=== PATIENT | male | born 1995 | race Caucasian/White ===

== ENCOUNTER 2017-07-03 12:43 | Emergency (ER) | payer MEDICAID, SELFPAY ==
[2017-07-03 12:43] VITALS: BP 113/67; PULSE 98; RESP 16; TEMP 36.9; O2SAT 100; BMI 20.9
--- NOTE | 2017-07-03 13:00 | CT_ITS ---
STUDY: CT ORBITS WITH CONTRAST REASON FOR EXAM: Male, 21 years old. RIGHT EYE ABSCESS. RADIATION DOSAGE (If Supplied By Facility): CTDIvol = ( 29.38 ) mGy, DLP = ( 437.27 ) mGycm TECHNIQUE: The patient was scanned in a multi detector CT scanner. Transaxial imaging was performed following the intravenous administration of 100 ml of Isovue 300 contrast material. Sagittal and coronal images were reconstructed. Individualized dose optimization techniques were used for this CT. COMPARISON: None. FINDINGS: There is marked right periorbital swelling. There is approximately 1.7 x 4.0 cm fluid collection anterior and inferior the right globe (axial image #28 series 2 and sagittal image #58 series 602). There is no retrobulbar infiltration. Additionally there is superficial soft tissue fluid collection which appears to communicate with the skin measuring approximately 1 cm (axial image #19 series 2) Normal globes. Normal intraconal spaces. Normal optic nerve sheath complex. Normal bilateral extraocular muscles. Normal lacrimal glands. Normal bilateral medial and inferior orbital rodriguez. Normal bilateral maxillary bones. Normal bilateral frontozygomatic arches. Normal bilateral zygomatic temporal arches. Normal frontal sinus. Normal ethmoidal sinuses. Normal maxillary sinuses. Normal sphenoid sinuses. CT/Orb Sella Post Fossa Ear W/CON IMPRESSION: 4 cm right periorbital/orbital abscess as described above. Ophthalmology consultation can be obtained. N.B. : The above information has been verbally conveyed by Terrence Seth MD to Dr. Shashank Houser , Referring Physician, on 07/03/2017 14:16:33 (ET). Electronically Signed: Terrence Seth MD at 14:16 EST Tel , Service support , N.B. : The above information has been verbally conveyed by Terrence Seth MD to Dr. Shashank Houser , Referring Physician, on 07/03/2017 14:16:33 (ET).
[2017-07-03 13:28] LABS: Absolute Lymphocyte Count 1.37 X10^3/ul (0.83-4.51); Absolute Neutrophil Count 8.7 X10^3/uL (2.0-7.7); Basophil# 0.03 X10^3/uL; Basophil% 0.3 % (0-1); Eosinophil# 0.08 X10^3/uL; Eosinophils% 0.7 % (0-5); Hemoglobin 14.1 g/dl (13.0-16.5); Lymphocyte # 1.37 X10^3/ul (4.0); Mean Corp Hgb Conc 34.4 g/gl (32-36); Mean Corpuscular Hgb 30.9 pg (27.0-32.0); Mean Corpuscular Volume 89.7 fL (80-94); Mean Platelet Vol. 9.3 fl (6.2-12.0); Monocyte# 1.32 X10^3/uL; Monocyte% 11.5 % (0-10); Neutrophil # 8.65 X10^3/uL (2.7-7.7); Neutrophil % 75.4 % (47-70); POSITIVE COUNT NO; POSITIVE DIFFERENTIAL NO; POSITIVE MORPHOLOGY NO; Platelet Count 228 K/mm3 (150-450); RBC Distribution Width CV 12.5 % (11.6-14.6); RBC Distribution Width SD 40.7 fl (35.1-43.9); Red Blood Count 4.57 M/mm3 (4.6-6.2); White Blood Count 11.5 K/mm3 (4.4-11.0)
[2017-07-03 13:45] LABS: Lactic Acid 0.9 mmol/L (0.4-2.0)
[2017-07-03 13:50] LABS: ALB/GLOB Ratio 1.1 RATIO (0.9-2.4); AST(SGOT) 28 U/L (15-37); Alanine Aminotransfer ALT/SGPT 58 U/L (12-78); Alkaline Phosphatase 73 U/L (45-117); Anion Gap 8 (5-15); BUN 9 mg/dL (7-18); BUN/Creat Ratio 11.1 RATIO (10-20); Calcium,Total 9.1 mg/dL (8.5-10.1); Chloride 104 mmol/L (98-107); Creatinine, Serum 0.81 mg/dL (0.70-1.30); EST Glomerular Filtration Rate 129 mL/min (>60); Est Glom Filt Rate - Afr Amer 156 mL/min (>60); Globulin 3.7 g/dL (2.2-4.2); Glucose 84 mg/dL (70-110); Protein, Total 7.7 g/dL (6.4-8.2); Sodium Level 139 mmol/L (136-145)
--- NOTE | 2017-07-03 16:06 | ED.VISSUMM ---
- ER Visit Summary Date of Service: 07/03/17 Chief Complaint: Facial swelling History of Present Illness: The patient is a 21 M who states that 2 days ago he popped a pimple on his right maxillary sinus region. Now he has diffuse right facial swelling and erythema. His lower eyelid is significantly swollen. He notes pain. No visual changes. No fevers. He notes he has had an abscess on his leg and on his neck before. He has a history of bipolar disorder. Physical Examination: Afebrile vital signs stable Gen: Well-nourished well-developed Head: Normocephalic atraumatic Eyes: Perrl EOMI the right inferior eyelid is grossly edematous. There is erythema extending to the maxillary sinus. Over the maxillary sinus is a draining pustule. That area is rather firm but the eyelid area is fluctuant. Visual acuity noted and unchanged per the patient ENT: TMs clear no rhinorrhea moist mucous membranes Neck: Supple no lymphadenopathy no JVD nontender CVS: Regular rate rhythm no murmurs normal S1-S2 Respiratory: No distress clear to auscultation bilaterally chest nontender Abdomen: Soft nontender nondistended normal bowel sounds no masses Back: Nontender Extremity: Nontender no edema Skin: Normal color no rash Neuro: alert orientated ?3 CN II-XII intact normal strength sensation reflexes gait cerebellar Psych: Normal affect normal mood Test Results: Slightly elevated white blood cell count. CT of the orbits with IV contrast demonstrates a 4 cm right periorbital and orbital abscess. Noted 1 cm abscess that is the original pustule. Clinically this appears to be draining. Radiologist told me on the phone he is concerned about possible elevation of the globe. Emergency Department Course and Treatment: Blood cultures were obtained. He received vancomycin and Zosyn. I spoke initially with Dr. Liu from ophthalmology who will be happy to follow up with the patient in the office tomorrow at 8 AM. He did state that if it needed to be drained they usually send their cases out. In speaking with this patient gave me the distinct impression while not saying that directly that follow-up was not going to happen. Obviously this is something that needs extremely close follow-up and I am not willing to lose him in follow-up. I spoke with [facility] ophthalmology and the patient will be transferred there for ophthalmologic care tonight. Patient understands her plan is comfortable with it. I have kept him n.p.o. though the patient consistently asked staff members if he can eat despite being explained that he cannot. Impression: 1. 4 cm periorbital and orbital abscess This note was generated with [employer] dictation software. It may contain incorrect words, spelling, and punctuation that were not noted in review of the chart prior to signing ED Disposition - Plan for ED Patient: Chief Complaint: Cellulitis Referrals: Hill Mao MD [Primary Care Provider] -
[2017-07-03] MEDS: HYDROcodone Bitartrate/Apap 5/325 Tablet PO (16:29)
[2017-07-03 16:51] VITALS: BP 130/72; PULSE 85; RESP 14; O2SAT 100
== END 2017-07-03 17:55 | disposition short-term general hospital (02) ==
PROVIDERS: Emergency Provider Emergency Medicine; Family Provider Pediatrics; PCP Pediatrics
DX: H05.011 Cellulitis of right orbit (principal); Z72.0 Tobacco use
CPT/HCPCS: 36415; 70481; 80053; 83605; 85025; 87040; 96365; 96366; 99285; A4216

== ENCOUNTER 2020-02-12 10:52 | Day surgery (SDC) | payer MEDICAID, SELFPAY ==
--- NOTE | 2020-02-11 10:06 | PCM.HP.BLA ---
History and Physical Date of Admission: 02/12/20 Clement Almeida a 24 year old male who is follow up regarding what looked like tobacco in my vomit. ? RUQ US and HIDA scan were unremarkable. Component Latest Ref Rng & Units 12/26/2019 H. pylori IgG, Qualitative Negative Negative H pylori Ab, IgG U/mL <0.4 ? Component Latest Ref Rng & Units 12/17/2019 Protein, Total 6.3 - 8.0 g/dL 7.4 Albumin 3.9 - 4.9 g/dL 4.2 Calcium 8.5 - 10.2 mg/dL 9.5 Bilirubin, Total 0.2 - 1.3 mg/dL 0.5 Alkaline Phosphatase 38 - 113 U/L 66 AST 14 - 40 U/L 83 (H) Glucose 74 - 99 mg/dL 86 BUN 9 - 24 mg/dL 4 (L) Creatinine 0.73 - 1.22 mg/dL 0.81 Sodium 136 - 144 mmol/L 137 Potassium 3.7 - 5.1 mmol/L 3.8 Chloride 97 - 105 mmol/L 100 CO2 22 - 30 mmol/L 26 Anion Gap 9 - 18 mmol/L 11 ALT 10 - 54 U/L 115 (H) eGFR- ? >60 eGFR-All Other Races . >60 Amylase 30 - 104 U/L 41 Lipase 16 - 61 U/L 20 ? Component Latest Ref Rng & Units 12/17/2019 WBC 3.70 - 11.00 k/uL 9.67 RBC 4.20 - 6.00 m/uL 4.92 Hemoglobin 13.0 - 17.0 g/dL 14.6 Hematocrit 39.0 - 51.0 % 43.5 MCV 80.0 - 100.0 fL 88.4 MCH 26.0 - 34.0 pG 29.7 MCHC 30.5 - 36.0 g/dL 33.6 RDW-CV 11.5 - 15.0 % 12.8 Platelet Count 150 - 400 k/uL 204 MPV 9.0 - 12.7 fL 11.3 Neut% % 67.3 Abs Neut (ANC) 1.45 - 7.50 k/uL 6.50 Lymph% % 18.8 Abs Lymph 1.00 - 4.00 k/uL 1.82 Rock% % 10.2 Abs Rock <0.87 k/uL 0.99 (H) Eosin% % 3.2 Abs Eosin <0.46 k/uL 0.31 Baso% % 0.5 Abs Baso <0.11 k/uL 0.05 Nucleated Reds 0 /100 WBC 0.0 Absolute nRBC <0.01 k/uL <0.01 Diff Type ? Auto Diff ? ? The patient called in on 01/02 reporting : Patient reports he feels fine today. ?The pantoprazole is helping. ?He started taking lamictal from the counseling center. ?Is also taking zofran and probiotic. ?Reports a couple days ago he vomited once, had not eaten that day- he took a picture of it, and states the vomit was scattered black, like tobacco. ? ? ? Presenting complaint: The patient reports that he vomited and there was a few black specks.Tells me it didn't look like the picture on [employer], so there must not have been much blood. The day it happened he had taken all of his medications without eating. If he doesn't eat with them he will get sick. ? States it's like my stomach is bipolar. I'll just keep throwing it up and throwing up for days. Then, I might be ok for a few days, as long as I only eat just a little bit at a time. He thinks the pantoprazole is helping. Reports that he is also taking probiotics. ? Reports that he seems to do well as long as he eats and takes Zofran. States I'd really like to know why I keep doing this. We discussed EGD and he agrees that he would like to proceed, however it would need to be in [place] since his mother only drives in town. ? Reporting a decreased appetite and early satiety. No heartburn or indigestion. ? Usually eats about 4am and heads to bed about 8am. Sleeps on a regular pillow top mattress with the head of the bed flat. ? Having a bowel movement once or twice daily. No blood or black stool. ? REVIEW OF SYSTEMS: GENERAL: No weight loss, malaise or fevers RESPIRATORY: Negative for cough, hemoptysis, wheezing, COPD, dyspnea or shortness of breath CARDIOVASCULAR: Negative for chest pain, leg swelling, hypertension, CHF or palpitations GI: The patient states that his appetite has been adequate. He sometimes get hungry. There has been nausea, some vomiting. He denies dysphagia and denies odynophagia. There has been indigestion and heartburn until starting the pantoprazole. There has partially been regurgitation. Bowel habits have been regular. There has not been diarrhea. There has not been constipation. The patient denies rectal bleeding. There has not been melena. Notes abdominal pain gas pain. MUSCULOSKELETAL: Negative for joint pain or swelling, back pain or muscle pain PSYCH: Positive for depression: PTSD and bipolar. HEMATOLOGY/LYMPHOLOGY Negative for prolonged bleeding, bruising easily or swollen nodes ENDOCRINE: Negative for cold or heat intolerance, polyuria, polydipsia and goiter NEURO: No history of headaches, syncope, paralysis, seizures or tremors All other reviewed and negative other than HPI. ? PAST MEDICAL HISTORY ? Anxiety 07/05/2012 ? Asperger syndrome 07/05/2012 ? Attention deficit disorder with hyperactivity(314.01) ? ? Eczema 12/08/2012 ? History of bipolar disorder 08/05/2015 ? History of depression 08/05/2015 ? History of posttraumatic stress disorder (PTSD) 08/05/2015 ? Mood disorder (HCC) 12/08/2012 ? ODD (oppositional defiant disorder) 07/05/2012 ? PMH - PAST MEDICAL HISTORY OF 10/11/03 ? normal color vision ? ? PAST SURGICAL HISTORY ? CIRCUMCISION,CLAMP, ? ?? FAMILY HISTORY ? other (heart disease) Other ? ? maternal and paternal side ? Cancer Other ? ? maternal and paternal side ? other (lupus) Other ? ? great aunt,second cousin and great grandmother ? ? CURRENT MEDICATIONS ? pantoprazole DR (PROTONIX) 40 mg tablet Take 1 tablet by mouth daily before breakfast. Take on empty stomach, 1/2 hr before meal. 30 tablet 1 ? tretinoin (RETIN-A) 0.025 % gel Apply to affected area daily at bedtime. 45 g 0 ? clindamycin-benzoyl peroxide 1-5 % glwp Apply to affected area once daily. Apply in the morning 50 g 0 ? ondansetron orally disintegrating (ZOFRAN ODT) 4 mg disintegrating tablet Take 1 tablet by mouth every 8 hours as needed for Nausea/Vomiting. 15 tablet 0 ? naproxen (NAPROSYN) 500 mg tablet Take 1 tablet by mouth twice daily as needed for Pain (pain/inflammation, take with food.). 30 tablet 0 ? OLANZapine (ZYPREXA) 5 mg tablet Take 5 mg by mouth daily at bedtime. ? ? ? prazosin (MINIPRESS) 1 mg cap Take 1 mg by mouth daily at bedtime. ? ? ? albuterol HFA (PROVENTIL HFA, VENTOLIN HFA) 90 mcg/actuation inhaler Inhale 2 Puffs as instructed every 6 hours as needed for Wheezing/Shortness of Breath. 1 Inhaler 2 ? flunisolide (AEROSPAN) 80 mcg/actuation HFAA Inhale 2 Puffs as instructed twice daily. 1 Inhaler 5 ?? ? SOCIAL HISTORY: Patient is single. He smokes 1.5 ppd and smokes cannabis occasionally. He reports his alcohol use as very rarely. ? ? PHYSICAL EXAMINATION: Blood pressure 110/74, pulse 88, height 181.6 cm (5' 11.5), weight 78 kg (172 lb). General Appearance: Well appearing, alert, in no acute distress, well-hydrated, well nourished. Skin: Skin color, texture, turgor normal, no suspicious rashes or lesions. Head: Normocephalic, no abnormalities. Eyes: Anicteric sclera. Neck: Supple, no adenopathy; thyroid symmetric, normal size, no bruits. Lungs: Lungs clear to auscultation. No wheezing, rhonchi, rales. Heart: RRR without murmur. Abdomen: Abdomen soft, non-tender. Bowel sounds normal. No masses, organomegaly. Extremities: No deformities, edema, skin discoloration, clubbing or cyanosis. Peripheral Pulses: Normal. Neurologic: Gait normal. Sensation grossly intact. ? ? Impression: nausea and vomiting 2)mental disorder ? Plan: The patient is scheduled for upper endoscopy. Preparation for the procedure and the procedure itself have been explained in detail. The risks, benefits, anticipated outcomes and possible complications were mentioned. I also explained the procedure in understandable terms and the patient will be mailed printed material concerning the planned procedure. The patient had the opportunity to ask questions concerning the planned procedure. The patient was offered a surgery/procedure . I have counseled the patient regarding the risk of exposure to and/or potential harm posed by the COVID-19 virus with having a surgery/procedure at this time versus the risk of? delaying the surgery/procedure. It is not possible to know either the risk of delaying the surgery or procedure or chance of getting an infection with perfect accuracy, but a joint decision was made between the patient and myself?to proceed at this time with the surgery/procedure. The patient freely consents to the planned procedure. ? The patient will require MAC and his transportation (mother) will only drive in town. ? The patient is asked to call with any questions or concerns, or if there is a change in health status between now and the scheduled procedure. ? Lucille Yanes RN AIR SEALING TECHNICIAN.SIGNAL INTELLIGENCE/ELECTRONIC WARFARE
[2020-02-12] VITALS (7 sets, daily range): BP systolic 99–133; BP diastolic 57–86; PULSE 74–85; RESP 16; TEMP 36.1–36.4; O2SAT 93–98; BMI 23.8
[2020-02-12] MEDS: Lactated Ringers 1,000 ML 75 ML IV (11:32)
--- NOTE | 2020-02-12 12:00 | IMM_PTH ---
PATIENT: KUMAR HARRISON LOC: EN U#:[id number] AGE/SX: 24/M ROOM: RE02/12/[address]: Dr. Romelia Funes MD : 1995 BED: DIS: 02/12/2020 SPEC #: [id number] RECD: 02/13/20 13:27 STATUS: JOSEPH REQ #: [id number] SATHYA: 02/12/20 12:[address]: Romelia Funes DEPT: IMMUNOHISTOCHEMISTRY RECD BY: Marimar Hood ENTERED: 02/13/20 13:28 SP TYPE: IMMUNO OTHR DR: Shashank Kuhn, BAKING POWDER MIXER-C Tissues: B - Stomach, NOS Procedures: H Pylori (initial) PHYSICIAN & INSTITUTION [place] [id number] SPECIMEN INFORMATION: Tissue Source: B - Antrum biopsy Clinical Info: Nausea, vomiting Specimen Number: [id number] CPT code: 07083 METHODOLOGY: Deparaffinized sections of prefer/formalin-fixed tissue or PAP/DQ stained slides are incubated with monoclonal/polyclonal antibodies/oligonucleotide probes. Localization is made via biotin free immunoperoxidase method. Appropriate controls are performed and reacted as expected. Results on target cell population are indicated in the following table: RESULTS: ANTIBODY / CLONE RESULT Block B H Pylori (polyclonal) negative These tests were developed and their performance characteristics determined by [facility]. They may not have been cleared or approved by the U.S. Food and Drug Administration. The FDA has determined that such clearance or approval is not necessary. INTERPRETATION: B. Antrum biopsy: Negative for Helicobacter pylori organisms. SJ:franchesca 02/14/20
--- NOTE | 2020-02-12 12:00 | EGD_PTH ---
PATIENT: KUMAR HARRISON LOC: EN U#:[id number] AGE/SX: 24/M ROOM: RE02/12/[address]: Dr. Romelia Funes MD : 1995 BED: DIS: 02/12/2020 SPEC #: [id number] RECD: 02/12/20 14:43 STATUS: JOSEPH LIAM #: [id number] SATHYA: 02/12/20 12:[address]: Romelia Funes DEPT: SURGICAL PATHOLOGY RECD BY: Theresa Veliz ENTERED: 02/13/20 13:26 SP TYPE: EGD BIOPSY OTHR DR: Shashank Kuhn, BARREL ASSEMBLY INSPECTOR-C Tissues: A - Duodenum, NOS B - Gastric mucous membrane C - Gastric mucous membrane D - Esophagus, NOS Procedures: Special Stain Group II Surgery Specimen Level IV Alcian Blue/PAS (control) HEADER OPERATION: EGD ([facility] [place]) PRE-OP DIAGNOSIS: Nausea, vomiting TISSUE SUBMITTED: A - Second portion duodenum biopsy, B - Antrum biopsy for histo and H. pylori, C - GE junction biopsy, D - Mid esophagus biopsy MICROSCOPIC DIAGNOSIS A. Second portion of duodenum, biopsy: Fragments of small intestine mucosa, no pathologic diagnosis. B. Antrum biopsy: Mild gastritis. See microscopic description and comment. C. GE junction, biopsy: Fragments of gastroesophageal mucosa with mild chronic inflammation. Intestinal metaplasia (goblet cell metaplasia) is not identified. See comment. D. Mid esophagus, biopsy: A fragment of squamous epithelium, no pathologic diagnosis. SJ:franchesca 02/14/20 COMMENT B. The results of immunohistochemistry for Helicobacter pylori will be reported separately ([id number]). C. The specimen predominantly consists of squamous epithelium. Alcian blue/PAS stain with matched control is used in the evaluation of the specimen. MICROSCOPIC DESCRIPTION Slides are reviewed. B. The specimen shows fragments of gastric mucosa with chronic inflammatory cell infiltrates in the lamina propria consisting of lymphocytes and plasma cells, consistent with mild chronic gastritis. GROSS DESCRIPTION A - Received in fixative is one container labeled with the patient's name and designated second portion duodenum. The specimen consists of multiple irregular fragments of light nayak soft tissue that in aggregate measure 0.3 x 0.2 x 0.1 cm. The specimen is totally submitted in one cassette. B - Received in fixative is one container labeled with the patient's name and designated antrum biopsy. The specimen consists of multiple irregular fragments of light nayak soft tissue that in aggregate measure 0.3 x 0.2 x 0.1 cm. The specimen is totally submitted in one cassette. C - Received in fixative is one container labeled with the patient's name and designated GE junction. The specimen consists of multiple irregular fragments of light nayak soft tissue that in aggregate measure 0.5 x 0.3 x 0.1 cm. The specimen is totally submitted in one cassette. D - Received in fixative is one container labeled with the patient's name and designated mid esophagus biopsy. The specimen consists of one irregular fragment of light nayak soft tissue that measures 0.2 x 0.2 x 0.1 cm. The specimen is totally submitted in one cassette. / AM:franchesca 02/13/20 TC:5 CPT: 70001 x4, 02460
--- NOTE | 2020-02-12 12:13 | OP.EGD_ITS ---
Patient Name: Clement Almeida Procedure Date: 02/12/2020 11:35 AM Date of : 1995 Age: 24 Procedure: Upper GI endoscopy Indications: Epigastric abdominal pain, Nausea with vomiting Providers: Romelia Funes MD Referring MD: Hill Mao Medicines: See the Anesthesia note for documentation of the administered medications Patient Profile: Refer to note in patient chart for documentation of history and physical. Complications: No immediate complications. Procedure: Pre-Anesthesia Assessment: - see anesthesia note After obtaining informed consent, the endoscope was passed under direct vision. Throughout the procedure, the patient's blood pressure, pulse, and oxygen saturations were monitored continuously. The gastroscope was introduced through the mouth, and advanced to the second part of duodenum. The upper GI endoscopy was accomplished without difficulty. The patient tolerated the procedure well. Scope In: 11:59:31 AM Scope Out: 12:07:12 PM Total Procedure Duration Time 0 hours 7 minutes 41 seconds Findings: The duodenal bulb, first portion of the duodenum and second portion of the duodenum were normal. Biopsies were taken with a cold forceps for histology. Estimated blood loss was minimal. A small - moderate sized hiatal hernia was present with sliding component. The stomach was otherwise entirely normal. Because of the patient complaint biopsies were taken with a cold forceps for histology of the antrum of the stomach. Verification of patient identification for the specimen was done by the nurse. Estimated blood loss was minimal. There was also enterogastric reflux of bile noted. The Z-line was minimally irregular. The patient also had a small sliding hiatal hernia. Biopsies were taken with a cold forceps for histology at the GE junction. Verification of patient identification for the specimen was done. Estimated blood loss was minimal. also because of the patient's complaints biopsies were taken of the mid portion of the esophagus. Impression: - Normal duodenal bulb, first portion of the duodenum and second portion of the duodenum. Biopsied. - Small hiatal hernia. . - Z-line irregular. Biopsied. mid esophagus biopsied Recommendation: - Discharge patient to home (ambulatory). - Resume previous diet. - Continue present medications. - Await pathology results. - Please make a follow up appointment with Lucille Yanes CNP for discussion of pathology results in 1-2 weeks Procedure Code(s): --- Professional --- 46044, Esophagogastroduodenoscopy, flexible, transoral; with biopsy, single or multiple Diagnosis Code(s): --- Professional --- K44.9, Diaphragmatic hernia without obstruction or gangrene K22.8, Other specified diseases of esophagus R10.13, Epigastric pain R11.2, Nausea with vomiting, unspecified CPT copyright 2017 [employer]. All rights reserved. The codes documented in this report are preliminary and upon human resource analyst review may be revised to meet current compliance requirements. MD Romelia Bell MD 02/12/2020 12:13:30 PM This report has been signed electronically. Number of Addenda: 0 Note Initiated On: 02/12/2020 11:35 AM
--- NOTE | 2020-02-12 12:14 | OP.CCLET_ITS ---
02/12/2020 Hill Mao [address] [place] [address] Re : Upper GI endoscopy procedure for Clement Almeida Dear Dr. Mao This procedure was performed on Wednesday, February 12, 2020. My impressions and recommendations are as follows: Impressions : - Normal duodenal bulb, first portion of the duodenum and second portion of the duodenum. Biopsied. - Small hiatal hernia. . - Z-line irregular. Biopsied. mid esophagus biopsied Recommendations : - Discharge patient to home (ambulatory). - Resume previous diet. - Continue present medications. - Await pathology results. - Please make a follow up appointment with Lucille Yanes CNP for discussion of pathology results in 1-2 weeks My findings are described in the full procedure note, which is enclosed. If I can be of further assistance, please feel free to contact me at Doctor phone number(s): , Work: . Sincerely, MD Romelia Bell MD 02/12/2020 12:13:30 PM This report has been signed electronically.
== END 2020-02-12 12:58 | disposition home or self-care (01) ==
LOC: EN 10:56 → AC 10:56
PROVIDERS: Anesthesiology; PCP Nurse Practitioner Family; Referring Provider Nurse Practitioner Family; Visit Provider Surgery
PROC: 0DJ08ZZ Inspection of Upper Intestinal Tract, Via Natural or Artificial Opening Endoscopic (ICD-10-PCS; CPT 43235; principal; 2020-02-12 11:55)
DX: K29.70 Gastritis, unspecified, without bleeding (principal); K44.9 Diaphragmatic hernia without obstruction or gangrene; K22.8 Other specified diseases of esophagus; R10.13 Epigastric pain; R11.2 Nausea with vomiting, unspecified; F90.9 Attention-deficit hyperactivity disorder, unspecified type; F31.9 Bipolar disorder, unspecified; F41.9 Anxiety disorder, unspecified; F20.9 Schizophrenia, unspecified; F91.3 Oppositional defiant disorder; F43.10 Post-traumatic stress disorder, unspecified; F84.5 Asperger's syndrome; Z79.899 Other long term (current) drug therapy; Z87.891 Personal history of nicotine dependence; Z11.59 Encounter for screening for other viral diseases
CPT/HCPCS: 43239; 87635; 88305; 88313; 88342; C9803; J7050; J7120; J2405; U0003

== ENCOUNTER 2020-02-18 22:07 | Emergency (ER) | payer MEDICAID, SELFPAY ==
[2020-02-12 11:09] VITALS: BMI 23.8
[2020-02-18 22:09] VITALS: BP 162/103; PULSE 66; RESP 17; TEMP 37.2; O2SAT 96; BMI 24.3
[2020-02-18 22:12] VITALS: BP 162/103; PULSE 66; RESP 17; TEMP 37.2; O2SAT 96
--- NOTE | 2020-02-18 22:23 | EKG12_ITS ---
Test Reason : CP Blood Pressure : / mmHG Vent. Rate : 077 BPM Atrial Rate : 077 BPM P-R Int : 108 ms QRS Dur : 094 ms QT Int : 358 ms P-R-T Axes : 059 059 056 degrees QTc Int : 405 ms Sinus rhythm with sinus arrhythmia with short NE Otherwise normal ECG Confirmed by AKUA ÁLVAREZ, JACLYN ([id number]), editor book JADE KEARNEY ([id number]) on 02/20/2020 11:10:45 AM Referred By: JUAN Confirmed By:JACLYN FATIMA MD
--- NOTE | 2020-02-18 22:24 | ED.VIS.GEN ---
History of Present Illness Chief Complaint: Chest Pain Informant: Patient Onset: Today Context: Gradual Onset Timing: Waxes and wanes Current Severity: Mild Maximum Severity: Moderate Narrative: Patient presents secondary to chest pain. He states pain started about 6 or 7 hours ago. He described initially as a cold sensation that traveled from the left side of his chest to the right and then down into his abdomen and legs. He describes sometimes having sharp stabbing pain in the left lower ribs. He other times has a squeezing pressure in the center of his chest. He will also occasionally get sharp pain around the left scapula. He denies shortness of breath. He initially called EMS to his house but declined transport when his vital signs were normal. After sitting at home for an additional 3 hours and not having any resolution in his symptoms he called EMS again for transport. Patient does admit to a history of drug addiction. He states he has been sober for 3 years and did relapse using methamphetamine 1 time approximately 36 hours ago. - Past Medical History (1) Bipolar disorder Status: Chronic (2) Autism Status: Chronic Past Medical History - Allergies and Home Meds Allergies/Adverse Reactions: Allergies haloperidol [From Haldol] Adverse Reaction (Verified 01/30/20 10:12) HALLUCINATIONS psych problems [place] Allergy (Uncoded 01/30/20 10:12) Hives Primary Care Physician: Shashank Kuhn NP, RESEARCH TEST ENGINE OPERATOR-C [Primary Care Provider] - Prior records reviewed: Yes Smoking Status: Current every day smoker Review of Systems General: Denies: Chills, Fever Eyes: Denies: Visual changes - bilaterally ENT: Denies: Bilateral ear pain Cardiovascular: Reports: Chest pain Respiratory: Denies: Dyspnea, Cough Gastrointestinal: Denies: Abdominal pain, Nausea, Vomiting, Diarrhea Genitourinary: Denies: Dysuria Musculoskeletal: Denies: Swelling, Extremity Pain Skin: Denies: Rash Neurological: Denies: Headache Hematologic: Denies: Easy bruising, Easy bleeding Allergy: Denies: Uticaria Physical Exam Vital Signs/Narrative: Vital Signs Temp Pulse Resp BP Pulse Ox 02/18/20 22:12 99.0 F 66 17 162/103 H 96 02/18/20 22:09 99.0 F 66 17 162/103 H 96 Inital Vital Signs reviewed: Yes General: Well nourished, Well developed Head: Normocephalic ENT: Moist mucous membranes Neck: Supple Cardiovascular: Regular rate, Regular rhythm Respiratory: No distress, CTA bilaterally, Chest tenderness - Chest wall tenderness to the left anterior lower ribs. Extremities: Nontender Skin: Normal color Neurological: Alert, Oriented x3 Psychological: Normal affect Diagnostic/Tx/Re-eval Impressions Chest X-Ray 02/18/20 22:43 IMPRESSION: No acute cardiopulmonary abnormality. at 2258 Reported and signed by: Meri Huertas MD Electronically Signed: Meri Huertas MD at 22:57 EDT Tel , Service support , 02/18/20 22:43 Chest 1 View (Portable) [RAD] Stat Laboratory Results 02/18/20 02/18/20 02/18/20 22:30 22:30 22:30 WBC 10.7 RBC 4.98 Hgb 15.2 Hct 45.3 MCV 91.0 MCH 30.5 MCHC 33.6 RDW Std Deviation 41.8 RDW Coeff of Sis 12.7 Plt Count 248 MPV 9.7 Immature Gran % (Auto) 0.400 Neut % (Auto) 69.4 Lymph % (Auto) 16.5 L [place] % (Auto) 11.5 H Eos % (Auto) 1.9 Baso % (Auto) 0.3 Absolute Neuts (auto) 7.4 Absolute Lymphs (auto) 1.76 Nucleated RBC % 0 D-Dimer Quant (PE/DVT) 0.28 Sodium 139 Potassium 3.4 L Chloride 107 Carbon Dioxide 28.0 Anion Gap 4 L BUN 5 L Creatinine 0.73 Estim Creat Clear Calc 169.05 Est GFR (MDRD) Af Amer 171 Est GFR (MDRD) Non-Af 142 BUN/Creatinine Ratio 6.8 L Glucose 89 Calcium 9.5 Troponin I < 0.015 - EKG Initial EKG Interpretation: Sinus Rhythm - Sinus at 77 with no acute ischemia. - Medical Decision Making Patient did take aspirin at home prior to arrival. Work-up here is unremarkable. He was given a dose of Toradol to help with chest wall pain. This time I see no acute cause of his symptoms. He will be treated with a burst of steroids to help with chest wall pain. ED Disposition - Plan for ED Patient: Disposition: Home or Assisted Living Diagnosis: Chest wall pain Instructions: ED Strain Chest Wall Prescriptions: Prednisone [Deltasone] 40 mg PO DAILY #10 tab Transmission Status: Pending to [id number] Referrals: Shashank Kuhn RESEARCH TEST ENGINE OPERATOR, RESEARCH TEST ENGINE OPERATOR-C [Primary Care Provider] - 3-5 Days if not improving
[2020-02-18] MEDS: Ketorolac 30 MG/ML Syringe IV (22:36)
[2020-02-18 22:41] LABS: Absolute Lymphocyte Count 1.76 X10^3/uL (0.83-4.51); Absolute Neutrophil Count 7.4 X10^3/uL (2.0-7.7); Basophil# 0.03 X10^3/uL; Basophil% 0.3 % (0-1); Eosinophils% 1.9 % (0-5); Hematocrit 45.3 % (40-54); Hemoglobin 15.2 g/dL (13.0-16.5); Lymphocyte # 1.76 X10^3/ul (4.0); Lymphocyte % 16.5 % (19-41); Mean Corp Hgb Conc 33.6 g/dL (32-36); Mean Corpuscular Hgb 30.5 pg (27.0-32.0); Mean Platelet Vol. 9.7 fl (6.2-12.0); Monocyte# 1.22 X10^3/uL; Monocyte% 11.5 % (0-10); NRBC Flagged by Analyzer 0 % (0-5); Neutrophil % 69.4 % (47-70); Platelet Count 248 K/mm3 (150-450); RBC Distribution Width CV 12.7 % (11.6-14.6); RBC Distribution Width SD 41.8 fl (35.1-43.9); Red Blood Count 4.98 M/mm3 (4.6-6.2); White Blood Count 10.7 K/mm3 (4.4-11.0)
--- NOTE | 2020-02-18 22:43 | RAD_ITS ---
HISTORY: Mid to left sided chest pain. ADDITIONAL HISTORY: None provided. EXAMINATION/TECHNIQUE: XR Chest 1 View AP/PA Number of images including paperwork: 1 COMPARISON: 01/16/2017 FINDINGS: LUNGS AND PLEURA: No consolidation, mass or pleural effusion. CARDIAC SILHOUETTE: Unremarkable. MEDIASTINUM AND KIMBERLY: Unremarkable. UPPER ABDOMEN: Unremarkable. SKELETON AND SOFT TISSUES: No acute skeletal findings. OTHER DEVICES AND HARDWARE: None. RAD/Chest 1 View (Portable) IMPRESSION: No acute cardiopulmonary abnormality. at 2258 Reported and signed by: Meri Huertas MD Electronically Signed: Meri Huertas MD at 22:57 EDT Tel , Service support ,
[2020-02-18 22:58] LABS: D-Dimer Quantitative (DVT/PE) 0.28 FEU/ug/m (0.27-0.49)
[2020-02-18 22:59] LABS: Anion Gap 4 (5-15); BUN 5 mg/dL (7-18); BUN/Creat Ratio 6.8 RATIO (10-20); Calcium,Total 9.5 mg/dL (8.5-10.1); Chloride 107 mmol/L (98-107); Creatinine, Serum 0.73 mg/dL (0.70-1.30); EST Glomerular Filtration Rate 142 mL/min (>60); Est Glom Filt Rate - Afr Amer 171 mL/min (>60); Estimated Creatinine Clearance 169.05 ml/min; Glucose 89 mg/dL (74-106); Potassium 3.4 mmol/L (3.5-5.1); Sodium Level 139 mmol/L (136-145)
[2020-02-18] MEDS: predniSONE 20 MG Tablet 40 MG PO (23:43)
[2020-02-18 23:44] VITALS: BP 128/84; PULSE 94; RESP 18; O2SAT 99
== END 2020-02-18 23:47 | disposition home or self-care (01) ==
PROVIDERS: Emergency Provider Emergency Medicine; PCP Nurse Practitioner Family
DX: R07.89 Other chest pain (principal); F31.9 Bipolar disorder, unspecified; F84.0 Autistic disorder; F17.200 Nicotine dependence, unspecified, uncomplicated
CPT/HCPCS: 71045; 80048; 84484; 85025; 85379; 93005; 96374; 99285; A4216

== ENCOUNTER 2020-06-21 09:08 | Emergency (ER) | payer MEDICAID, SELFPAY ==
[2020-06-21 09:08] VITALS: BP 123/87; PULSE 94; RESP 16; TEMP 37; O2SAT 98; BMI 27.1
[2020-06-21 09:16] VITALS: BP 123/87; PULSE 94; RESP 16; TEMP 37; O2SAT 98
[2020-06-21] MEDS: Lidocaine 1% (20 ml mdv) 20 ML Vial INFILT (09:58)
[2020-06-21] MEDS: Cephalexin 500 MG Capsule PO (09:58)
--- NOTE | 2020-06-21 10:09 | ED.VISSUMM ---
- ER Visit Summary Date of Service: 06/21/20 Chief Complaint: Facial abscess History of Present Illness: The patient is a 24 M who presents with a facial abscess that is been getting worse over the past week. Patient states the abscess is above his right eye. Patient states the swelling became worse today and began to interfere with his vision. Patient denies any discharge or drainage. Patient denies any fevers or chills. Patient states nothing has been making the pain or swelling better or worse. Patient has not seen his primary care physician for this. Physical Examination: Vital signs are stable. Patient is afebrile. Patient is in no acute distress. Skin is warm dry. There is a tender fluctuant area in the right supraorbital area. There is no active discharge or drainage. There is some mild erythema. Pupils are equal, round, and reactive to light bilaterally. Extraocular muscles are intact. Oral mucosa is pink and moist. Heart was regular rate and rhythm. Lungs are clear and equal bilaterally. Abdomen is soft and nontender. Cranial nerves II through XII are intact. There are no focal motor or sensory deficits. Emergency Department Course and Treatment: The area was cleaned with chlorhexidine prep. The area was anesthetized with 1% plain lidocaine locally. A small cruciate incision was made using an 11 blade scalpel. A small amount of purulent drainage was expressed. The wound was left open. Bacitracin dressing was applied. Patient tolerated the procedure well. Patient was instructed to use warm compresses. Patient was given a dose of Keflex here. Patient was given a prescription for Keflex. Patient was instructed to follow-up with her primary care physician in 5 to 7 days. Patient understood and was agreeable with the plan. All questions were answered. Disposition: Discharge home Impression: Facial abscess This note was generated with [employer] dictation software. It may contain incorrect words, spelling, and punctuation that were not noted in review of the chart prior to signing ED Disposition - Plan for ED Patient: Disposition: Home or Assisted Living Diagnosis: Facial abscess Instructions: ED Abscess Incision And Drainage Prescriptions: Cephalexin [Keflex] 500 mg PO Q6 #40 cap Transmission Status: Pending to [id number] Referrals: Shashank Kuhn NP, PIANO PLAYER-C [Primary Care Provider] - 3-5 Days
[2020-06-21 11:44] VITALS: BP 123/87; PULSE 94; RESP 16; TEMP 37; O2SAT 98
== END 2020-06-21 11:46 | disposition home or self-care (01) ==
PROVIDERS: Emergency Provider Emergency Medicine; PCP Nurse Practitioner Family
DX: L02.01 Cutaneous abscess of face (principal); Z72.0 Tobacco use
CPT/HCPCS: 10060; 99283; J7040

== ENCOUNTER 2020-10-25 23:55 | Emergency (ER) | payer MEDICAID, SELFPAY ==
[2020-10-25 23:56] VITALS: BP 134/87; PULSE 98; RESP 18; TEMP 36.6; O2SAT 98; BMI 27.8
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
[2020-10-26 00:29] LABS: Absolute Lymphocyte Count 1.97 X10^3/uL (0.83-4.51); Absolute Neutrophil Count 11.5 X10^3/uL (2.0-7.7); Basophil# 0.04 X10^3/uL; Basophil% 0.3 % (0-1); Eosinophil# 0.16 X10^3/uL; Eosinophils% 1.1 % (0-5); Hematocrit 45.9 % (40-54); Hemoglobin 15.6 g/dL (13.0-16.5); Lymphocyte # 1.97 X10^3/ul (0.83-4.51); Lymphocyte % 13.2 % (19-41); Mean Corpuscular Hgb 29.8 pg (27.0-32.0); Mean Corpuscular Volume 87.6 fL (80-94); Mean Platelet Vol. 9.7 fl (6.2-12.0); Monocyte# 1.13 X10^3/uL; Monocyte% 7.6 % (0-10); NRBC Flagged by Analyzer 0 % (0-5); Neutrophil # 11.53 X10^3/uL (2.7-7.7); Neutrophil % 77.3 % (47-70); Platelet Count 348 K/mm3 (150-450); RBC Distribution Width CV 11.8 % (11.6-14.6); RBC Distribution Width SD 37.9 fl (35.1-43.9); Red Blood Count 5.24 M/mm3 (4.6-6.2); White Blood Count 14.9 K/mm3 (4.4-11.0)
[2020-10-26 00:32] LABS: Amphetamine Urine VISTA NEGATIVE (<1000 ng/mL); Barbiturate Urine VISTA NEGATIVE (< 200 ng/mL); Benzodiazepine Urine VISTA NEGATIVE (< 200 ng/mL); Cocaine Urine VISTA NEGATIVE (< 300 ng/mL); Ecstacy Urine VISTA NEGATIVE (< 500 ng/mL); Methadone Urine VISTA NEGATIVE (< 300 ng/mL); PCP Urine VISTA NEGATIVE (< 25 ng/mL); THC Urine VISTA NEGATIVE (< 50 ng/mL); Vista UDS pH Range 7
[2020-10-26 00:35] LABS: Mucous, Urine 0 SEEN /hpf (<or=2+); Red Blood Cells-Urine 0 SEEN /hpf (0-5); Squamous Epithelial Cells - UA 0 SEEN /hpf (0-5); White Blood Cells 0 SEEN /hpf (0-5)
[2020-10-26 00:37] LABS: Color, Urine Yellow (Yellow); Glucose, Dipstick Normal (Normal); Ketone-Dipstick 5 mg/dl (Negative); Leukocyte Esterase-Dipstick Negative /ul (Negative); Nitrite-Dipstick Negative (Negative); Occult Blood-Urine Negative /ul (Negative); Protein-Dipstick 15 mg/dl (Negative); Urine Bilirubin Dipstick Negative (Negative); Urine Clarity Cloudy (Clear); Urine Urobilinogen 1 mg/dl (Normal)
[2020-10-26 00:43] LABS: Amorphous Sediment 1+; Bacteria 1+ /hpf (None Seen)
[2020-10-26 00:45] LABS: Anion Gap 8 (5-15); BUN 9 mg/dL (7-18); BUN/Creat Ratio 9.9 RATIO (10-20); Calcium,Total 9.8 mg/dL (8.5-10.1); Chloride 106 mmol/L (98-107); Creatinine, Serum 0.91 mg/dL (0.70-1.30); EST Glomerular Filtration Rate 110 mL/min (>60); Est Glom Filt Rate - Afr Amer 133 mL/min (>60); Estimated Creatinine Clearance 134.46 ml/min; Glucose 111 mg/dL (74-106); Potassium 3.3 mmol/L (3.5-5.1); Sodium Level 139 mmol/L (136-145)
[2020-10-26 01:03] LABS: Alcohol, Blood (Medical)-Serum < 3.0 mg/dL
--- NOTE | 2020-10-26 01:18 | ED.RN ---
[facility] WAS CALLED FOR EVALUATION
[2020-10-26 02:00] VITALS: RESP 16
[2020-10-26] MEDS: Ziprasidone IM 20 MG/ML VIAL IM (03:05)
--- NOTE | 2020-10-26 03:06 | ED.RN ---
PT UPSET THAT HE IS GETTING TRANSFERRED, REQUESTED TO SPEAK TO [facility] AGAIN. CALLED [facility] FOR PT. PT CONTINUES TO THREATEN TO LEAVE, CLAIMING HE IS NO LONGER SUICIDAL AND DOES NOT WANT TO HURT ANYONE. AND 'S DEPUTY MADE AWARE, PT MEDICATED WITH [facility]. EDUCATED PT ON MEDICATION AND PURPOSE. ALBERTO CALLS ER TO INFORM OF THAT PT IS REFERRED TO [facility].
[2020-10-26 03:23] VITALS: RESP 22
--- NOTE | 2020-10-26 04:08 | ED.RN ---
ACCEPTED TO [facility] IN [place]. THEY SAID HE COULD COME AFTER 744, CALLED AND SET UP A RIDE FOR 729 FOR HIM.
[2020-10-26 04:21] VITALS: BP 115/78; PULSE 80; RESP 16; O2SAT 100
[2020-10-26 05:23] VITALS: RESP 16
[2020-10-26 06:52] VITALS: BP 115/78; PULSE 80; RESP 14; RESP 16; TEMP 36.6; O2SAT 100
--- NOTE | 2020-10-26 07:16 | NURSING ---
PER [facility] ETA IS NOW 0830. HAD TO SEND THE [address]700 [address] OUT ON A TRAMA.
--- NOTE | 2020-10-26 08:38 | NURSING ---
CALLED TO VERIFY TRANSPORTATION WOULD STILL BE HERE. PER FREDDY WITH [facility] N[facility]W JUST GOT BACK WITH THE TRUCK. NEXT CREW AND LOOKING OVER EVERYTHING AND THEN WILL BE OVER. GIVE THEM 20
--- NOTE | 2020-10-26 09:09 | NURSING ---
SPOKE WITH MARLEEN AT [facility] TO FIND OUT WHERE TRANSPORT IS THEYRE IN ROUTE, GIVE THEM 10
== END 2020-10-26 09:25 ==
LOC: ED 10-26 01:25
PROVIDERS: Emergency Provider Student in an Organized Health Care Education/Training Program; PCP Nurse Practitioner Family
DX: R45.851 Suicidal ideations (principal); R45.850 Homicidal ideations; F31.9 Bipolar disorder, unspecified; F84.0 Autistic disorder; F17.200 Nicotine dependence, unspecified, uncomplicated; Z63.4 Disappearance and death of family member
CPT/HCPCS: 80048; 80307; 81001; 82077; 85025; 87426; 96372; 99285; J3486

== ENCOUNTER 2021-12-29 09:09 | Emergency (ER) | payer MEDICAID, SELFPAY ==
[2021-12-29 09:10] VITALS: BP 123/88; PULSE 86; RESP 18; TEMP 36.6; O2SAT 98; BMI 25.7
--- NOTE | 2021-12-29 09:34 | EDS_ITS ---
HPI History of Present Illness Chief Complaint: Dental Informant: patient Onset/Context/Timing Onset: Yesterday Context: Gradual Onset Timing: Continuous Quality: throbbing Location: left maxillary molar Current Severity: Severe Maximum Severity: Severe Worsened by: eating Relieved by: - (nothing, tried ibuprofen) Associated Symptoms Assocated Symptom - Dental: Negative for fever, jaw swelling or face swelling Narrative Narrative: Patient has had a decayed tooth for some time, started bothering him yesterday and worse this morning. No fevers or chills. Made taste a little blood but no obvious bleeding. No swelling in his face. [facility] Medical History ADD (attention deficit disorder) Autism Bipolar 1 disorder GERD (gastroesophageal reflux disease) Home Medications gabapentin 300 mg capsule 300 mg PO DAILY 12/25/20 [History Last Taken Unknown] gabapentin 300 mg capsule 900 mg PO QHS 12/25/20 [History Last Taken Unknown] pantoprazole 40 mg tablet,delayed release (Protonix) 40 mg PO DAILY 12/25/20 [History Last Taken Unknown] amoxicillin 500 mg tablet 500 mg PO TID #30 tabs 12/29/21 [Rx Last Taken Unknown] tramadol 50 mg tablet 50 mg PO Q4H PRN PRN Pain 2 days #12 tabs 12/29/21 [Rx Last Taken Unknown] Allergy/AdvReac Type Severity Reaction Status Date / Time haloperidol [From Haldol] AdvReac HALLUCINATI Verified 12/29/21 09:11 ONS [place] Allergy Hives Uncoded 12/29/21 09:11 Social History household members: none and other details: Patient is incarcerated Smoking Status: Former smoker details: No alcohol since incarceration substance use type: does not use ROS ROS ED Constitutional Constitutional ED: Denies chills or fever(s) Eyes Eyes: Denies change in vision or double vision ENT ENT ED: Reports dental pain; Denies sinus pain or throat swelling Cardiovascular Cardiovascular: Denies chest pain or palpitations Respiratory/Chest Respiratory/Chest: Denies cough or dyspnea Integumentary Denies abscess or rash Neurologic Neurologic: Denies headache(s), paresthesias or weakness EXAM Physical Exam Const Vital Signs: 12/29/21 09:10 Temperature 97.9 F Temperature Source Temporal Pulse Rate 86 Respiratory Rate 18 Blood Pressure 123/88 H Blood Pressure Mean 99 Pulse Ox 98 Oxygen Delivery Method Room Air Positive well nourished and well developed General Appearance ED: well developed and NAD HEENT HEENT Narrative: Tooth #14 is partially fractured/decayed. The majority of the tooth is intact and normal-appearing. There is a large deficit in the tooth posteriorly. There is no bleeding, there is no abscess, no trismus. No asymmetry to face externally. Face and Sinus: sinuses nontender Throat: posterior oropharynx normal Eyes PERRL and EOMs intact bilaterally Neck no lymphadenopathy and supple Resp normal respiratory effort Neuro oriented x3 and CN's II-XII intact bilaterally Sensorium / Orientation: alert Gait (Neuro): normal gait Psych mental status grossly normal and thought process normal Skin no rashes or lesions noted and no wounds MDM MDM MDM Narrative Medical decision making narrative: I placed Cavit temporary filling into the affected tooth he tolerated this well. Prescribed tramadol and amoxicillin and referred to dentistry. Discharge Plan Triage Chief Complaint: Dental ED Provider: Moses Pascual Dx/Rx/DC Orders Clinical Impression: Dental decay, Odontalgia Instructions: Understanding Tooth Decay Prescriptions: New tramadol 50 mg tablet 50 mg PO Q4H PRN PRN (Reason: Pain) 2 Days Qty: 12 0RF amoxicillin 500 mg tablet 500 mg PO TID Qty: 30 0RF No Action pantoprazole [Protonix] 40 mg Tablet,Delayed Release (Dr/Ec) 40 mg PO DAILY gabapentin 300 mg capsule 300 mg PO DAILY Label Comments: TAKE 1 CAPSULE BY MOUTH TWICE DAILY gabapentin 300 mg capsule 900 mg PO QHS Label Comments: TAKE 1 CAPSULE BY MOUTH TWICE DAILY Primary Care Provider: Shashank Kuhn NP Referrals: Shashank Kuhn NP, STRIPPING CUTTER AND WINDER-C [Primary Care Provider] - Dentist,Your [STAFF PHYSICIAN] - As soon as possible (see resource list attached if needed) Disposition Disposition: Home, Self Care
[2021-12-29 10:12] VITALS: BP 134/74; PULSE 62; RESP 15; O2SAT 98
== END 2021-12-29 10:14 | disposition home or self-care (01) ==
LOC: ED 09:45
PROVIDERS: Emergency Provider Emergency Medicine; PCP Nurse Practitioner Family; Visit Provider Emergency Medicine
DX: K02.9 Dental caries, unspecified (principal); F31.9 Bipolar disorder, unspecified; K08.89 Other specified disorders of teeth and supporting structures; Z87.891 Personal history of nicotine dependence; F98.8 Other specified behavioral and emotional disorders with onset usually occurring in childhood and adolescence; F84.0 Autistic disorder; K21.9 Gastro-esophageal reflux disease without esophagitis
CPT/HCPCS: 99282

== ENCOUNTER 2022-10-20 12:10 | Emergency (ER) | payer MEDICARE, MEDICAID, SELFPAY ==
[2022-10-20 12:11] VITALS: BP 122/80; PULSE 80; RESP 16; TEMP 36.6; O2SAT 98; BMI 25.0
[2022-10-20 13:39] LABS: Absolute Lymphocyte Count 1.02 X10^3/uL (0.83-4.51); Absolute Neutrophil Count 6.3 X10^3/uL (2.0-7.7); Basophil# 0.04 X10^3/uL; Basophil% 0.5 % (0-1); Eosinophil# 0.08 X10^3/uL; Hematocrit 43.4 % (40-54); Hemoglobin 14.5 g/dL (13.0-16.5); Lymphocyte # 1.02 X10^3/ul (0.83-4.51); Lymphocyte % 12.5 % (19-41); Mean Corp Hgb Conc 33.4 g/dL (32-36); Mean Corpuscular Hgb 30.1 pg (27.0-32.0); Mean Corpuscular Volume 90.2 fL (80-94); Mean Platelet Vol. 10.6 fl (6.2-12.0); Monocyte# 0.73 X10^3/uL; Monocyte% 8.9 % (0-10); NRBC Flagged by Analyzer 0 % (0-5); Neutrophil # 6.29 X10^3/uL (2.7-7.7); Neutrophil % 76.9 % (47-70); Platelet Count 269 K/mm3 (150-450); RBC Distribution Width CV 12.8 % (11.6-14.6); RBC Distribution Width SD 41.8 fl (35.1-43.9); Red Blood Count 4.81 M/mm3 (4.6-6.2); White Blood Count 8.2 K/mm3 (4.4-11.0)
[2022-10-20 13:56] LABS: Anion Gap 5 (5-15); BUN 6 mg/dL (7-18); BUN/Creat Ratio 7.5 RATIO (10-20); Chloride 110 mmol/L (98-107); EST Glomerular Filtration Rate 125 mL/min (>60); Est Glom Filt Rate - Afr Amer 152 mL/min (>60); Estimated Creatinine Clearance 150.34 ml/min; Glucose 93 mg/dL (74-106); Potassium 3.4 mmol/L (3.5-5.1); Sodium Level 140 mmol/L (136-145)
[2022-10-20 14:08] LABS: Alcohol, Blood (Medical)-Serum < 3.0 mg/dL
[2022-10-20 14:21] LABS: Amphetamine Urine VISTA NEGATIVE (<1000 ng/mL); Barbiturate Urine VISTA NEGATIVE (< 200 ng/mL); Benzodiazepine Urine VISTA NEGATIVE (< 200 ng/mL); Cocaine Urine VISTA NEGATIVE (< 300 ng/mL); Ecstacy Urine VISTA NEGATIVE (< 500 ng/mL); Methadone Urine VISTA NEGATIVE (< 300 ng/mL); PCP Urine VISTA NEGATIVE (< 25 ng/mL); THC Urine VISTA POSITIVE (< 50 ng/mL); Vista UDS pH Range 6
--- NOTE | 2022-10-20 15:03 | EDS_ITS ---
HPI HPI - Psych History of Present Illness Chief Complaint: Suicidal Informant: patient and mental health staff Onset/Context/Timing Onset: Month(s) Context: Gradual Onset Narrative Narrative: Patient sent after evaluated by mental health staff for suicidality. Had 2 recent attempts, cutting on his left lower leg and an attempted hanging apparently in a public park. Patient states that was a couple weeks ago but he is remained suicidal, states he stopped taking his medications last year because they did not make him feel well and felt like they were making him feel worse than better. He states he feels like his bipolar is flaring up. He also feels like he has a history of mental trauma and that is his main reasoning for feeling suicidal. He denies using any drugs recently although he was using marijuana to treat his depression successfully for a while but then he started feeling like it was making him hallucinate so he stopped. [facility] Medical History ADD (attention deficit disorder) Autism Bipolar 1 disorder GERD (gastroesophageal reflux disease) Suicidal behavior Home Medications gabapentin 300 mg capsule 300 mg PO DAILY 12/25/20 [History Last Taken Unknown] gabapentin 300 mg capsule 900 mg PO QHS 12/25/20 [History Last Taken Unknown] pantoprazole 40 mg tablet,delayed release (Protonix) 40 mg PO DAILY 12/25/20 [History Last Taken Unknown] amoxicillin 500 mg tablet 500 mg PO TID #30 tabs 12/29/21 [Rx Last Taken Unknown] tramadol 50 mg tablet 50 mg PO Q4H PRN PRN Pain 2 days #12 tabs 12/29/21 [Rx Last Taken Unknown] Allergy/AdvReac Type Severity Reaction Status Date / Time Environmental Allergies: Allergy Hives Verified 10/20/22 12:15 Uncoded [pine] haloperidol [From Haldol] AdvReac HALLUCINATI Verified 10/20/22 12:15 ONS Social History (Updated 10/20/22 @ 15:[address] Moses Pascual MD) household members: none and other details: Patient is incarcerated Smoking Status: Former smoker details: No alcohol since incarceration substance use type: marijuana and other details: no IVDU ROS ROS ED Constitutional Constitutional ED: Denies chills or fever(s) Eyes Eyes: Denies change in vision or diplopia ENT ENT ED: Denies rhinorrhea or sore throat Cardiovascular Cardiovascular: Denies chest pain or palpitations Respiratory/Chest Respiratory/Chest: Denies cough or dyspnea Gastrointestinal Gastrointestinal: Denies abdominal pain, diarrhea, nausea or vomiting Genitourinary Genitourinary ED: Denies dysuria or hematuria Musculoskeletal Musculoskeletal: Denies back pain or neck pain Integumentary Denies abscess or rash Neurologic Neurologic: Denies headache(s), paresthesias or weakness Psychiatric Psychiatric: Reports depression, suicidal ideation and suicidal thoughts; Denies homicidal ideation EXAM Physical Exam Const Vital Signs: 10/20/22 12:11 Temperature 98 F Temperature Source Temporal Pulse Rate 80 Respiratory Rate 16 Blood Pressure 122/80 H Blood Pressure Mean 94 Pulse Ox 98 Oxygen Delivery Method Room Air Positive well nourished and well developed General Appearance ED: well developed and NAD HEENT Reports moist mucous membranes normocephalic and atraumatic Eyes PERRL and EOMs intact bilaterally General Eye ED: Negative for scleral icterus Neck no lymphadenopathy and supple Resp normal respiratory effort and clear to auscultation bilaterally Cardio no murmurs Rate: regular rate Rhythm: regular rhythm GI non-tender and non-distended Auscultation: normoactive bowel sounds Palpation: soft Back/Spine no CVA tenderness and normal ROM Extremity normal to inspection General Extremety ED: Negative for edema General Extremity: Negative for edema Neuro oriented x3, CN's II-XII intact bilaterally, no sensory deficits noted and gait normal Sensorium / Orientation: alert Motor Exam: strength 5/5 throughout Psych mental status grossly normal, thought process normal, cooperative, activity/motor behavior normal and denies homicidal ideation Mood & Affect: depressed Thought Content: suicidality Attention / Concentration: attention grossly intact Memory / Cognition: memory grossly intact Insight: insight good Judgement: poor Skin Skin Narrative: Well-healed superficial abrasions without signs of infection left medial lower leg Lesions: no lesions Rashes: no rashes MDM MDM MDM Narrative Medical decision making narrative: Labs were obtained and noted, COVID is pending and presumed to be negative. Patient medically cleared. Will continue the pink slip that he arrived with, and have mental health staff work on placement. Lab Data Attestation: I reviewed the patient's lab results. Labs: Laboratory Results - last 24 hr 10/20/22 10/20/22 10/20/22 12:49 12:49 12:49 WBC 8.2 RBC 4.81 Hgb 14.5 Hct 43.4 MCV 90.2 MCH 30.1 MCHC 33.4 RDW Std Deviation 41.8 RDW Coeff of Sis 12.8 Plt Count 269 MPV 10.6 Immature Gran % (Auto) 0.200 Neut % (Auto) 76.9 H Lymph % (Auto) 12.5 L [place] % (Auto) 8.9 Eos % (Auto) 1.0 Baso % (Auto) 0.5 Absolute Neuts (auto) 6.3 Absolute Lymphs (auto) 1.02 Nucleated RBC % 0 Sodium 140 Potassium 3.4 L Chloride 110 H Carbon Dioxide 25.0 Anion Gap 5 BUN 6 L Creatinine 0.80 Estim Creat Clear Calc 150.34 Est GFR (MDRD) Af Amer 152 Est GFR (MDRD) Non-Af 125 BUN/Creatinine Ratio 7.5 L Glucose 93 Calcium 9.0 Urine Opiates Screen Urine Methadone Screen Ur Barbiturates Screen Ur Phencyclidine Scrn Ur Amphetamines Screen MDMA (Ecstasy) Screen U Benzodiazepines Scrn Urine Cocaine Screen U Cannabinoids Screen Ur Drug Screen Comment Ethyl Alcohol < 3.0 10/20/22 14:02 WBC RBC Hgb Hct MCV MCH MCHC RDW Std Deviation RDW Coeff of Sis Plt Count MPV Immature Gran % (Auto) Neut % (Auto) Lymph % (Auto) [place] % (Auto) Eos % (Auto) Baso % (Auto) Absolute Neuts (auto) Absolute Lymphs (auto) Nucleated RBC % Sodium Potassium Chloride Carbon Dioxide Anion Gap BUN Creatinine Estim Creat Clear Calc Est GFR (MDRD) Af Amer Est GFR (MDRD) Non-Af BUN/Creatinine Ratio Glucose Calcium Urine Opiates Screen NEGATIVE Urine Methadone Screen NEGATIVE Ur Barbiturates Screen NEGATIVE Ur Phencyclidine Scrn NEGATIVE Ur Amphetamines Screen NEGATIVE MDMA (Ecstasy) Screen NEGATIVE U Benzodiazepines Scrn NEGATIVE Urine Cocaine Screen NEGATIVE U Cannabinoids Screen POSITIVE H Ur Drug Screen Comment Ethyl Alcohol Discharge Plan Triage Chief Complaint: Suicidal ED Provider: Moses Pascual Dx/Rx/DC Orders Clinical Impression: Depression with suicidal ideation, Bipolar disorder Prescriptions: No Action pantoprazole [Protonix] 40 mg Tablet,Delayed Release (Dr/Ec) 40 mg PO DAILY gabapentin 300 mg capsule 300 mg PO DAILY Label Comments: TAKE 1 CAPSULE BY MOUTH TWICE DAILY gabapentin 300 mg capsule 900 mg PO QHS Label Comments: TAKE 1 CAPSULE BY MOUTH TWICE DAILY tramadol 50 mg tablet 50 mg PO Q4H PRN PRN (Reason: Pain) 2 Days Qty: 12 0RF amoxicillin 500 mg tablet 500 mg PO TID Qty: 30 0RF Primary Care Provider: Shasahnk Kuhn NP Referrals: Shashank Kuhn NP, BULK STATION OPERATOR-C [Primary Care Provider] - Disposition Disposition: Psychiatric Hospital or Unit
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
--- NOTE | 2022-10-20 16:16 | CM.ED ---
Addendum entered by Rand Villanueva 10/20/22 17:23: Patient was accepted to [facility] under [employer] [place], [address] [id number]. [facility] needs pink slip and covid results faxed. SW updated care team regarding acceptance. Transportation ETA is 2hrs. SW updated patient regarding acceptance, transportation ETA and provided emotional support regarding patient's previous experiences at other hospital. Patient reports understanding and is optimistic about [facility]. SW faxed pink slip and covid results to [place]. Plan: [facility]. RAUL Pringle Original Note: Social Work SW contacted [facility], [facility] and [facility] to inquire about bed availability, beds available. Plan: referrals pending at [facility], [facility] and [facility]. RAUL Pringle
[2022-10-20 16:22] VITALS: BP 131/78; PULSE 67; RESP 18; O2SAT 98
[2022-10-20 17:17] VITALS: RESP 16
[2022-10-20 18:37] VITALS: BP 116/76; PULSE 64; RESP 18; TEMP 36.4; O2SAT 98
== END 2022-10-20 17:00 ==
PROVIDERS: Emergency Provider Emergency Medicine; PCP Nurse Practitioner Family; Visit Provider Emergency Medicine
DX: F31.9 Bipolar disorder, unspecified (principal); R45.851 Suicidal ideations; Z87.891 Personal history of nicotine dependence; K21.9 Gastro-esophageal reflux disease without esophagitis; Z79.899 Other long term (current) drug therapy
CPT/HCPCS: 80048; 80307; 82077; 85025; 87811; 99283

== ENCOUNTER 2022-10-28 17:29 | Emergency (ER) | payer MEDICARE, MEDICAID, SELFPAY ==
[2022-10-28 17:30] VITALS: BP 129/77; PULSE 80; RESP 14; TEMP 36.6; O2SAT 99; BMI 25.1
--- NOTE | 2022-10-28 18:21 | EX.ED.DYSGE1 ---
HPI History of Present Illness Chief Complaint: Suicidal Narrative Narrative: Patient is here pink slipped by police department for suicidal ideations, he was just released today from a inpatient psychiatric facility in [place]. He told him he was okay however he still is suicidal. Apparently he went to his mom's house they got an argument now he is thinking about hurting her and hurting himself. He is thing about going to buy a gun and shooting himself. PFSH PFS Medical History ADD (attention deficit disorder) Autism Bipolar 1 disorder GERD (gastroesophageal reflux disease) Suicidal behavior Home Medications NK 10/20/22 [History Last Taken Unknown] Allergy/AdvReac Type Severity Reaction Status Date / Time Environmental Allergies: Allergy Hives Verified 10/28/22 17:33 Uncoded [pine] haloperidol [From Haldol] AdvReac HALLUCINATI Verified 10/28/22 17:33 ONS Social History (Updated 10/20/22 @ 15:[address] Moses Pascual MD) household members: none and other details: Patient is incarcerated Smoking Status: Former smoker details: No alcohol since incarceration substance use type: marijuana and other details: no IVDU ROS ROS ED ROS Narrative Past medical history: Reviewed, mostly psychiatric history Medications: Reviewed Social history: Noncontributory Review of systems: General: No fever Eyes: No visual changes ENT: No upper airway congestion, normal voice Neck: No neck pain Cardiovascular: No chest pain Respiratory: No shortness of breath or cough Gastrointestinal: No abdominal pain, nausea vomiting or diarrhea Musculoskeletal: Denies myalgias no difficulty with ambulation Skin: No rash Neurological: No memory loss, confusion or any focal weakness Psych: As in HPI EXAM Physical Exam Narrative Exam Narrative: Physical exam General: Well nourished, Well developed, No Acute Distress Head: Normocephalic, Atraumatic Eyes: Conjunctiva not pale ENT: Moist mucous membranes Neck: Supple, Nontender, No lymphadenopathy Cardiovascular: Regular rate, Regular rhythm Respiratory: No distress, CTA bilaterally Abdomen: Soft, Nontender, Nondistended Back: Nontender, Normal Inspection. Negative for: CVA tenderness Extremities: Nontender, No edema Skin: Normal color, No rash Neurological: Alert, Normal Strength, Normal Sensation Psychological: Flat and depressed affect admits to suicidal ideations Const Vital Signs: 10/28/22 17:30 Temperature 97.9 F Temperature Source Temporal Pulse Rate 80 Respiratory Rate 14 Blood Pressure 129/77 H Blood Pressure Mean 94 Pulse Ox 99 Oxygen Delivery Method Room Air MDM MDM MDM Narrative Medical decision making narrative: Patient will be medically cleared. I will talk to social work about admission. He is currently still actively suicidal. Discharge Plan Triage Chief Complaint: Suicidal ED Provider: Yasmany Reese Dx/Rx/DC Orders Clinical Impression: Depression with suicidal ideation, Bipolar affect, depressed, Autism Prescriptions: No Action NK Primary Care Provider: Shashank Kuhn NP Referrals: Shashank Kuhn NP, ELECTRICAL LABORATORY TECHNICIAN-C [Primary Care Provider] - Disposition Disposition: DC/Tx to Another Type of HCF
[2022-10-28 18:30] LABS: Absolute Lymphocyte Count 1.73 X10^3/uL (0.83-4.51); Absolute Neutrophil Count 9.9 X10^3/uL (2.0-7.7); Basophil# 0.04 X10^3/uL; Basophil% 0.3 % (0-1); Eosinophil# 0.06 X10^3/uL; Eosinophils% 0.5 % (0-5); Hematocrit 45.9 % (40-54); Hemoglobin 15.7 g/dL (13.0-16.5); Lymphocyte # 1.73 X10^3/ul (0.83-4.51); Lymphocyte % 13.7 % (19-41); Mean Corp Hgb Conc 34.2 g/dL (32-36); Mean Corpuscular Hgb 30.3 pg (27.0-32.0); Mean Corpuscular Volume 88.6 fL (80-94); Mean Platelet Vol. 10.1 fl (6.2-12.0); Monocyte# 0.86 X10^3/uL; Monocyte% 6.8 % (0-10); NRBC Flagged by Analyzer 0 % (0-5); Neutrophil # 9.85 X10^3/uL (2.7-7.7); Neutrophil % 78.3 % (47-70); Platelet Count 322 K/mm3 (150-450); RBC Distribution Width CV 12.5 % (11.6-14.6); RBC Distribution Width SD 40.8 fl (35.1-43.9); Red Blood Count 5.18 M/mm3 (4.6-6.2); White Blood Count 12.6 K/mm3 (4.4-11.0)
[2022-10-28 18:44] LABS: Anion Gap 7 (5-15); BUN 9 mg/dL (7-18); BUN/Creat Ratio 10.7 RATIO (10-20); Calcium,Total 9.9 mg/dL (8.5-10.1); Chloride 105 mmol/L (98-107); Creatinine, Serum 0.84 mg/dL (0.70-1.30); EST Glomerular Filtration Rate 118 mL/min (>60); Est Glom Filt Rate - Afr Amer 143 mL/min (>60); Estimated Creatinine Clearance 143.18 ml/min; Glucose 92 mg/dL (74-106); Potassium 3.5 mmol/L (3.5-5.1); Sodium Level 137 mmol/L (136-145)
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
[2022-10-28 19:00] VITALS: RESP 18
[2022-10-28 19:20] LABS: Amphetamine Urine VISTA NEGATIVE (<1000 ng/mL); Barbiturate Urine VISTA NEGATIVE (< 200 ng/mL); Benzodiazepine Urine VISTA NEGATIVE (< 200 ng/mL); Cocaine Urine VISTA NEGATIVE (< 300 ng/mL); Ecstacy Urine VISTA NEGATIVE (< 500 ng/mL); Methadone Urine VISTA NEGATIVE (< 300 ng/mL); PCP Urine VISTA NEGATIVE (< 25 ng/mL); THC Urine VISTA POSITIVE (< 50 ng/mL); Vista UDS pH Range 8
--- NOTE | 2022-10-28 19:38 | CM.ED ---
Addendum entered by Rand Villanueva 10/28/22 20:16: Admissions staff from [facility] contacted with acceptance, explaining they will provide accepting information once their SW puts patient into their system. SW updated patient and care team. psychiatric secretary to arrange transportation once [facility] provides accepting information. Plan: [facility] Rand PADGETT, RAUL Original Note: Social Work Patient requesting to return to [facility] as he was discharged today and felt he was making progress with the psychiatrist. SW explained placement is dependent on many variables but would explore returning to [place]. SW contacted [facility], their policy is patient's can not readmit within 24 hours. SW contacted [facility] and [facility], beds available. Patient updated regarding [facility]'s policy and referrals pending at other locations. Patient voiced understanding. Plan: referrals pending at [facility] and [facility] Rand PADGETT, RAUL
[2022-10-28 20:00] VITALS: RESP 18
--- NOTE | 2022-10-28 20:53 | ED.RN ---
patient has been accepted to [facility] b33 unit nurse to nurse [phone]
[2022-10-28 21:00] VITALS: RESP 20
[2022-10-28 22:13] VITALS: BP 109/69; PULSE 58; RESP 16; O2SAT 98
== END 2022-10-28 23:29 | disposition other institution (70) ==
PROVIDERS: Emergency Provider Emergency Medicine; PCP Nurse Practitioner Family; Visit Provider Emergency Medicine
DX: R45.851 Suicidal ideations (principal); F31.9 Bipolar disorder, unspecified; F84.0 Autistic disorder; Z87.891 Personal history of nicotine dependence
CPT/HCPCS: 36415; 80048; 80307; 82077; 85025; 87811; 99284

== ENCOUNTER 2022-11-02 13:10 | Emergency (ER) | payer MEDICARE, MEDICAID, SELFPAY ==
[2022-11-02] VITALS (9 sets, daily range): BP systolic 116–120; BP diastolic 70–91; PULSE 69–94; RESP 16–18; TEMP 35.8–37.1; O2SAT 96–100; BMI 25.7
--- NOTE | 2022-11-02 13:30 | EX.ED.VIS.PS ---
HPI HPI - Psych History of Present Illness Chief Complaint: Suicidal Detail of Chief Complaint: Depression and suicidal ideation Informant: patient Narrative Narrative: Patient presents to the emergency department with thoughts of self-harm. Patient with history of same. He was just discharged from [facility] today. Patient states that he was admitted there 5 days ago and was seen by the psychiatrist 5 days ago and then again today. Patient states the psychiatrist was very rude to him and told him that if the patient did not agree to take the Invega shot he would discharge him. Patient states that he had side effects from the Invega shot including priapism and would not take it. Patient states that prior to the admission at [facility] he had been at [facility] where he was treated well but when he got out his family put a note trespass order out on him and had some other issues that came up and patient again became suicidal. Patient having thoughts of wanting to shoot himself with a gun. He denies recent illness otherwise. [facility] Medical History ADD (attention deficit disorder) Autism Bipolar 1 disorder GERD (gastroesophageal reflux disease) Suicidal behavior Home Medications NK 10/20/22 [History Last Taken Unknown] Allergy/AdvReac Type Severity Reaction Status Date / Time Environmental Allergies: Allergy Hives Verified 11/02/22 13:14 Uncoded [pine] haloperidol [From Haldol] AdvReac HALLUCINATI Verified 11/02/22 13:14 ONS Social History (Updated 10/20/22 @ 15:[address] Moses Pascual MD) household members: none and other details: Patient is incarcerated Smoking Status: Former smoker details: No alcohol since incarceration substance use type: marijuana and other details: no IVDU ROS ROS ED Review of Systems ROS Unobtainable: other Constitutional Constitutional ED: Reports lethargy; Denies chills, fever(s), sweats or weight loss Eyes Eyes: Denies blurry vision, change in vision or diplopia ENT ENT ED: Denies rhinorrhea or sore throat Cardiovascular Cardiovascular: Denies chest pain, orthopnea or racing heartbeat Respiratory/Chest Respiratory/Chest: Denies cough, dyspnea, dyspnea on exertion, orthopnea or sputum Gastrointestinal Gastrointestinal: Denies abdominal pain, diarrhea, nausea or vomiting Genitourinary Genitourinary ED: Denies dysuria, hematuria or urinary frequency Musculoskeletal Musculoskeletal: Denies arthralgias, back pain, myalgias or neck pain Integumentary Denies abscess, Abrasions or rash Neurologic Neurologic: Denies headache(s) or weakness Psychiatric Psychiatric: Denies anxiety, depression or suicidal thoughts Endocrine Endocrinology: Denies polydipsia, polyphagia or polyuria Hematologic/Lymphatic Hematologic/Lymphatic: Denies easy bleeding, easy bruising or lymphadenopathy Allergic/Immunologic Allergic/Immunologic ED: Denies mouth swelling, tongue swelling or urticaria EXAM Physical Exam Const Vital Signs: 11/02/22 13:11 Temperature 96.5 F L Temperature Source Temporal Pulse Rate 94 Respiratory Rate 18 Blood Pressure 116/91 H Blood Pressure Mean 99 Pulse Ox 96 Oxygen Delivery Method Room Air Positive well nourished and well developed General Appearance ED: well developed and NAD HEENT Reports TM's clear and moist mucous membranes normocephalic and atraumatic; Negative for trauma or tenderness Tympanic Membrane ED: Yes TM's clear Eyes PERRL and EOMs intact bilaterally General Eye ED: Negative for pale conjunctiva or scleral icterus Neck no lymphadenopathy, supple and no JVD General: Negative for tenderness Chest Wall inspection of chest normal and palpation of chest normal Chest: Negative for tenderness Resp normal respiratory effort and clear to auscultation bilaterally Effort and Inspection: Negative for respiratory distress or pain with movement Auscultation: Negative for rhonchi, wheezes or diminished lung sounds Cardio regular rate, regular rhythm, S1 normal heart sound, S2 normal heart sound and no murmurs Peripheral Pulses: pulses 2+ throughout GI normal to inspection, nondistended, normoactive bowel sounds, soft to palpation, non-tender, non-distended and no masses Back/Spine no CVA tenderness and no thoracic nor lumbar tenderness Extremity normal to inspection General Extremety ED: Negative for edema General Extremity: Negative for edema Neuro oriented x3, CN's II-XII intact bilaterally, no sensory deficits noted and gait normal Sensorium / Orientation: awake, alert, oriented to person, oriented to place and oriented to time Motor Exam: strength 5/5 throughout and strength abnormal Psych mental status grossly normal and denies homicidal ideation; Negative for denies suicidal ideation Psych Narrative: Patient presents with suicidal ideation Skin no rashes or lesions noted and no wounds MDM MDM MDM Narrative Medical decision making narrative: Patient presents with thoughts of suicide just discharged from psychiatric facility today. Patient feels like he still suicidal and needs admission to another facility. Patient had a CBC with differential that showed a slightly elevated white count of 13.2 with a hemoglobin of 15 and hematocrit of 45 and platelet count of 272. Chemistries unremarkable. Urine tox cream positive for THC. Patient will be evaluated by our social welfare administrator. Care of patient turned over to evening physician awaiting evaluation by social welfare administrator and final disposition for history of depression and suicidal ideation. Patient medically cleared. Lab Data Attestation: I reviewed the patient's lab results. Labs: Laboratory Results - last 24 hr 11/02/22 11/02/22 11/02/22 13:35 13:35 13:35 WBC 13.2 H RBC 5.07 Hgb 15.2 Hct 44.9 MCV 88.6 MCH 30.0 MCHC 33.9 RDW Std Deviation 40.2 RDW Coeff of Sis 12.4 Plt Count 272 MPV 9.6 Immature Gran % (Auto) 0.800 Neut % (Auto) 85.3 H Lymph % (Auto) 7.8 L [place] % (Auto) 5.1 Eos % (Auto) 0.5 Baso % (Auto) 0.5 Absolute Neuts (auto) 11.3 H Absolute Lymphs (auto) 1.02 Nucleated RBC % 0 Sodium 137 Potassium 3.8 Chloride 104 Carbon Dioxide 26.0 Anion Gap 7 BUN 9 Creatinine 0.82 Estim Creat Clear Calc 146.67 Est GFR (MDRD) Af Amer 146 Est GFR (MDRD) Non-Af 121 BUN/Creatinine Ratio 10.9 Glucose 106 Calcium 9.5 Urine Opiates Screen Urine Methadone Screen Ur Barbiturates Screen Ur Phencyclidine Scrn Ur Amphetamines Screen MDMA (Ecstasy) Screen U Benzodiazepines Scrn Urine Cocaine Screen U Cannabinoids Screen Ur Drug Screen Comment Ethyl Alcohol < 3.0 11/02/22 14:00 WBC RBC Hgb Hct MCV MCH MCHC RDW Std Deviation RDW Coeff of Sis Plt Count MPV Immature Gran % (Auto) Neut % (Auto) Lymph % (Auto) [place] % (Auto) Eos % (Auto) Baso % (Auto) Absolute Neuts (auto) Absolute Lymphs (auto) Nucleated RBC % Sodium Potassium Chloride Carbon Dioxide Anion Gap BUN Creatinine Estim Creat Clear Calc Est GFR (MDRD) Af Amer Est GFR (MDRD) Non-Af BUN/Creatinine Ratio Glucose Calcium Urine Opiates Screen NEGATIVE Urine Methadone Screen NEGATIVE Ur Barbiturates Screen NEGATIVE Ur Phencyclidine Scrn NEGATIVE Ur Amphetamines Screen NEGATIVE MDMA (Ecstasy) Screen NEGATIVE U Benzodiazepines Scrn NEGATIVE Urine Cocaine Screen NEGATIVE U Cannabinoids Screen POSITIVE H Ur Drug Screen Comment Ethyl Alcohol Discharge Plan Triage Chief Complaint: Suicidal ED Provider: Sloane Suarez Dx/Rx/DC Orders Clinical Impression: Depression, Suicidal ideation Prescriptions: No Action NK Primary Care Provider: Shashank Kuhn NP Referrals: Shashank Kuhn NP, BAGGAGE INSPECTOR-C [Primary Care Provider] -
[2022-11-02 13:45] LABS: Absolute Lymphocyte Count 1.02 X10^3/uL (0.83-4.51); Absolute Neutrophil Count 11.3 X10^3/uL (2.0-7.7); Basophil# 0.06 X10^3/uL; Basophil% 0.5 % (0-1); Eosinophil# 0.06 X10^3/uL; Eosinophils% 0.5 % (0-5); Hematocrit 44.9 % (40-54); Hemoglobin 15.2 g/dL (13.0-16.5); Lymphocyte # 1.02 X10^3/ul (0.83-4.51); Lymphocyte % 7.8 % (19-41); Mean Corp Hgb Conc 33.9 g/dL (32-36); Mean Corpuscular Volume 88.6 fL (80-94); Mean Platelet Vol. 9.6 fl (6.2-12.0); Monocyte# 0.67 X10^3/uL; Monocyte% 5.1 % (0-10); NRBC Flagged by Analyzer 0 % (0-5); Neutrophil # 11.25 X10^3/uL (2.7-7.7); Neutrophil % 85.3 % (47-70); Platelet Count 272 K/mm3 (150-450); RBC Distribution Width CV 12.4 % (11.6-14.6); RBC Distribution Width SD 40.2 fl (35.1-43.9); Red Blood Count 5.07 M/mm3 (4.6-6.2); White Blood Count 13.2 K/mm3 (4.4-11.0)
[2022-11-02 13:57] LABS: Anion Gap 7 (5-15); BUN 9 mg/dL (7-18); BUN/Creat Ratio 10.9 RATIO (10-20); Calcium,Total 9.5 mg/dL (8.5-10.1); Chloride 104 mmol/L (98-107); Creatinine, Serum 0.82 mg/dL (0.70-1.30); EST Glomerular Filtration Rate 121 mL/min (>60); Est Glom Filt Rate - Afr Amer 146 mL/min (>60); Estimated Creatinine Clearance 146.67 ml/min; Glucose 106 mg/dL (74-106); Potassium 3.8 mmol/L (3.5-5.1); Sodium Level 137 mmol/L (136-145)
[2022-11-02 14:18] LABS: Amphetamine Urine VISTA NEGATIVE (<1000 ng/mL); Barbiturate Urine VISTA NEGATIVE (< 200 ng/mL); Benzodiazepine Urine VISTA NEGATIVE (< 200 ng/mL); Cocaine Urine VISTA NEGATIVE (< 300 ng/mL); Ecstacy Urine VISTA NEGATIVE (< 500 ng/mL); Methadone Urine VISTA NEGATIVE (< 300 ng/mL); PCP Urine VISTA NEGATIVE (< 25 ng/mL); THC Urine VISTA POSITIVE (< 50 ng/mL); Vista UDS pH Range 8
[2022-11-02 14:29] LABS: Alcohol, Blood (Medical)-Serum < 3.0 mg/dL
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
--- NOTE | 2022-11-02 17:12 | CM.ED ---
Addendum entered by Rand Villanueva 11/02/22 19:47: RICHY faxed covid results to [facility], oil recovery unit operator to arrange transportation. SW informed patient of acceptance to [facility] and provided emotional support. Patient voiced understanding. Plan: [facility], voluntary inpatient psych RAUL Pringle Addendum entered by Rand Villanueva 11/02/22 19:15: Patient was declined by [facility] due to patient already participating in their program and not benefiting. Patient was accepted to [facility], transportation can be arranged once covid results are in and faxed to [facility]. Patient accepted by MD [facility]ellan, going to [place] unit, [id number] [phone]. Care team updated. Plan: [facility] RAUL Pringle Original Note: Social Work SW updated MD Pay covid test will be needed for placement, MD to order. SW contacted [facility] and [facility], beds available. SW attempted to contact [facility], no answer. RICHY contacted [facility], no beds available. SW contacted [facility], beds available. Plan: referrals faxed to [facility], [facility] and [facility] RAUL Pringle
--- NOTE | 2022-11-03 01:56 | ED.RN ---
PHONE CALL FROM NURSE AT [facility], SHE QUESTIONS REASON FOR NO PINK SLIP. ADVISED THAT HE WAS VOLUNTARY SO PINK SLIP WAS NOT ISSUED BY PHYSICIAN. SHE VOICES THAT PINK SLIP IS REQUIRED WHEN SOMEONE IS SUICIDAL, AND THAT IT SHOULD HAVE BEEN FILLED OUT. SHE REPORTS IF SOMEONE IS VOLUNTARY THEY HAVE TO HAVE SPECIAL PERMISSION FROM THEIR ADMINISTRATION AND A PAPER WILL BE FAXED TO [facility] TO BE SIGNED. SHE REPORTS HE IS CURRENTLY PSYCHOTIC AND IF HE DOES NOT SIGN THE VOLUNTARY PAPER IT WILL BE A PROBLEM
== END 2022-11-02 23:46 ==
PROVIDERS: Emergency Provider Emergency Medicine; PCP Nurse Practitioner Family; Visit Provider Emergency Medicine
DX: F32.A Depression, unspecified (principal); R45.851 Suicidal ideations; Z87.891 Personal history of nicotine dependence
CPT/HCPCS: 80048; 80307; 82077; 85025; 87811; 99284

== ENCOUNTER 2022-11-15 11:06 | Emergency (ER) | payer MEDICARE, MEDICAID, SELFPAY ==
[2022-11-15] VITALS (8 sets, daily range): BP systolic 125–131; BP diastolic 78–84; PULSE 78–86; RESP 14–18; TEMP 36.6; O2SAT 16–100; BMI 27.1
--- NOTE | 2022-11-15 11:25 | EX.ED.VIS.PS ---
HPI HPI - Psych History of Present Illness Chief Complaint: Suicidal Narrative Narrative: 27-year-old male past medical history of bipolar disorder, autism, previous suicide attempts presents with increasing suicidality. He states that 4 days ago he was released from [facility]. He felt better while he was in there, but once he was out, he states he started having increasing thoughts of suicide. He states he is taking his medications as directed. He called police today because it was reported that he wanted to run out in traffic to kill himself, but he tells me on exam that he would try and hang himself. He presents because of his increasing depression and suicidal ideation. Per triage note, patient is currently homeless. [facility] Medical History ADD (attention deficit disorder) Autism Bipolar 1 disorder GERD (gastroesophageal reflux disease) Suicidal behavior Home Medications aripiprazole 10 mg tablet 10 mg PO DAILY 11/15/22 [History Last Taken Unknown] mirtazapine 30 mg tablet 30 mg PO QHS 11/15/22 [History Last Taken Unknown] omeprazole 20 mg capsule,delayed release 20 mg PO DAILY 11/15/22 [History Last Taken Unknown] sertraline 50 mg tablet (Zoloft) 50 mg PO DAILY 11/15/22 [History Last Taken Unknown] Allergy/AdvReac Type Severity Reaction Status Date / Time Environmental Allergies: Allergy Hives Verified 11/15/22 11:10 Uncoded [pine] haloperidol [From Haldol] AdvReac HALLUCINATI Verified 11/15/22 11:10 ONS Social History household members: none and other details: Patient is incarcerated Smoking Status: Former smoker details: No alcohol since incarceration substance use type: marijuana and other details: no IVDU ROS ROS ED ROS Narrative Constitutional: No fever, no chills. HEENT: No sore throat. No neck pain. No loss of vision. No rhinorrhea. Cardiovascular: No chest pain. No palpitations. No pedal edema. Respiratory: No cough, no shortness of breath. Abdominal: No abdominal pain. No nausea. No vomiting. Genitourinary: No dysuria. No hematuria. Musculoskeletal: No myalgias. No arthralgias. Neurologic: No headaches. No dizziness. No lightheadedness. Skin: No rash. No change in color. Psychiatric: Positive depression with suicidal ideation. Increasing over the last 4 days. EXAM Physical Exam Narrative Exam Narrative: Afebrile. Vital signs noted. HEENT: Normocephalic. Atraumatic. PERRL, EOMI. Neck soft and supple. No point tenderness or step off. Cardiovascular: Regular rate and rhythm. No murmurs, rubs, or gallops appreciated. Respiratory: No tachypnea. Lungs clear to auscultation bilaterally. Gastrointestinal: Abdomen soft, nontender, with normoactive bowel sounds. No rebound or guarding. Neurological: Awake. Alert. Nonfocal, nonlateralizing. Skin: No rash. Normal color. No pallor. Musculoskeletal: No pedal edema. Full range of motion extremities. Psychiatric: Positive suicidal ideation with plan to hang self. Flat affect/depressed affect. Const Vital Signs: 11/15/22 11:07 11/15/22 13:13 11/15/22 14:49 Temperature 97.8 F Temperature Source Temporal Pulse Rate 86 Respiratory Rate 14 16 16 Blood Pressure 131/84 H Blood Pressure Mean 99 Pulse Ox 99 Oxygen Delivery Method Room Air 11/15/22 15:26 11/15/22 16:18 11/15/22 17:23 Temperature Temperature Source Pulse Rate 83 Respiratory Rate 16 16 Blood Pressure 128/81 H Blood Pressure Mean 96 Pulse Ox 16 100 Oxygen Delivery Method Room Air 11/15/22 18:54 11/15/22 19:40 Temperature Temperature Source Pulse Rate 78 Respiratory Rate 16 18 Blood Pressure 125/78 H Blood Pressure Mean 93 Pulse Ox 100 Oxygen Delivery Method MDM MDM MDM Narrative Medical decision making narrative: Reviewed the patient's prior ED visits and he was last seen here on November 02, so I do find it plausible that he was placed, and was released perhaps 4 days ago. Medical clearance labs will be obtained for crisis evaluation. I reviewed his laboratory work and he has a normal white count of 10.5, hemoglobin normal at 14.5, hematocrit 42.0. Normal platelet count of 303. Review of his electrolyte panel shows normal sodium of 140 with potassium normal at 3.5, normal BUN and creatinine. Ethyl alcohol is 4.0. While his urine for drugs of abuse is pending, I do feel that already he is medically cleared for evaluation by crisis regardless of the results. Reviewed the urine for drugs of abuse which is negative. Patient will be evaluated by mental health counselor. He will be signed out to the oncoming physician to make final disposition on this patient. Patient is in stable condition. History & Record Review Discussion w/independent historian: Patient Additional record(s) reviewed:: Prior ED visit Lab Data Attestation: I reviewed the patient's lab results. Labs: Laboratory Results - last 24 hr 11/15/22 11/15/22 11/15/22 11:34 11:34 11:34 WBC 10.5 RBC 4.73 Hgb 14.5 Hct 42.0 MCV 88.8 MCH 30.7 MCHC 34.5 RDW Std Deviation 40.0 RDW Coeff of Sis 12.3 Plt Count 303 MPV 9.4 Immature Gran % (Auto) 0.400 Neut % (Auto) 73.9 H Lymph % (Auto) 17.2 L [place] % (Auto) 7.1 Eos % (Auto) 0.9 Baso % (Auto) 0.5 Absolute Neuts (auto) 7.7 Absolute Lymphs (auto) 1.80 Nucleated RBC % 0 Sodium 140 Potassium 3.5 Chloride 107 Carbon Dioxide 26.0 Anion Gap 7 BUN 7 Creatinine 0.80 Estim Creat Clear Calc 150.34 Est GFR (MDRD) Af Amer 152 Est GFR (MDRD) Non-Af 126 BUN/Creatinine Ratio 8.8 L Glucose 100 Calcium 9.1 Total Bilirubin 0.20 AST 16 ALT 40 Alkaline Phosphatase 66 Total Protein 7.5 Albumin 3.8 Globulin 3.7 Albumin/Globulin Ratio 1.0 Urine Opiates Screen Urine Methadone Screen Ur Barbiturates Screen Ur Phencyclidine Scrn Ur Amphetamines Screen MDMA (Ecstasy) Screen U Benzodiazepines Scrn Urine Cocaine Screen U Cannabinoids Screen Ur Drug Screen Comment Ethyl Alcohol 4.0 11/15/22 11:40 WBC RBC Hgb Hct MCV MCH MCHC RDW Std Deviation RDW Coeff of Sis Plt Count MPV Immature Gran % (Auto) Neut % (Auto) Lymph % (Auto) [place] % (Auto) Eos % (Auto) Baso % (Auto) Absolute Neuts (auto) Absolute Lymphs (auto) Nucleated RBC % Sodium Potassium Chloride Carbon Dioxide Anion Gap BUN Creatinine Estim Creat Clear Calc Est GFR (MDRD) Af Amer Est GFR (MDRD) Non-Af BUN/Creatinine Ratio Glucose Calcium Total Bilirubin AST ALT Alkaline Phosphatase Total Protein Albumin Globulin Albumin/Globulin Ratio Urine Opiates Screen NEGATIVE Urine Methadone Screen NEGATIVE Ur Barbiturates Screen NEGATIVE Ur Phencyclidine Scrn NEGATIVE Ur Amphetamines Screen NEGATIVE MDMA (Ecstasy) Screen NEGATIVE U Benzodiazepines Scrn NEGATIVE Urine Cocaine Screen NEGATIVE U Cannabinoids Screen NEGATIVE Ur Drug Screen Comment Ethyl Alcohol Discharge Plan Triage Chief Complaint: Suicidal ED Provider: Michael Bhandari Dx/Rx/DC Orders Prescriptions: No Action mirtazapine 30 mg tablet 30 mg PO QHS omeprazole 20 mg capsule,delayed release(DR/EC) 20 mg PO DAILY Label Comments: 40 mg Oral Daily sertraline [Zoloft] 50 mg tablet 50 mg PO DAILY Label Comments: 50 mg Oral every morning aripiprazole 10 mg tablet 10 mg PO DAILY Primary Care Provider: Shashank Kuhn NP Referrals: Shashank Kuhn NP, IT CONSULTANT-C [Primary Care Provider] - Disposition Disposition: Psychiatric Hospital or Unit Discharge Location: [facility] Discharge Date/Time: 11/15/22 19:52
--- NOTE | 2022-11-15 11:32 | ED.RN ---
WHEN APT AMBULATED INTO ER ROOM 4 AND WAS GIVEN THE GOWN AND BAGS TO PLACE HIS BELONGINGS INTO HE TOOK A BAG AND PLACED IT OVER HIS HEAD. IT WAS IMMEDIATELY REMOVED. PT WAS NOT HARMED FROM THIS ACTION BUT IT WAS EXPLAINED TO PT THAT THESE BEHAVIORS WERE NOT ACCEPTABLE AND THE CONSEQUENCES OF SUCH ACTIONS. PT AGREED TO BE COOPERATIVE AT THIS TIME
[2022-11-15 11:41] LABS: Absolute Neutrophil Count 7.7 X10^3/uL (2.0-7.7); Basophil# 0.05 X10^3/uL; Basophil% 0.5 % (0-1); Eosinophil# 0.09 X10^3/uL; Eosinophils% 0.9 % (0-5); Hemoglobin 14.5 g/dL (13.0-16.5); Lymphocyte % 17.2 % (19-41); Mean Corp Hgb Conc 34.5 g/dL (32-36); Mean Corpuscular Hgb 30.7 pg (27.0-32.0); Mean Corpuscular Volume 88.8 fL (80-94); Mean Platelet Vol. 9.4 fl (6.2-12.0); Monocyte# 0.74 X10^3/uL; Monocyte% 7.1 % (0-10); NRBC Flagged by Analyzer 0 % (0-5); Neutrophil # 7.74 X10^3/uL (2.7-7.7); Neutrophil % 73.9 % (47-70); Platelet Count 303 K/mm3 (150-450); RBC Distribution Width CV 12.3 % (11.6-14.6); Red Blood Count 4.73 M/mm3 (4.6-6.2); White Blood Count 10.5 K/mm3 (4.4-11.0)
[2022-11-15 12:03] LABS: AST(SGOT) 16 U/L (15-37); Alanine Aminotransfer ALT/SGPT 40 U/L (16-61); Albumin, Serum 3.8 g/dL (3.2-5.0); Alkaline Phosphatase 66 U/L (45-117); Anion Gap 7 (5-15); BUN 7 mg/dL (7-18); BUN/Creat Ratio 8.8 RATIO (10-20); Calcium,Total 9.1 mg/dL (8.5-10.1); Chloride 107 mmol/L (98-107); EST Glomerular Filtration Rate 126 mL/min (>60); Est Glom Filt Rate - Afr Amer 152 mL/min (>60); Estimated Creatinine Clearance 150.34 ml/min; Globulin 3.7 g/dL (2.2-4.2); Glucose 100 mg/dL (74-106); Potassium 3.5 mmol/L (3.5-5.1); Protein, Total 7.5 g/dL (6.4-8.2); Sodium Level 140 mmol/L (136-145)
[2022-11-15 12:12] LABS: Amphetamine Urine VISTA NEGATIVE (<1000 ng/mL); Barbiturate Urine VISTA NEGATIVE (< 200 ng/mL); Benzodiazepine Urine VISTA NEGATIVE (< 200 ng/mL); Cocaine Urine VISTA NEGATIVE (< 300 ng/mL); Ecstacy Urine VISTA NEGATIVE (< 500 ng/mL); Methadone Urine VISTA NEGATIVE (< 300 ng/mL); PCP Urine VISTA NEGATIVE (< 25 ng/mL); THC Urine VISTA NEGATIVE (< 50 ng/mL); Vista UDS pH Range 7
--- NOTE | 2022-11-15 15:49 | CM.ED ---
Social Work SW introduced self and role to patient. SW notes patient has had psychiatric placement on 10/20/22 at [facility], 10/28 at [facility], and 11/02 [facility] and reports he has been released from [facility] for 4 days. Patient is homeless and reports depression, SI, paranoia, and lack of sleep due to homelessness and being unable to sleep. Pt has a child support case officer at the counseling center, Luke Archuleta, voicemail left for him regarding housing/pt needs. SW spoke with the [facility] as patient reports he is banned from there. The [facility] reports they did not see his name on the do not admit list; however, they have no beds available and do intake between 3-7. SW left voicemail for the housing navigator at [facility] re:housing support. SW awaiting return information before decision regarding placement or safety plan. Pt could be safety planned with adequate housing but presents risk while being homeless due to recent behaviors/SI. Pt requesting a hotel voucher and reports he has spent all of his disability income on hotel rooms due to homelessness. Pt reports he has a no-trespassing order at this mother's home and cannot return there. Plan: Review housing situation and resources available to client prior to d/c or transfer to psych facility. Valorie Lundberg SYSTEMS DEVELOPER, MANPOWER DEVELOPMENT ADVISOR
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
--- NOTE | 2022-11-15 17:17 | NURSING ---
[facility] NURSE TO NURSE [phone] NEEDS ETA
--- NOTE | 2022-11-15 17:23 | NURSING ---
CALLED [facility], ETA IS 2 TO 3 HOURS
--- NOTE | 2022-11-15 17:42 | ED.RN ---
report given to Franklyn UMANZOR with no questions or concerns.
== END 2022-11-15 19:52 ==
PROVIDERS: Emergency Provider Emergency Medicine; PCP Nurse Practitioner Family; Visit Provider Emergency Medicine
DX: F31.9 Bipolar disorder, unspecified (principal); R45.851 Suicidal ideations; Z87.891 Personal history of nicotine dependence; Z59.00 Homelessness unspecified; Z79.899 Other long term (current) drug therapy; K21.9 Gastro-esophageal reflux disease without esophagitis
CPT/HCPCS: 80053; 80307; 82077; 85025; 87811; 99284

== ENCOUNTER 2024-11-20 23:17 | Emergency (ER) | payer MEDICARE, MEDICAID, SELFPAY ==
--- NOTE | 2024-11-20 00:35 | RAD_ITS ---
PROCEDURE: CHEST PA AND LATERAL 11/21/2024 REASON FOR EXAM: CHEST PAIN TECHNIQUE: CHEST PA AND LATERAL COMPARISON: 02/18/2020 FINDINGS: The lungs are expanded. There is no demonstrated parenchymal abnormality. There is no demonstrated pleural abnormality. Normal heart and pericardium. Normal mediastinum and nicolle. Normal visualized pulmonary arteries. Normal visualized aortic arch and descending thoracic aorta. Normal visualized thoracic spine. Normal visualized ribs, clavicles, and shoulders. There is no demonstrated abnormality of the visualized soft tissue structures of the upper abdomen. RAD/Chest PA and Lateral IMPRESSION: Normal x-ray examination of the chest. Reading [facility]
[2024-11-20 23:20] VITALS: BP 143/92; PULSE 87; RESP 18; TEMP 36.8; O2SAT 100; BMI 27.7
--- NOTE | 2024-11-20 23:50 | EKG12_ITS ---
Test Reason : DYSRHYTHMIA Blood Pressure : */* mmHG Vent. Rate : 79 BPM Atrial Rate : 79 BPM P-R Int : 132 ms QRS Dur : 78 ms QT Int : 374 ms P-R-T Axes : 63 46 39 degrees QTcB Int : 428 ms Normal sinus rhythm with sinus arrhythmia Normal ECG Confirmed by JOSE ÁLVAREZ, MIKAEL ([id number]), newspaper editor managing AFTAB LEE ([id number]) on 11/21/2024 8:29:14 AM Referred By: Confirmed By: MIKAEL GARCIA MD
--- NOTE | 2024-11-20 23:55 | EX.ED.DYSGE1 ---
HPI History of Present Illness Chief Complaint: Abd Pain Informant: patient Narrative Narrative: Patient is a 29-year-old male with history of bipolar disorder and autism as well as GERD presenting with chest discomfort. Patient states it feels like his GERD. He states he has had sharp pain in the substernal area his whole life but it been bad today. He states it occurs every 5 seconds. He has tried to take multiple cold showers with no relief. States he did take an extra pantoprazole today as well. He tried Pepto-Bismol with no relief. He also notes he has been constipated. He did have a bowel movement today but is very hard. I seen black or blood in his stool. In addition he has had's episodes of pain rating up to his left head and throughout his extremities. He notes that his voice seems different anything is from the acid. He has a foreign body sensation in his throat/throat irritation. He does note that he relapsed and used methamphetamines today around 11 AM. States he been clean for 3 years prior to this. He also is worried that he is short of breath. He states he ran out of his inhaler. Denies any wheezing. Has any cough. No report of any fevers but does report cold chills. Does not report any HI or SI. States he is very problem so for having a job and living independently. [facility] Medical History Methamphetamine abuse Suicidal behavior ADD (attention deficit disorder) Autism GERD (gastroesophageal reflux disease) Bipolar 1 disorder Home Medications ?Medication ?Instructions ?Recorded ?Last Taken ?Type aripiprazole 10 mg tablet 10 mg PO DAILY 11/15/22 Unknown History mirtazapine 30 mg tablet 30 mg PO QHS 11/15/22 Unknown History sertraline 50 mg tablet (Zoloft) 50 mg PO DAILY 11/15/22 Unknown History pantoprazole 40 mg tablet,delayed 40 mg PO BID 11/20/24 Unknown History release simethicone 80 mg chewable tablet 80 mg PO QHS PRN abdominal 11/21/24 Unknown Rx distention #7 tabs Allergy/AdvReac Type Severity Reaction Status Date / Time Environmental Allergies: Allergy Hives Verified 11/20/24 23:19 Uncoded (pine) haloperidol (From Haldol) AdvReac HALLUCINATI Verified 11/20/24 23:19 ONS Social History household members: none and other details: Patient is incarcerated Smoking Status: Current every day smoker tobacco type: cigarettes and e-cigarettes details: No alcohol since incarceration substance use type: marijuana and other details: no IVDU ROS ROS ED Constitutional Constitutional ED: Reports chills; Denies fever(s) Eyes Eyes: Denies diplopia ENT ENT ED: Reports sore throat; Denies ear pain or rhinorrhea Cardiovascular Cardiovascular: Reports chest pain Respiratory/Chest Respiratory/Chest: Reports dyspnea; Denies cough Gastrointestinal Gastrointestinal: Reports abdominal pain and constipation; Denies melena, nausea or vomiting Musculoskeletal Musculoskeletal: Denies arthralgias or myalgias Integumentary Denies rash Neurologic Neurologic: Reports paresthesias; Denies headache(s) Psychiatric Psychiatric: Reports anxiety EXAM Physical Exam Const Vital Signs: 11/20/24 23:20 11/21/24 01:18 Temperature 98.2 F Temperature Source Oral Pulse Rate 87 66 Respiratory Rate 18 16 Blood Pressure 143/92 H 145/82 H Blood Pressure Mean 109 103 Pulse Ox 100 96 Oxygen Delivery Method Room Air Room Air Positive well nourished and well developed General Appearance ED: well developed and NAD HEENT Reports TM's clear and moist mucous membranes HEENT Narrative: Partial cerumen impaction but visualized TMs are normal bilaterally. Normal ear canals. Normal oropharyngeal exam. Uvula is midline. Normal phonation. Tympanic Membrane ED: Yes TM's clear Neck supple and no JVD Chest Wall inspection of chest normal and palpation of chest normal Resp normal respiratory effort and clear to auscultation bilaterally Auscultation: Negative for rales, rhonchi or wheezes Cardio regular rate, regular rhythm and no murmurs Cardio Narrative: 2+ radial DP pulses present GI non-tender and non-distended GI Narrative: Patient points to his epigastric region and left upper quadrant as his area of discomfort. It is not reproducible on direct palpation. Inspection: Negative for abdominal distention Auscultation: hypoactive bowel sounds Palpation: soft; Negative for tender or guarding Back/Spine no CVA tenderness Thoracic Spine / Upper Back: Negative for thoracic spinal tenderness Lumbar Spine / Lower Back: Negative for lumbar spinal tenderness Extremity normal to inspection General Extremety ED: Negative for edema General Extremity: Negative for edema Neuro oriented x3 Neuro Narrative: Sensation and strength intact in all extremities. No focal neurologic deficits appreciated. Sensorium / Orientation: alert Motor Exam: Negative for general weakness Psych Psych Narrative: Patient does not appear internally stimulated. He is calm and answers questions appropriately. Mood & Affect: anxious Skin no rashes or lesions noted and no wounds MDM MDM MDM Narrative Medical decision making narrative: Patient evaluated for upper abdominal pain/chest pain. He has multiple other complaints and also admits to methamphetamine use today. Differential includes not limited to ACS, pneumothorax, pneumonia, GERD, esophagitis, pancreatitis, cholecystitis (lower suspicion based on abdominal exam). Patient is given GI cocktail and IV Pepcid. At this time he is calm and while he is anxious is otherwise acting appropriately. Is offered anxiolytic but declines at this time. Patient's vital signs remained stable in the emergency room (mildly hypertensive of). Has improvement with GI cocktail it does wear off. Has a mild leukocytosis of 13.6 which is nonspecific. Hemoglobin and platelets normal. CMP normal. High-sensitivity troponin less than 6 x 2. Low suspicion for ACS. Patient is PE RC negative I do not think requires a D-dimer and low risk for pulmonary emboli. Lipase is normal. Less patient for pancreatitis or cholecystitis. Suspect this is more esophagitis/gastritis. Is given further Gas-X for sensation of bloating. Would counseled on regularly taking his pantoprazole (40 mg twice daily). He states he has plenty at home. Will be given outpatient GI follow-up. Given return precautions. Discharged home in stable condition. At time of discharge patient did request a dose of Vistaril because hospitals make him anxious. Is given a dose prior to discharge Lab Data Attestation: I reviewed the patient's lab results. Labs: Laboratory Results - last 24 hr 11/20/24 11/21/24 00:07 02:11 WBC 13.6 H RBC 5.04 Hgb 15.6 Hct 42.7 MCV 84.7 MCH 31.0 MCHC 36.5 H RDW Std Deviation 36.0 RDW Coeff of Sis 11.9 Plt Count 311 MPV 9.5 Immature Gran % (Auto) 0.500 Neut % (Auto) 70.3 H Lymph % (Auto) 20.0 [place] % (Auto) 8.7 Eos % (Auto) 0.2 Baso % (Auto) 0.3 Absolute Neuts (auto) 9.6 H Absolute Lymphs (auto) 2.72 Nucleated RBC % 0 Sodium 137 Potassium 3.5 Chloride 101 Carbon Dioxide 20.0 L Anion Gap 16 H BUN 7 Creatinine 1.07 Estim Creat Clear Calc 110.45 Est GFR (MDRD) Non-Af 98 BUN/Creatinine Ratio 6.2 L Glucose 90 Calcium 10.1 Total Bilirubin 0.92 AST 35 ALT 27 Alkaline Phosphatase 63 Troponin T High Sens < 6 Troponin T Hi Sens 2 Hr < 6 Total Protein 8.1 Albumin 4.9 Globulin 3.1 Albumin/Globulin Ratio 1.6 Lipase 18 Radiography Diagnostic Testing: Clinical Impression(s) from Imaging Studies Chest X-Ray 11/20/24 00:35 IMPRESSION: Normal x-ray examination of the chest. Reading Location: [place] [id number] Rhythm Strip Rhythm Strip: Sinus Rhythm Rate: 79 Ectopy: None EKG Initial EKG: Attestation: I personally reviewed and interpreted this EKG as follows: Interpretation: Sinus Rhythm Comments: Normal sinus rhythm at a rate of 79 bpm with sinus arrhythmia Normal axis Normal intervals Normal ST segments Discharge Plan Triage Chief Complaint: Abd Pain ED Provider: Liudmila Bailon Dx/Rx/DC Orders Clinical Impression: Abdominal pain, acute, epigastric, Chest pain due to GERD Instructions: ED GERD (Adult), ED Epigastric Pain Uncertain Cause Prescriptions: New simethicone 80 mg tablet,chewable 80 mg PO QHS PRN (Reason: abdominal distention) Qty: 7 0RF No Action mirtazapine 30 mg tablet 30 mg PO QHS sertraline [Zoloft] 50 mg tablet 50 mg PO DAILY Patient Comments: 50 mg Oral every morning aripiprazole 10 mg tablet 10 mg PO DAILY pantoprazole 40 mg tablet,delayed release (DR/EC) 40 mg PO BID Primary Care Provider: Shashank Kuhn NP Referrals: Jeff Delgadillo DO [Med Staff - Active Staff] - Shashank Kuhn AUDIT DIRECTOR, AUDIT DIRECTOR-C [Primary Care Provider] - Activity Restrictions/Additional Instructions: As we discussed please try to adhere to a low acid diet. Your workup today was largely normal and your symptoms are most consistent with reflux/irritation of your esophagus and stomach from increased stomach acid. Please follow-up with GI. Please continue to take 40 mg pantoprazole twice a day as previously prescribed. You may take Tums or [id number] Maalox for breakthrough symptoms. You have been also been given a prescription for simethicone for a week to help with abdominal bloating. Return given progression worsening of your symptoms. Print Language: Japanese Disposition Disposition: Home, Self Care
[2024-11-21] MEDS: Lidocaine 2% Viscous15 ML UDC 15 ML PO (00:07)
[2024-11-21] MEDS: Mag Hydrox/Al Hydrox/Simeth 30 ML UDC PO (00:07)
[2024-11-21 00:15] LABS: Absolute Lymphocyte Count 2.72 X10^3/uL (0.83-4.51); Absolute Neutrophil Count 9.6 X10^3/uL (2.0-7.7); Basophil# 0.04 X10^3/uL; Basophil% 0.3 % (0-1); Eosinophil# 0.03 X10^3/uL; Eosinophils% 0.2 % (0-5); Hematocrit 42.7 % (40-54); Hemoglobin 15.6 g/dL (13.0-16.5); Lymphocyte # 2.72 X10^3/ul (0.83-4.51); Mean Corp Hgb Conc 36.5 g/dL (32-36); Mean Corpuscular Volume 84.7 fL (80-94); Mean Platelet Vol. 9.5 fl (6.2-12.0); Monocyte# 1.18 X10^3/uL; Monocyte% 8.7 % (0-10); NRBC Flagged by Analyzer 0 % (0-5); Neutrophil # 9.59 X10^3/uL (2.7-7.7); Neutrophil % 70.3 % (47-70); Platelet Count 311 K/mm3 (150-450); RBC Distribution Width CV 11.9 % (11.6-14.6); Red Blood Count 5.04 M/mm3 (4.6-6.2); White Blood Count 13.6 K/mm3 (4.4-11.0)
[2024-11-21] MEDS: Famotidine 200 MG/20 ML MDV 20 MG in 0.9% Normal Saline (Pres. free 8 ML 300 MG IV (00:26)
[2024-11-21 00:32] LABS: ALB/GLOB Ratio 1.6 RATIO (0.9-2.4); AST(SGOT) 35 U/L (<=37); Alanine Aminotransfer ALT/SGPT 27 U/L (<=46); Albumin, Serum 4.9 g/dL (3.5-5.0); Alkaline Phosphatase 63 U/L (40-129); Anion Gap 16 (5-15); BUN 7 mg/dL (4-19); BUN/Creat Ratio 6.2 RATIO (10-20); Calcium,Total 10.1 mg/dL (7.6-11.0); Chloride 101 mmol/L (98-108); Creatinine, Serum 1.07 mg/dL (0.70-1.20); EST Glomerular Filtration Rate 98 (>60); Estimated Creatinine Clearance 110.45 ml/min (50-250); Globulin 3.1 g/dL (2.2-4.2); Glucose 90 mg/dL (70-99); Lipase 18 U/L (13-75); Potassium 3.5 mmol/L (3.3-5.1); Protein, Total 8.1 g/dL (5.9-8.4); Sodium Level 137 mmol/L (133-145); Total Bilirubin 0.92 mg/dL (0.00-1.30); Troponin T High Sensitivity < 6 ng/L (<=22)
[2024-11-21 01:18] VITALS: BP 145/82; PULSE 66; RESP 16; O2SAT 96
[2024-11-21 02:41] LABS: Troponin T High Sens 2 HR < 6 ng/L (<=22)
[2024-11-21 03:00] VITALS: BP 139/88; PULSE 68; RESP 18; TEMP 36.9; O2SAT 99
[2024-11-21] MEDS: SimETHICONE 80 MG Chewable Tablet PO (03:41)
[2024-11-21] MEDS: hydrOXYzine PAM 25 MG Capsule PO (03:41)
== END 2024-11-21 03:42 | disposition home or self-care (01) ==
PROVIDERS: Emergency Provider Emergency Medicine; PCP Nurse Practitioner Family; Visit Provider Emergency Medicine
DX: R10.13 Epigastric pain (principal); F31.9 Bipolar disorder, unspecified; R06.02 Shortness of breath; F15.90 Other stimulant use, unspecified, uncomplicated; F17.210 Nicotine dependence, cigarettes, uncomplicated; R07.9 Chest pain, unspecified; F84.0 Autistic disorder; K21.9 Gastro-esophageal reflux disease without esophagitis; F98.8 Other specified behavioral and emotional disorders with onset usually occurring in childhood and adolescence; J02.9 Acute pharyngitis, unspecified; F41.9 Anxiety disorder, unspecified; R20.2 Paresthesia of skin
CPT/HCPCS: 71046; 80053; 83690; 84484; 85025; 93005; 99285; A4216

== ENCOUNTER 2024-12-26 12:56 | Emergency (ER) | payer MEDICARE, MEDICAID, SELFPAY ==
[2024-12-26 12:58] VITALS: BP 106/63; PULSE 112; RESP 16; TEMP 36.7; O2SAT 98; BMI 27.1
[2024-12-26 13:43] VITALS: O2SAT 98
--- NOTE | 2024-12-26 13:43 | EKG12_ITS ---
Test Reason : CP Blood Pressure : */* mmHG Vent. Rate : 97 BPM Atrial Rate : 97 BPM P-R Int : 120 ms QRS Dur : 86 ms QT Int : 336 ms P-R-T Axes : 61 66 47 degrees QTcB Int : 426 ms Normal sinus rhythm Normal ECG When compared with ECG of 20-Nov-2024 23:53, No significant change was found Confirmed by DYLON ÁLVAREZ, MARCI ([id number]), communications editor JADE KEARNEY ([id number]) on 12/28/2024 2:32:10 PM Referred By: Liudmila Bailon Confirmed By: MARCI OSBORNE MD
--- NOTE | 2024-12-26 13:55 | RAD_ITS ---
PROCEDURE: CHEST PA AND LATERAL 12/26/2024 REASON FOR EXAM: CHEST PAIN TECHNIQUE: CHEST PA AND LATERAL COMPARISON: Chest radiograph 11/21/2024. FINDINGS: Hardware: None. Heart: The heart size is normal. Mediastinum: The mediastinal contour is stable. Lungs: No focal consolidation, pleural effusion or pneumothorax. Bones: The bones are unremarkable. RAD/Chest PA and Lateral IMPRESSION: NEGATIVE CHEST Reading Location: [id number]
[2024-12-26 13:57] VITALS: BP 115/80; PULSE 83; RESP 19; O2SAT 96
[2024-12-26 14:00] VITALS: BP 115/80; PULSE 88; RESP 19; O2SAT 96
[2024-12-26 14:05] LABS: Hematocrit 43.2 % (40-54); Hemoglobin 15.3 g/dL (13.0-16.5); Immature Granulocytes Count 0.040 X10^3/uL (0.0-0.0); Mean Corp Hgb Conc 35.4 g/dL (32-36); Mean Corpuscular Volume 85.5 fL (80-94); Mean Platelet Vol. 9.7 fl (6.2-12.0); NRBC Flagged by Analyzer 0 % (0-5); Platelet Count 338 K/mm3 (150-450); RBC Distribution Width CV 12.0 % (11.6-14.6); RBC Distribution Width SD 37.2 fl (35.1-43.9); Red Blood Count 5.05 M/mm3 (4.6-6.2); White Blood Count 10.2 K/mm3 (4.4-11.0)
[2024-12-26 14:29] LABS: D-Dimer Quantitative (DVT/PE) < 0.27 FEU/ug/m (0.27-0.49)
[2024-12-26 14:52] LABS: Anion Gap 17 (5-15); BUN 10 mg/dL (4-19); BUN/Creat Ratio 9.6 RATIO (10-20); Calcium,Total 10.1 mg/dL (7.6-11.0); Carbon Dioxide 19.3 mmol/L (21.0-32.0); Chloride 100 mmol/L (98-108); Estimated Creatinine Clearance 118.18 ml/min (50-250); Glucose 89 mg/dL (70-99); Potassium 3.5 mmol/L (3.3-5.1); Troponin T High Sensitivity < 6 ng/L (<=22)
[2024-12-26 15:00] VITALS: BP 116/80; PULSE 80; RESP 24; O2SAT 97
--- NOTE | 2024-12-26 15:18 | ED.VIS.CHEST ---
HPI History of Present Illness Chief Complaint: Chest Pain Informant: patient Narrative Narrative: Patient is a 29-year-old male with history of autism, bipolar disorder and depression as well as reflux presenting with multiple complaints. Patient states for the past few days he has been having sensation of swelling in his throat and a foreign body sensation. States sometimes he feels like he is swallowing something. This going on for 3 to 4 days. He needs he is had a headache at the top of his head that he describes as throbbing. In addition he states that he has been having weakness and numbness in his legs and back. He states it happens to different legs different spots at different times. Currently denies any. States earlier his left leg was weak and he felt he was going to fall because of so weak. He states he gets a numbness sensation in his back all the way up to his shoulder blades. Denies any acute back pain. Denies any trauma or injury. Denies any bowel or bladder incontinence. He also notes a past 2 days has been intermittent shortness of breath and tightness in this chest. Earlier today he had pain that was radiating to his arm which is what prompted him to call 911 and come into the ER. He denies any known cardiac history. Denies history of Marfan's. Denies any severe sharp/ripping or tearing pain. Currently his only complaint is that he has a mild headache. EMS report reviewed. Complaint of chest pain, shortness of breath and leg numbness. Was given aspirin and nitro in Routes. [facility] Medical History Methamphetamine abuse Suicidal behavior ADD (attention deficit disorder) Autism GERD (gastroesophageal reflux disease) Bipolar 1 disorder Home Medications ?Medication ?Instructions ?Recorded ?Last Taken ?Type aripiprazole 10 mg tablet 10 mg PO DAILY 11/15/22 12/26/24 History sertraline 50 mg tablet (Zoloft) 50 mg PO DAILY 11/15/22 12/26/24 History famotidine 20 mg tablet (Acid 20 mg PO DAILY PRN REFLUX 12/26/24 12/26/24 History Controller) simethicone 80 mg chewable tablet 160 mg PO DAILY PRN abdominal 12/26/24 12/26/24 History (Gas Relief (simethicone)) distention Allergy/AdvReac Type Severity Reaction Status Date / Time Environmental Allergies: Allergy Hives Verified 12/26/24 13:02 Uncoded (pine) haloperidol (From Haldol) AdvReac HALLUCINATI Verified 12/26/24 13:02 ONS Social History household members: none and other details: Patient is incarcerated Smoking Status: Current every day smoker tobacco type: cigarettes and e-cigarettes details: No alcohol since incarceration substance use type: marijuana and other details: no IVDU ROS ROS ED Constitutional Constitutional ED: Denies chills or fever(s) ENT ENT ED: Reports sore throat; Denies rhinorrhea Cardiovascular Cardiovascular: Reports as per HPI and chest pain Respiratory/Chest Respiratory/Chest: Reports dyspnea; Denies cough Gastrointestinal Gastrointestinal: Denies abdominal pain, nausea or vomiting Musculoskeletal Musculoskeletal: Reports other Details: Mild chronic back pain?not acutely ; Denies arthralgias or myalgias Integumentary Denies rash Neurologic Neurologic: Reports paresthesias RLE and LLE and weakness Psychiatric Psychiatric: Reports anxiety Hematologic/Lymphatic Hematologic/Lymphatic: Denies easy bleeding or easy bruising EXAM Physical Exam Const Vital Signs: 12/26/24 12:58 12/26/24 13:43 12/26/24 13:57 Temperature 98.1 F Temperature Source Oral Pulse Rate 112 H 83 Respiratory Rate 16 19 H Blood Pressure 106/63 115/80 Blood Pressure Mean 77 91 Pulse Ox 98 98 96 Oxygen Delivery Method Room Air Room Air Room Air 12/26/24 14:00 12/26/24 15:00 Temperature Temperature Source Pulse Rate 88 80 Respiratory Rate 19 H 24 H Blood Pressure 115/80 116/80 Blood Pressure Mean 91 92 Pulse Ox 96 97 Oxygen Delivery Method Room Air Room Air Positive well nourished and well developed General Appearance ED: well developed and NAD HEENT Reports moist mucous membranes HEENT Narrative: Hypertrophy of the bilateral tonsils with crypts present. No exudate or erythema present. Uvula is midline. Normal phonation. Handling secretions well. No trismus. Visualized tympanic membranes bilaterally are normal however there are partially occluded with cerumen normocephalic Eyes PERRL Neck supple and no JVD Chest Wall inspection of chest normal and palpation of chest normal Resp normal respiratory effort and clear to auscultation bilaterally Cardio regular rate, regular rhythm and no murmurs Cardio Narrative: 2+ radial and DP pulses present GI normal to inspection, nondistended, normoactive bowel sounds, soft to palpation and non-tender GI Narrative: No pulsatile mass Back/Spine no CVA tenderness and no thoracic nor lumbar tenderness Extremity normal to inspection Neuro oriented x3 Neuro Narrative: 5/5 strength of the lower extremities with flexion at the hips as well as plantar and dorsiflexion. Sensation intact in all extremities. Sensorium / Orientation: awake and alert Motor Exam: Negative for general weakness Skin no rashes or lesions noted and no wounds Heart Score History: Slightly/Non-Suspicious ECG: Normal Age: </= 45 years Risk Factors: No Risk Factors Troponin: </= Normal Limit Score: 0 MDM MDM MDM Narrative Medical decision making narrative: Patient evaluated for multiple complaints including numbness and weakness of his legs, sore throat and chest pain as well as leg weakness intermittently. EKG does not show any acute ischemia. Had he is tachycardic upon arrival but that is his only risk factor for PE. Does not sound like a dissection. He does not have any risk factors for this. Is equal pulses in all 4 extremities. D-dimer is normal (less than 0.27) I do not think he needs CTA. Chest x-ray viewed by myself as well as radiology does not show any acute process. CBC and BMP as well as high-sensitivity troponin are normal. His symptoms are going on for couple days and I do not think he requires trending of his troponin. For his sore throat I did order strep and COVID test. These are negative. Feels he could have a viral syndrome. Also possibly could have reflux which she does have a history of. Patient will be discharged home to follow-up with family doctor. At this time I do not think he needs further testing in the ER or admission. Given return precautions. Does have a headache in the ER. Suspect that might be from the nitroglycerin he received in rounds. Will give him Tylenol for this. He does not have any meningeal signs. He has a normal neurologic exam and moving all extremities. Given his waxing waning symptoms no acute weakness have a very low suspicion for Duval Moore? syndrome. He is not any midline back tenderness or red flag symptoms for cauda equina syndrome. Lab Data Attestation: I reviewed the patient's lab results. Labs: Laboratory Results - last 24 hr 12/26/24 12/26/24 13:24 14:06 WBC 10.2 RBC 5.05 Hgb 15.3 Hct 43.2 MCV 85.5 MCH 30.3 MCHC 35.4 RDW Std Deviation 37.2 RDW Coeff of Sis 12.0 Plt Count 338 MPV 9.7 Immature Gran % (Auto) 0.400 Neut % (Auto) 73.6 H Lymph % (Auto) 17.1 L [place] % (Auto) 7.4 Eos % (Auto) 1.1 Baso % (Auto) 0.4 Absolute Neuts (auto) 7.5 Absolute Lymphs (auto) 1.75 Nucleated RBC % 0 D-Dimer Quant (PE/DVT) < 0.27 L Sodium 137 Potassium 3.5 Chloride 100 Carbon Dioxide 19.3 L Anion Gap 17 H BUN 10 Creatinine 1.00 Estim Creat Clear Calc 118.18 Est GFR (MDRD) Non-Af 106 BUN/Creatinine Ratio 9.6 L Glucose 89 Calcium 10.1 Troponin T High Sens < 6 Radiography Chest X-Ray - ED: 2 View, Read by ED Physician, Read by Radiologist and No Acute Disease Diagnostic Testing: Clinical Impression(s) from Imaging Studies Chest X-Ray 12/26/24 13:55 IMPRESSION: NEGATIVE CHEST Reading Location: [facility] Rhythm Strip Rhythm Strip: Sinus Rhythm Rate: 97 Ectopy: None EKG Initial EKG: Attestation: I personally reviewed and interpreted this EKG as follows: Interpretation: Sinus Rhythm Comments: Normal sinus rhythm at a rate of 97 bpm Normal axis Normal intervals Normal ST segments Compared to prior EKG on 11/20/2024, no acute change Discharge Plan Triage Chief Complaint: Chest Pain Other Complaint: Anxiety ED Provider: Liudmila Bailon Dx/Rx/DC Orders Clinical Impression: Chest pain, Acute sore throat, Bilateral leg weakness Instructions: ED Chest Pain, Noncardiac, ED Pharyngitis, Viral, ED Weakness Uncertain Cause Prescriptions: No Action sertraline [Zoloft] 50 mg tablet 50 mg PO DAILY Patient Comments: 50 mg Oral every morning aripiprazole 10 mg tablet 10 mg PO DAILY famotidine [Acid Controller] 20 mg tablet 20 mg PO DAILY PRN (Reason: REFLUX) simethicone [Gas Relief (simethicone)] 80 mg tablet,chewable 160 mg PO DAILY PRN (Reason: abdominal distention) Primary Care Provider: Care Physician,No Primary Referrals: Care Physician,No Primary [Primary Care Provider] - Red Martini, [employer] [[facility]] - Print Language: Guyanese Disposition Disposition: Home, Self Care
[2024-12-26 15:43] VITALS: BP 116/80; PULSE 80; RESP 24; TEMP 36.7; O2SAT 97
== END 2024-12-26 15:45 | disposition home or self-care (01) ==
PROVIDERS: Emergency Provider Emergency Medicine; Referring Provider Emergency Medicine; Visit Provider Emergency Medicine
DX: R07.9 Chest pain, unspecified (principal); F31.9 Bipolar disorder, unspecified; J02.9 Acute pharyngitis, unspecified; R09.A2 Foreign body sensation, throat; F41.9 Anxiety disorder, unspecified; F17.210 Nicotine dependence, cigarettes, uncomplicated; R51.9 Headache, unspecified; F84.0 Autistic disorder; R29.898 Other symptoms and signs involving the musculoskeletal system; R20.2 Paresthesia of skin; M54.9 Dorsalgia, unspecified; G89.29 Other chronic pain; R06.09 Other forms of dyspnea
CPT/HCPCS: 71046; 80048; 84484; 85025; 85379; 87631; 87651; 93005; 99285; A4216

== ENCOUNTER 2025-05-09 21:36 | Emergency (ER) | payer MEDICARE, MEDICAID, SELFPAY ==
[2025-05-09 21:36] VITALS: BP 118/79; PULSE 122; RESP 18; TEMP 36.1; O2SAT 97; BMI 23.8
--- NOTE | 2025-05-09 21:53 | EX.ED.VIS.PS ---
HPI HPI - Psych History of Present Illness Chief Complaint: Mental Health Informant: patient Onset/Context/Timing Onset: Month(s) Context: Gradual Onset Timing: Continuous Worsened by: Situational factors Relieved by: Nothing Associated Symptoms Associated Symptoms - Psych: Positive for Depressed, Decreased Interest, Hopelessness and Paranoia; Negative for Change in Eating, Change in sleeping, Suicidal Thoughts, Visual Hallucinations or Auditory Hallucinations Narrative Narrative: Patient presents with depression that has been getting worse over the past 5 to 6 months. Patient states he has been sitting in his chair for the past 5 to 6 months. Patient states he would get up to go to the bathroom and to shower. Patient states he did not want to leave his house. Patient denies any suicidal or homicidal ideations. Patient states he feels hopeless and depressed. Patient denies any changes in eating or sleeping habits. Patient does admit to occasional paranoid ideations. [facility] Medical History Methamphetamine abuse Suicidal behavior ADD (attention deficit disorder) Autism GERD (gastroesophageal reflux disease) Bipolar 1 disorder Home Medications ?Medication ?Instructions ?Recorded ?Last Taken ?Type aripiprazole 10 mg tablet 10 mg PO DAILY 11/15/22 12/26/24 History sertraline 50 mg tablet (Zoloft) 50 mg PO DAILY 11/15/22 12/26/24 History simethicone 80 mg chewable tablet 160 mg PO DAILY PRN abdominal 12/26/24 12/26/24 History (Gas Relief (simethicone)) distention Allergy/AdvReac Type Severity Reaction Status Date / Time Environmental Allergies: Allergy Hives Verified 05/09/25 21:40 Uncoded (pine) haloperidol (From Haldol) AdvReac HALLUCINATI Verified 05/09/25 21:40 ONS Social History household members: none and other details: Patient is incarcerated Smoking Status: Current every day smoker tobacco type: cigarettes and e-cigarettes details: No alcohol since incarceration substance use type: marijuana and other details: no IVDU ROS ROS ED Constitutional Constitutional ED: Denies chills or fever(s) Eyes Eyes: Denies blurry vision or change in vision ENT ENT ED: Denies rhinorrhea or sore throat Cardiovascular Cardiovascular: Denies chest pain or palpitations Respiratory/Chest Respiratory/Chest: Reports dyspnea; Denies cough Gastrointestinal Gastrointestinal: Denies nausea or vomiting Genitourinary Genitourinary ED: Denies dysuria or hematuria Musculoskeletal Musculoskeletal: Denies back pain or neck pain Integumentary Denies abscess or rash Neurologic Neurologic: Denies headache(s) or weakness Psychiatric Psychiatric: Reports depression; Denies suicidal ideation or suicidal thoughts Allergic/Immunologic Allergic/Immunologic ED: Denies mouth swelling or urticaria EXAM Physical Exam Const Vital Signs: 05/09/25 21:36 05/09/25 22:36 Temperature 97 F L Temperature Source Temporal Pulse Rate 122 H 78 Respiratory Rate 18 16 Blood Pressure 118/79 117/77 Blood Pressure Mean 92 90 Pulse Ox 97 99 Oxygen Delivery Method Room Air Room Air Positive well nourished and well developed General Appearance ED: well developed and NAD HEENT Reports moist mucous membranes normocephalic and atraumatic Neck supple and no JVD Resp normal respiratory effort and clear to auscultation bilaterally Cardio Rate: regular rate Rhythm: regular rhythm GI non-tender and non-distended Palpation: soft Extremity normal to inspection General Extremety ED: Negative for edema or tenderness General Extremity: Negative for edema Neuro oriented x3, CN's II-XII intact bilaterally and no sensory deficits noted [place] Coma Scale: document GCS findings Spontaneous Obeys Commands Oriented 15 Sensorium / Orientation: alert Motor Exam: strength 5/5 throughout Psych mental status grossly normal, thought process normal and cooperative Appearance: appropriate and well kempt Attitude: calm Activity / Motor Behavior: appropriate eye contact Speech: normal speech Mood & Affect: depressed and flat affect Thought Content: No suicidality, No homicidality, No delusion(s) and No hallucination(s) Attention / Concentration: attention grossly intact MDM MDM MDM Narrative Medical decision making narrative: Medical screening labs will be obtained. CBC will be obtained to assess for leukocytosis and anemia. Basic metabolic profile will be obtained to assess for electrolyte abnormality and renal function. Serum alcohol level will be obtained to assess for alcohol intoxication. Urine drug screen will be obtained to assess for substance abuse. Total CPK will be obtained to assess for rhabdomyolysis Lab Data Attestation: I reviewed the patient's lab results. Lab results narrative: CBC was reviewed. There is a mild leukocytosis of 12.6. The remainder is within normal limits. Basic metabolic profile was reviewed. Creatinine was slightly elevated at 1.23. The remainder is within normal limits. Serum alcohol level was reviewed and was less than 10.1. Total CPK was reviewed and was normal at 92. Urine drug screen was reviewed and was positive for amphetamines and cannabinoids. Labs: Laboratory Results - last 24 hr 05/09/25 05/09/25 22:02 22:25 WBC 12.6 H RBC 5.30 Hgb 15.9 Hct 47.4 MCV 89.4 MCH 30.0 MCHC 33.5 RDW Std Deviation 39.8 RDW Coeff of Sis 12.1 Plt Count 333 MPV 9.6 Immature Gran % (Auto) 0.400 Neut % (Auto) 66.3 Lymph % (Auto) 22.4 [place] % (Auto) 7.9 Eos % (Auto) 2.5 Baso % (Auto) 0.5 Absolute Neuts (auto) 8.3 H Absolute Lymphs (auto) 2.81 Nucleated RBC % 0 Sodium 139 Potassium 3.8 Chloride 101 Carbon Dioxide 25.0 Anion Gap 12 BUN 18 Creatinine 1.23 H Estim Creat Clear Calc 96.08 Est GFR (MDRD) Non-Af 83 BUN/Creatinine Ratio 14.6 Glucose 86 Calcium 9.5 Total Creatine Kinase 92 Urine Opiates Screen NEGATIVE U Buprenorphine Qual NEGATIVE Ur Oxycodone Screen NEGATIVE Urine Methadone Screen NEGATIVE Urine Fentanyl Screen NEGATIVE Ur Barbiturates Screen NEGATIVE Ur Phencyclidine Scrn NEGATIVE Ur Amphetamines Screen PRESUMPTIVE POSITIVE U Benzodiazepines Scrn NEGATIVE Urine Cocaine Screen NEGATIVE U Cannabinoids Screen PRESUMPTIVE POSITIVE Ethyl Alcohol < 10.1 Treatment and Re-Evaluation Narrative: Patient is medically cleared for crisis evaluation. Care of the patient will be turned over to the oncoming physician pending crisis evaluation. Discharge Plan Triage Chief Complaint: Mental Health ED Provider: Rodney Angel Dx/Rx/DC Orders Clinical Impression: Depression, Bipolar affect, depressed Prescriptions: No Action sertraline [Zoloft] 50 mg tablet 50 mg PO DAILY Patient Comments: 50 mg Oral every morning aripiprazole 10 mg tablet 10 mg PO DAILY simethicone [Gas Relief (simethicone)] 80 mg tablet,chewable 160 mg PO DAILY PRN (Reason: abdominal distention) Primary Care Provider: Care Physician,No Primary Referrals: Care Physician,No Primary [Primary Care Provider, Medical] Print Language: Indonesian
[2025-05-09 22:10] LABS: Hematocrit 47.4 % (40-54); Hemoglobin 15.9 g/dL (13.0-16.5); Immature Granulocytes Count 0.050 X10^3/uL (0.0-0.0); Mean Corp Hgb Conc 33.5 g/dL (32-36); Mean Corpuscular Volume 89.4 fL (80-94); Mean Platelet Vol. 9.6 fl (6.2-12.0); NRBC Flagged by Analyzer 0 % (0-5); Platelet Count 333 K/mm3 (150-450); RBC Distribution Width CV 12.1 % (11.6-14.6); RBC Distribution Width SD 39.8 fl (35.1-43.9); Red Blood Count 5.30 M/mm3 (4.6-6.2); White Blood Count 12.6 K/mm3 (4.4-11.0)
--- OUTSIDE RECORDS SUMMARY | 2025-05-09 22:21 | XMS RPT_ITS | CCD ---
Author Organization [facility] Care Team Providers Care Forms Analysis Manager Name Role Phone PROVIDER, UNKNOWN Unavailable Unavailable Playl, Troy Unavailable Unavailable Serene, Madalyn Unavailable Unavailable Work Care Unavailable Unavailable JOANN CACERES Consulting Unavailable BRISA LUI Admitting Unavailable MOLLY PFEIFFER Attending Unavailable Unavailable Primary Care Provider Unavailabl e Inc, [facility] Primary Care Provider Unav ailable Hattie RETAIL ADVISOR.INDUSTRY ANALYST, DNP, Shashank Primary Care Provider SHASHANK MARRUFO Primary Care Unavailable KAT RIOS Referring Unavailable PLAYL, TROY Primary Care Unavailable LEO RUIZ Admitting Unavailable TRISTAN NAILS Attending Unavailable PANKAJ, HILDA Attending Unavailable PANKAJ, HILDA Referring Unavailable INC, [facility] Primary Care Unavailable PANKAJ, HILDA Attending Unavailable PANKAJ, HILDA Referring Unavailable INC, [facility] Primary Care Unavailable REN, SAE Attending Unavailable REN, SAE Referring Unavailable INC, [facility] Primary Care Unavailable PANKAJ, HILDA Attending Unavailable Unavailable Primary Care Provider Unavailzana Marrufo TOOLROOM CLERK-CShashank Primary Care Provider Dr. Liudmila Bailon DO Emergency Provider [phone]. Liudmila Bailon DO Attending Provider [phone] Dr. Liudmila Bailon DO Referring Provider Care Physician, No Primary Primary Care Provider Unavailable Liudmila Bailon Attending Unavailable Shashank Marrufo NP Primary Care Unavailable Liudmila Bailon Attending Unavailable Liudmila Bailon Referring Unavailable Care Physician, No Primary Primary Care Unava ilable KAT RIOS Attending Unavailable ABEREGG, KRISLYN P Referring Unavailable ABEREGG, KRISLYN P Attending Unavailable Allergies Allergy Classification Reported Allergen(s) Allergy Type Date of Onset Reaction(s) Facility (20 sources) Haloperidol; Translations: [HALOPERIDOL] Drug Allergy 0 Other: See Comments [facility] Comment on above: psych problems (1 source) PINE TREES Allergy to substance 2 [facility] Work Phone: (6 sources) Environmental Allergies: Uncoded; Translations: [Environmental Allergies: Uncoded] Allergy to substance 3 [facility] (1 source) PINE OIL; Translations: [PINE OIL] Propensity to adverse reactions to drug (disorder) 3 [facility] Repository (16 sources) Tree; Translations: [TREES] Allergy to substance 6 Rash [facility] Work Phone: (1 source) Haloperidol Drug Allergy 5 [facility] Repository Medications Current Medications Medication Drug Class(es) Dates Sig (Normalized) Sig (Original) [id number] 200 actuat albuterol 0.09 mg/actuat metered dose inhaler (20 sources) beta2-Adrenergic Agonist Start: 05-21-2020 take 2 puff(s) by inhalation every six hours as needed for wheezing albuterol HFA (PROVENTIL HFA, VENTOLIN HFA) 90 mcg/actuation inhaler Indications: Exercise-induced asthma (HCC) Inhale 2 Puffs as instructed every 6 hours as needed for Wheezing/Shortnes s of Breath. 18 g 1 05/21/2020 Active Albuterol Sulfat e 108 (90 Base) MCG/ACT aerosol powder Inhale every 4 hours as needed. 0 Active Comment on above: Inhale 2 Puffs as in structed every 6 hours as needed for Wheezing/Shortness of Breath. amoxicillin 875 mg oral tablet (2 sources) Penicillin-class Antibacterial Start: 01-03-20 End: 01-10-20 take 1 tablet by mouth twice daily amoxicillin (AMOXIL) 875 mg tablet Take 1 tablet by mouth two times a day for 7 days. 14 tablet 0 01/03/2024 01/10/2024 Active Start: 12-29-2021 take 500 mg by mouth three times daily Amoxicillin Active 500 MG PO THREE TIMES A DAY December 29, 2021 12:00am ARIPiprazole 10 mg oral tablet (20 sources) Atypical Antipsychotic Start: 11-15-2022 take 1 tablet by mouth once daily Aripiprazole 10 mg tablet Active 10 mg PO DAILY November 15, 2022 12:00am take 1 tablet by madyson th once daily ARIPiprazole (Abilify) 15 MG tablet Take 15 mg by mouth daily. 0 Active End: 12-16-2022 take 1 tablet by mouth once daily ARIPiprazole (Abilify) 2 MG tablet Take 2 mg by mouth daily. 0 12/16/2022 Discontinued (Therapy completed) Comment on above: Take 10 mg by mouth once daily. cetirizine hydrochloride 10 mg oral capsule (14 sources) Histamine-1 Receptor Antagonist Cetirizine (ZYRTEC) 10 mg cap Take by mouth. Active Comment on above: Take by mouth. ciprofloxacin 3 mg/ml / dexamethasone 1 mg/ml otic suspension (1 source) Corticosteroid, Quinolone Antimicrobial Start: 01-03-2024 ciprofloxacin-dexAMET Hasone (CIPRODEX) 0.3-0.1 % otic suspension Use 4 Drops in both ears two times a day. 7.5 mL 0 01/03/2024 Active Start: 01-03-2024 ciprofloxacin- dexAMETHasone (CIPRODEX) 0.3-0.1 % otic suspension Use 4 Drops in both ears two times a day. 7.5 mL 0 01/03/2024 Active famotidine 20 mg oral tablet (1 source) Histamine-2 Receptor Antagonist Start: 12-26-2024 take 1 tablet by mouth once daily as needed for gastroesophageal reflux disease Famotidine (Acid Controller) 20 mg tablet Active 20 mg PO DAILY as needed for REFLUX December 26, 2024 12:00am Fish Oils (8 sources) take 1 capsule by mouth once daily omega-3 (Fish Oil) 1200 MG capsule Take 1,200 mg by mouth daily. 0 Active flunisolide (14 sources) Corticosteroid Start: 10-03-2015 take 2 puff(s) by inhalation twice daily flunisolide (AEROSPAN) 80 mcg/actuation HFAA Inhale 2 Puffs as instructed twice daily. 1 Inhaler 5 10/03/2015 Active Comment on above: Inhale 2 Puffs as instructed twice daily . gabapentin 300 mg oral capsule (2 sources) Anti-epileptic Agent Start: 12-25-2020 take 300 mg by mouth once daily Gabapentin Active 300 MG PO DAILY December 25, 2020 12:00am Start: 12-25-2020 take 900 mg by mouth at bedtim e Gabapentin Active 900 MG PO AT BEDTIME December 25, 2020 12:00am nicotine 2 mg oral lozenge (20 sources) Cholinergic Nicotinic Agonist apply 1 dose transdermal route every twenty-four hours nicotine (NICODERM CQ) 21 mg/24 hr Apply 1 Patch as directed every 24 hours. Active Nicotine Polacri patricia (NICORETTE) [address] 2 mg between cheek and gum as needed. Active Comment on above: Place 2 mg between c heek and gum as needed. Apply 1 Patch as dir ected every 24 hours. omega-3 fatty acids/fish oil (OMEGA 3 FISH OIL ORAL) (14 sources) omega-3 fatty ac ids/fish oil (OMEGA 3 FISH OIL ORAL) Take by mouth. Active omega-3 fatty ac ids/fish oil (OMEGA 3 FISH OIL ORAL) Take by mouth. 0 Active Comment on above: Take by mouth. pantoprazole 40 mg delayed release oral tablet (20 sources) Proton Pump Inhibitor Start: take 1 tablet by mouth once daily, then take 1 tablet by mouth twice daily before mealtime pantoprazole DR (PROTONIX) 40 mg tablet Indications: Hiatal hernia with GERD and esophagitis Take 1 tablet by mouth once daily. TAKE ONE TABLET BY MOUTH TWICE DAILY on an EMPTY stomach 1/2 HOUR BEFORE A MEAL 90 tablet 3 01/03/2025 Active Start: 04-01-2023 End: 01-03-2025 take 1 tablet by mouth twice daily Pantoprazole 40 mg tablet,delayed release (DR/EC) Discontinued 40 mg PO TWICE A DAY November 20, 2024 12:00am December 26, 2024 1:45pm Start: 03-04-2020 take 1 tablet by madyson th once daily Pantoprazole (Protonix) 40 mg Tablet,Delayed Release (Dr/Ec) Active 40 MG PO DAILY December 25, 2020 12:00am Comment on above: Take 1 tablet by madyson th daily before breakfast. Take on empty stomach, 1/2 hr before meal. Take 1 tablet by madyson th two times a day. Take on empty stomach, 1/2 hr before meal. TAKE ONE TABLET BY [facility] TWICE DAILY on an EMPTY stomach 1/2 HOUR BEFORE A MEAL petrolatum 0.41 mg/mg topical ointment (9 sources) Start: 06-18-2024 End: 07-18-2024 white petrolatum (AQUAPHOR) 41 % topical ointment Apply to affected area as needed. 80 g 1 06/18/2024 Active prazosin 2 mg oral capsule (9 sources) alpha-Adrenergic Jackson take 1 capsule by mouth once daily prazosin (Minipress) 2 MG capsule Take 2 mg by mouth Nightly. 0 Active End: 03-29-2023 take 1 capsule by mouth once daily at bedtime prazosin (MINIPRESS) 1 mg cap Take 1 mg by mouth daily at bedtime. 0 03/29/2023 Discontinued Comment on above: Take 1 mg by mouth d aily at bedtime. sertraline 50 mg oral tablet (20 sources) Serotonin Reuptake Inhibitor Start: 10-21-2023 take 1 tablet by mouth once daily sertraline (ZOLOFT) 50 mg tablet Take 50 mg by mouth once daily. 10/21/2023 Active Start: 11-15-2022 End: 03-29-2023 take 1 tablet by mouth once daily sertraline (ZOLOFT) 50 mg tablet Take 50 mg by mouth once daily. 10/21/2023 Active Comment on above: Take 50 mg by mouth once daily. sildenafil 25 mg oral tablet (14 sources) Phosphodiesterase 5 Inhibitor Start: 04-11-20 take 1 tablet by mouth every hour sildenafil (VIAGRA) 25 mg tablet Indications: ED (erectile dysfunction) of organic origin Take 1 tablet by mouth 1 hour prior to sexual activity. 12 tablet 04/11/2020 Active Comment on above: Take 1 tablet by madyson th 1 hour prior to sexual activity. simethicone 80 mg chewable tablet (3 sources) Start: 12-27-19 Simethicone (Gas Relief (Simethicone)) 80 mg tablet,chewable Active 160 mg PO DAILY as needed for abdominal distention December 26, 2024 12:00am Start: 11-21-2024 End: 12-26-2024 take 1 tablet by mouth at bedtime as needed Simethicone 80 mg tablet,chewable Discontinued 80 mg PO AT BEDTIME as needed for abdominal distention 7 0 November 21, 2024 3:32am December 26, 2024 1:45pm traMADol hydrochloride 50 mg oral tablet (1 source) Opioid Agonist Start: 12-29-2021 take 50 mg by mouth every four hours as needed Tramadol Active 50 MG PO EVERY 4 HOURS NEEDED 12 2 December 29, 2021 12:00am triamcinolone acetonide 0.94271 mg/mg topical ointment (9 sources) Corticosteroid Start: 06-18-2024 triamcinolone (KENALOG) 0.025 % ointment Apply to affected area three times a day. 80 g 06/18/2024 Active Completed/Discontinued Medications Medication Drug Class(es) Dates Sig (Normalized) Sig (Original) lamoTRIgine 100 mg oral tablet (9 sources) Mood Stabilizer, Anti-epileptic Agent Start: 02-29-2020 End: 03-29-2023 take 1 tablet by mouth once daily lamoTRIgine (LAMICTAL) 100 mg tablet Take 100 mg by mouth once daily. 0 02/29/2020 03/29/2023 Discontinued (Discontinued by Patient) take 1 tablet by mouth once tracy y lamoTRIgine (LaMICtal) 25 MG tablet Take 25 mg by mouth daily. 0 Active Comment on above: Take 100 mg by mouth once daily. mirtazapine 30 mg oral tablet (4 sources) Start: 11-15-2022 End: 12-26-2024 take 1 tablet by mouth at bedtime Mirtazapine 30 mg tablet Discontinued 30 mg PO AT BEDTIME November 15, 2022 12:00am December 26, 2024 1:45pm End: 12-16-2022 take 1 tablet by mouth once daily mirtazapine (Remeron) 45 MG tablet Take 45 mg by mouth Nightly. 0 12/16/2022 Discontinued (Therapy completed) OLANZapine 5 mg oral tablet (1 source) Atypical Antipsychotic End: 03-29-2023 take 1 tablet by mouth once daily at bedtime OLANZapine (ZYPREXA) 5 mg tablet Take 5 mg by mouth daily at bedtime. 0 03/29/2023 Discontinued (Discontinued by Patient) Comment on above: Take 5 mg by mouth d aily at bedtime. omeprazole 20 mg delayed release oral capsule (11 sources) Proton Pump Inhibitor Start: 11-15-2022 End: 11-20-2024 take 1 capsule by mouth once daily Omeprazole 20 mg capsule,delayed release(DR/EC) Discontinued 20 mg PO DAILY November 15, 2022 12:00am November 20, 2024 11:20pm take 1 capsule by mo uth once daily before breakfast omeprazole (PriLOSEC) [address] capsule Take 40 mg by mouth every morning (before breakfast). Do not crush or chew. 0 Active ondansetron 4 mg disintegrating oral tablet (13 sources) Serotonin-3 Receptor Antagonist Start: 03-04-2020 End: 01-03-2025 take 1 tablet by mouth every twelve hours as needed for nausea ondansetron orally disintegrating (ZOFRAN ODT) 4 mg disintegrating tablet Indications: Mild nausea and vomiting Take 1 tablet by mouth every 12 hours as needed for Nausea/Vomiting. 60 tablet 1 03/04/2020 01/03/2025 Discontinued (Discontinued by Patient) Comment on above: Take 1 tablet by madyson every 12 hours as needed for Nausea/Vomiting. tretinoin 0.17032 mg/mg topical gel (1 source) Retinoid Start: 12-24-2019 End: 03-29-2023 tretinoin (RETIN-A) 0.025 % gel Indications: Cystic acne vulgaris Apply to affected area daily at bedtime. 45 g 0 12/24/2019 03/29/2023 Discontinued (Discontinued by Patient) Comment on above: Apply to affected ar ea daily at bedtime. Problems Active Problems Problem Classification Problem Date Documented Da te Episodic/Chronic Abdominal hernia (4 sources) Gastroesophageal reflux disease with hiatal hernia; Translations: [Diaphragmatic hernia without obstruction or gangrene] Onset: 5 03-29-2023 Episodic Abdominal pain (3 sources) Epigastric pain; Translations: [Epigastric pain] Onset: 5 11-21-2024 Episodic Anxiety disorders (14 sources) Anxiety; Translations: [Anxiety disorder, unspecified] Onset: 3 07-05-2012 Chronic Asthma (3 sources) Unspecified asthma, uncomplicated; Translations: [Exercise induced bronchospasm] Onset: 8 12-25-2024 Chronic Attention-deficit, conduct, and disruptive behavior disorders (14 sources) Attention-deficit hyperactivity disorder, unspecified type; Translations: [Attention deficit disorder with hyperactivity] Onset: 9 08-17-2008 Chronic Attention-deficit, conduct, and disruptive behavior disorders (14 sources) Oppositional defiant disorder; Translations: [Oppositional defiant disorder] Onset: 3 07-05-2012 Chronic Childhood disorders (20 sources) Autistic disorder; Translations: [Autistic disorder] Onset: 3 02-18-2020 Chronic Disorders of lipid metabolism (3 sources) Dyslipidemia; Translations: [Hyperlipidemia, unspecified] Onset: 3 12-16-2022 Chronic Disorders of teeth and jaw (12 sources) Dental caries; Translations: [Dental caries, unspecified] 01-06-2022 Episodic Esophageal disorders (4 sources) Gastro-esophageal reflux disease with esophagitis; Translations: [Gastroesophageal reflux disease with esophagitis] 07-21-2023 Chronic Esophageal disorders (1 source) Esophageal disorders; Translations: [Hiatal hernia with GERD and esophagitis] Onset: 5 Immunizations and screening for infectious disease (2 sources) Patient encounter status; Translations: [Encounter for screening for infections with a predominantly sexual mode of transmission] Onset: 5 11-17-2024 Episodic Impulse control disorders, NEC (6 sources) Homicidal thoughts; Translations: [Homicidal ideations] 03-30-2015 Episodic Mood disorders (20 sources) Bipolar disorder, unspecified; Translations: [Depressive disorder] Onset: 3 10-20-2022 Chronic Nausea and vomiting (4 sources) Nausea and vomiting; Translations: [Nausea with vomiting, unspecified] Onset: 3 03-29-2023 Episodic Nonspecific chest pain (12 sources) Chest wall pain; Translations: [Other chest pain] Onset: 3 02-19-2020 Episodic Open wounds of head; neck; and trunk (6 sources) Scalp laceration; Translations: [Laceration without foreign body of scalp, initial encounter] 07-23-2016 Episodic Other connective tissue disease (1 source) Paraparesis; Translations: [Other symptoms and signs involving the musculoskeletal system] 12-26-2024 Episodic Other ear and sense organ disorders (1 source) Otitis externa; Translations: [Other otitis externa, bilateral] 01-03-2024 Chronic Other ear and sense organ disorders (1 source) Impacted cerumen of bilateral ears; Translations: [Impacted cerumen, bilateral] 01-03-2024 Episodic Other gastrointestinal disorders (1 source) Constipation; Translations: [Constipation, unspecified] 01-03-2025 Episodic Other gastrointestinal disorders (1 source) Constipation, unspecified; Translations: [Constipation, unspecified constipation type] Onset: 5 Episodic Other injuries and conditions due to external causes (2 sources) Unspecified injury of head, initial encounter; Translations: [Unspecified injury of head, initial encounter] Onset: 4 Episodic Other skin disorders (1 source) Dry skin; Translations: [Xerosis cutis] Episodic Other skin disorders (5 sources) Xeroderma; Translations: [Xerosis cutis] 08-20-2016 Episodic Other upper respiratory infections (1 source) Pain in throat; Translations: [Acute pharyngitis, unspecified] 12-26-2024 Episodic Otitis media and related conditions (1 source) Acute right otitis media; Translations: [Otitis media, unspecified, right ear] 01-03-2024 Episodic Skin and subcutaneous tissue infections (6 sources) Abscess of face; Translations: [Cutaneous abscess of face] 06-22-2020 Episodic Substance-related disorders (4 sources) Other stimulant abuse, uncomplicated; Translations: [Nicotine dependence, cigarettes, uncomplicated] Onset: 8 Chronic Suicide and intentional self-inflicted injury (18 sources) Suicidal thoughts; Translations: [Suicidal ideations] Onset: 4 01-08-2021 Episodic Unclassified (2 sources) Periorbital cellulitis; Translations: [Periorbital cellulitis] Onset: 8 Unclassified (1 source) Onset: 8 Past or Other Problems Problem Classification Problem Date Documented Da te Episodic/Chronic Allergic reactions (15 sources) Eczema; Translations: [Dermatitis, unspecified] Onset: 12-08-2012 12-08-2012 Episodic Bacterial infection (2 sources) Methicillin resistant Staphylococcus aureus infection as the cause of diseases classified elsewhere; Translations: [Methicillin resis staph infct causing diseases classd elsr] Onset: 07-03-2017 Episodic Cardiac dysrhythmias (6 sources) Palpitations; Translations: [Palpitations] Onset: 02-09-2023 12-16-2022 Episodic Other gastrointestinal disorders (4 sources) Finding of abdomen; Translations: [Left upper quadrant abdominal swelling, mass and lump] Onset: 06-21-2023 06-21-2023 Episodic Other gastrointestinal disorders (1 source) Left upper quadrant abdominal swelling, mass and lump; Translations: [Left upper quadrant abdominal swelling, mass and lump] Onset: 06-21-2023 Episodic Screening and history of mental health and substance abuse codes (20 sources) H/O: manic depressive disorder; Translations: [Personal history of other mental and behavioral disorders] Onset: 08-05-2015 08-05-2015 Episodic Results Test Name Value Interpretation Reference Range Facility [facility]03[facility] KUMAR HARRISON ([id number]) 1995 [facility] Date Time Provider Department 01/03/25 KAT RIOS During your visit today, we recorded the following information about you: Slim Vaughn 01/03/2025 1:[address] [facility] pharmacy called needing clarification on the pantoprazole DR (PROTONIX) 40 mg tablet. The instructions say, take 1 tablet by mouth once daily and take one tablet by mouth twice daily. Please review, contact pharmacy and advise. Sahara Crawford RN 01/03/2025 1:23 PM Signed Per SULY - Previously was on Protonix BID with control in GERD. Recently ran out of script and sx returned. Seen by [facility] 08/2024 and short script provided. Will reduce to Protonix 40 mg once daily to try to keep lowest dosage needed to control sx. Spoke to [facility] pharmacy to clarify above rx for once every day Allergies As of Date: 01/03/2025 Noted Allergy Reaction HALDOL (HALOPERIDOL) 12/24/2019 14 - Other: See Comments Comments: Hallucinations PINE TREES (TREES) 07/12/2005 2 - Rash Date Reviewed: 01/03/2025 Reviewed by: Kat Rios PA-C - Fully Assessed Reason for Visit: Medication Problem [65] Cmt: Direction clarification Prescriptions as of 01/03/2025 - pantoprazole DR (PROTONIX) 40 mg tablet Take 1 tablet by mouth once daily. TAKE ONE TABLET BY MOUTH TWICE DAILY on an EMPTY stomach 1/2 HOUR BEFORE A MEAL - triamcinolone (KENALOG) 0.025 % ointment Apply to affected area three times a day. - white petrolatum (AQUAPHOR) 41 % topical ointment Apply to affected area as needed. - sertraline (ZOLOFT) 50 mg tablet Take 50 mg by mouth once daily. - Cetirizine (ZYRTEC) 10 mg cap Take by mouth. - Nicotine Polacrilex (NICORETTE) [address] 2 mg between cheek and gum as needed. - nicotine (NICODERM CQ) 21 mg/24 hr Apply 1 Patch as directed every 24 hours. - omega-3 fatty acids/fish oil (OMEGA 3 FISH OIL ORAL) Take by mouth. - ARIPiprazole (ABILIFY) 10 mg tablet Take 10 mg by mouth once daily. - albuterol HFA (PROVENTIL HFA, VENTOLIN HFA) 90 mcg/actuation inhaler Inhale 2 Puffs as instructed every 6 hours as needed for Wheezing/Shortness of Breath. - sildenafil (VIAGRA) 25 mg tablet Take 1 tablet by mouth 1 hour prior to sexual activity. - flunisolide (AEROSPAN) 80 mcg/actuation HFAA Inhale 2 Puffs as instructed twice daily. Problem List As Of Date 01/03/2025 Noted Resolved ATTN DEFICIT W HYPERACT [F90.9] 08/17/2008 ODD (oppositional defiant disorder) [F91.3] 07/05/2012 Asperger syndrome [F84.5] 07/05/2012 Anxiety [F41.9] 07/05/2012 Mood disorder [F39] 12/08/2012 Eczema [L30.9] 12/08/2012 History of bipolar disorder [Z86.59] 08/05/2015 History of posttraumatic stress disorder (PTSD)*08/05/2015 History of depression [Z86.59] 08/05/2015 Encounter Status:Closed by SAHARA CRAWFORD on 01/03/25 Normal [facility] 12 Lead EKGon 12-26-2024 12 Lead EKG [facility] [address] [place] [address] 12 Lead EKG 12/26/24 1318 MR#: [id number] Acct: [id number] Name: KUMAR HARRISON Rep #: [id number] : 1995 29 From: Natalia Carver MD Attending Dr: Status: DEP ER Ordering Dr: Liudmila Bailon DO Date: 12/26/24 Location: ED Sex: M C Admitted: Test Reason : CP Blood Pressure : */* mmHG Vent. Rate : 97 BPM Atrial Rate : 97 BPM P-R Int : 120 ms QRS Dur : 86 ms QT Int : 336 ms P-R-T Axes : 61 66 47 degrees QTcB Int : 426 ms Normal sinus rhythm Normal ECG When compared with ECG of 20-Nov-2024 23:53, No significant change was found Confirmed by DYLON ÁLVAREZ, MARCI ([id number]), content editor JADE KEARNEY ([id number]) on 12/28/2024 2:32:10 PM Referred By: Liudmila Bailon Confirmed By: MARCI CARVER MD 12/28/24 143 Date Natalia Carver MD CC: Dr. Liudmila Bailon, ; No Primary Care Physician Signed Normal [facility] Absolute lymphocyte countOrd ered By: Liudmila Bailon on 12-26-2024 Lymphocytes Auto (Unsp spec) [#/Vol] 1.75 10*3/uL 0.83-4.51 [facility] Absolute neutrophil countOrd ered By: Liudmila Bailon on 12-26-2024 Neutrophils (Bld) [#/Vol] 7.5 10*3/uL 2.0-7.7 [facility] Anion gap in Serum or Plasma Ordered By: Liudmila Bailon on 12-26-2024 Anion gap [Moles/Vol] 17 mmol/L High 5-15 [facility] Automated lymphocyte count a s percentage of total leukocytesOrdered By: Liudmila Bailon on 12-26-2024 Lymphocytes/100 WBC Auto (Unsp spec) 17.1 % Low 19-41 [facility] BUN/creatinine ratioOrdered By: Liudmila Bailon on 12-26-2024 Urea nitrogen/Creatinine [Mass ratio] 9.6 mg/mg Low 10- [facility] Basic Metabolic Profile (BMP )on 12-26-2024 BUN/CRE 9.6 RATIO Low 10- [facility] Comment on above: Performed By: #### L [id number], L500.2500, L300.8000, L100.0100 #### [facility] [address] [place], [address] Calcium [Mass/Vol] 10.1 mg/dL Normal 7.6-11.0 [facility] Comment on above: Performed By: #### L 501.4021, L500.2500, L300.8000, L100.0100 #### [facility] [address] [place], [address] Chloride [Moles/Vol] 100 mmol/L Normal 98-108 [facility] Comment on above: Performed By: #### L 501.4021, L500.2500, L300.8000, L100.0100 #### [facility] [address] [place], [address] CO2 [Moles/Vol] 19.3 mmol/L Low 21.0-32.0 [facility] Comment on above: Performed By: #### L 501.4021, L500.2500, L300.8000, L100.0100 #### [facility] [address] [place], [address] Creatinine [Mass/Vol] 1.00 mg/dL Normal 0.70-1.20 [facility] Comment on above: Performed By: #### L [id number], L500.2500, L300.8000, L100.0100 #### [facility] [address] [place], [address] ECRCL 118.18 ml/min Normal 50-250 [facility] Comment on above: Performed By: #### L 501.4021, L500.2500, L300.8000, L100.0100 #### [facility] [address] [place], [address] GAP 17 High 5-15 [facility] Comment on above: Performed By: #### L 501.4021, L500.2500, L300.8000, L100.0100 #### [facility] [address] [place], [address] GFR/1.73 sq M.predicted among non-blacks MDRD (S/P/Bld) [Vol rate/Area] 106 mL/min/{1.73_m2} Normal >60 [facility] Comment on above: Result Comment: mL/m in/1.73m2 CKD-EPI Creatinine Equation (2020) Performed By: #### L 501.4021, L500.2500, L300.8000, L100.0100 #### [facility] [address] [place], [address] Glucose [Mass/Vol] 89 mg/dL Normal 70-99 [facility] Comment on above: Performed By: #### L 501.4021, L500.2500, L300.8000, L100.0100 #### [facility] [address] [place], [address] Potassium [Moles/Vol] 3.5 mmol/L Normal 3.3-5.1 [facility] Comment on above: Performed By: #### L 501.4021, L500.2500, L300.8000, L100.0100 #### [facility] [address] [place], [address] Sodium [Moles/Vol] 137 mmol/L Normal 133-145 [facility] Comment on above: Performed By: #### L 501.4021, L500.2500, L300.8000, L100.0100 #### [facility] [address] [place], [address] Urea nitrogen [Mass/Vol] 10 mg/dL Normal 4-19 [facility] Comment on above: Performed By: #### L 501.4021, L500.2500, L300.8000, L100.0100 #### [facility] [address] [place], [address] Basophil percentageOrdered B y: Liudmila Bailon on 12-26-2024 Basophils/100 WBC (Bld) 0.4 % 0-1 [facility] CBC W/Diff, Automatedon 12-05 Absolute Lymph 1.75 X10 3/uL Normal 0.83-4.51 [facility] Comment on above: Performed By: #### L 501.4021, L500.2500, L300.8000, L100.0100 #### [facility] [address] [place], [address] Absolute Neut 7.5 X10 3/uL Normal 2.0-7.7 [facility] Comment on above: Performed By: #### L 501.4021, L500.2500, L300.8000, L100.0100 #### [facility] [address] [place], [address] Basophils/100 WBC (Bld) 0.4 % Normal 0-1 [facility] Comment on above: Performed By: #### L 501.4021, L500.2500, L300.8000, L100.0100 #### [facility] [address] [place], [address] Eosinophils/100 WBC (Bld) 1.1 % Normal 0-5 [facility] Comment on above: Performed By: #### L 501.4021, L500.2500, L300.8000, L100.0100 #### [facility] [address] [place], [address] Erythrocyte distribution width (RBC) [Ratio] 12.0 % Normal 11.6-14.6 [facility] Comment on above: Performed By: #### L 501.4021, L500.2500, L300.8000, L100.0100 #### [facility] [address] [place], [address] Hematocrit (Bld) [Volume fraction] 43.2 % Normal 40-54 [facility] Comment on above: Performed By: #### L 501.4021, L500.2500, L300.8000, L100.0100 #### [facility] [address] [place], [address] Hemoglobin (Bld) [Mass/Vol] 15.3 g/dL Normal 13.0-16.5 [facility] Comment on above: Performed By: #### L 501.4021, L500.2500, L300.8000, L100.0100 #### [facility] [address] [place], [address] IG% 0.400 Normal 0.0-0.9 [facility] Comment on above: Result Comment: IG% - Immature Granulocytes (promyelocytes, myelocytes and metamyelocytes) > 1% indicates that a LEFT SHIFT is Present. Performed By: #### L 501.4021, L500.2500, L300.8000, L100.0100 #### [facility] [address] [place], [address] Lymphocytes/100 WBC (Bld) 17.1 % Low 19-41 [facility] Comment on above: Performed By: #### L 501.4021, L500.2500, L300.8000, L100.0100 #### [facility] [address] [place], [address] MCH (RBC) [Entitic mass] 30.3 pg Normal 27.0-32.0 [facility] Comment on above: Performed By: #### L 501.4021, L500.2500, L300.8000, L100.0100 #### [facility] [address] [place], [address] MCHC (RBC) [Mass/Vol] 35.4 g/dL Normal 32-36 [facility] Comment on above: Performed By: #### L 501.4021, L500.2500, L300.8000, L100.0100 #### [facility] [address] [place], [address] MCV (RBC) [Entitic vol] 85.5 fL Normal 80-94 [facility] Comment on above: Performed By: #### L 501.4021, L500.2500, L300.8000, L100.0100 #### [facility] [address] [place], [address] Monocytes/100 WBC (Bld) 7.4 % Normal 0-10 [facility] Comment on above: Performed By: #### L 501.4021, L500.2500, L300.8000, L100.0100 #### [facility] [address] [place], [address] Neutrophils/100 WBC (Bld) 73.6 % High 47-70 [facility] Comment on above: Performed By: #### L 501.4021, L500.2500, L300.8000, L100.0100 #### [facility] [address] [place], [address] Nucleated RBC (Bld) [#/Vol] 0 10*3/uL Normal 0-5 [facility] Comment on above: Performed By: #### L 501.4021, L500.2500, L300.8000, L100.0100 #### [facility] [address] [place], [address] Platelet mean volume (Bld) [Entitic vol] 9.7 fL Normal 6.2-12.0 [facility] Comment on above: Performed By: #### L 501.4021, L500.2500, L300.8000, L100.0100 #### [facility] [address] [place], [address] Platelets (Bld) [#/Vol] 338 10*3/uL Normal 150-450 [facility] Comment on above: Performed By: #### L 501.4021, L500.2500, L300.8000, L100.0100 #### [facility] [address] [place], [address] RBC (Bld) [#/Vol] 5.05 10*6/uL Normal 4.6-6.2 [facility] Comment on above: Performed By: #### L 501.4021, L500.2500, L300.8000, L100.0100 #### [facility] [address] [place], [address] RDW SD 37.2 fl Normal 35.1-43.9 [facility] Comment on above: Performed By: #### L 501.4021, L500.2500, L300.8000, L100.0100 #### [facility] [address] [place], [address] WBC (Bld) [#/Vol] 10.2 10*3/uL Normal 4.4-11.0 [facility] Comment on above: Performed By: #### L 501.4021, L500.2500, L300.8000, L100.0100 #### [facility] [address] [place], [address] Carbon dioxide, total [Moles /volume] in Central venous bloodOrdered By: Liudmila Bailon on 12-26-2024 CO2 [Moles/Vol] 19.3 mmol/L Low 21.0-32.0 [facility] Chest PA and Lateralon 12-26 Chest PA and Lateral [facility] [address] [place] [address] Chest PA and Lateral MR#: [id number] Acct: [id number] Name: KUMRA HARRISON Rep #: [id number] : 1995 M 29 From: Brisa Rodriguez nd, MD PCP: Care Physician,No Primary Status: REG ER Study: Chest PA and Lateral Date of Exam: 12/26/24 Exam# [id number] Ordering Dr: Liudmila Bailon DO PROCEDURE: CHEST PA AND LATERAL 12/26/2024 REASON FOR EXAM: CHEST PAIN TECHNIQUE: CHEST PA AND LATERAL COMPARISON: Chest radiograph 11/21/2024. FINDINGS: Hardware: None. Heart: The heart size is normal. Mediastinum: The mediastinal contour is stable. Lungs: No focal consolidation, pleural effusion or pneumothorax. Bones: The bones are unremarkable. RAD/Chest PA and Lateral IMPRESSION: NEGATIVE CHEST Reading Location: [id number] CC: Dr. Liudmila Bailon DO; No Primary Care Physician Station Mechanic Helper: Signed Normal [facility] Chloride assayOrdered By: Cruz Bailon on 12-26-2024 Chloride [Moles/Vol] 100 mmol/L 98-108 [facility] D-Dimer Quantitative (DVT/PE )on 12-26-2024 D-DIMER QUANT < 0.27 Low 0.27-0.49 [facility] Comment on above: Result Comment: NORM AL D-Dimer level (<0.50) indicates no DVT or PE. Performed By: #### L 501.4021, L500.2500, L300.8000, L100.0100 #### [facility] [address] [place], [address] Emergency Department Summary on 12-26-2024 Emergency Department Summary [facility] Medical Records Department [address] [place] [address] Emergency Department Summary 12/26/24 MR#: [id number] Acct: [id number] Name: KUMAR HARRISON Rep #: [id number] : 1995 29 From: Liudmila Bailon DO PCP: Care Physician,No Primary Status:[facility] ER Location: ED HPI History of Present Illness Chief Complaint: Chest Pain Informant: patient Narrative Narrative: Patient is a 29-year-old male with history of autism, bipolar disorder and depression as well as reflux presenting with multiple complaints. Patient states for the past few days he has been having sensation of swelling in his throat and a foreign body sensation. States sometimes he feels like he is swallowing something. This going on for 3 to 4 days. He needs he is had a headache at the top of his head that he describes as throbbing. In addition he states that he has been having weakness and numbness in his legs and back. He states it happens to different legs different spots at different times. Currently denies any. States earlier his left leg was weak and he felt he was going to fall because of so weak. He states he gets a numbness sensation in his back all the way up to his shoulder blades. Denies any acute back pain. Denies any trauma or injury. Denies any bowel or bladder incontinence. He also notes a past 2 days has been intermittent shortness of breath and tightness in this chest. Earlier today he had pain that was radiating to his arm which is what prompted him to call 911 and come into the ER. He denies any known cardiac history. Denies history of Marfan's. Denies any severe sharp/ripping or tearing pain. Currently his only complaint is that he has a mild headache. EMS report reviewed. Complaint of chest pain, shortness of breath and leg numbness. Was given aspirin and nitro in Routes. [facility] Medical History Methamphetamine abuse Suicidal behavior ADD (attention deficit disorder) Autism GERD (gastroesophageal reflux disease) Bipolar 1 disorder Home Medications ???Medication ???Instructions ???Recorded ???Last Taken ???Type aripiprazole 10 mg tablet 10 mg PO DAILY 11/15/22 12/26/24 H istory sertraline 50 mg tablet (Zoloft) 50 mg PO DAILY 11/15/22 12/26/24 H istory famotidine 20 mg tablet (Acid 20 mg PO DAILY PRN REFLUX 12/26/24 12/26/24 History Controller) simethicone 80 mg chewable tablet 160 mg PO DAILY PRN abdominal 12/26/24 History (Gas Relief (simethicone)) distention Allergy/AdvReac Type Severity Reaction Status Date / Time Environmental Allergies: Allergy Hives Verified 12/26/24 13:02 Uncoded (pine) haloperidol (From Haldol) AdvReac HALLUCINATI Verified 12/26/24 13:02 ONS Social History household members: none and other details: Patient is incarcerated Smoking Status: Current every day smoker tobacco type: cigarettes and e-cigarettes details: No alcohol since incarceration substance use type: marijuana and other details: no IVDU ROS ROS ED Constitutional Constitutional ED: Denies chills or fever(s) ENT ENT ED: Reports sore throat; Denies rhinorrhea Cardiovascular Cardiovascular: Reports as per HPI and chest pain Respiratory/Chest Respiratory/Chest: Reports dyspnea; Denies cough Gastrointestinal Gastrointestinal: Denies abdominal pain, nausea or vomiting Musculoskeletal Musculoskeletal: Reports other Details: Mild chronic back pain???not acutely ; Denies arthralgias or myalgias Integumentary Denies rash Neurologic Neurologic: Reports paresthesias RLE and LLE and weakness Psychiatric Psychiatric: Reports anxiety Hematologic/Lymphatic Hematologic/Lymphatic: Denies easy bleeding or easy bruising EXAM Physical Exam Const Vital Signs: 12/26/24 12:58 12/26/24 13:43 12/26/24 13:57 Temperature 98.1 F Temperature Source Oral Pulse Rate 112 H 83 Respiratory Rate 16 19 H Blood Pressure 106/63 115/80 Blood Pressure Mean 77 91 Pulse Ox 98 98 96 Oxygen Delivery Method Room Air Room Air Room Air 12/26/24 14:00 12/26/24 15:00 Temperature Temperature Source Pulse Rate 88 80 Respiratory Rate 19 H 24 H Blood Pressure 115/80 116/80 Blood Pressure Mean 91 92 Pulse Ox 96 97 Oxygen Delivery Method Room Air Room Air Positive well nourished and well developed General Appearance ED: well developed and NAD HEENT Reports moist mucous membranes HEENT Narrative: Hypertrophy of the bilateral tonsils with crypts present. No exudate or erythema present. Uvula is midline. Normal phonation. Handling secretions well. No trismus. Visualized tympanic membranes bilaterally are normal however there are partially occluded with cerume (more content not included)... Normal [facility] Eosinophil percentageOrdered By: Liudmila Bailon on 12-26-2024 Eosinophils/100 WBC (Bld) 1.1 % 0-5 [facility] Erythrocyte distribution wid th ratioOrdered By: Liudmila Bailon on 12-26-2024 Erythrocyte distribution width (RBC) [Ratio] 12.0 % 11.6-14.6 [facility] Erythrocyte distribution wid th standard deviationOrdered By: Liudmila Bailon on 12-26-2024 Erythrocyte distribution width (RBC) [Ratio] 37.2 fl 35.1-43.9 [facility] Glomerular filtration rate ( GFR) estimation/1.73 sq m using serum, plasma, or whole bOrdered By: Liudmila Bailon on 12-26-2024 GFR/1.73 sq M.predicted among non-blacks MDRD (S/P/Bld) [Vol rate/Area] 106 mL/min/{1.73_m2} >60 [facility] Comment on above: mL/min/1.73m2 CKD-EP I Creatinine Equation (2020) Hematocrit Auto (Bld) [Volum e fraction]Ordered By: Liudmila Bailon on 12-26-2024 Hematocrit (Bld) [Volume fraction] 43.2 % 40-54 [facility] Hemoglobin measurementOrdere d By: Liudmila Bailon on 12-26-2024 Hemoglobin (Bld) [Mass/Vol] 15.3 g/dL 13.0-16.5 [facility] Immature granulocytes/100 WB C Auto (Bld)Ordered By: Liudmila Bailon 12-26-2024 Immature granulocytes/100 WBC (Bld) 0.400 % 0.0-0.9 [facility] Comment on above: IG% - Immature Granu locytes (promyelocytes, myelocytes and metamyelocytes) > 1% indicates that a LEFT SHIFT is Present. Influenza virus A and B and SARS-CoV-2 (COVID-19) and Respiratory syncytial virus RNAOrdered By: Liudmila Bailon on 12-26-2024 SARS-CoV-2 (COVID-19) RNA AG+probe Ql (Unsp spec) [facility] L501.4021on 12-26-2024 Trop T High Sen < 6 Normal <=22 [facility] Comment on above: Performed By: #### L 501.4021, L500.2500, L300.8000, L100.0100 #### [facility] [address] [place], [address] M100.677on 12-26-2024 M100.677 Negative Normal [facility] Comment on above: Performed By: #### M 100.677 #### [facility] [address] [place], [address] M100.678on 12-26-2024 M100.678 SARS-CoV-2 (COVID 19 ) Negative INFLUENZA A Negative INFLUENZA B Negative RSV PCR Negative Normal [facility] Comment on above: Performed By: #### M 100.678 #### [facility] [address] [place], [address] MCV (mean corpuscular volume ) determinationOrdered By: Liudmila Bailon on 12-26-2024 MCV (RBC) [Entitic vol] 85.5 fL 80-94 [facility] Mean corpuscular hemoglobin (MCH) determinationOrdered By: Liudmila Bailon on 12-26-2024 MCH (RBC) [Entitic mass] 30.3 pg 27.0-32.0 [facility] Mean corpuscular hemoglobin concentration (MCHC) determinationOrdered By: Liudmila Bailon on 12-26-2024 MCHC (RBC) [Mass/Vol] 35.4 g/dL 32-36 [facility] Mean platelet volume determi nationOrdered By: Liudmila Bailon on 12-26-2024 Platelet mean volume (Bld) [Entitic vol] 9.7 fL 6.2-12.0 [facility] Monocyte percentageOrdered B y: Liudmila Bailon on 12-26-2024 Monocytes/100 WBC (Bld) 7.4 % 0-10 [facility] Neutrophil percentageOrdered By: Liudmila Bailon on 12-26-2024 Neutrophils/100 WBC (Bld) 73.6 % High 47-70 [facility] Nucleated red blood cell per centageOrdered By: Liudmila Bailon on 12-26-2024 Nucleated RBC/100 WBC (Bld) [Ratio] 0 % 0-5 [facility] Platelet countOrdered By: Cruz Bailon on 12-26-2024 Platelets (Bld) [#/Vol] 338 10*3/uL 150-450 [facility] Potassium measurement (mass/ volume)Ordered By: Liudmila Bailon on 12-26-2024 Potassium (Unsp spec) [Mass/Vol] 3.5 mmol/L 3.3-5.1 [facility] RBC Auto (Bld) [#/Vol]Ordere d By: Liudmila Bailon on 12-26-2024 RBC (Bld) [#/Vol] 5.05 10*6/uL 4.6-6.2 [facility] Serum creatinine measurement (mass/volume)Ordered By: Liudmila Bailon on 12-26-2024 Creatinine [Mass/Vol] 1.00 mg/dL 0.70-1.20 [facility] Serum glucose measurement (m ass/volume)Ordered By: Liudmila Bailon on 12-26-2024 Glucose [Mass/Vol] 89 mg/dL 70-99 [facility] Serum or plasma calcium barbara urement (mass/volume)Ordered By: Liudmila Bailon on 12-26-2024 Calcium [Mass/Vol] 10.1 mg/dL 7.6-11.0 [facility] Serum or plasma urea nitroge n measurement (mass/volume)Ordered By: Liudmila Bailon on 12-26-2024 Urea nitrogen [Mass/Vol] 10 mg/dL 4-19 [facility] Sodium levelOrdered By: Rigoberto Bailon on 12-26-2024 Sodium [Moles/Vol] 137 mmol/L 133-145 [facility] Streptococcus pyogenes rRNA detection in throat by DNA probeOrdered By: Liudmila Bailon on 12-26-2024 S. pyogenes rRNA Probe Ql (Throat) [facility] Troponin T HS 2 HRon 025 Trop T High Sen Normal <=22 [facility] Comment on above: Result Comment: PT D ISCHARGED Performed By: #### L 499.0042 #### [facility] [address] [place], [address] Troponin T HS 4 HRon 025 Trop T High Sen Normal <=22 [facility] Comment on above: Result Comment: Canc elled via OM: Order cancelled - Patient discharged Performed By: #### M 100.677 #### [facility] [address] [place], [address] Troponin T.cardiac [Mass/vol ume] in Serum or Plasma by High sensitivity methodOrdered By: Liudmila Bailon on 12-26-2024 Troponin T.cardiac High sensitivity method [Mass/Vol] < 6 ng/L <22 [facility] White blood cell (WBC) count Ordered By: Liudmila Bailon on 12-26-2024 WBC (Bld) [#/Vol] 10.2 10*3/uL 4.4-11.0 [facility] CBC W/Diff, Automatedon 11-04 Absolute Lymph 2.72 X10 3/uL Normal 0.83-4.51 [facility] Comment on above: Performed By: #### L 501.2450, L500.4050, L501.4021, L100.0100 #### [facility] [address] [place], [address] Absolute Neut 9.6 X10 3/uL High 2.0-7.7 [facility] Comment on above: Performed By: #### L 501.2450, L500.4050, L501.4021, L100.0100 #### [facility] [address] [place], [address] Basophils/100 WBC (Bld) 0.3 % Normal 0-1 [facility] Comment on above: Performed By: #### L 501.2450, L500.4050, L501.4021, L100.0100 #### [facility] [address] [place], [address] Eosinophils/100 WBC (Bld) 0.2 % Normal 0-5 [facility] Comment on above: Performed By: #### L 501.2450, L500.4050, L501.4021, L100.0100 #### [facility] [address] [place], [address] Erythrocyte distribution width (RBC) [Ratio] 11.9 % Normal 11.6-14.6 [facility] Comment on above: Performed By: #### L 501.2450, L500.4050, L501.4021, L100.0100 #### [facility] [address] [place], [address] Hematocrit (Bld) [Volume fraction] 42.7 % Normal 40-54 [facility] Comment on above: Performed By: #### L 501.2450, L500.4050, L501.4021, L100.0100 #### [facility] [address] [place], [address] Hemoglobin (Bld) [Mass/Vol] 15.6 g/dL Normal 13.0-16.5 [facility] Comment on above: Performed By: #### L 501.2450, L500.4050, L501.4021, L100.0100 #### [facility] [address] [place], [address] IG% 0.500 Normal 0.0-0.9 [facility] Comment on above: Result Comment: IG% - Immature Granulocytes (promyelocytes, myelocytes and metamyelocytes) > 1% indicates that a LEFT SHIFT is Present. Performed By: #### L 501.2450, L500.4050, L501.4021, L100.0100 #### [facility] [address] [place], [address] Lymphocytes/100 WBC (Bld) 20.0 % Normal 19-41 [facility] Comment on above: Performed By: #### L 501.2450, L500.4050, L501.4021, L100.0100 #### [facility] [address] [place], [address] MCH (RBC) [Entitic mass] 31.0 pg Normal 27.0-32.0 [facility] Comment on above: Performed By: #### L 501.2450, L500.4050, L501.4021, L100.0100 #### [facility] [address] [place], [address] MCHC (RBC) [Mass/Vol] 36.5 g/dL High 32-36 [facility] Comment on above: Performed By: #### L 501.2450, L500.4050, L501.4021, L100.0100 #### [facility] [address] [place], [address] MCV (RBC) [Entitic vol] 84.7 fL Normal 80-94 [facility] Comment on above: Performed By: #### L 501.2450, L500.4050, L501.4021, L100.0100 #### [facility] [address] [place], [address] Monocytes/100 WBC (Bld) 8.7 % Normal 0-10 [facility] Comment on above: Performed By: #### L 501.2450, L500.4050, L501.4021, L100.0100 #### [facility] [address] [place], [address] Neutrophils/100 WBC (Bld) 70.3 % High 47-70 [facility] Comment on above: Performed By: #### L 501.2450, L500.4050, L501.4021, L100.0100 #### [facility] [address] [place], [address] Nucleated RBC (Bld) [#/Vol] 0 10*3/uL Normal 0-5 [facility] Comment on above: Performed By: #### L 501.2450, L500.4050, L501.4021, L100.0100 #### [facility] [address] [place], [address] Platelet mean volume (Bld) [Entitic vol] 9.5 fL Normal 6.2-12.0 [facility] Comment on above: Performed By: #### L 501.2450, L500.4050, L501.4021, L100.0100 #### [facility] [address] [place], [address] Platelets (Bld) [#/Vol] 311 10*3/uL Normal 150-450 [facility] Comment on above: Performed By: #### L 501.2450, L500.4050, L501.4021, L100.0100 #### [facility] [address] [place], [address] RBC (Bld) [#/Vol] 5.04 10*6/uL Normal 4.6-6.2 [facility] Comment on above: Performed By: #### L 501.2450, L500.4050, L501.4021, L100.0100 #### [facility] [address] [place], [address] RDW SD 36.0 fl Normal 35.1-43.9 [facility] Comment on above: Performed By: #### L 501.2450, L500.4050, L501.4021, L100.0100 #### [facility] [address] [place], [address] WBC (Bld) [#/Vol] 13.6 10*3/uL High 4.4-11.0 [facility] Comment on above: Performed By: #### L 501.2450, L500.4050, L501.4021, L100.0100 #### [facility] [address] [place], [address] Comprehensive Metabolic Prof ilon 11-21-2024 Albumin [Mass/Vol] 4.9 g/dL Normal 3.5-5.0 [facility] Comment on above: Performed By: #### M 100.677 #### [facility] [address] [place], [address] Albumin/Globulin [Mass ratio] 1.6 {ratio} Normal 0.9-2.4 [facility] Comment on above: Performed By: #### M 100.677 #### [facility] [address] [place], [address] ALK PHOS 63 U/L Normal 40-129 [facility] Comment on above: Performed By: #### M 100.677 #### [facility] [address] [place], [address] ALT [Catalytic activity/Vol] 27 U/L Normal <=46 [facility] Comment on above: Performed By: #### M 100.677 #### [facility] [address] [place], [address] AST [Catalytic activity/Vol] 35 U/L Normal <=37 [facility] Comment on above: Performed By: #### M 100.677 #### [facility] [address] [place], [address] Bilirubin [Mass/Vol] 0.92 mg/dL Normal 0.00-1.30 [facility] Comment on above: Performed By: #### M 100.677 #### [facility] [address] [place], [address] BUN/CRE 6.2 RATIO Low 10-20 [facility] Comment on above: Performed By: #### M 100.677 #### [facility] [address] [place], [address] Calcium [Mass/Vol] 10.1 mg/dL Normal 7.6-11.0 [facility] Comment on above: Performed By: #### M 100.677 #### [facility] [address] [place], [address] Chloride [Moles/Vol] 101 mmol/L Normal 98-108 [facility] Comment on above: Performed By: #### M 100.677 #### [facility] [address] [place], [address] CO2 [Moles/Vol] 20.0 mmol/L Low 21.0-32.0 [facility] Comment on above: Performed By: #### M 100.677 #### [facility] [address] [place], [address] Creatinine [Mass/Vol] 1.07 mg/dL Normal 0.70-1.20 [facility] Comment on above: Performed By: #### M 100.677 #### [facility] [address] [place], [address] ECRCL 110.45 ml/min Normal 50-250 [facility] Comment on above: Performed By: #### M 100.677 #### [facility] [address] [place], [address] GAP 16 High 5-15 [facility] Comment on above: Performed By: #### M 100.677 #### [facility] [address] [place], [address] GFR/1.73 sq M.predicted among non-blacks MDRD (S/P/Bld) [Vol rate/Area] 98 mL/min/{1.73_m2} Normal >60 [facility] Comment on above: Result Comment: mL/m in/1.73m2 CKD-EPI Creatinine Equation (2020) Performed By: #### M 100.677 #### [facility] [address] [place], [address] Globulin (S) [Mass/Vol] 3.1 g/dL Normal 2.2-4.2 [facility] Comment on above: Performed By: #### M 100.677 #### [facility] [address] [place], [address] Glucose [Mass/Vol] 90 mg/dL Normal 70-99 [facility] Comment on above: Performed By: #### M 100.677 #### [facility] [address] [place], [address] Potassium [Moles/Vol] 3.5 mmol/L Normal 3.3-5.1 [facility] Comment on above: Performed By: #### M 100.677 #### [facility] [address] [place], [address] Sodium [Moles/Vol] 137 mmol/L Normal 133-145 [facility] Comment on above: Performed By: #### M 100.677 #### [facility] [address] [place], [address] T PROT 8.1 g/dL Normal 5.9-8.4 [facility] Comment on above: Performed By: #### M 100.677 #### [facility] [address] [place], [address] Urea nitrogen [Mass/Vol] 7 mg/dL Normal 4-19 [facility] Comment on above: Performed By: #### M 100.677 #### [facility] [address] [place], [address] L499.0042on 11-21-2024 Trop T High Sen < 6 Normal <=22 [facility] Comment on above: Performed By: #### M 100.677 #### [facility] [address] [place], [address] L499.0043on 11-21-2024 Trop T High Sen Normal <=22 [facility] Comment on above: Result Comment: Canc elled via OM: Order cancelled - Patient discharged Performed By: #### M 100.677 #### [facility] [address] [place], [address] L501.4021on 11-21-2024 Trop T High Sen < 6 Normal <=22 [facility] Comment on above: Performed By: #### M 100.677 #### [facility] [address] [place], [address] Lipaseon 11-21-2024 Lipase [Catalytic activity/Vol] 18 U/L Normal 13-75 [facility] Comment on above: Result Comment: Phil gabriel note: LIPASE revised reference range effective 22. New Lipase methodology. Expected to produce lower values than the previous assay method. NEW Reference Range: 13 - 75 U/L Performed By: #### M 100.677 #### [facility] [address] [place], [address] Troponin T.cardiac [Mass/vol ume] in Serum or Plasma by High sensitivity methodOrdered By: Liudmila Bailon on 11-21-2024 Troponin T.cardiac High sensitivity method [Mass/Vol] < 6 ng/L <22 [facility] 12 Lead EKGon 11-20-2024 12 Lead EKG [facility] [address] [place] [address] 12 Lead EKG 11/20/24 2353 MR#: [id number] Acct: [id number] Name: KUMAR HARRISON Rep #: [id number] : 1995 29 From: Nuno Rodriguez MD Attending Dr: Status: DEP ER Ordering Dr: Liudmila Bailon DO Date: 11/20/24 Location: ED Sex: M C Admitted: Test Reason : DYSRHYTHMIA Blood Pressure : */* mmHG Vent. Rate : 79 BPM Atrial Rate : 79 BPM P-R Int : 132 ms QRS Dur : 78 ms QT Int : 374 ms P-R-T Axes : 63 46 39 degrees QTcB Int : 428 ms Normal sinus rhythm with sinus arrhythmia Normal ECG Confirmed by NUNO RODRIGUEZ MD ([id number]), content editor AFTAB LEE ([id number]) on 11/21/2024 8:29:14 AM Referred By: Confirmed By: NUNO RODRIGUEZ MD 11/21/24828 Date Nuno Rodriguez MD CC: TOOLROOM CLERK-C Shashank Marrfuo; Dr. Liudmila Bailon DO Signed Normal [facility] Absolute lymphocyte countOrd ered By: Liudmila Bailon on 11-20-2024 Lymphocytes Auto (Unsp spec) [#/Vol] 2.72 10*3/uL 0.83-4.51 [facility] Absolute neutrophil countOrd ered By: Liudmila Bailon on 11-20-2024 Neutrophils (Bld) [#/Vol] 9.6 10*3/uL High 2.0-7.7 [facility] Anion gap in Serum or Plasma Ordered By: Liudmila Bailon on 11-20-2024 Anion gap [Moles/Vol] 16 mmol/L High 5-15 [facility] Automated lymphocyte count a s percentage of total leukocytesOrdered By: Liudmila Bailon on 11-20-2024 Lymphocytes/100 WBC Auto (Unsp spec) 20.0 % 19-41 [facility] BUN/creatinine ratioOrdered By: Liudmila Bailon on 11-20-2024 Urea nitrogen/Creatinine [Mass ratio] 6.2 mg/mg Low 10-20 [facility] Basophil percentageOrdered B y: Liudmila Bailon on 11-20-2024 Basophils/100 WBC (Bld) 0.3 % 0-1 [facility] Bilirubin, totalOrdered By: Liudmila Bailon on 11-20-2024 Bilirubin [Mass/Vol] 0.92 mg/dL 0.00-1.30 [facility] Carbon dioxide, total [Moles /volume] in Central venous bloodOrdered By: Liudmila Bailon on 11-20-2024 CO2 [Moles/Vol] 20.0 mmol/L Low 21.0-32.0 [facility] Chest PA and Lateralon 11-20 Chest PA and Lateral [facility] Services [address] [place], [place] [address] Chest PA and Lateral MR#: [id number] Acct: [id number] Name: KUMAR HARRISON Rep #: [id number] : 1995 M 29 From: Brendan tang MD PCP: EDE [place] Status: REG ER Study: Chest PA and Lateral Date of Exam: 11/20/24 Exam# [id number] Ordering Dr: Liudmila Bailon DO PROCEDURE: CHEST PA AND LATERAL 11/21/2024 REASON FOR EXAM: CHEST PAIN TECHNIQUE: CHEST PA AND LATERAL COMPARISON: 02/18/2020 FINDINGS: The lungs are expanded. There is no demonstrated parenchymal abnormality. There is no demonstrated pleural abnormality. Normal heart and pericardium. Normal mediastinum and nicolle. Normal visualized pulmonary arteries. Normal visualized aortic arch and descending thoracic aorta. Normal visualized thoracic spine. Normal visualized ribs, clavicles, and shoulders. There is no demonstrated abnormality of the visualized soft tissue structures of the upper abdomen. RAD/Chest PA and Lateral IMPRESSION: Normal x-ray examination of the chest. Reading Location: [facility] CC: EDE Marrufo; Dr. Liudmila Bailon DO Station Mechanic Helper: Signed Normal [facility] Chloride assayOrdered By: Cruz Bailon on 11-20-2024 Chloride [Moles/Vol] 101 mmol/L 98-108 [facility] Emergency Department Summary on 11-20-2024 Emergency Department Summary [facility] Medical Records Department [address] [place] [address] Emergency Department Summary 11/20/24 MR#: [id number] Acct: [id number] Name: KUMAR HARRISON Rep #: [id number] : 1995 29 From: Liudmila Bailon DO PCP: EDE [place] Status:REG ER Location: ED HPI History of Present Illness Chief Complaint: Abd Pain Informant: patient Narrative Narrative: Patient is a 29-year-old male with history of bipolar disorder and autism as well as GERD presenting with chest discomfort. Patient states it feels like his GERD. He states he has had sharp pain in the substernal area his whole life but it been bad today. He states it occurs every 5 seconds. He has tried to take multiple cold showers with no relief. States he did take an extra pantoprazole today as well. He tried Pepto-Bismol with no relief. He also notes he has been constipated. He did have a bowel movement today but is very hard. I seen black or blood in his stool. In addition he has had's episodes of pain rating up to his left head and throughout his extremities. He notes that his voice seems different anything is from the acid. He has a foreign body sensation in his throat/throat irritation. He does note that he relapsed and used methamphetamines today around 11 AM. States he been clean for 3 years prior to this. He also is worried that he is short of breath. He states he ran out of his inhaler. Denies any wheezing. Has any cough. No report of any fevers but does report cold chills. Does not report any HI or SI. States he is very problem so for having a job and living independently. [facility] Medical History Methamphetamine abuse Suicidal behavior ADD (attention deficit disorder) Autism GERD (gastroesophageal reflux disease) Bipolar 1 disorder Home Medications ???Medication ???Instructions ???Recorded ???Last Taken ???Type aripiprazole 10 mg tablet 10 mg PO DAILY 11/15/22 Unknown Hi story mirtazapine 30 mg tablet 30 mg PO QHS 11/15/22 Unknown Hist ory sertraline 50 mg tablet (Zoloft) 50 mg PO DAILY 11/15/22 Unknown Hi story pantoprazole 40 mg tablet,delayed 40 mg PO BID 11/20/24 Unknown His tory release simethicone 80 mg chewable tablet 80 mg PO QHS PRN abdominal Unknown Rx distention #7 tabs Allergy/AdvReac Type Severity Reaction Status Date / Time Environmental Allergies: Allergy Hives Verified 11/20/24 23:19 Uncoded (pine) haloperidol (From Haldol) AdvReac HALLUCINATI Verified 11/20/24 23:19 ONS Social History household members: none and other details: Patient is incarcerated Smoking Status: Current every day smoker tobacco type: cigarettes and e-cigarettes details: No alcohol since incarceration substance use type: marijuana and other details: no IVDU ROS ROS ED Constitutional Constitutional ED: Reports chills; Denies fever(s) Eyes Eyes: Denies diplopia ENT ENT ED: Reports sore throat; Denies ear pain or rhinorrhea Cardiovascular Cardiovascular: Reports chest pain Respiratory/Chest Respiratory/Chest: Reports dyspnea; Denies cough Gastrointestinal Gastrointestinal: Reports abdominal pain and constipation; Denies melena, nausea or vomiting Musculoskeletal Musculoskeletal: Denies arthralgias or myalgias Integumentary Denies rash Neurologic Neurologic: Reports paresthesias; Denies headache(s) Psychiatric Psychiatric: Reports anxiety EXAM Physical Exam Const Vital Signs: 11/20/24 23:20 11/21/24 01:18 Temperature 98.2 F Temperature Source Oral Pulse Rate 87 66 Respiratory Rate 18 16 Blood Pressure 143/92 H 145/82 H Blood Pressure Mean 109 103 Pulse Ox 100 96 Oxygen Delivery Method Room Air Room Air Positive well nourished and well developed General Appearance ED: well developed and NAD HEENT Reports TM's clear and moist mucous membranes HEENT Narrative: Partial cerumen impaction but visualized TMs are normal bilaterally. Normal ear canals. Normal oropharyngeal exam. Uvula is midline. Normal phonation. Tympanic Membrane ED: Yes TM's clear Neck supple and no JVD Chest Wall inspection of chest normal and palpation of chest normal Resp normal respiratory effort and clear to auscultation bilaterally Auscultation: Negative for rales, rhonchi or wheezes Cardio regular rate, regular rhythm and no murmurs Cardio Narrative: 2+ radial DP pulses present GI non-tender and non-distended GI Narrative: Patient points to his epigastric region and left upper quadrant as his area of discomfort. It is not reproducible on direct palpation. Inspection: Negative for abdominal distention Auscultation: hypoactive bowel sounds Palpation: soft; Negative for (more content not included)... Normal [facility] Eosinophil percentageOrdered By: Liudmila Bailon on 11-20-2024 Eosinophils/100 WBC (Bld) 0.2 % 0-5 [facility] Erythrocyte distribution wid th ratioOrdered By: Liudmila [facility] on 11-20-2024 Erythrocyte distribution width (RBC) [Ratio] 11.9 % 11.6-14.6 [facility] Erythrocyte distribution wid th standard deviationOrdered By: Liudmila Bailon on 11-20-2024 Erythrocyte distribution width (RBC) [Ratio] 36.0 fl 35.1-43.9 [facility] Glomerular filtration rate ( GFR) estimation/1.73 sq m using serum, plasma, or whole bOrdered By: Liudmila Bailon on 11-20-2024 GFR/1.73 sq M.predicted among non-blacks MDRD (S/P/Bld) [Vol rate/Area] 98 mL/min/{1.73_m2} >60 [facility] Comment on above: mL/min/1.73m2 CKD-EP I Creatinine Equation (2020) Hematocrit Auto (Bld) [Volum e fraction]Ordered By: Liudmila Bailon on 11-20-2024 Hematocrit (Bld) [Volume fraction] 42.7 % 40-54 [facility] Hemoglobin measurementOrdere d By: Liudmila Bailon on 11-20-2024 Hemoglobin (Bld) [Mass/Vol] 15.6 g/dL 13.0-16.5 [facility] Immature granulocytes/100 WB C Auto (Bld)Ordered By: Liudmila Bailon on 11-20-2024 Immature granulocytes/100 WBC (Bld) 0.500 % 0.0-0.9 [facility] Comment on above: IG% - Immature Granu locytes (promyelocytes, myelocytes and metamyelocytes) > 1% indicates that a LEFT SHIFT is Present. Laboratory - Chemistry and C hemistry - challengeOrdered By: Liudmila Bailon on 11-20-2024 AST [Catalytic activity/Vol] 35 U/L <38 [facility] Lipase measurementOrdered By : Liudmila Bailon on 11-20-2024 Lipase [Catalytic activity/Vol] 18 U/L 13-75 [facility] Comment on above: Please note:LIPASE r evised reference range effective 22. New Lipase methodology. Expected to produce lower values than the previous assay method. NEW Reference Range: 13 - 75 U/L MCV (mean corpuscular volume ) determinationOrdered By: Liudmila Bailon on 11-20-2024 MCV (RBC) [Entitic vol] 84.7 fL 80-94 [facility] Mean corpuscular hemoglobin (MCH) determinationOrdered By: Liudmila Bailon on 11-20-2024 MCH (RBC) [Entitic mass] 31.0 pg 27.0-32.0 [facility] Mean corpuscular hemoglobin concentration (MCHC) determinationOrdered By: Liudmila Bailon on 11-20-2024 MCHC (RBC) [Mass/Vol] 36.5 g/dL High 32-36 [facility] Mean platelet volume determi nationOrdered By: Liudmila Bailon on 11-20-2024 Platelet mean volume (Bld) [Entitic vol] 9.5 fL 6.2-12.0 [facility] Monocyte percentageOrdered B y: Liudmila Bailon on 11-20-2024 Monocytes/100 WBC (Bld) 8.7 % 0-10 [facility] Neutrophil percentageOrdered By: Liudmila Bailon on 11-20-2024 Neutrophils/100 WBC (Bld) 70.3 % High 47-70 [facility] Nucleated red blood cell per centageOrdered By: Liudmila Bailon on 11-20-2024 Nucleated RBC/100 WBC (Bld) [Ratio] 0 % 0-5 [facility] Platelet countOrdered By: Cruz Bailon on 11-20-2024 Platelets (Bld) [#/Vol] 311 10*3/uL 150-450 [facility] Potassium measurement (mass/ volume)Ordered By: Liudmila Bailon on 11-20-2024 Potassium (Unsp spec) [Mass/Vol] 3.5 mmol/L 3.3-5.1 [facility] RBC Auto (Bld) [#/Vol]Ordere d By: Liudmila Bailon on 11-20-2024 RBC (Bld) [#/Vol] 5.04 10*6/uL 4.6-6.2 [facility] Serum creatinine measurement (mass/volume)Ordered By: Liudmila Bailon on 11-20-2024 Creatinine [Mass/Vol] 1.07 mg/dL 0.70-1.20 [facility] Serum globulin measurementOr dered By: Liudmila Bailon on 11-20-2024 Globulin (S) [Mass/Vol] 3.1 g/dL 2.2-4.2 [facility] Serum glucose measurement (m ass/volume)Ordered By: Liudmila Bailon on 11-20-2024 Glucose [Mass/Vol] 90 mg/dL 70-99 [facility] Serum or plasma alanine longoria otransferase (ALT) measurementOrdered By: Liudmila Bailon on 11-20-2024 ALT [Catalytic activity/Vol] 27 U/L <47 [facility] Serum or plasma albumin barbara urement (mass/volume)Ordered By: Liudmila Bailon on 11-20-2024 Albumin [Mass/Vol] 4.9 g/dL 3.5-5.0 [facility] Serum or plasma albumin/glob ulin mass ratioOrdered By: Liudmila Bailon on 11-20-2024 Albumin/Globulin [Mass ratio] 1.6 {ratio} 0.9-2.4 [facility] Serum or plasma alkaline vonnie sphatase measurementOrdered By: Liudmila Bailon on 11-20-2024 ALP [Catalytic activity/Vol] 63 U/L 40-129 [facility] Serum or plasma calcium barbara urement (mass/volume)Ordered By: Liudmila Bailon on 11-20-2024 Calcium [Mass/Vol] 10.1 mg/dL 7.6-11.0 [facility] Serum or plasma urea nitroge n measurement (mass/volume)Ordered By: Liudmila Bailon on 11-20-2024 Urea nitrogen [Mass/Vol] 7 mg/dL 4-19 [facility] Sodium levelOrdered By: Rigoberto Bailon on 11-20-2024 Sodium [Moles/Vol] 137 mmol/L 133-145 [facility] Total proteinOrdered By: Beba edith Uvaldo on 11-20-2024 Protein [Mass/Vol] 8.1 g/dL 5.9-8.4 [facility] Troponin T.cardiac [Mass/vol ume] in Serum or Plasma by High sensitivity methodOrdered By: Liudmila Bailon on 11-20-2024 Troponin T.cardiac High sensitivity method [Mass/Vol] < 6 ng/L <22 [facility] White blood cell (WBC) count Ordered By: Liudmila Bailon on 11-20-2024 WBC (Bld) [#/Vol] 13.6 10*3/uL High 4.4-11.0 [facility] C. trachomatis+N. gonorrhoea e DNA AG+probe Ql (Unsp spec)on 11-17-2024 C. trachomatis rRNA AG+probe Ql (Unsp spec) Not detected Normal Not detected [facility] Comment on above: Order Comment: Speci men Type: URINE SPECIMEN Ordering Facility: [facility] Address: [address] [place] [address] Performed By: #### 3 6902-5, JUSTIN #### [facility] CLIA [id number] [address] [place] [address] [place] N. gonorrhoeae rRNA AG+probe Ql (Unsp spec) Not detected Normal Not detected [facility] Comment on above: Order Comment: Speci men Type: URINE SPECIMEN Ordering Facility: [facility] Address: [address] [place] [address] Performed By: #### 3 6902-5, TRVASAE #### [facility] CLIA [id number] [address] [place] [address] [place] CNOVon 11-17-2024 CNOV Office Visit (UCWSTR ) KUMAR HARRISON ([id number]) 1995 M [facility] Date Time Provider Department 11/17/24 9:00 AM TAMARA ELI [facility] During your visit today, we recorded the following information about you: Temperature Pulse Respiration Blood pressure 96.9 degrees 92/minute 16/minute 110/72 Weight 91 kg Tamara Eli, SHIRA 11/17/2024 9:09 AM Signed [facility] Subjective Kumar Harrison is a 29 year old male. Patient presents with: STD: has new partner requesting testing, no symptoms HPI STI Testing: - New partner would like him tested. - No current symptoms; denies dysuria, discharge, abdominal pain, or back pain. - No history of STIs. - Last tested 2 years ago. - Sexual activity with females only. Review of Systems Gastrointestinal: (-) abdominal pain Genitourinary: (-) urethral discharge, (-) dysuria Musculoskeletal: (-) back pain Objective BP 110/72 Pulse 92 Temp 36.1 ?C (96.9 ?F) Resp 16 Wt 91 kg (200 lb 9.9 oz) SpO2 97% BMI 27.98 kg/m? Physical Exam Vitals and nursing note reviewed. Constitutional: General: He is not in acute distress. Appearance: Normal appearance. He is not toxic-appearing. HENT: Mouth/Throat: Mouth: Mucous membranes are moist. Cardiovascular: Rate and Rhythm: Normal rate and regular rhythm. Pulmonary: Effort: Pulmonary effort is normal. Breath sounds: Normal breath sounds. Abdominal: General: Abdomen is flat. Palpations: Abdomen is soft. Tenderness: There is no abdominal tenderness. There is no right CVA tenderness, left CVA tenderness, guarding or rebound. Genitourinary: Comments: deferred Skin: General: Skin is warm and dry. Neurological: Mental Status: He is alert. General: No acute distress. {1. Screen for STD (sexually transmitted disease) (Z11.3) - No current symptoms such as discharge, dysuria, abdominal pain, or back pain. - No history of STDs; last tested two years ago. - Ordered urine tests for chlamydia, gonorrhea, and trichomonas. - Ordered blood tests for HIV, syphilis, and hepatitis. - Lab work to be drawn today; results expected in a few days. - Will contact patient with results and provide treatment if necessary. Recording using Jybe software for draft documentation of the visit was discussed with the patient/authorized tour sales representative; all questions welcomed and answered. Patient/authorized tour sales representative agreed to proceed Differential Diagnoses - std screening is more likely for the following reason(s): suggested by HANDP Disposition The patient was discharged. Procedures Allergies As of Date: 11/17/2024 Noted Allergy Reaction HALDOL (HALOPERIDOL) 12/24/2019 14 - Other: See Comments Comments: Hallucinations PINE TREES (TREES) 07/12/2005 2 - Rash Date Reviewed: 11/17/2024 Reviewed by: Brianne Escalante MA - Fully Assessed Reason for Visit: STD [102] Cmt: has new partner requesting testing, no symptoms Primary Visit Diagnosis:Screen for STD (sexually transmitted disease) [Z11.3] Order(s):GONORRHEA/CHLA MYDIA NAAT [SQGCCT] Order #: [id number]. #:[id number] SYPHILIS TREPONEMAL W/REFLEX [SQSYPHTX] Order #: [id number] FUTURE HIV 1/2 COMBO WITH REFLEX TO DIFFERENTIATION [SQHIV12] Order #: [id number] FUTURE HEPATITIS C ANTIBODY IA WITH CONFIRMATION [RDOPWK3T] Order #: [id number] FUTURE HEPATITIS B SURFACE ANTIGEN [SQHBSAG] Order #: [id number] FUTURE TRICHOMONAS VAGINALIS NAAT [SQTRVAMP] Order #: [id number] FUTURE TRICHOMONAS VAGINALIS NAAT [SQTRVAMP] Order #: [id number]. #:[id number] Prescriptions as of 11/17/2024 - pantoprazole DR (PROTONIX) 40 mg tablet Take 1 tablet by mouth two times a day. TAKE ONE TABLET BY MOUTH TWICE DAILY on an EMPTY stomach 1/2 HOUR BEFORE A MEAL - triamcinolone (KENALOG) 0.025 % ointment Apply to affected area three times a day. - white petrolatum (AQUAPHOR) 41 % topical ointment Apply to affected area as needed. - sertraline (ZOLOFT) 50 mg tablet Take 50 mg by mouth once daily. - Cetirizine (ZYRTEC) 10 mg cap Take by mouth. - Nicotine Polacrilex (NICORETTE) [address] 2 mg between cheek and gum as needed. - nicotine (NICODERM CQ) 21 mg/24 hr Apply 1 Patch as directed every 24 hours. - omega-3 fatty acids/fish oil (OMEGA 3 FISH OIL ORAL) Take by mouth. - ARIPiprazole (ABILIFY) 10 mg tablet Take 10 mg by mouth once daily. - albuterol HFA (PROVENTIL HFA, VENTOLIN HFA) 90 mcg/actuation inhaler Inhale 2 Puffs as instructed every 6 hours as needed for Wheezing/Shortness of Breath. - sildenafil (VIAGRA) 25 mg tablet Take 1 tablet by mouth 1 hour prior to sexual activity. - ondansetron orally disintegrating (ZOFRAN ODT) 4 mg disintegrating tablet Take 1 tablet by mouth every 12 hours as needed for Nausea/Vomiting. - flunisolide (AEROSPAN) 80 mcg/actuation HFAA Inhale 2 Puffs as in (more content not included)... Normal [facility] HBV surface Ag Ser Qlon 11-04 HBV surface Ag Ql (S) Negative Normal Negative [facility] Comment on above: Order Comment: Speci men Type: BLOOD SPECIMEN Ordering Facility: [facility] Address: [address] [place] [address] Performed By: #### 5 195-3, 98708-9, 06786-5 #### [facility] CLIA [id number] [address] [place] [address] [place] HCV Ab Ser Qlon 11-17-2024 HCV Ab Ql (S) Negative Normal Negative [facility] Comment on above: Order Comment: Speci men Type: BLOOD SPECIMEN Ordering Facility: [facility] Address: [address] [place] [address] Result Comment: The result suggests no evidence of infection with Hepatitis C virus. Should recent infection be suspected, repeat testing may be considered 4-6 weeks after this draw. Performed By: #### 1 6128-1 #### [facility] CLIA [id number] [address] [place] [address] [facility] [place] HIV 1+2 Ab IA Qlon 5 HIV 1 and 2 Ab IA.rapid Nom (S/P/Bld) Normal [facility] Comment on above: Order Comment: Speci men Type: BLOOD SPECIMEN Ordering Facility: [facility] Address: [address] [place] [address] Result Comment: Test not indicated. Performed By: #### 5 195-3, 49953-0, 49466-1 #### [facility] CLIA [id number] [address] [place] [address] OF [facility] HIV 1+2 Ab+HIV1 p24 Ag IA Ql Non-Reactive Normal Nonreactive [facility] Comment on above: Order Comment: Speci men Type: BLOOD SPECIMEN Ordering Facility: [facility] Address: [address] [place] [address] Performed By: #### 5 195-3, 78825-6, 04404-6 #### [facility] CLIA [id number] [address] [place] [address] [place] HIV immunoassay testing algorithm interpretation (S/P/Bld) [Interp] Normal [facility] Comment on above: Order Comment: Speci men Type: BLOOD SPECIMEN Ordering Facility: [facility] Address: [address] [place] [address] Result Comment: No e vidence of HIV-1 or HIV-2 infection. Should recent infection be suspected, repeat testing may be considered 2-3 weeks after this draw. [place] Rev. Code 3701.243(E): This information has been disclosed to you from confidential records protected from disclosure by state law. You shall make no further disclosure of this information without the specific, written, and informed release of the individual to whom it pertains or as otherwise permitted by state law. A general authorization for the release of medical or other information is not sufficient for the purpose of the release of HIV test results or diagnoses. Performed By: #### 5 195-3, 09938-7, 16984-8 #### [facility] CLIA [id number] [address] [place] [address] [place] Reagin and Treponema pallidu m IgG and IgM [Interp]on 11-17-2024 T. pallidum IgG+IgM IA Ql (S) Non-Reactive Normal Nonreactive [facility] Comment on above: Order Comment: Speci men Type: BLOOD SPECIMEN Ordering Facility: [facility] Address: [address] [place] [address] Performed By: #### 5 195-3, 76152-1, 74497-7 #### [facility] CLIA [id number] [address] [place] [address] [place] Reagin+T pallidum IgG+IgM Se rPl-Impon 11-17-2024 Reagin and Treponema pallidum IgG and IgM [Interp] Cannot exclude recent Treponemal infection if specimen collected within 7-10 days after appearance of suspect lesions or 2-3 weeks after an exposure. Clinical correlation is required. Normal [facility] Comment on above: Order Comment: Speci men Type: BLOOD SPECIMEN Ordering Facility: [facility] Address: [address] [place] [address] Performed By: #### 5 195-3, 12541-8, 16279-2 #### [facility] CLIA [id number] [address] [place] [address] [place] TRICHOMONAS VAGINALIS NAATon 11-17-2024 T. vaginalis DNA AG+probe Ql (Unsp spec) Not detected Normal Not detected [facility] Comment on above: Order Comment: Speci men Type: URINE SPECIMEN Ordering Facility: [facility] Address: [address] [place] [address] Performed By: #### 3 6902-5, TRVAMP #### [facility] CLIA [id number] [address] [place] [address] [place] CNOVon 08-14-2024 CNOV Office Visit (UCWSTR ) KUMAR HARRISON ([id number]) 1995 [facility] Date Time Provider Department 08/14/24 10:30 AM WHITLEY FISCHER [facility] During your visit today, we recorded the following information about you: Temperature Pulse Respiration Blood pressure 97.2 degrees 84/minute 16/minute 126/72 Weight 91.5 kg Whitley Fischer APRN.INDUSTRY ANALYST 08/14/2024 10:55 AM Signed [facility] Subjective Kumar Harrison is a 28 year old male. Patient presents with: GI Upset: nausea and diarrhea, has GERD but out of protonix x 3 days HPI Kumar Harrison is a 28 year old male who presents with acid reflux for the past 3 days. He used to take Protonix and has been out of this for several months. It was not bothering him until he ate some peanut butter a few days ago. He was not able to go to work yesterday due to some nausea and vomiting associated with the GERD. Review of Systems Constitutional: Negative for chills and fever. Respiratory: Negative. Cardiovascular: Negative. Gastrointestinal: Positive for nausea and vomiting. Objective BP 126/72 Pulse 84 Temp 36.2 ?C (97.2 ?F) Resp 16 Wt 91.5 kg (201 lb 11.5 oz) SpO2 98% BMI 28.13 kg/m? PAST MEDICAL HISTORY Diagnosis Date Anxiety 07/05/2012 Asperger syndrome 07/05/2012 Attention deficit disorder with hyperactivity(314.01) Eczema 12/08/2012 History of bipolar disorder 08/05/2015 History of depression 08/05/2015 History of posttraumatic stress disorder (PTSD) 08/05/2015 Mood disorder (HCC) 12/08/2012 Nausea and vomiting 02/2020 ODD (oppositional defiant disorder) 07/05/2012 PMH - PAST MEDICAL HISTORY OF 5/7/04 normal color vision PAST SURGICAL HISTORY Procedure Laterality Date CIRCUMCISION W/CLAMP/OTH DEV W/BLOCK EGD 02/12/2020 ALLERGIES Haldol [Haloperidol] and Bowie Trees [Trees] MEDICATIONS sertraline (ZOLOFT) 50 mg tablet Take 50 mg by mouth once daily. ARIPiprazole (ABILIFY) 10 mg tablet Take 10 mg by mouth once daily. albuterol HFA (PROVENTIL HFA, VENTOLIN HFA) 90 mcg/actuation inhaler Inhale 2 Puffs as instructed every 6 hours as needed for Wheezing/Shortness of Breath. pantoprazole DR (PROTONIX) 40 mg tablet Take 1 tablet by mouth two times a day. TAKE ONE TABLET BY MOUTH TWICE DAILY on an EMPTY stomach 1/2 HOUR BEFORE A MEAL triamcinolone (KENALOG) 0.025 % ointment Apply to affected area three times a day. white petrolatum (AQUAPHOR) 41 % topical ointment Apply to affected area as needed. Cetirizine (ZYRTEC) 10 mg cap Take by mouth. (Patient not taking: Reported on 06/18/2024) Nicotine Polacrilex (NICORETTE) [address] 2 mg between cheek and gum as needed. (Patient not taking: Reported on 01/03/2024) nicotine (NICODERM CQ) 21 mg/24 hr Apply 1 Patch as directed every 24 hours. (Patient not taking: Reported on 01/03/2024) omega-3 fatty acids/fish oil (OMEGA 3 FISH OIL ORAL) Take by mouth. (Patient not taking: Reported on 01/03/2024)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 Procedu reOrdered By: Clark Cowan on 02-09-2023 Angina Index 0 [facility] [employer] Phone: Baseline Diastolic BP 78 mmHg [place] [employer] Work Phone: Baseline HR 76 bpm [facility] [employer] Work Phone: Baseline ST Depression 0 mm [facility] [employer] Work Phone: Baseline Systolic BP 124 mmHg [facility] [employer] Work Phone: Mason Treadmill Score 10 [facility] [employer] Work Phone: Exercise Duration Seconds 4 sec [facility] [employer] Phone: Exercise Duration Time 10 min [facility] [employer] Work Phone: Oxygen saturation in Blood 96 % [facility] [employer] Phone: Recovery Stage 1 HR 153 bpm [facility] [employer] Phone: Recovery Stage 2 BP 160/70 mmHg [facility] [employer] Phone: Recovery Stage 2 HR 108 bpm [facility] [employer] Phone: Recovery Stage 3 BP 146/78 mmHg [facility] [employer] Phone: Recovery Stage 3 HR 93 bpm [facility] [employer] Phone: Recovery Stage 4 BP 130/80 mmHg [facility] [employer] Phone: Recovery Stage 4 HR 90 bpm [facility] [employer] Phone: Stress Diastolic BP 82 mmHg [facility] [employer] Phone: Stress Estimated Workload 11.8 METS [facility] [employer] Phone: Stress Peak HR 181 bpm [facility] th Work Phone: Stress Percent HR Achieved 93 % [facility] [employer] Phone: Stress Rate Pressure Product 06381 bpm*mmHg [facility] [employer] Phone: Stress ST Depression 0 mm [facility] Work Phone: Stress Stage 1 BP 140/70 [facility] Work Phone: Stress Stage 1 HR 106 bpm [facility] Work Phone: Stress Stage 2 BP 152/80 mmHg [facility] Work Phone: Stress Stage 2 HR 130 bpm [facility] Work Phone: Stress Stage 3 BP 160/76 mmHg [facility] Work Phone: Stress Stage 3 HR 157 bpm [facility] Work Phone: Stress Stage 4 BP 162/82 mmHg [facility] Work Phone: Stress Stage 4 HR 181 bpm [facility] Work Phone: Stress Systolic BP 162 mmHg [facility] Work Phone: Stress Target HR 195 bpm [facility] Work Phone: Cardiac stress study Procedu [facility] 02-09-2023 Stress ECG: No ST depression was noted. There were no noted arrhythmias during recovery. Conclusion: The stress test is normal. Stress Test: A Lazaro protocol stress test was performed. Hemodynamics are adequate for diagnosis. Blood pressure demonstrated a normal response and heart rate demonstrated a normal response to stress. The patient's heart rate recovery was normal. The patient reported no symptoms during the stress test. Resting ECG: The ECG shows normal sinus rhythm. Resting ECG shows no ST-segment deviation. Resting ECG The ECG shows normal sinus rhythm. Resting ECG shows no ST-segment deviation. Stress Findings A Lazaro protocol stress test was performed. The patient reached stage 4 of the protocol after exercising for 10 min and 4 sec. The patient experienced no angina during the test. Taina rating of perceived exertion was 17. Hemodynamics are adequate for diagnosis. Blood pressure demonstrated a normal response and heart rate demonstrated a normal response to stress. The patient's heart rate recovery was normal. The patient reported no symptoms prior to the stress test. The patient reported no symptoms during the stress test. The test was stopped because the patient experienced dyspnea. Stress ECG There were no arrhythmias during stress. No ST depression was noted. There were no noted arrhythmias during recovery. Conclusion: The stress test is normal. CV EPIPHANY 36on 12-27-2022 36 Attempted to call patient to review lab results. Phone number is no longer in service. Dr. Suarez made aware. Normal [facility] 36 ----- Message from Hilda Suarez MD sent at 12/27/2022 9:44 AM EDT ----- LDL is elevated but does not warrant pharmacologic agents at this time. Diet and exercise. Normal [facility] Progress Noteon 12-21-2022 Progress Note LDL is elevated but does not warrant pharmacologic agents at this time. Diet and exercise. Normal [facility] Office Visiton 12-16-2022 Follow-up visit [id number] Kumar Harrison 1995 M Date Provider Department Center 12/16/2022 [id number]-HVXCHILDA SUAREZ I [facility] [address] Family History Problem Relation Age of Onset Heart attack Maternal Grandmother Heart attack Maternal Grandfather Family Status - Relation Status Age at Maternal Grandmother Maternal Grandfather Alive Level of Service:78572 IN OFFICE/OUTPATIENT NEW HIGH MDM 60-74 MINUTES Reason for Visit and Comments: New Patient [542] Normal [facility] Progress Noteon 12-16-2022 Progress Note [facility] Cardiology [facility] CARDIOLOGY [address] [facility] [address] Dept: [phone] Dept Visit type: New : 1995 Chief Complaint: Chief Complaint Patient presents with New Patient History of Present Illness: Kumar aHrrison is a 27 y.o. male is here for evaluation of palpitations. He states that experiences palpitations, fluttering in his chest when he exercises. These episodes do not occur when he is resting. This is started recently. He had an EKG performed at his facility which was reported as junctional rhythm. However on review of the EKG, it appears that he does have low voltage regular P waves suggestive of a sinus rhythm. He also complains of chest tightness when he has these episodes. He denies shortness of breath, dizziness or presyncopal symptoms. BP is 110/74. ECG shows sinus rhythm. Denies family history of sudden cardiac . Denies family history of pacemakers or ICD placement. He does smoke cigarettes but denies use of recreational medications. He denies excessive use of caffeine or alcohol. Assessment and Plan: Palpitations on exercise-based on her symptoms, will obtain a exercise treadmill stress test. Additionally,, will check a groundwater monitoring technician to rule out significant tachyarrhythmias. He is on multiple psychotropic medications which can cause symptoms of palpitations as well as dizziness. If cardiac testing is negative, consider switching some of his psychotropic medications. Assessment and plan was discussed with patient who verbalized understanding and agreement. Past Medical History: Past Medical History: Diagnosis Date ADD (attention deficit disorder) Asthma Autism Depression GERD (gastroesophageal reflux disease) High cholesterol Manic bipolar I disorder (CMS/HCC) (HCC) OCD (obsessive compulsive disorder) PTSD (post-traumatic stress disorder) Past Surgical History History reviewed. No pertinent surgical history. Family History Family History Problem Relation Name Age of Onset Heart attack Maternal Grandmother Heart attack Maternal Grandfather Social History Social History Tobacco Use Smoking status: Every Day Packs/day: 1.00 Types: Cigarettes Start date: 2010 Smokeless tobacco: Current Tobacco comments: Vape Substance Use Topics Alcohol use: Not Currently Drug use: Not Currently Types: Methamphetamines, Marijuana Comment: caffiene: none Allergies: Allergies Allergen Reactions Haldol [Haloperidol] Psychosis Medications: Current Outpatient Medications: Albuterol Sulfate 108 (90 Base) MCG/ACT aerosol powder , Inhale every 4 hours as needed., Disp: , Rfl: ARIPiprazole (Abilify) 15 MG tablet, Take 15 mg by mouth daily., Disp: , Rfl: lamoTRIgine (LaMICtal) 25 MG tablet, Take 25 mg by mouth daily., Disp: , Rfl: omega-3 (Fish Oil) 1200 MG capsule, Take 1,200 mg by mouth daily., Disp: , Rfl: omeprazole (PriLOSEC) [address] capsule, Take 40 mg by mouth every morning (before breakfast). Do not crush or chew., Disp: , Rfl: prazosin (Minipress) 2 MG capsule, Take 2 mg by mouth Nightly., Disp: , Rfl: sertraline (Zoloft) 50 MG tablet, Take by mouth daily., Disp: , Rfl: Review of Systems: Review of Systems Constitutional: Negative for chills and fever. Respiratory: Negative for cough and shortness of breath. Cardiovascular: Positive for palpitations (during exercise). Negative for chest pain and leg swelling. Gastrointestinal: Negative for abdominal pain, blood in stool and vomiting. Genitourinary: Negative for hematuria. Neurological: Negative for dizziness, syncope and light-headedness. Physical Examination: Vitals: Vitals: 12/16/22 1347 BP: 110/74 BP Location: Right arm Patient Position: Sitting BP Cuff Size: Large adult Pulse: 65 SpO2: 97% Weight: 197 lb 12.8 oz (89.7 kg) Height: 5' 11 (1.803 m) Body mass index is 27.59 kg/m?. Physical Exam Constitutional: General: He is not in acute distress. Appearance: He is normal weight. He is not ill-appearing. HENT: Head: Normocephalic. Nose: No congestion or rhinorrhea. Mouth/Throat: Pharynx: No oropharyngeal exudate. Eyes: General: No scleral icterus. Extraocular Movements: Extraocular movements intact. Pupils: Pupils are equal, round, and reactive to light. Neck: Vascular: No carotid bruit. Cardiovascular: Rate and Rhythm: Normal rate and regular rhythm. Heart sounds: Normal heart sounds. No murmur heard. No friction rub. No gallop. Pulmonary: Effort: Pulmonary effort is normal. No respiratory distress. Breath sounds: Normal breath sounds. No wheezing or rales. Abdominal: General: Abdomen is flat. There is no distension. Palpations: Abdomen is soft. Musculoskeletal: Cervical back: Neck supple. No tenderness. Right lower leg: No edema. Left lower leg: No edema. Skin: General: Skin is warm and dry. Capillary Re (more content not included)... Normal [facility] Absolute lymphocyte countOrd ered By: Dr. Bhandari on 11-15-2022 Lymphocytes Auto (Unsp spec) [#/Vol] 1.80 10*3/uL 0.83-4.51 [facility] Basophil percentageOrdered B y: Dr. Bhandari on 11-15-2022 Basophils/100 WBC (Bld) 0.5 % 0-1 [facility] Bilirubin [Mass/Vol] 0.20 mg/dL 0.20-1.00 [facility] Comment on above: For patients on eltr ombopag therapy, use of Dimension [place] TBIL is not recommended. Chloride [Moles/Vol] 107 mmol/L 98-107 [facility] Eosinophils/100 WBC (Bld) 0.9 % 0-5 [facility] Glucose [Mass/Vol] 100 mg/dL 74-106 [facility] Comment on above: Fasting Glucose resu lt from 100 to 125 mg/dL suggests IMPAIRED HOMEOSTASIS per A.D.A. criteria. Neutrophils (Bld) [#/Vol] 7.7 10*3/uL 2.0-7.7 [facility] Neutrophils/100 WBC (Bld) 73.9 % 47-70 [facility] Potassium [Moles/Vol] 3.5 mmol/L 3.5-5.1 [facility] Protein [Mass/Vol] 7.5 g/dL 6.4-8.2 [facility] Sodium [Moles/Vol] 140 mmol/L 136-145 [facility] WBC (Bld) [#/Vol] 10.5 10*3/uL 4.4-11.0 [facility] Blood erythrocytes count (nu mber/volume)Ordered By: Dr. Bhandari on 11-15-2022 RBC (Bld) [#/Vol] 4.73 10*6/uL 4.6-6.2 [facility] Blood hemoglobin measurement (mass/volume)Ordered By: Dr. Bhandari on 11-15-2022 Hemoglobin (Bld) [Mass/Vol] 14.5 g/dL 13.0-16.5 [facility] Blood lymphocytes/100 leukoc ytesOrdered By: Dr. Bhandari on 11-15-2022 Lymphocytes/100 WBC (Bld) 17.2 % 19-41 [facility] Blood monocytes/100 leukocyt esOrdered By: Dr. Bhandari on 11-15-2022 Monocytes/100 WBC (Bld) 7.1 % 0-10 [facility] Blood platelet mean volumeOr dered By: Dr. Bhandari on 11-15-2022 Platelet mean volume (Bld) [Entitic vol] 9.4 fL 6.2-12.0 [facility] COVID-19 virus antigen assay Ordered By: Dr. Bhandari on 11-15-2022 SARS-CoV-2 (COVID-19) Ag IA.rapid Ql (Resp) [facility] Determination of erythrocyte mean corpuscular volume (MCV)Ordered By: Dr. Bhandari on 11-15-2022 MCV (RBC) [Entitic vol] 88.8 fL 80-94 [facility] Hematocrit Auto (Bld) [Volum e fraction]Ordered By: Dr. Bhandari on 11-15-2022 Hematocrit (Bld) [Volume fraction] 42.0 % 40-54 [facility] Laboratory - Chemistry and C hemistry - challengeOrdered By: Dr. Bhandari on 11-15-2022 ALP [Catalytic activity/Vol] 66 U/L 45-117 [facility] ALT [Catalytic activity/Vol] 40 U/L 16-61 [facility] CO2 [Moles/Vol] 26.0 mmol/L 21.0-32.0 [facility] Globulin (S) [Mass/Vol] 3.7 g/dL 2.2-4.2 [facility] Urea nitrogen/Creatinine [Mass ratio] 8.8 mg/mg 10-20 [facility] Laboratory - Drug toxicology Ordered By: Dr. Bhandari on 11-15-2022 Amphetamines Ql (U) Negative <1000 ng/mL [facility] Benzodiazepines Ql (U) Negative < 200 ng/mL [facility] Cannabinoids Screen Ql (U) Negative < 50 ng/mL [facility] Cocaine Ql (U) Negative < 300 ng/mL [facility] Opiates Ql (U) Negative < 300 ng/mL [facility] Laboratory - Hematology and Cell countsOrdered By: Dr. Bhandari on 11-15-2022 Erythrocyte distribution width (RBC) [Entitic vol] 40.0 fL 35.1-43.9 [facility] Erythrocyte distribution width (RBC) [Ratio] 12.3 % 11.6-14.6 [facility] Immature granulocytes/100 WBC (Bld) 0.400 % 0.0-0.9 [facility] Comment on above: IG% - Immature Granu locytes (promyelocytes, myelocytes and metamyelocytes) > 1% indicates that a LEFT SHIFT is Present. MCH (RBC) [Entitic mass] 30.7 pg 27.0-32.0 [facility] Nucleated RBC/100 WBC (Bld) [Ratio] 0 % 0-5 [facility] MCHC Auto (RBC) [Mass/Vol]Or dered By: Dr. Bhandari on 11-15-2022 MCHC (RBC) [Mass/Vol] 34.5 g/dL 32-36 [facility] No Panel InformationOrdered By: Dr. Bhandari on 11-15-2022 MDMA (Ecstasy) Screen Negative < 500 ng/mL [facility] Urine Barbiturates Screen Negative < 200 ng/mL [facility] Urine Drug Screen Comment [facility] Comment on above: CONFIRMATORY TESTING FOR ALL POSITIVE URINE DRUG SCREENRESULTS WILL ONLY BE SENT OUT UPON PHYSICIAN ORDER. [facility]ISTA Urine Drug Screen methods provide only preliminaryanalytical test results. A more specific alternate chemicalmethod must be used in order to obtain a confirmedanalytical result. Gas chromatography/mass spectrometery(GC/MS) is the preferred confirmatory method. Clinicalconsideration and professional judgement should be appliedto any drug of abuse test result, particularly whenpreliminary positive results are used. URINE TCA TESTING MUST BE ORDERED SEPARATELY. USE TESTMNEMONIC: [facility] Urine Methadone Screen Negative < 300 ng/mL [facility] Estimated Creatinine Clearance Calc 150.34 ml/min [facility] Estimated GFR (MDRD) Amer 152 mL/min >60 [facility] Comment on above: GFR Calc Estimated GFR (MDRD) Non-Af Amer 126 mL/min >60 [facility] Comment on above: Non- GFR Calc Ethyl Alcohol Level 4.0 mg/dL [facility] Comment on above: The serum:whole bloo d ethanol ratio is approximately 1.14and varies slightly with hematocrit. Medical Alcohol reference interval and critical value innon-tolerant individuals; 50 - 100 Impairment 100 Intoxication 100 - 250 Severe Poisoning 250 - 400 Deep/possible fatal coma Platelets bldOrdered By: Dr. Bhandari on 11-15-2022 Platelets (Bld) [#/Vol] 303 10*3/uL 150-450 [facility] Serum or plasma albumin barbara urement (mass/volume)Ordered By: Dr. Bhandari on 11-15-2022 Albumin [Mass/Vol] 3.8 g/dL 3.2-5.0 [facility] Serum or plasma albumin/glob ulin mass ratioOrdered By: Dr. Bhandari on 11-15-2022 Albumin/Globulin [Mass ratio] 1.0 {ratio} 0.9-2.4 [facility] Serum or plasma calcium barbara urement (mass/volume)Ordered By: Dr. Bhandari on 11-15-2022 Calcium [Mass/Vol] 9.1 mg/dL 8.5-10.1 [facility] Serum or plasma creatinine m easurement (mass/volume)Ordered By: Dr. Bhandari on 11-15-2022 Creatinine [Mass/Vol] 0.80 mg/dL 0.70-1.30 [facility] Comment on above: The validity of the calculated GFR & GFRAA in patients over 70 years has not been determined. Clinical correlation is essential. Serum or plasma urea nitroge n measurement (mass/volume)Ordered By: Dr. Bhandari on 11-15-2022 Urea nitrogen [Mass/Vol] 7 mg/dL 7-18 [facility] Thin prep Papanicolaou smear with manual screeningOrdered By: Dr. Bhandari on 11-15-2022 Thin prep Papanicolaou smear with manual screening 16 U/L 15-37 [facility] Thin prep Papanicolaou smear with manual screening 7 5-15 [facility] Urine phencyclidine (PCP) de tectionOrdered By: Dr. Bhandari on 11-15-2022 Phencyclidine Ql (U) Negative < 25 ng/mL [facility] Absolute lymphocyte countOrd ered By: Dr. Suarez on 11-02-2022 Lymphocytes Auto (Unsp spec) [#/Vol] 1.02 10*3/uL 0.83-4.51 [facility] Basophil percentageOrdered B y: Dr. Suarez on 11-02-2022 Basophils/100 WBC (Bld) 0.5 % 0-1 [facility] Chloride [Moles/Vol] 104 mmol/L 98-107 [facility] Eosinophils/100 WBC (Bld) 0.5 % 0-5 [facility] Glucose [Mass/Vol] 106 mg/dL 74-106 [facility] Comment on above: Fasting Glucose resu lt from 100 to 125 mg/dL suggests IMPAIRED HOMEOSTASIS per A.D.A. criteria. Neutrophils (Bld) [#/Vol] 11.3 10*3/uL 2.0-7.7 [facility] Neutrophils/100 WBC (Bld) 85.3 % 47-70 [facility] Potassium [Moles/Vol] 3.8 mmol/L 3.5-5.1 [facility] Sodium [Moles/Vol] 137 mmol/L 136-145 [facility] WBC (Bld) [#/Vol] 13.2 10*3/uL 4.4-11.0 [facility] Blood erythrocytes count (nu mber/volume)Ordered By: Dr. Suarez on 11-02-2022 RBC (Bld) [#/Vol] 5.07 10*6/uL 4.6-6.2 [facility] Blood hemoglobin measurement (mass/volume)Ordered By: Dr. Suarez on 11-02-2022 Hemoglobin (Bld) [Mass/Vol] 15.2 g/dL 13.0-16.5 [facility] Blood lymphocytes/100 leukoc ytesOrdered By: Dr. Suarez on 11-02-2022 Lymphocytes/100 WBC (Bld) 7.8 % 19-41 [facility] Blood monocytes/100 leukocyt esOrdered By: Dr. Suarez on 11-02-2022 Monocytes/100 WBC (Bld) 5.1 % 0-10 [facility] Blood platelet mean volumeOr dered By: Dr. Suarez on 11-02-2022 Platelet mean volume (Bld) [Entitic vol] 9.6 fL 6.2-12.0 [facility] COVID-19 virus antigen assay Ordered By: Dr. Mejia on 11-02-2022 SARS-CoV-2 (COVID-19) Ag IA.rapid Ql (Resp) [facility] Determination of erythrocyte mean corpuscular volume (MCV)Ordered By: Dr. Suarez on 11-02-2022 MCV (RBC) [Entitic vol] 88.6 fL 80-94 [facility] Hematocrit Auto (Bld) [Volum e fraction]Ordered By: Dr. Suarez on 11-02-2022 Hematocrit (Bld) [Volume fraction] 44.9 % 40-54 [facility] Laboratory - Chemistry and C hemistry - challengeOrdered By: Dr. Suarez on 11-02-2022 CO2 [Moles/Vol] 26.0 mmol/L 21.0-32.0 [facility] Urea nitrogen/Creatinine [Mass ratio] 10.9 mg/mg 10-20 [facility] Laboratory - Drug toxicology Ordered By: Dr. Suarez on 11-02-2022 Amphetamines Ql (U) Negative <1000 ng/mL [facility] Benzodiazepines Ql (U) Negative < 200 ng/mL [facility] Cannabinoids Screen Ql (U) Positive < 50 ng/mL [facility] Cocaine Ql (U) Negative < 300 ng/mL [facility] Opiates Ql (U) Negative < 300 ng/mL [facility] Laboratory - Hematology and Cell countsOrdered By: Dr. Suarez on 11-02-2022 Erythrocyte distribution width (RBC) [Entitic vol] 40.2 fL 35.1-43.9 [facility] Erythrocyte distribution width (RBC) [Ratio] 12.4 % 11.6-14.6 [facility] Immature granulocytes/100 WBC (Bld) 0.800 % 0.0-0.9 [facility] Comment on above: IG% - Immature Granu locytes (promyelocytes, myelocytes and metamyelocytes) > 1% indicates that a LEFT SHIFT is Present. MCH (RBC) [Entitic mass] 30.0 pg 27.0-32.0 [facility] Nucleated RBC/100 WBC (Bld) [Ratio] 0 % 0-5 [facility] MCHC Auto (RBC) [Mass/Vol]Or dered By: Dr. Suarez on 11-02-2022 MCHC (RBC) [Mass/Vol] 33.9 g/dL 32-36 [facility] No Panel InformationOrdered By: Dr. Suarez on 11-02-2022 MDMA (Ecstasy) Screen Negative < 500 ng/mL [facility] Urine Barbiturates Screen Negative < 200 ng/mL [facility] Urine Drug Screen Comment [facility] Comment on above: CONFIRMATORY TESTING FOR ALL POSITIVE URINE DRUG SCREENRESULTS WILL ONLY BE SENT OUT UPON PHYSICIAN ORDER. [facility]IST[facility] Urine Drug Screen methods provide only preliminaryanalytical test results. A more specific alternate chemicalmethod must be used in order to obtain a confirmedanalytical result. Gas chromatography/mass spectrometery(GC/MS) is the preferred confirmatory method. Clinicalconsideration and professional judgement should be appliedto any drug of abuse test result, particularly whenpreliminary positive results are used. URINE TCA TESTING MUST BE ORDERED SEPARATELY. USE TESTMNEMONIC: [facility] Urine Methadone Screen Negative < 300 ng/mL [facility] Estimated Creatinine Clearance Calc 146.67 ml/min [facility] Estimated GFR (MDRD) Amer 146 mL/min >60 [facility] Comment on above: GFR Calc Estimated GFR (MDRD) Non-Af Amer 121 mL/min >60 [facility] Comment on above: Non- GFR Calc Ethyl Alcohol Level < 3.0 mg/dL [facility] Comment on above: The serum:whole bloo d ethanol ratio is approximately 1.14and varies slightly with hematocrit. Medical Alcohol reference interval and critical value innon-tolerant individuals; 50 - 100 Impairment 100 Intoxication 100 - 250 Severe Poisoning 250 - 400 Deep/possible fatal coma Platelets bldOrdered By: Dr. Suarez on 11-02-2022 Platelets (Bld) [#/Vol] 272 10*3/uL 150-450 [facility] Serum or plasma calcium barbara urement (mass/volume)Ordered By: Dr. Suarez on 11-02-2022 Calcium [Mass/Vol] 9.5 mg/dL 8.5-10.1 [facility] Serum or plasma creatinine m easurement (mass/volume)Ordered By: Dr. Suarez on 11-02-2022 Creatinine [Mass/Vol] 0.82 mg/dL 0.70-1.30 [facility] Comment on above: The validity of the calculated GFR & GFRAA in patients over 70 years has not been determined. Clinical correlation is essential. Serum or plasma urea nitroge n measurement (mass/volume)Ordered By: Dr. Suarez on 11-02-2022 Urea nitrogen [Mass/Vol] 9 mg/dL 7-18 [facility] Thin prep Papanicolaou smear with manual screeningOrdered By: Dr. Suarez on 11-02-2022 Thin prep Papanicolaou smear with manual screening 7 5-15 [facility] Urine phencyclidine (PCP) de tectionOrdered By: Dr. Suarez on 11-02-2022 Phencyclidine Ql (U) Negative < 25 ng/mL [facility] Absolute lymphocyte countOrd ered By: Dr. Reese on 10-28-2022 Lymphocytes Auto (Unsp spec) [#/Vol] 1.73 10*3/uL 0.83-4.51 [facility] Basophil percentageOrdered B y: Dr. Reese on 10-28-2022 Basophils/100 WBC (Bld) 0.3 % 0-1 [facility] Chloride [Moles/Vol] 105 mmol/L 98-107 [facility] Eosinophils/100 WBC (Bld) 0.5 % 0-5 [facility] Glucose [Mass/Vol] 92 mg/dL 74-106 [facility] Neutrophils (Bld) [#/Vol] 9.9 10*3/uL 2.0-7.7 [facility] Neutrophils/100 WBC (Bld) 78.3 % 47-70 [facility] Potassium [Moles/Vol] 3.5 mmol/L 3.5-5.1 [facility] Sodium [Moles/Vol] 137 mmol/L 136-145 [facility] WBC (Bld) [#/Vol] 12.6 10*3/uL 4.4-11.0 [facility] Blood erythrocytes count (nu mber/volume)Ordered By: Dr. Reese on 10-28-2022 RBC (Bld) [#/Vol] 5.18 10*6/uL 4.6-6.2 [facility] Blood hemoglobin measurement (mass/volume)Ordered By: Dr. Reese on 10-28-2022 Hemoglobin (Bld) [Mass/Vol] 15.7 g/dL 13.0-16.5 [facility] Blood lymphocytes/100 leukoc ytesOrdered By: Dr. Reese on 10-28-2022 Lymphocytes/100 WBC (Bld) 13.7 % 19-41 [facility] Blood monocytes/100 leukocyt esOrdered By: Dr. Reese on 10-28-2022 Monocytes/100 WBC (Bld) 6.8 % 0-10 [facility] Blood platelet mean volumeOr dered By: Dr. Reese on 10-28-2022 Platelet mean volume (Bld) [Entitic vol] 10.1 fL 6.2-12.0 [facility] COVID-19 virus antigen assay Ordered By: Dr. Reese on 10-28-2022 SARS-CoV-2 (COVID-19) Ag IA.rapid Ql (Resp) [facility] Determination of erythrocyte mean corpuscular volume (MCV)Ordered By: Dr. Reese on 10-28-2022 MCV (RBC) [Entitic vol] 88.6 fL 80-94 [facility] Hematocrit Auto (Bld) [Volum e fraction]Ordered By: Dr. Reese on 10-28-2022 Hematocrit (Bld) [Volume fraction] 45.9 % 40-54 [facility] Laboratory - Chemistry and C hemistry - challengeOrdered By: Dr. Reese on 10-28-2022 CO2 [Moles/Vol] 25.0 mmol/L 21.0-32.0 [facility] Urea nitrogen/Creatinine [Mass ratio] 10.7 mg/mg 10-20 [facility] Laboratory - Drug toxicology Ordered By: Dr. Reese on 10-28-2022 Amphetamines Ql (U) Negative <1000 ng/mL [facility] Benzodiazepines Ql (U) Negative < 200 ng/mL [facility] Cannabinoids Screen Ql (U) Positive < 50 ng/mL [facility] Cocaine Ql (U) Negative < 300 ng/mL [facility] Opiates Ql (U) Negative < 300 ng/mL [facility] Laboratory - Hematology and Cell countsOrdered By: Dr. Reese on 10-28-2022 Erythrocyte distribution width (RBC) [Entitic vol] 40.8 fL 35.1-43.9 [facility] Erythrocyte distribution width (RBC) [Ratio] 12.5 % 11.6-14.6 [facility] Immature granulocytes/100 WBC (Bld) 0.400 % 0.0-0.9 [facility] Comment on above: IG% - Immature Granu locytes (promyelocytes, myelocytes and metamyelocytes) > 1% indicates that a LEFT SHIFT is Present. MCH (RBC) [Entitic mass] 30.3 pg 27.0-32.0 [facility] Nucleated RBC/100 WBC (Bld) [Ratio] 0 % 0-5 [facility] MCHC Auto (RBC) [Mass/Vol]Or dered By: Dr. Reese on 10-28-2022 MCHC (RBC) [Mass/Vol] 34.2 g/dL 32-36 [facility] No Panel InformationOrdered By: Dr. Reese on 10-28-2022 MDMA (Ecstasy) Screen Negative < 500 ng/mL [facility] Urine Barbiturates Screen Negative < 200 ng/mL [facility] Urine Drug Screen Comment [facility] Comment on above: CONFIRMATORY TESTING FOR ALL POSITIVE URINE DRUG SCREENRESULTS WILL ONLY BE SENT OUT UPON PHYSICIAN ORDER. [facility]IST[facility] Urine Drug Screen methods provide only preliminaryanalytical test results. A more specific alternate chemicalmethod must be used in order to obtain a confirmedanalytical result. Gas chromatography/mass spectrometery(GC/MS) is the preferred confirmatory method. Clinicalconsideration and professional judgement should be appliedto any drug of abuse test result, particularly whenpreliminary positive results are used. URINE TCA TESTING MUST BE ORDERED SEPARATELY. USE TESTMNEMONIC: [facility] Urine Methadone Screen Negative < 300 ng/mL [facility] Estimated Creatinine Clearance Calc 143.18 ml/min [facility] Estimated GFR (MDRD) Amer 143 mL/min >60 [facility] Comment on above: GFR Calc Estimated GFR (MDRD) Non-Af Amer 118 mL/min >60 [facility] Comment on above: Non- GFR Calc Ethyl Alcohol Level 5.0 mg/dL [facility] Comment on above: The serum:whole bloo d ethanol ratio is approximately 1.14and varies slightly with hematocrit. Medical Alcohol reference interval and critical value innon-tolerant individuals; 50 - 100 Impairment 100 Intoxication 100 - 250 Severe Poisoning 250 - 400 Deep/possible fatal coma Platelets bldOrdered By: Dr. Reese on 10-28-2022 Platelets (Bld) [#/Vol] 322 10*3/uL 150-450 [facility] Serum or plasma calcium barbara urement (mass/volume)Ordered By: Dr. Reese on 10-28-2022 Calcium [Mass/Vol] 9.9 mg/dL 8.5-10.1 [facility] Serum or plasma creatinine m easurement (mass/volume)Ordered By: Dr. Reese on 10-28-2022 Creatinine [Mass/Vol] 0.84 mg/dL 0.70-1.30 [facility] Comment on above: The validity of the calculated GFR & GFRAA in patients over 70 years has not been determined. Clinical correlation is essential. Serum or plasma urea nitroge n measurement (mass/volume)Ordered By: Dr. Reese on 10-28-2022 Urea nitrogen [Mass/Vol] 9 mg/dL 7-18 [facility] Thin prep Papanicolaou smear with manual screeningOrdered By: Dr. Reese on 10-28-2022 Thin prep Papanicolaou smear with manual screening 7 5-15 [facility] Urine phencyclidine (PCP) de tectionOrdered By: Dr. Reese on 10-28-2022 Phencyclidine Ql (U) Negative < 25 ng/mL [facility] Absolute lymphocyte countOrd ered By: Dr. Pascual on 10-20-2022 Lymphocytes Auto (Unsp spec) [#/Vol] 1.02 10*3/uL 0.83-4.51 [facility] Basophil percentageOrdered B y: Dr. Pascual on 10-20-2022 Basophils/100 WBC (Bld) 0.5 % 0-1 [facility] Chloride [Moles/Vol] 110 mmol/L 98-107 [facility] Eosinophils/100 WBC (Bld) 1.0 % 0-5 [facility] Glucose [Mass/Vol] 93 mg/dL 74-106 [facility] Neutrophils (Bld) [#/Vol] 6.3 10*3/uL 2.0-7.7 [facility] Neutrophils/100 WBC (Bld) 76.9 % 47-70 [facility] Potassium [Moles/Vol] 3.4 mmol/L 3.5-5.1 [facility] Sodium [Moles/Vol] 140 mmol/L 136-145 [facility] WBC (Bld) [#/Vol] 8.2 10*3/uL 4.4-11.0 [facility] Blood erythrocytes count (nu mber/volume)Ordered By: Dr. Pascual on 10-20-2022 RBC (Bld) [#/Vol] 4.81 10*6/uL 4.6-6.2 [facility] Blood hemoglobin measurement (mass/volume)Ordered By: Dr. Pascual on 10-20-2022 Hemoglobin (Bld) [Mass/Vol] 14.5 g/dL 13.0-16.5 [facility] Blood lymphocytes/100 leukoc ytesOrdered By: Dr. Pascual on 10-20-2022 Lymphocytes/100 WBC (Bld) 12.5 % 19-41 [facility] Blood monocytes/100 leukocyt esOrdered By: Dr. Pascual on 10-20-2022 Monocytes/100 WBC (Bld) 8.9 % 0-10 [facility] Blood platelet mean volumeOr dered By: Dr. Pascual on 10-20-2022 Platelet mean volume (Bld) [Entitic vol] 10.6 fL 6.2-12.0 [facility] COVID-19 virus antigen assay Ordered By: Dr. Pascual on 10-20-2022 SARS-CoV-2 (COVID-19) Ag IA.rapid Ql (Resp) [facility] Determination of erythrocyte mean corpuscular volume (MCV)Ordered By: Dr. Pascual on 10-20-2022 MCV (RBC) [Entitic vol] 90.2 fL 80-94 [facility] Hematocrit Auto (Bld) [Volum e fraction]Ordered By: Dr. Pascual on 10-20-2022 Hematocrit (Bld) [Volume fraction] 43.4 % 40-54 [facility] Laboratory - Chemistry and C hemistry - challengeOrdered By: Dr. Pascual on 10-20-2022 CO2 [Moles/Vol] 25.0 mmol/L 21.0-32.0 [facility] Urea nitrogen/Creatinine [Mass ratio] 7.5 mg/mg 10-20 [facility] Laboratory - Drug toxicology Ordered By: Dr. Pascual on 10-20-2022 Amphetamines Ql (U) Negative <1000 ng/mL [facility] Benzodiazepines Ql (U) Negative < 200 ng/mL [facility] Cannabinoids Screen Ql (U) Positive < 50 ng/mL [facility] Cocaine Ql (U) Negative < 300 ng/mL [facility] Opiates Ql (U) Negative < 300 ng/mL [facility] Laboratory - Hematology and Cell countsOrdered By: Dr. Pascual on 10-20-2022 Erythrocyte distribution width (RBC) [Entitic vol] 41.8 fL 35.1-43.9 [facility] Erythrocyte distribution width (RBC) [Ratio] 12.8 % 11.6-14.6 [facility] Immature granulocytes/100 WBC (Bld) 0.200 % 0.0-0.9 [facility] Comment on above: IG% - Immature Granu locytes (promyelocytes, myelocytes and metamyelocytes) > 1% indicates that a LEFT SHIFT is Present. MCH (RBC) [Entitic mass] 30.1 pg 27.0-32.0 [facility] Nucleated RBC/100 WBC (Bld) [Ratio] 0 % 0-5 [facility] MCHC Auto (RBC) [Mass/Vol]Or dered By: Dr. Pascual on 10-20-2022 MCHC (RBC) [Mass/Vol] 33.4 g/dL 32-36 [facility] No Panel InformationOrdered By: Dr. Pascual on 10-20-2022 MDMA (Ecstasy) Screen Negative < 500 ng/mL [facility] Urine Barbiturates Screen Negative < 200 ng/mL [facility] Urine Drug Screen Comment [facility] Comment on above: CONFIRMATORY TESTING FOR ALL POSITIVE URINE DRUG SCREENRESULTS WILL ONLY BE SENT OUT UPON PHYSICIAN ORDER. [facility]IST[facility] Urine Drug Screen methods provide only preliminaryanalytical test results. A more specific alternate chemicalmethod must be used in order to obtain a confirmedanalytical result. Gas chromatography/mass spectrometery(GC/MS) is the preferred confirmatory method. Clinicalconsideration and professional judgement should be appliedto any drug of abuse test result, particularly whenpreliminary positive results are used. URINE TCA TESTING MUST BE ORDERED SEPARATELY. USE TESTMNEMONIC: [facility] Urine Methadone Screen Negative < 300 ng/mL [facility] Estimated Creatinine Clearance Calc 150.34 ml/min [facility] Estimated GFR (MDRD) Amer 152 mL/min >60 [facility] Comment on above: GFR Calc Estimated GFR (MDRD) Non-Af Amer 125 mL/min >60 [facility] Comment on above: Non- GFR Calc Ethyl Alcohol Level < 3.0 mg/dL [facility] Comment on above: The serum:whole bloo d ethanol ratio is approximately 1.14and varies slightly with hematocrit. Medical Alcohol reference interval and critical value innon-tolerant individuals; 50 - 100 Impairment 100 Intoxication 100 - 250 Severe Poisoning 250 - 400 Deep/possible fatal coma Platelets bldOrdered By: Dr. Pascual on 10-20-2022 Platelets (Bld) [#/Vol] 269 10*3/uL 150-450 [facility] Serum or plasma calcium barbara urement (mass/volume)Ordered By: Dr. Pascual on 10-20-2022 Calcium [Mass/Vol] 9.0 mg/dL 8.5-10.1 [facility] Serum or plasma creatinine m easurement (mass/volume)Ordered By: Dr. Pascual on 10-20-2022 Creatinine [Mass/Vol] 0.80 mg/dL 0.70-1.30 [facility] Comment on above: The validity of the calculated GFR & GFRAA in patients over 70 years has not been determined. Clinical correlation is essential. Serum or plasma urea nitroge n measurement (mass/volume)Ordered By: Dr. Pascual on 10-20-2022 Urea nitrogen [Mass/Vol] 6 mg/dL 7-18 [facility] Thin prep Papanicolaou smear with manual screeningOrdered By: Dr. Pascual on 10-20-2022 Thin prep Papanicolaou smear with manual screening 5 5-15 [facility] Urine phencyclidine (PCP) de tectionOrdered By: Dr. Pascual on 10-20-2022 Phencyclidine Ql (U) Negative < 25 ng/mL [facility] LIVERon 01-04-2018 Albumin mass conc 4.1 g/dL Normal 3.2-5.0 [facility] Comment on above: Performed By: #### L [id number] ####[facility] [id number] [place], [place] [address]Xt# [phone] Albumin/Globulin mass ratio 1.2 {ratio} Normal 0.8-2.0 [facility] Comment on above: Performed By: #### L [id number] ####[facility] [id number] [place], [place] [address]Pj# [phone] ALK PHOS 67 U/L Normal 45-117 [facility] Comment on above: Performed By: #### L [id number] ####[facility] [facility] [id number] [place], [place] [address]Aq# [phone] ALT enzyme act/vol 74 U/L High 13-61 [facility] Comment on above: Result Comment: RESU LTS MAY BE FALSELY DEPRESSED AFTER THE ADMINISTRATION OFSULFASALAZINE AND/OR SULFAPYRIDINE. Performed By: #### L 500.56702 ####[facility] [id number] [place], [place] [address]Th# [phone] BILI DIRECT 0.16 MG/DL Normal 0.00-0.20 [facility] Comment on above: Performed By: #### L 500.60222 ####[facility] [id number] [place] [address]Um# [phone] BILI TOTAL 0.5 MG/DL Normal 0.2-1.0 [facility] Comment on above: Performed By: #### L 500.66652 ####[facility] [id number] [place], [place] [address]Su# [phone] Globulin Calculated mass conc (S) 3.3 g/dL Normal 2.2-4.2 [facility] Comment on above: Performed By: #### L 500.83392 ####[facility] [id number] [place], [place] [address]Vn# [phone] Protein mass conc 7.4 g/dL Normal 6.0-8.5 [facility] Comment on above: Performed By: #### L 500.58731 ####[facility] [id number] [place], [place] [address]Bn# [phone] SGOT (AST) 48 U/L High 8-34 [facility] Comment on above: Result Comment: RESU LTS MAY BE FALSELY DEPRESSED AFTER THE ADMINISTRATION OFSULFASALAZINE AND/OR SULFAPYRIDINE. Performed By: #### L 500.46524 ####[facility] [id number] [place], [place] [address]Rn# [phone] CULT./ST. BACTERIAon 018 CULT./ST. BACTERIA Specimen Source Comment:[facility] Patient name: KUMAR HARTMANN M.R.N.: [id number] : 1995 Age: 21 Sex: M Ord. Physician: CARLITOS GUTIERRES Location: [address] [place] [address] Copy to: CARLITOS GUTIERRES DISCHARGED: 07/07Adm. Date: 07/03/17 MICROBIOLOGYORDER#: [id number] COLLECTED: 07/05/17 11:54SOURCE: Wound Right face wound/infection RECEIVED: 07/05/17 13:24 OE C O M M E N T S Deandra souza Source Comment:Body FluidSTAIN GRAM FINAL 07/05/17 22:1101//18Few polymorphonuclear cells/lpf.Rare gram positive cocci .CULT./ST. BACTERIA FINAL 07/08/17 09:46Many Staphylococcus aureus Positive for PBP2a (MRSA). Methicillin-resistant Staphylococcus aureus(MRSA) S. aureus ANTIBIOTICS MIKE INTRP Clindamycin 0.25 S Daptomycin 0.25 S Doxycycline <=0.5 S Gentamicin <=0.5 S Inducible Clindamycin Re Neg Neg Linezolid 2 S Nafcillin/Oxacillin >=4 R Rifampin <=0.5 S Tigecycline <=0.12 S Trimeth/Sulfa <=10 S Vancomycin 1 S S=SENSITIVE I=INTERMEDIATE R=RESISTANT S-DD=SUSCEPTIBLE DOSE DEPENDENT MIKE VALUES = ug/mL Normal [facility] Comment on above: Performed By: #### C VANDA ANDERS ####[address] [address] CULTUREon 07-05-2017 CULTURE Specimen Source Comment:Body Fluid [facility] Patient name: KUMAR HARTMANNRDarleneN.: [id number] : 1995 Age: 21 Sex: M Ord. Physician: CARLITOS GUTIERRES Location: [address] [place] [address] Copy to: CARLITOS GUTIERRES Adm. Date: 07/03/17 MICROBIOLOGYORDER#: [id number] COLLECTED: 07/05/17 11:54SOURCE: Wound Right face wound/infection RECEIVED: 07/05/17 13:24 MILLI [place] S Deandra souza Source Comment:Body Fluid [facility] Comment on above: Performed By: #### H EVANS REYES MGSerena, HA1C2 ####[place] [address] CULTURE ANAEROBEon 8 CULTURE ANAEROBE Specimen Source Comment:[facility] Patient name: KUMAR HARTMANN.R.N.: [id number] : 1995 Age: 21 Sex: M Ord. Physician: CARLITOS GUTIERRES Location: [address] [place] [address] Copy to: CARLITOS GUTIERRES DISCHARGED: 07/07Adm. Date: 07/03/17 MICROBIOLOGYORDER#: [id number] COLLECTED: 07/05/17 11:54SOURCE: Wound Right face wound/infection RECEIVED: 07/05/17 13:24 MILLI Blanca O Marlen Gee E N T S Deandra souza Source Comment:Body FluidCULTURE ANAEROBE FINAL 07/10/17 10:No growth of anaerobes at 5 days. [facility] Comment on above: Performed By: #### H EVANS REYES, MG3, HA1C2 ####[place] [address] Vancomycin Troughon 07-05-19 18 Vancomycin Trough 10.6 ug/mL High 5.0-10.0 [facility] Comment on above: Result Comment: . Performed By: #### V ANCT ####[place] [address] Basic Metabolic Panelon 06-07 Anion gap 9 mmol/L [facility] Comment on above: Performed By: #### H EVANS REYES, MG3, HA1C2 ####[place] [address] Calcium 9.3 mg/dL Normal 8.4-10.2 [facility] Comment on above: Performed By: #### H EMOHernandez, BMP3M, MG3, HA1C2 ####[address] [address] CO2 26 mmol/L Normal 22-30 [facility] Comment on above: Performed By: #### H EMOHernandez, BMP3M, MG3, HA1C2 ####[address] [address] Glucose mass conc 140 mg/dL High 70-100 [facility] Comment on above: Performed By: #### H EMOHernandez, BMP3M, MG3, HA1C2 ####[address] [address] Urea nitrogen 8 mg/dL Normal 7-20 [facility] Comment on above: Performed By: #### H EMOHernandez, BMP3M, MG3, HA1C2 ####[address] [address] Creatinine 0.66 mg/dL Normal 0.52-1.25 [facility] Comment on above: Performed By: #### H ERIC, BMP3M, MG3, HA1C2 ####[address] [address] eGFR (black) mL/min/{1.73_m2} Normal >60 [facility] Comment on above: Performed By: #### H EMOHernandez, BMP3M, MG3, HA1C2 ####[address] [address] eGFR (non-black) mL/min/{1.73_m2} Normal >60 [facility] Comment on above: Result Comment: Sour ce- MDRD equation with creatinine calibration to IDMS(NKDEP)eGFR not recommended for drug dose adjustment Performed By: #### H EMOG, BMP3M, MG3, HA1C2 ####[address] [address] Chloride 104 mmol/L Normal 98-107 [facility] Comment on above: Performed By: #### H EMOG, BMP3M, MG3, HA1C2 ####[address] [place] [address] Potassium molar conc 3.5 mmol/L Normal 3.5-5.1 [facility] Comment on above: Performed By: #### H EMOG, BMP3M, MG3, HA1C2 ####[address] [place] [address] Sodium 138 mmol/L Normal 137-145 [facility] Comment on above: Performed By: #### H EMOG, BMP3M, MG3, HA1C2 ####[address] [place] [address] CT Orbit/Sella/Ear w/ Contra ston 07-04-2017 CT Orbit/Sella/Ear w/ Contrast Patient Name: KUMAR HARTMANN CT Exam Date/Time 07/04/2017 09:46:[address] Orbit/Sella/Ear w/ Contrast Ordering Physician MD MAURICE, ELENA Accession Number [id number] CPT4 Codes 66822 (), Q9967 () Reason For Exam EYE MOVEMENT ABNORMALITIES Report CT ORBITS WITH CONTRAST: CLINICAL INDICATION: By movement abnormalities, periorbital cellulitis. TECHNIQUE: Multidetector spiral transaxial sequence was performed through the orbits. Multiplanar reconstruction imaging was performed following the intravenous administration of 75 mL of Isovue-370. COMPARISON: None. FINDINGS: There is right preseptal soft tissue swelling, which extends laterally and inferiorly over the maxilla and mandible. There is no retrobulbar extension of inflammation. No fluid collection is seen. The globes are symmetrical and unremarkable. No intraconal or extraconal lesion is identified in the left or right. Normal symmetrical configuration of the extraocular muscles and optic nerves is noted. No orbital emphysema is identified. There is no evidence of fracture of the orbital rodriguez or rims. The remainder of the visualized osseous structures are unremarkable. There is a left maxillary polyp versus retention cyst. Otherwise, the visualized paranasal sinuses are clear.. IMPRESSION: Right periorbital cellulitis. No evidence of abscess or orbital cellulitis. Report Dictated on Final Dictated: 07/04/2017 10:06 am Dictating Physician: MD DICKENS NICHOLAS Signed Date and Time: 07/04/2017 10:19 am Signed by: MD DICKENS NICHOLAS Transcribed Date and Time: 07/04/2017 10:06 Normal [facility] Drugs of Abuseon 07-04-2017 Phencyclidine (PCP), Ur Negative Normal [facility] Comment on above: Result Comment: The expected value for all of the drugs listedabove is Negative.The following drugs or drug groups have been screenedfor by Immunoassay at the following thresholds:Amphetamine class (1000 ng/mL), Barbiturates (200 ng/mL),Benzodiazepines (200 ng/mL), Cocaine (300 ng/mL),Methadone (300 ng/mL), Opiates (300 ng/mL),Oxycodone (100 ng/mL), and PCP (25 ng/mL).NOTE: These results are for medical treatment only.Analysis performed using non-forensic procedures. Performed By: #### D RGA4 ####[address] [address] Methadone, Ur Negative Normal [facility] Comment on above: Performed By: #### D RGA4 ####[address] [address] Opiates, Ur Positive [facility] Comment on above: Performed By: #### D RGA4 ####[address] [address] Benzodiazepines, Ur Negative Normal [facility] Comment on above: Performed By: #### D RGA4 ####[address] [address] Cocaine, Ur Negative Normal [facility] Comment on above: Performed By: #### D RGA4 ####[address] [address] Barbiturates, Ur Negative Normal [facility] Comment on above: Performed By: #### D RGA4 ####[address] [address] Amphetamines, Ur Positive Normal [facility] Comment on above: Performed By: #### D RGA4 ####[place] [address] Oxycodone/Oxymorphine, Ur Negative Normal [facility] Comment on above: Performed By: #### D RGA4 ####[place] [address] HIV 1,2 Ab; p24 Agon 018 HIV 1,2 Ab; p24 Ag NONREACTIVE Normal Nonreactive [facility] Comment on above: Result Comment: Resu lts obtained using the FDA cleared 4th generation HIVtest. This test detects antibodies to HIV1, HIV2, HIV Group O,and the presence of the HIV-1 p24 antigen. A Non-Reactive re-sult indicates the patient is negative for both HIV antibodyand HIV p24 antigen. All reactive results will undergo reflexconfirmation testing at an additional charge. Performed By: #### H IV4, HEPC ####[place] [address] Hemoglobin A1Con 07-04-2017 Glucose mass conc 97 mg/dL Normal [facility] Comment on above: Performed By: #### H EMOG, BMP3M, MG3, HA1C2 ####[place] [address] Hemoglobin A1c/Hemoglobin.total mass fraction (Bld) 5.0 % Normal 4.0-5.7 [facility] Comment on above: Result Comment: --Hg bA1C levels may not be accurate in patients who haverenal disease, received recent blood transfusions, are anemic,or who have dyshemoglobinemia. Performed By: #### H EMOG, BMP3M, MG3, HA1C2 ####[id number] Hemogramon 07-04-2017 Erythrocyte distribution width Auto Ratio (RBC) 13.1 % Normal 11.5-14.5 [facility] Comment on above: Performed By: #### H EMOG, BMP3M, MG3, HA1C2 ####[place] [address] Erythrocytes (RBC) 4.39 10*6/uL Low 4.40-5.90 [facility] Comment on above: Performed By: #### H KASSIE REYES3Marlen, MG3, HA1C2 ####[place] [address] Hematocrit (HCT) 39.1 % Low 40.0-52.0 [facility] Comment on above: Performed By: #### H KASSIE REYES3Marlen, MG3, HA1C2 ####[place] [address] Hemoglobin mass conc (Bld) 13.4 g/dL Normal 13.0-18.0 [facility] Comment on above: Performed By: #### H KASSIE REYES3Marlen, MG3, HA1C2 ####[place] [address] MCH 30.6 pg Normal 26.0-34.0 [facility] Comment on above: Performed By: #### H KASSIE REYES3M, MG3, HA1C2 ####[place] [address] MCHC mass conc (RBC) 34.3 % Normal 32.0-36.0 [facility] Comment on above: Performed By: #### H ERIC BMP3M, MG3, HA1C2 ####[place] [address] MCV 89.1 fL Normal 80.0-98.0 [facility] Comment on above: Performed By: #### H EMOHernandez BMP3M, MG3, HA1C2 ####[place] [address] Platelet mean volume (PMV) 8.3 fL Normal 7.4-10.4 [facility] Comment on above: Performed By: #### H EMOHernandez BMP3M, MG3, HA1C2 ####[address] [address] Platelets 213 10*3/uL Normal 140-440 [facility] Comment on above: Performed By: #### H EMOHernandez BMP3M, MG3, HA1C2 ####[address] [place] [address] WBC (Leukocytes) 12.8 10*3/uL High 3.6-10.7 [facility] Comment on above: Performed By: #### H ERIC, BMP3M, MG3, HA1C2 ####[address] [place] [address] Hep C Antibodyon 07-04-2017 Hep C Antibody NOT DETECTED Normal Not-Detected [facility] Comment on above: Result Comment: Maria Alejandra ents with DETECTED Hepatitis C Ab results should have a new specimensubmitted for supplemental testing with a Hepatitis C Quantitative RNA assay(viral load), if clinically indicated. Performed By: #### H IV4, HEPC ####[address] [place] [address] Magnesiumon 07-04-2017 Magnesium 2.1 mg/dL Normal 1.6-2.3 [facility] Comment on above: Performed By: #### H ERIC, KASSIE3M, MG3, HA1C2 ####[address] [address] Vital Signs Date Time Vital Sign Value Performing Clinician Facility 12-26-2024 15:43-0400 Body temperature 98.1 [degF] Shashank Marrufo TOOLROOM CLERK-C Work Phone: [facility] 12-26-2024 15:43-0400 Diastolic blood pressure 80 mm[Hg] Shashank Marrufo TOOLROOM CLERK-C Work Phone: [facility] 12-26-2024 15:43-0400 Heart rate 80 /min Shashank Marrufo TOOLROOM CLERK-C Work Phone: [facility] 12-26-2024 15:43-0400 Respiratory rate 24 /min Shashank Marrufo TOOLROOM CLERK-C Work Phone: [facility] 12-26-2024 15:43-0400 SaO2% (BldA) [Mass fraction] 97 % Shashank Marrufo TOOLROOM CLERK-C Work Phone: [facility] 12-26-2024 15:43-0400 Systolic blood pressure 116 mm[Hg] Shashank Marrufo TOOLROOM CLERK-C Work Phone: [facility] 12-26-2024 12:58-0400 Body height 180.34 cm Shashank Marrufo TOOLROOM CLERK-C Work Phone: [facility] 12-26-2024 12:58-0400 Body mass index (BMI) [Ratio] 27.1 kg/m2 Shashank Marrufo TOOLROOM CLERK-C Work Phone: [facility] 12-26-2024 12:58-0400 Body weight 88.4 kg Shashank Marrufo TOOLROOM CLERK-C Work Phone: [facility] 11-21-2024 03:00-0400 Body temperature 98.5 [degF] Shashank Marrufo TOOLROOM CLERK-C Work Phone: [facility] 11-21-2024 03:00-0400 Diastolic blood pressure 88 mm[Hg] Shashank Marrufo TOOLROOM CLERK-C Work Phone: [facility] 11-21-2024 03:00-0400 Heart rate 68 /min Shashank Marrufo TOOLROOM CLERK-C Work Phone: [facility] 11-21-2024 03:00-0400 Respiratory rate 18 /min Shashank Marrufo TOOLROOM CLERK-C Work Phone: [facility] 11-21-2024 03:00-0400 SaO2% (BldA) [Mass fraction] 99 % Shashank Marrufo TOOLROOM CLERK-C Work Phone: [facility] 11-21-2024 03:00-0400 Systolic blood pressure 139 mm[Hg] Shashank Marrufo TOOLROOM CLERK-C Work Phone: [facility] 11-20-2024 23:20-0400 Body height 180.34 cm Shashank Marrufo TOOLROOM CLERK-C Work Phone: [facility] 11-20-2024 23:20-0400 Body mass index (BMI) [Ratio] 27.7 kg/m2 Shashank Marrufo TOOLROOM CLERK-C Work Phone: [facility] 11-20-2024 23:20-0400 Body weight 90.3 kg Shashank Marrufo TOOLROOM CLERK-C Work Phone: [facility] 11-17-2024 08:59-0400 Body mass index (BMI) [Ratio] 27.98 kg/m2 Krislyn Aberegg PA Work Phone: [facility] 11-17-2024 08:59-0400 Body temperature 96.91 [degF] Krislyn Aberegg PA Work Phone: [facility] 11-17-2024 08:59-0400 Body weight 91 kg Krislyn Aberegg PA Work Phone: [facility] 11-17-2024 08:59-0400 Diastolic blood pressure 72 mm[Hg] Krislyn Aberegg PA Work Phone: [facility] 11-17-2024 08:59-0400 Heart rate 92 /min Krislyn Aberegg PA Work Phone: [facility] 11-17-2024 08:59-0400 Respiratory rate 16 /min Krislyn Aberegg PA Work Phone: [facility] 11-17-2024 08:59-0400 SaO2% (BldA) [Mass fraction] 97 % Krislyn Aberegg PA Work Phone: [facility] 11-17-2024 08:59-0400 Systolic blood pressure 110 mm[Hg] Krislyn Aberegg PA Work Phone: [facility] 08-14-2024 10:12-0400 Body mass index (BMI) [Ratio] 28.13 kg/m2 Whitley Prasatish-Shoaib RETAIL ADVISOR.INDUSTRY ANALYST Work Phone: [facility] 08-14-2024 10:12-0400 Body temperature 97.2 [degF] Whitley Praissid-Wood RETAIL ADVISOR.INDUSTRY ANALYST Work Phone: [facility] 08-14-2024 10:12-0400 Body weight 91.5 kg Whitley Prakumarler-Wood RETAIL ADVISOR.INDUSTRY ANALYST Work Phone: [facility] 08-14-2024 10:12-0400 Diastolic blood pressure 72 mm[Hg] Whitley Praisler-Wood RETAIL ADVISOR.INDUSTRY ANALYST Work Phone: [facility] 08-14-2024 10:12-0400 Heart rate 84 /min Whitley Praisler-Wood RETAIL ADVISOR.INDUSTRY ANALYST Work Phone: [facility] 08-14-2024 10:12-0400 Respiratory rate 16 /min Whitley Praisler-Wood RETAIL ADVISOR.INDUSTRY ANALYST Work Phone: [facility] 08-14-2024 10:12-0400 SaO2% (BldA) [Mass fraction] 98 % Whitley Praisler-Wood RETAIL ADVISOR.INDUSTRY ANALYST Work Phone: [facility] 08-14-2024 10:12-0400 Systolic blood pressure 126 mm[Hg] Whitley Praisler-Wood RETAIL ADVISOR.INDUSTRY ANALYST Work Phone: [facility] 06-18-2024 11:58-0500 Body mass index (BMI) [Ratio] 26.84 kg/m2 Radha Brown RETAIL ADVISOR.INDUSTRY ANALYST Work Phone: [facility] 06-18-2024 11:58-0500 Body temperature 98.6 [degF] Radha Brown RETAIL ADVISOR.INDUSTRY ANALYST Work Phone: [facility] 06-18-2024 11:58-0500 Body weight 87.3 kg Radha Brown RETAIL ADVISOR.INDUSTRY ANALYST Work Phone: [facility] 06-18-2024 11:58-0500 Diastolic blood pressure 72 mm[Hg] Radha Brown RETAIL ADVISOR.INDUSTRY ANALYST Work Phone: [facility] 06-18-2024 11:58-0500 Heart rate 84 /min Radha Brown RETAIL ADVISOR.INDUSTRY ANALYST Work Phone: [facility] 06-18-2024 11:58-0500 Respiratory rate 16 /min Radha Brown RETAIL ADVISOR.INDUSTRY ANALYST Work Phone: [facility] 06-18-2024 11:58-0500 SaO2% (BldA) [Mass fraction] 98 % Radha Brown RETAIL ADVISOR.INDUSTRY ANALYST Work Phone: [facility] 06-18-2024 11:58-0500 Systolic blood pressure 126 mm[Hg] Radha Brown RETAIL ADVISOR.INDUSTRY ANALYST Work Phone: [facility] 01-03-2024 08:28-0400 Body mass index (BMI) [Ratio] 29.21 kg/m2 Radha Brown RETAIL ADVISOR.INDUSTRY ANALYST Work Phone: [facility] 01-03-2024 08:28-0400 Body temperature 97.59 [degF] Radha Brown RETAIL ADVISOR.INDUSTRY ANALYST Work Phone: [facility] 01-03-2024 08:28-0400 Body weight 95 kg Radha Brown RETAIL ADVISOR.INDUSTRY ANALYST Work Phone: [facility] 01-03-2024 08:28-0400 Diastolic blood pressure 79 mm[Hg] Radha Brown RETAIL ADVISOR.INDUSTRY ANALYST Work Phone: [facility] 01-03-2024 08:28-0400 Heart rate 87 /min Radha Brown RETAIL ADVISOR.INDUSTRY ANALYST Work Phone: [facility] 01-03-2024 08:28-0400 Respiratory rate 18 /min Radha Brown RETAIL ADVISOR.INDUSTRY ANALYST Work Phone: [facility] 01-03-2024 08:28-0400 SaO2% (BldA) [Mass fraction] 96 % Radha Brown RETAIL ADVISOR.INDUSTRY ANALYST Work Phone: [facility] 01-03-2024 08:28-0400 Systolic blood pressure 112 mm[Hg] Radha Brown RETAIL ADVISOR.INDUSTRY ANALYST Work Phone: [facility] 04-14-2023 14:20-0500 Diastolic blood pressure 67 mm[Hg] Crista Strickland MD Work Phone: [facility] 04-14-2023 14:20-0500 Heart rate 63 /min Crista Strickland MD Work Phone: [facility] 04-14-2023 14:20-0500 Respiratory rate 18 /min Crista Strickland MD Work Phone: [facility] 04-14-2023 14:20-0500 SaO2% (BldA) [Mass fraction] 98 % Crista Strickland MD Work Phone: [facility] 04-14-2023 14:20-0500 Systolic blood pressure 102 mm[Hg] Crista Strickland MD Work Phone: [facility] 04-14-2023 13:39-0500 Body height 180.3 cm Crista Strickland MD Work Phone: [facility] 04-14-2023 13:39-0500 Body temperature 97.81 [degF] Crista Strickland MD Work Phone: [facility] 04-14-2023 13:39-0500 Body weight 92.99 kg Crista Strickland MD Work Phone: [facility] 03-29-2023 11:17-0400 Body height 180.3 cm Kat Kalka PA-C Work Phone: [facility] 03-29-2023 11:17-0400 Body weight 92.99 kg Kat Kalka PA-C Work Phone: [facility] 03-29-2023 11:17-0400 Diastolic blood pressure 62 mm[Hg] Kat Kalka PA-C Work Phone: [facility] 03-29-2023 11:17-0400 Heart rate 67 /min Kat Kalka PA-C Work Phone: [facility] 03-29-2023 11:17-0400 Systolic blood pressure 110 mm[Hg] Kat Kalka PA-C Work Phone: [facility] 12-16-2022 13:47-0400 Body height 180.3 cm Hilda Suarez MD Work Phone: [facility] 12-16-2022 13:47-0400 Body mass index (BMI) [Ratio] 27.59 kg/m2 Hilda Suarez MD Work Phone: [facility] 12-16-2022 13:47-0400 Body weight 89.72 kg Hilda Suarez MD Work Phone: [facility] 12-16-2022 13:47-0400 Diastolic blood pressure 74 mm[Hg] Hilda Suarez MD Work Phone: [facility] 12-16-2022 13:47-0400 Heart rate 65 /min Hilda Suarez MD Work Phone: [facility] 12-16-2022 13:47-0400 SaO2% (BldA) [Mass fraction] 97 % Hilda Suarez MD Work Phone: [facility] 12-16-2022 13:47-0400 Systolic blood pressure 110 mm[Hg] Hilda Suarez MD Work Phone: [facility] 11-15-2022 19:40-0400 Diastolic blood pressure 78 mm[Hg] [facility] 11-15-2022 19:40-0400 Heart rate 78 /min [facility] 11-15-2022 19:40-0400 Respiratory rate 18 /min [facility] 11-15-2022 19:40-0400 SaO2% (BldA) [Mass fraction] 100 % [facility] 11-15-2022 19:40-0400 Systolic blood pressure 125 mm[Hg] [facility] 11-15-2022 11:07-0400 Body height 180.34 cm [facility] 11-15-2022 11:07-0400 Body mass index (BMI) [Ratio] 27.1 kg/m2 [facility] 11-15-2022 11:07-0400 Body temperature 97.8 [degF] [facility] 11-15-2022 11:07-0400 Body weight 88.45 kg [facility] 11-02-2022 23:40-0400 Diastolic blood pressure 74 mm[Hg] [facility] 11-02-2022 23:40-0400 Heart rate 79 /min [facility] 11-02-2022 23:40-0400 Respiratory rate 16 /min [facility] 11-02-2022 23:40-0400 SaO2% (BldA) [Mass fraction] 98 % [facility] 11-02-2022 23:40-0400 Systolic blood pressure 118 mm[Hg] [facility] 11-02-2022 21:23-0400 Body temperature 98.7 [degF] [facility] 11-02-2022 13:11-0400 Body height 180.34 cm [facility] 11-02-2022 13:11-0400 Body mass index (BMI) [Ratio] 25.7 kg/m2 [facility] 11-02-2022 13:11-0400 Body weight 83.91 kg [facility] 10-28-2022 22:13-0400 Diastolic blood pressure 69 mm[Hg] [facility] 10-28-2022 22:13-0400 Heart rate 58 /min [facility] 10-28-2022 22:13-0400 Respiratory rate 16 /min [facility] 10-28-2022 22:13-0400 SaO2% (BldA) [Mass fraction] 98 % [facility] 10-28-2022 22:13-0400 Systolic blood pressure 109 mm[Hg] [facility] 10-28-2022 17:30-0400 Body mass index (BMI) [Ratio] 25.1 kg/m2 [facility] 10-28-2022 17:30-0400 Body temperature 97.9 [degF] [facility] 10-28-2022 17:30-0400 Body weight 81.64 kg [facility] 10-20-2022 18:37-0400 Body temperature 97.5 [degF] [facility] 10-20-2022 18:37-0400 Diastolic blood pressure 76 mm[Hg] [facility] 10-20-2022 18:37-0400 Heart rate 64 /min [facility] 10-20-2022 18:37-0400 Respiratory rate 18 /min [facility] 10-20-2022 18:37-0400 SaO2% (BldA) [Mass fraction] 98 % [facility] 10-20-2022 18:37-0400 Systolic blood pressure 116 mm[Hg] [facility] 10-20-2022 12:11-0400 Body height 180.34 cm [facility] 10-20-2022 12:11-0400 Body mass index (BMI) [Ratio] 25 kg/m2 [facility] 10-20-2022 12:11-0400 Body weight 81.19 kg [facility] 12-29-2021 10:12-0400 Diastolic blood pressure 74 mm[Hg] [facility] Work Phone: 12-29-2021 10:12-0400 Heart rate 62 /min [facility] Work Phone: 12-29-2021 10:12-0400 Respiratory rate 15 /min [facility] Work Phone: 12-29-2021 10:12-0400 SaO2% (BldA) [Mass fraction] 98 % [facility] Work Phone: 12-29-2021 10:12-0400 Systolic blood pressure 134 mm[Hg] [facility] Work Phone: 12-29-2021 09:10-0400 Body height 180.34 cm [facility] Work Phone: 12-29-2021 09:10-0400 Body mass index (BMI) [Ratio] 25.7 kg/m2 [facility] Work Phone: 12-29-2021 09:10-0400 Body temperature 97.9 [degF] [facility] Work Phone: 12-29-2021 09:10-0400 Body weight 83.91 kg [facility] Work Phone: Encounters Encounter Date Encounter Type Care Provider Facility Start: 01-03-2025 End: 01-03-2025 Telephone encounter Kat Rios PA-C Work Phone: [facility] [place] Comment on above: Medication Problem ( Direction clarification) Start: 01-03-2025 End: 01-03-2025 Telemedicine consultation with patient Kat Blanca SILVA-Rianna Work Phone: [facility] [place] Start: 01-03-2025 End: 01-03-2025 ambulatory Kat Blanca SILVA-C Work Phone: [facility] [place] Comment on above: Hiatal hernia with G ERD and esophagitis (Primary Dx); Constipation, unspecified constipation type Start: 12-26-2024 End: 12-26-2024 Emergency department patient visit Shashank Ambrosenguyen TOOLROOM CLERK-C Work Phone: -Emergency Department Work Phone: Start: 12-25-2024 End: 12-25-2024 Refill Shashank Marrufo APRN.KEVIN, DNP Work Phone: [facility] Comment on above: Refill Request Start: 11-20-2024 End: 11-21-2024 Emergency department patient visit Shashank Hattie TOOLROOM CLERK-C Work Phone: -Emergency Department Work Phone: Start: 11-18-2024 End: 11-18-2024 ambulatory Damaris Luu RN NURSE PAINT M[employer] Comment on above: Lab & Test Results Start: 11-18-2024 End: 11-18-2024 Follow-up encounter Jeannette Bradford APRN.INDUSTRY ANALYST Work Phone: [facility] Start: 11-17-2024 End: 11-17-2024 Patient encounter procedure Tamara SILVA Work Phone: [facility] Comment on above: Screen for STD (sexu ally transmitted disease) (Primary Dx) Start: 11-17-2024 End: 11-17-2024 ambulatory TAMARA ELI Facility:[facility] Start: 11-11-2024 End: 11-11-2024 ambulatory Tammy Vaughn RN NURSE [employer] Comment on above: Sleep Apnea; Dizzine ss Start: 08-14-2024 End: 08-14-2024 ambulatory KAT RIOS Facility:[facility] Start: 08-14-2024 End: 08-14-2024 Patient encounter procedure Whitley Fischer RETAIL ADVISOR.INDUSTRY ANALYST Work Phone: [facility] Comment on above: Gastroesophageal ref lux disease with esophagitis, unspecified whether hemorrhage (Primary Dx); Gastroesophageal reflux disease with esophagitis Start: 06-18-2024 End: 06-18-2024 ambulatory KAT RIOS Facility:[facility] Start: 06-18-2024 End: 06-18-2024 Patient encounter procedure Radha Barajasgs RETAIL ADVISOR.INDUSTRY ANALYST Work Phone: [facility] Comment on above: Eczema, unspecified type (Primary Dx) Start: 01-03-2024 End: 01-03-2024 Patient encounter procedure Radha Barajasgs RETAIL ADVISOR.INDUSTRY ANALYST Work Phone: [facility] Comment on above: Bilateral impacted c erumen (Primary Dx); Acute otitis media, right; Other otitis externa, bilateral Start: 10-31-2023 Evaluation and manag ement of inpatient [facility] Start: 07-21-2023 Refill Kat Rios PA-C Work Phone: [facility] [place] Comment on above: Refill Request Start: 06-21-2023 End: 06-21-2023 Subsequent hospital visit by physician Sae La APRN - INDUSTRY ANALYST Work Phone: [facility] Imaging Comment on above: Left upper quadrant abdominal swelling, mass and lump Start: 06-21-2023 End: 06-21-2023 ambulatory [facility] Start: 06-15-2023 Transcribe Orders Sae La APRN - INDUSTRY ANALYST Work Phone: [facility] Central Scheduling Comment on above: Left upper quadrant abdominal swelling, mass and lump (Primary Dx) Start: 04-14-2023 End: 04-14-2023 Subsequent hospital visit by physician Crista Strickland MD Work Phone: G[facility]ology Comment on above: Hiatal hernia with G ERD and esophagitis [K44.9, K21.00] Start: 04-01-2023 ambulatory SHASHANK MARRUFO Facility:[facility] Start: 04-01-2023 End: 04-01-2023 Subsequent hospital visit by physician [facility] Comment on above: Nausea and vomiting, unspecified vomiting type [R11.2] Start: 03-29-2023 End: 03-29-2023 Patient encounter procedure Kat Rios PA-C Work Phone: [facility] [place] Comment on above: Hiatal hernia with G ERD and esophagitis (Primary Dx); Nausea and vomiting, unspecified vomiting type Start: 02-28-2023 Telephone encounter Hilda estes MD Work Phone: [facility] Card[facility] Comment on above: Rash from event cecy tor Start: 02-09-2023 End: 02-09-2023 Subsequent hospital visit by physician Hilda Suarez MD Work Phone: [facility] Non-Invasive Cardiology Comment on above: Palpitations Palpitations; Chest pain, unspecified type Start: 02-09-2023 End: 02-09-2023 ambulatory [facility] Start: 12-16-2022 End: 12-16-2022 Office outpatient new 60 minutes Hilda Suarez MD Work Phone: [facility] Cardiology Comment on above: Dyslipidemia (Primar y Dx); Palpitations; Chest pain, unspecified type Start: 12-16-2022 End: 12-16-2022 ambulatory [facility] Start: 11-15-2022 End: 11-15-2022 Emergency department patient visit [facility]Emergency Department Start: 11-02-2022 End: 11-02-2022 Emergency department patient visit [facility]Emergency Department Start: 10-29-2022 End: 11-02-2022 Evaluation and management of inpatient [facility] Start: 10-28-2022 End: 10-28-2022 Emergency department patient visit [facility]Emergency Department Start: 10-20-2022 End: 10-20-2022 Emergency department patient visit [facility]Emergency Department Start: 12-29-2021 End: 12-29-2021 Emergency department patient visit [facility]Emergency Department Start: 01-04-2018 Patient encounter Work Care Facil ity:[facility] Start: 07-03-2017 Evaluation and manag ement of inpatient UNKNOWN PROVIDER [facility] [employer] [facility] Procedures Date Procedure Procedure Detail Performing Clinician Start: 12-26-2024 D-dimer assay, quantitative Shashank Marrufo TOOLROOM CLERK-C Work Phone: Comment on above: NORMAL D-Dimer level (<0.50) indicates n o DVT or PE. Start: 12-26-2024 SARS-CoV-2, Influenza & RSV (PCR) Shashank Marrufo TOOLROOM CLERK-C Work Phone: Start: 12-26-2024 Streptococcus pyogenes rRNA assay Shashank Marrufo TOOLROOM CLERK-C Work Phone: Start: 12-26-2024 X-ray of chest, PA and lateral views Shashank Marrufo TOOLROOM CLERK-C Work Phone: Start: 12-26-2024 Estimated creatinine clearance Shashank dill TOOLROOM CLERK-C Work Phone: Start: 11-20-2024 X-ray of chest, PA and lateral views Shashank Marrufo TOOLROOM CLERK-C Work Phone: Start: 11-20-2024 Estimated creatinine clearance Shashank dill TOOLROOM CLERK-C Work Phone: Start: 06-21-2023 Us abdominal real time w/image limited Sae La RETAIL ADVISOR - INDUSTRY ANALYST Work Phone: Start: 04-14-2023 Esophagogastroduodenoscopy transoral diagnostic Kat Rios PA-C Work Phone: Start: 02-09-2023 Cv strs tst xers&/or rx cont ecg trcg only Hilda Suarez MD Work Phone: Start: 12-16-2022 Ecg routine ecg w/least 12 lds trcg only w/o i&r Hilda Suarez MD Work Phone: Start: 12-02-2022 Lipid 1996 panel - Serum or Plasma Hilda Suarez MD Work Phone: Viral antigen assay Viral antigen assay Viral antigen assay Viral antigen assay Plan of Treatment Date Care Activity Detail Author Start: 2057 RSV Immunization aged 60 or older (1 - 1-dose 60+ series) RSV Immunization aged 60 or older (1 - 1-dose 60+ series) [facility] Start: 09-02-2047 Zoster Vaccines (1 of 2) Zoster Vaccines (1 of 2) [facility] Start: 12-03-2027 Lipid panel Lipid Panel [facility] Start: 04-02-2025 End: 04-02-2025 Patient encounter procedure 04/02/2025 1:00 PM EDT Office Visit [facility] [address] [place], [place] [id number] Brandon Black MD [address] [place], [place] [phone] est care physical Family [facility] Comment on above: est care physical Start: 02-04-2025 Influenza vaccination [facility] Start: 01-03-2025 End: 01-03-2025 ambulatory 01/03/2025 12:30 PM EDT [facility] [place] [address] [place] [address] Kat Rios PA-C [address] [place] [place] [id number] GERD [facility] [place] Comment on above: GERD Start: 12-26-2024 End: 12-26-2024 [facility] Start: 12-26-2024 [facility] Start: 11-21-2024 [facility] Start: 11-20-2024 [facility] Start: 11-17-2024 End: 02-16-2025 Hepatitis B virus surface Ag [Presence] in Serum [facility] Comment on above: Expected: 11/17/2024, Expires: Start: 11-17-2024 End: 02-16-2025 Hepatitis C virus Ab [Presence] in Serum [facility] Comment on above: Expected: 11/17/2024, Expires: Start: 11-17-2024 End: 02-16-2025 HIV 1+2 Ab [Presence] in Serum or Plasma by Immunoassay [facility] Comment on above: Expected: 11/17/2024, Expires: Start: 11-17-2024 End: 02-16-2025 SYPHILIS TREPONEMAL W/REFLEX [facility] Comment on above: Expected: 11/17/2024, Expires: Start: 11-17-2024 End: 02-16-2025 TRICHOMONAS VAGINALIS NAAT TRICHOMONAS VAGINALIS NAAT Lab Routine Screen for STD (sexually transmitted disease) Expected: 11/17/2024, Expires: 02/16/2025 [facility] Comment on above: Expected: 11/17/2024, Expires: Start: 06-06-2024 Medicare Advantage Annual Wellness Visit Medicare Advantage Annual Wellness Visit [facility] Start: 02-05-2024 Covid-19 Vaccine () Covid-19 Vaccine () [facility] Start: 02-05-2024 Influenza vaccination [facility] Start: 06-06-2023 Depression Assessment Depression Assessment [facility] Start: 06-06-2023 Medicare Advantage Annual Wellness Visit Medicare Advantage Annual Wellness Visit [facility] Start: 02-09-2023 End: 02-09-2023 Patient encounter procedure [facility] Non-Invasive Cardiology Start: 02-04-2023 COVID-19 Vaccine () COVID-19 Vaccine () [facility] Start: 02-04-2023 Covid-19 Vaccine () Covid-19 Vaccine () [facility] Start: 02-04-2023 Influenza vaccination Influenza Vaccine (#1) [facility] Start: 12-16-2022 End: 12-16-2024 Cardiac event monitor Cardiac event monitor [facility] Routine Palpitations Expected: 12/16/2022 (Approximate), Expires: 12/16/2024 [facility] [employer] Work Phone: Comment on above: Expected: 12/16/2022 (Approximate), Expi res: 12/16/2024 Start: 12-16-2022 End: 12-17-2023 Lipid 1996 panel - Serum or Plasma Lipid panel Lab Routine Palpitations Dyslipidemia Expected: 12/16/2022 (Approximate), Expires: 12/17/2023 [facility] Comment on above: Expected: 12/16/2022 (Approximate), Expi res: 12/17/2023 Start: 11-15-2022 Referral to service [facility] Start: 11-15-2022 End: 11-15-2022 Suicide precautions [facility] Start: 11-02-2022 Suicide precautions [facility] Start: 10-28-2022 Referral to service [facility] Start: 10-28-2022 End: 10-28-2022 Suicide precautions [facility] Start: 10-20-2022 Suicide precautions [facility] Start: 06-06-2022 Depression Assessment Depression Assessment [facility] Start: 12-02-2019 Urine microalbumin profile DTaP,Tdap,Td Vaccine (7 - Td or Tdap) [facility] Start: 2016 DTaP/Tdap/Td Vaccines (1 - Tdap) DTaP/Tdap/Td Vaccines (1 - Tdap) [facility] Start: 2016 Hepatitis B Vaccines (1 of 3 - 19+ 3-dose series) Hepatitis B Vaccines (1 of 3 - 19+ 3-dose series) [facility] Start: 2016 Pneumococcal vaccination Pneumococcal Vaccine (1 of 2 - PCV) [facility] Start: 09-02-2015 Depression Screening Depression Screening [facility] Start: 09-02-2015 Hepatitis C screening Hepatitis C Screening [facility] Start: 2012 HPV Vaccines (1 - Male 3-dose series) HPV Vaccines (1 - Male 3-dose series) [facility] Start: 09-02-2011 Peds To Adult Transition Annual Assessment Peds To Adult Transition Annual Assessment [facility] Start: 2010 Varicella vaccination Varicella Vaccines (1 of 2 - 13+ 2-dose series) [facility] Start: 2009 Depression Screening Depression Screening [facility] Start: 2009 Peds To Adult Transition Initial Discussion Peds To Adult Transition Initial Discussion [facility] Start: 2008 HPV Vaccines (1 - Male 2-dose series) HPV Vaccines (1 - Male 2-dose series) [facility] Start: 09-02-2003 Pneumococcal vaccination [facility] Start: 09-02-2003 Pneumococcal Vaccine: Pediatrics (0 to 5 Years) and At-Risk Patients (6 to 64 Years) (1 - PCV) Pneumococcal Vaccine: Pediatrics (0 to 5 Years) and At-Risk Patients (6 to 64 Years) (1 - PCV) [facility] Start: 09-02-2003 Pneumococcal Vaccine: Pediatrics (0 to 5 Years) and At-Risk Patients (6 to 64 Years) (1 of 2 - PCV) Pneumococcal Vaccine: Pediatrics (0 to 5 Years) and At-Risk Patients (6 to 64 Years) (1 of 2 - PCV) [facility] Start: 1998 MMR Vaccines (1 of 1 - Standard series) MMR Vaccines (1 of 1 - Standard series) [facility] Start: 1998 Varicella vaccination Varicella Vaccines (1 of 2 - 2-dose childhood series) [facility] Start: 03-04-1998 COVID-19 Vaccine (#1) COVID-19 Vaccine (#1) [facility] Start: 1997 Hepatitis B Vaccines (1 of 3 - 3-dose series) Hepatitis B Vaccines (1 of 3 - 3-dose series) [facility] Start: 1997 HIV screening HIV Screening [facility] Start: 1997 Lipid panel Lipid Panel [facility] Start: 1997 Medicare Advantage Annual Wellness Visit (AWV) Medicare Advantage Annual Wellness Visit (AWV) [facility] End: 02-09-2023 Cardiac event monitor [facility] [employer] Work Phone: Comment on above: Once for 1 Occurrences starting 02/10/20 23 until 02/09/2023 Chlamydia trachomatis+Neisseria gonorrhoeae DNA [Presence] in Unspecified specimen by AG with probe detection GONORRHEA/CHLAMYDIA NAAT Lab Routine Screen for STD (sexually transmitted disease) Ordered: 11/17/2024 [facility] Work Phone: Comment on above: Ordered: 11/17/2024 ECG 12 lead - CLINIC PERFORMED ECG 12 lead - CLINIC PERFORMED CV ECG Routine Palpitations 12/16/2022 1:46 PM EDT [facility] End: 03-29-2024 EGD DIAGNOSTIC EGD DIAGNOSTIC Endoscopy Routine Hiatal hernia with GERD and esophagitis Nausea and vomiting, unspecified vomiting type 1 Occurrences starting 03/29/2023 until 03/29/2024 [facility] Work Phone: Comment on above: 1 Occurrences starting 03/29/2023 until 03/29/2024 Patient Education [facility] Work Phone: Patient referral [facility] Work Phone: Removal impacted cerumen irrigation/lvg unilat AMBULATORY EAR LAVAGE/IRRIGATION Procedures Routine Bilateral impacted cerumen Ordered: 01/03/2024 [facility] Work Phone: Comment on above: Ordered: 01/03/2024 SURGICAL PATHOLOGY [facility] Work Phone: Comment on above: Release Upon Ordering for 1 Occurrences starting 04/14/2023, 1 completed Troponin T.cardiac [Mass/volume] in Serum or Plasma by High sensitivity method [facility] End: 04-27-2024 US ABD RIGHT UPPER QUADRANT US ABD RIGHT UPPER QUADRANT Radiology Routine Nausea and vomiting, unspecified vomiting type 1 Occurrences starting 03/29/2023 until 04/27/2024 [facility] Work Phone: Comment on above: 1 Occurrences starting 03/29/2023 until 04/27/2024 US ABD RIGHT UPPER QUADRANT US ABD RIGHT UPPER QUADRANT Radiology Routine Nausea and vomiting, unspecified vomiting type 04/01/2023 8:47 AM EDT [facility] Work Phone: [facility] Immunizations Immunization Date Immunization Notes Care Provider Fa cili 04-06-2017 influenza virus vacc ine, unspecified formulation Kat GASCAC Work Phone: [facility] 07-09-2015 influenza, injectabl e, quadrivalent, preservative free Shashank Marrufo TOOLROOM CLERK-C Work Phone: [facility] 07-09-2015 influenza, seasonal, injectable [facility] 07-09-2015 influenza virus vacc ine, unspecified formulation Sae La RETAIL ADVISOR - INDUSTRY ANALYST Work Phone: [facility] 10-16-2013 meningococcal oligosaccharide (groups A, C, Y and W-135) diphtheria toxoid conjugate vaccine (MCV4O) Kat Blanca PA-C Work Phone: [facility] 01-17-2013 human papilloma viru s vaccine, quadrivalent Kat Lastka PA-C Work Phone: [facility] Work Phone: 09-04-2012 human papilloma viru s vaccine, quadrivalent Kat Kalka PA-C Work Phone: [facility] 07-05-2012 human papilloma viru s vaccine, quadrivalent Kat Lastka PA-C Work Phone: [facility] 07-05-2012 influenza virus vacc ine, unspecified formulation Kat Kalka PA-C Work Phone: [facility] 12-01-2009 hepatitis A vaccine, unspecified formulation Kat Kalka PA-C Work Phone: [facility] 12-01-2009 Meningococcal, MCV4, unspecified conjugate formulation(groups A, C, Y and W-135) Kat Kalka PA-C Work Phone: [facility] 12-01-2009 tetanus toxoid, redu luis fernando diphtheria toxoid, and acellular pertussis vaccine, adsorbed Kat Nika PA-C Work Phone: [facility] 12-01-2009 varicella virus vaccine Kendell pop Nika PA-C Work Phone: [facility] 08-17-2008 hepatitis A vaccine, unspecified formulation Kat Kalka PA-C Work Phone: [facility] 04-11-2006 influenza virus vacc ine, unspecified formulation Kat Nika PA-C Work Phone: [facility] Work Phone: 05-04-2004 influenza virus vacc ine, unspecified formulation Kat Nika PA-C Work Phone: [facility] Work Phone: 09-13-2002 diphtheria, tetanus toxoids and acellular pertussis vaccine Kat Nika PA-C Work Phone: [facility] Work Phone: 09-13-2002 measles, mumps and rubella virus vaccine Kat Nika PA-C Work Phone: [facility] Work Phone: 09-13-2002 poliovirus vaccine, inactivated Kat Nika PA-C Work Phone: [facility] Work Phone: 03-20-1999 varicella virus vaccine Kendell Nika PA-C Work Phone: [facility] Work Phone: 10-14-1998 diphtheria, tetanus toxoids and acellular pertussis vaccine Kta Nika PA-C Work Phone: [facility] Work Phone: 10-14-1998 haemophilus influenz ae type b vaccine, HbOC conjugate Kat Nika PA-C Work Phone: [facility] Work Phone: 10-14-1998 measles, mumps and rubella virus vaccine Kat Nika PA-C Work Phone: [facility] Work Phone: 10-14-1998 poliovirus vaccine, inactivated Kat Nika PA-C Work Phone: [facility] Work Phone: 06-03-1998 hepatitis B vaccine, pediatric or pediatric/adolescent dosage Kat Nika PA-C Work Phone: [facility] Work Phone: 03-04-1998 diphtheria, tetanus toxoids and acellular pertussis vaccine Kat Nika PA-C Work Phone: [facility] Work Phone: 03-04-1998 haemophilus influenz ae type b vaccine, HbOC conjugate Kat Kalka PA-C Work Phone: [facility] Work Phone: 01-01-1998 diphtheria, tetanus toxoids and acellular pertussis vaccine Kat Kalka PA-C Work Phone: [facility] Work Phone: 01-01-1998 haemophilus influenz ae type b vaccine, HbOC conjugate Kat Kalka PA-C Work Phone: [facility] Work Phone: 01-01-1998 poliovirus vaccine, inactivated Kat Kalka PA-C Work Phone: [facility] Work Phone: 1997 diphtheria, tetanus toxoids and acellular pertussis vaccine Kat Kalka PA-C Work Phone: [facility] Work Phone: 1997 haemophilus influenz ae type b vaccine, HbOC conjugate Kat Kalka PA-C Work Phone: [facility] Work Phone: 1997 poliovirus vaccine, inactivated Kat Kalka PA-C Work Phone: [facility] Work Phone: 1997 hepatitis B vaccine, pediatric or pediatric/adolescent dosage Kat Kalka PA-C Work Phone: [facility] Work Phone: 1997 hepatitis B vaccine, pediatric or pediatric/adolescent dosage Kat Kalka PA-C Work Phone: [facility] Work Phone: Payers Date Payer Category Payer Unknown [id number] 2024 Self-pay [id number] 2023 Medicare ([employer]) [id number] 2023 Medicare [id number] 2022 Medicaid [id number] 2022 Medicare [id number] 2022 Medicare [id number] 2022 Unknown [id number] 2016 Unknown [id number] 1997 Unknown [id number] Unknown Unknown SELF PAY INSURANCE [id number] Unknown [id number] Unknown [id number] Social History Date Type Detail Facility Start: 12-29-2021 End: 11-15-2022 Tobacco smoking status WAIS Unknown if ever smoked [facility] Start: 10-26-2020 Vapor [facility] Start: 1995 Sex Assigned At Male W [facility] Start: 12-16-2022 End: 06-18-2024 Tobacco smoking status WAIS Smokes tobacco daily [facility] [employer] Start: 06-06-2010 History of tobacco use Cigarette Smo ker [employer] Start: 12-16-2022 End: 01-03-2025 Cigarettes smoked current (pack per day) - Reported 1 [facility] Work Phone: Start: 12-16-2022 Tobacco use and exposure User of smokeless tobacco [facility] Start: 12-16-2022 End: 06-18-2024 Alcohol intake Ex-drinker (finding) [facility] Start: 12-16-2022 End: 01-03-2025 Tobacco use panel [facility] Work Phone: Start: 12-16-2022 Tobacco Comment Vape [facility] Start: 1997 Sex Assigned At Not on file [facility] Start: 12-06-2022 End: 02-09-2023 Exposure to SARS-CoV-2 (event) Not sure [facility] Start: 03-29-2023 End: 06-18-2024 Tobacco use and exposure Smokeless tobacco non-user [facility] How often to you hav e a drink containing alcohol? Monthly or less [facility] Work Phone: Average Number of Drinks Not on file [facility] Start: 03-29-2023 Tobacco Comment parents smoke inside [facility] Start: 12-26-2019 Alcohol [facility] Start: 04-11-2020 Gender identity Identifies as male gender (finding) [facility] Start: 04-11-2020 Sexual orientation Heterosexual (fin ding) [facility] Functional Status Date Assessment Result Facility 09-13-2014 Are you deaf, or do you have serious difficulty hearing No 09/13/2014 8:48 AM Priyanka Pitts RN No [facility] 09-13-2014 Are you blind, or do you have serious difficulty seeing, even when wearing glasses No 09/13/2014 8:48 AM Priyanka Pitts RN No [facility] 09-13-2014 Do you have serious difficulty walking or climbing stairs No 09/13/2014 8:48 AM Priyanka Pitts RN No [facility] 09-13-2014 Do you have difficul ty dressing or bathing No 09/13/2014 8:48 AM Priyanka Pitts RN No [facility] 09-13-2014 Because of a physica l, mental, or emotional condition, do you have difficulty doing errands alone such as visiting a physician's office or shopping No 09/13/2014 8:48 AM Priyanka Pitts RN No [facility] Mental Status Date Assessment Result Facility 12-26-2024 Cognitive function Voice/Name [facility] Work Phone: 09-13-2014 Because of a physica l, mental, or emotional condition, do you have serious difficulty concentrating, remembering, or making decisions No 09/13/2014 8:48 AM EDT Priyanka Mensah RN No [facility] Clinical Notes 10-20-2022 to 01-04-2025 Telephone Encounter - Sahara Crawford RN - 01/03/2025 1:20 PM EDTTelephone Encounter - Sahara Crawford RN - 01/03/2025 1:20 PM EDTTelephone Encounter - Slim Vaughn - 01/03/2025 1:11 PM EDT Note Date & Type Note Facility 01-04-2025 Note HNO ID: [id number] Author: ?, ?, ? Service: ? Author Type: ? Type: Progress Notes Filed: 01/04/2025 08:56 Note Text: Scheduled 1 year follow up for 01/06/2026. [facility] 01-03-2025 Telephone encounter Note Per SULY - Previously was on Protonix BID with control in GERD. Recently ran out of script and sx returned. Seen by [employer] [employer] [place] 08/2024 and short script provided. Will reduce to Protonix 40 mg once daily to try to keep lowest dosage needed to control sx. Spoke to [facility] pharmacy to clarify above rx for once every day [facility] 01-03-2025 Miscellaneous Notes Per SULY - Previously was on Protonix BID with control in GERD. Recently ran out of script and sx returned. Seen by [facility] 08/2024 and short script provided. Will reduce to Protonix 40 mg once daily to try to keep lowest dosage needed to control sx. Spoke to [facility] pharmacy to clarify above rx for once every day [facility] pharmacy called needing clarification on the pantoprazole DR (PROTONIX) 40 mg tablet. The instructions say, take 1 tablet by mouth once daily and take one tablet by mouth twice daily. Please review, contact pharmacy and advise. documented in this encounter [facility] 01-03-[address] [facility] pharmacy called needing clarification on the pantoprazole DR (PROTONIX) 40 mg tablet. The instructions say, take 1 tablet by mouth once daily and take one tablet by mouth twice daily. Please review, contact pharmacy and advise. [facility] 01-03-2025 History of Presen t illness Narrative Images from the original note were not included. VIRTUAL VISIT FOLLOW UP I have communicated my name and active licensure. The patient's identity and physical location were verified at the time of this visit. Either the patient or their legal tour sales representative has been informed of the risks and benefits of -- and alternatives to -- treatment through a remote evaluation and consents to proceed with the evaluation remotely. I had a virtual visit with Mr. Harrison today for follow up of GERD. PMHx positive for anxiety, Aspbergers, PTSD. UPDATED HISTORY: Taking Protonix 40 mg BID with relief in GERD. Ran out of medication a few mos ago and sx returned. Bms are more constipated for the past few days. Has Miralax but has not tried it yet. Denies emesis, dysphagia, hematochezia. EGD 2022 Impression: - Normal esophagus. - Z-line regular, 42 cm from the incisors. - Normal stomach. Biopsied. - Normal examined duodenum. Biopsied. Component FINAL DIAGNOSIS A. Duodenum, biopsy: -Duodenal mucosa with preserved villous architecture and focal reactive change. -No increase in intraepithelial lymphocytes. B. Stomach, biopsy: -Minimal chronic inactive gastritis and PPI effect in oxyntic mucosa. -Negative for intestinal metaplasia or dysplasia. -No H. pylori on routine stain. HIDA 2019 IMPRESSION: NORMAL GALLBLADDER RESPONSE TO CCK. NO SCINTIGRAPHIC EVIDENCE TO SUPPORT THE DIAGNOSIS OF EITHER ACUTE OR CHRONIC CHOLECYSTITIS. NO EVIDENCE FOR DUODENOGASTRIC BILIARY REFLUX. 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 Kumar Harrison is a 27 year old male with PMHx positive for anxiety, Aspbergers, PTSD, who presents for GERD (Vomits after eating. EGD in scanning. Pantoprazole not helping). Admits to chronic issues with GERD since 2019. On Protonix 40 mg daily, Zofran w/o improvement. Experiencing bilious emesis, worse after meals and at bedtime, associated with early satiety. Feels as though med helps in the am, early afternoon, later in the day sx will return. Denies weight loss, NSAID usage, changes in bowel habits, abd pain. PAST MEDICAL HISTORY Diagnosis Date Anxiety 07/05/2012 Asperger syndrome 07/05/2012 Attention deficit disorder with hyperactivity(314.01) Eczema 12/08/2012 History of bipolar disorder 08/05/2015 History of depression 08/05/2015 History of posttraumatic stress disorder (PTSD) 08/05/2015 Mood disorder (HCC) 12/08/2012 Nausea and vomiting 02/2020 ODD (oppositional defiant disorder) 07/05/2012 PMH - PAST MEDICAL HISTORY OF 10/11/03 normal color vision PAST SURGICAL HISTORY Procedure Laterality Date CIRCUMCISION W/CLAMP/OTH DEV W/BLOCK EGD 02/12/2020 FAMILY HISTORY Problem Relation Age of Onset other (heart disease) Other maternal and paternal side Cancer Other maternal and paternal side other (lupus) Other great aunt,second cousin and great grandmother Colon Cancer No Family History Social History Tobacco Use Smoking status: Every Day Current packs/day: 1.50 Types: Cigarettes Smokeless tobacco: Never Tobacco comments: parents smoke inside Vaping Use Vaping status: Some Days Substance Use Topics Alcohol use: Not Currently Comment: rarely Drug use: Not Currently Types: Marijuana Comment: rarely Current Outpatient Medications Medication Sig Dispense Refill pantoprazole DR (PROTONIX) 40 mg tablet Take 1 tablet by mouth two times a day. TAKE ONE TABLET BY MOUTH TWICE DAILY on an EMPTY stomach 1/2 HOUR BEFORE A MEAL 60 tablet 0 triamcinolone (KENALOG) 0.025 % ointment Apply to affected area three times a day. 80 g 0 white petrolatum (AQUAPHOR) 41 % topical ointment Apply to affected area as needed. 80 g 1 sertraline (ZOLOFT) 50 mg tablet Take 50 mg by mouth once daily. Cetirizine (ZYRTEC) 10 mg cap Take by mouth. (Patient not taking: Reported on 06/18/2024) Nicotine Polacrilex (NICORETTE) [address] 2 mg between cheek and gum as needed. (Patient not taking: Reported on 01/03/2024) nicotine (NICODERM CQ) 21 mg/24 hr Apply 1 Patch as directed every 24 hours. (Patient not taking: Reported on 01/03/2024) omega-3 fatty acids/fish oil (OMEGA 3 FISH OIL ORAL) Take by mouth. (Patient not taking: Reported on 01/03/2024) ARIPiprazole (ABILIFY) 10 mg tablet Take 10 mg by mouth once daily. albuterol HFA (PROVENTIL HFA, VENTOLIN HFA) 90 mcg/actuation inhaler Inhale 2 Puffs as instructed every 6 hours as needed for Wheezing/Shortness of Breath. 18 g 1 sildenafil (VIAGRA) 25 mg tablet Take 1 tablet by mouth 1 hour prior to sexual activity. (Patient not taking: Reported on 01/03/2024) 12 tablet 0 ondansetron orally disintegrating (ZOFRAN ODT) 4 mg disintegrating tablet Take 1 tablet by mouth every 12 hours as needed for Nausea/Vomiting. (Patient not taking: Reported on 01/03/2024) 60 tablet 1 flunisolide (AEROSPAN) 80 mcg/actuation HFAA Inhale 2 Puffs as instructed twice daily. (Patient not taking: Reported on 01/03/2024) 1 Inhaler 5 No current facility-administered medications for this visit. ALLERGIES Allergen Reactions Haldol [Haloperidol] Other: See Comments Hallucinations Bowie Trees [Trees] Rash REVIEW OF SYSTEMS: PAIN ASSESSMENT: Negative for pain, history of chronic pain, or current treatment for a chronic pain condition. GENERAL: No weight loss, malaise or fevers RESPIRATORY: Negative for cough, hemoptysis, wheezing, COPD, dyspnea or shortness of breath CARDIOVASCULAR: Negative for chest pain, leg swelling, hypertension, CHF or palpitations GI: See HPI : No history of dysuria, frequency or incontinence PHYSICAL FINDINGS OF NOTE: General - Normal, healthy, cooperative, in no acute distress Able to interact verbally by video conference Psych - ORIENTATION: normal to time place, person and situation Mood/Affect: AFFECT AND MOOD: Normal Head/Neuro - Normal size and shape Facial appearance normal Pulmonary - respiratory effort normal Cardiovascular - patient describes extremities normal, warm, no cyanosis,no clubbing, and no edema Abdominal - Not performed Skin - abnormal lesions not visualized Motor - patient seen sitting with Normal appearing strength and coordination Anorectal exam - Not Performed 1. Hiatal hernia with GERD and esophagitis (Primary) - pantoprazole DR (PROTONIX) 40 mg tablet; Take 1 tablet by mouth once daily. TAKE ONE TABLET BY MOUTH TWICE DAILY on an EMPTY stomach 1/2 HOUR BEFORE A MEAL Dispense: 90 tablet; Refill: 3 - Previously was on Protonix BID with control in GERD. Recently ran out of script and sx returned. Seen by [facility] 08/2024 and short script provided. Will reduce to Protonix 40 mg once daily to try to keep lowest dosage needed to control sx. Is to [email or web address] message if no relief - Supposed to see RD soon to help with dietary management - Reminded of acid reflux precautions 2. Constipation, unspecified constipation type - Recent constipation. Has Miralax at home but has not started yet. Advised to give this a try temporarily for the next few days to see if it provides relief. Is to contact me if no improvement or worsened sx I spent a total of 15 minutes on the date of the service which included preparing to see the patient, [id number] patient care, completing clinical documentation, obtaining and/or reviewing separately obtained history, performing a medically appropriate examination, counseling and educating the patient/family/caregiver, ordering medications, tests, or procedures, communicating with other HCPs (not separately reported), independently interpreting results (not separately reported), communicating results to the patient/family/caregiver, and care coordination (not separately reported). Kat Rios PA-C January 03, 2025 12:35 PM documented in this encounter [facility] 01-03-2025 Note HNO ID: [id number] Author: KAT RIOS PA-C Service: ? Author Type: Physician [employer] Type: Progress Notes Filed: 01/03/2025 12:42 Note Text: VIRTUAL VISIT FOLLOW UP I have communicated my name and active licensure. The patient's identity and physical location were verified at the time of this visit. Either the patient or their legal tour sales representative has been informed of the risks and benefits of -- and alternatives to -- treatment through a remote evaluation and consents to proceed with the evaluation remotely. I had a virtual visit with Mr. Harrison today for follow up of GERD. PMHx positive for anxiety, Aspbergers, PTSD. UPDATED HISTORY: Taking Protonix 40 mg BID with relief in GERD. Ran out of medication a few mos ago and sx returned. Bms are more constipated for the past few days. Has Miralax but has not tried it yet. Denies emesis, dysphagia, hematochezia. EGD 2022 Impression: - Normal esophagus. - Z-line regular, 42 cm from the incisors. - Normal stomach. Biopsied. - Normal examined duodenum. Biopsied. Component FINAL DIAGNOSIS A. Duodenum, biopsy: -Duodenal mucosa with preserved villous architecture and focal reactive change. -No increase in intraepithelial lymphocytes. B. Stomach, biopsy: -Minimal chronic inactive gastritis and PPI effect in oxyntic mucosa. -Negative for intestinal metaplasia or dysplasia. -No H. pylori on routine stain. HIDA 2019 IMPRESSION: NORMAL GALLBLADDER RESPONSE TO CCK. NO SCINTIGRAPHIC EVIDENCE TO SUPPORT THE DIAGNOSIS OF EITHER ACUTE OR CHRONIC CHOLECYSTITIS. NO EVIDENCE FOR DUODENOGASTRIC BILIARY REFLUX. 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 Kumar Harrison is a 27 year old male with PMHx positive for anxiety, Aspbergers, PTSD, who presents for GERD (Vomits after eating. EGD in scanning. Pantoprazole not helping). Admits to chronic issues with GERD since 2019. On Protonix 40 mg daily, Zofran w/o improvement. Experiencing bilious emesis, worse after meals and at bedtime, associated with early satiety. Feels as though med helps in the am, early afternoon, later in the day sx will return. Denies weight loss, NSAID usage, changes in bowel habits, abd pain. PAST MEDICAL HISTORY Diagnosis Date Anxiety 07/05/2012 Asperger syndrome 07/05/2012 Attention deficit disorder with hyperactivity(314.01) Eczema 12/08/2012 History of bipolar disorder 08/05/2015 History of depression 08/05/2015 History of posttraumatic stress disorder (PTSD) 08/05/2015 Mood disorder (HCC) 12/08/2012 Nausea and vomiting 02/2020 ODD (oppositional defiant disorder) 07/05/2012 PMH - PAST MEDICAL HISTORY OF 10/11/03 normal color vision PAST SURGICAL HISTORY Procedure Laterality Date CIRCUMCISION W/CLAMP/OTH DEV W/BLOCK EGD 02/12/2020 FAMILY HISTORY Problem Relation Age of Onset other (heart disease) Other maternal and paternal side Cancer Other maternal and paternal side other (lupus) Other great aunt,second cousin and great grandmother Colon Cancer No Family History Social History Tobacco Use Smoking status: Every Day Current packs/day: 1.50 Types: Cigarettes Smokeless tobacco: Never Tobacco comments: parents smoke inside Vaping Use Vaping status: Some Days Substance Use Topics Alcohol use: Not Currently Comment: rarely Drug use: Not Currently Types: Marijuana Comment: rarely Current Outpatient Medications Medication Sig Dispense Refill pantoprazole DR (PROTONIX) 40 mg tablet Take 1 tablet by mouth two times a day. TAKE ONE TABLET BY MOUTH TWICE DAILY on an EMPTY stomach 1/2 HOUR BEFORE A MEAL 60 tablet 0 triamcinolone (KENALOG) 0.025 % ointment Apply to affected area three times a day. 80 g 0 white petrolatum (AQUAPHOR) 41 % topical ointment Apply to affected area as needed. 80 g 1 sertraline (ZOLOFT) 50 mg tablet Take 50 mg by mouth once daily. Cetirizine (ZYRTEC) 10 mg cap Take by mouth. (Patient not taking: Reported on 06/18/2024) Nicotine Polacrilex (NICORETTE) [address] 2 mg between cheek and gum as needed. (Patient not taking: Reported on 01/03/2024) nicotine (NICODERM CQ) 21 mg/24 hr Apply 1 Patch as directed every 24 hours. (Patient not taking: Reported on 01/03/2024) omega-3 fatty acids/fish oil (OMEGA 3 FISH OIL ORAL) Take by mouth. (Patient not taking: Reported on 01/03/2024) ARIPiprazole (ABILIFY) 10 mg tablet Take 10 mg by mouth once daily. albuterol HFA (PROVENTIL HFA, VENTOLIN HFA) 90 mcg/actuation inhaler Inhale 2 Puffs as instructed every 6 hours as needed for Wheezing/Shortness of Breath. 18 g 1 sildenafil (VIAGRA) 25 mg tablet Take 1 tablet by mouth 1 hour prior to sexual activity. (Patient not taking: Reported on 01/03/2024) 12 tablet 0 ondansetron orally disintegrating (ZOFRAN ODT) 4 mg disintegrating tablet Take 1 tablet by mouth every 12 hours as needed for Nausea/Vomit (more content not included)... [facility] 12-26-2024 Discharge summary [facility] 12-26-2024 Radiology Diagnostic study note [facility] Imaging Services [address] [place] [address] Chest PA and Lateral MR#: [id number] Acct: [id number] Name: KUMAR HARRISON CHING Rep #: [id number] : 1995 M 29 From: Celina Wen MD PCP: Care Physician,No Primary Status: REG ER Study:Chest PA and Lateral Date of Exam: 12/26/24 Exam# [id number] Ordering Dr: Rianna Bailon DO PROCEDURE: CHEST PA AND LATERAL 12/26/2024 REASON FOR EXAM: CHEST PAIN TECHNIQUE: CHEST PA AND LATERAL COMPARISON: Chest radiograph 11/21/2024. FINDINGS: Hardware: None. Heart: The heart size is normal. Mediastinum: The mediastinal contour is stable. Lungs: No focal consolidation, pleural effusion or pneumothorax. Bones: The bones are unremarkable. RAD/Chest PA and Lateral IMPRESSION: NEGATIVE CHEST Reading Location: [id number] CC: Dr. Liudmila Bailon DO; No Primary Care Physician ~ Station Mechanic Helper: Signed [facility] 12-26-2024 Discharge summary Note Date/Time December 26, 2024 3:37pm [facility] Medical Records Department [address] [place] [address] Emergency Department Summary 12/26/24 MR#: [id number] Acct: [id number] Name: KUMAR HARRISON Rep #:[id number] : 1995 29 From: Liudmila Tello PCP: Care Physician,No Primary Status :REG ER Location: ED HPI History of Present Illness Chief Complaint: Chest Pain Informant: patient Narrative Narrative: Patient is a 29-year-old male with history of autism, bipolar disorder and depression as well as reflux presenting with multiple complaints. Patient states for the past few days he has been having sensation of swelling in his throat and a foreign body sensation. States sometimes he feels like he is swallowing something. This going on for 3 to 4 days. He needs he is had a headache at the top of his head that he describes as throbbing. In addition he states that he has been having weakness and numbness in his legs and back. He states it happens to different legs different spots at different times. Currently denies any. States earlier his left leg was weak and he felt he was going to fall because of so weak. He states he gets a numbness sensationin his back all the way up to his shoulder blades. Denies any acute back pain. Denies any trauma or injury. Denies any bowel or bladder incontinence. He alsonotes a past 2 days has been intermittent shortness of breath and tightness in this chest. Earlier today he had pain that was radiating to his arm which is what prompted him to call 911 and come into the ER. He denies any known cardiac history. Denies history of Marfan's. Denies any severe sharp/ripping or tearing pain. Currently his only complaint is that he has a mild headache. EMS report reviewed. Complaint of chest pain, shortness of breath and leg numbness. Was given aspirin and nitro in Routes. [facility] Medical History Methamphetamine abuse Suicidal behavior ADD (attention deficit disorder) Autism GERD (gastroesophageal reflux disease) Bipolar 1 disorder Home Medications ?Medication ?Instructions ?Recorded ?Last Taken ?Type aripiprazole 10 mg tablet 10 mg PO DAILY 11/15/2212/05 History sertraline 50 mg tablet (Zoloft) 50 mg PO DAILY 12/26/24 History famotidine 20 mg tablet (Acid 20 mg PO DAILY PRN REFLU X 12/26/24 12/26/24 History Controller) simethicone 80 mg chewable tablet 160 mg PO DAILY PRN abdominal 12/26/24 12/26/24 History (Gas Relief (simethicone)) distention Allergy/AdvReac Type Severity Reaction Status Date / Time Environmental Allergies: Allergy Hives Verified 12/26/24 13:02 Uncoded (pine) haloperidol (From Haldol) AdvReac HALLUCINATI Verified 12/26/24 13:02 ONS Social History household members: none and other details: Patient is incarcerated Smoking Status: Current every day smoker tobacco type: cigarettes and e-cigarettes details: No alcohol since incarceration substance use type: marijuana and other details: no IVDU ROS ROS ED Constitutional Constitutional ED: Denies chills or fever(s) ENT ENT ED: Reports sore throat; Denies rhinorrhea Cardiovascular Cardiovascular: Reports as per HPI and chest pain Respiratory/Chest Respiratory/Chest: Reports dyspnea; Denies cough Gastrointestinal Gastrointestinal: Denies abdominal pain, nausea or vomiting Musculoskeletal Musculoskeletal: Reports other Details: Mild chronic back pain?not acutely ; Denies arthralgias or myalgias Integumentary Denies rash Neurologic Neurologic: Reports paresthesias RLE and LLE and weakness Psychiatric Psychiatric: Reports anxiety Hematologic/Lymphatic Hematologic/Lymphatic: Denies easy bleeding or easy bruising EXAM Physical Exam Const Vital Signs: 12/26/24 12:58 12/26/24 13:43 12/26/24 13:57 Temperature 98.1 F Temperature Source Oral Pulse Rate 112 H 83 Respiratory Rate 16 19 H Blood Pressure 106/63 115/80 Blood Pressure Mean 77 91 Pulse Ox 98 98 96 Oxygen Delivery Method Room Air Room Air Room Air 12/26/24 14:00 12/26/24 15:00 Temperature Temperature Source Pulse Rate 88 80 Respiratory Rate 19 H 24 H Blood Pressure 115/80 116/80 Blood Pressure Mean 91 92 Pulse Ox 96 97 Oxygen Delivery Method Room Air Room Air Positive well nourished and well developed General Appearance ED: well developed and NAD HEENT Reports moist mucous membranes HEENT Narrative: Hypertrophy of the bilateral tonsils with crypts present. No exudate or erythema present. Uvula is midline. Normal phonation. Handling secretions well. No trismus. Visualized tympanic membranes bilaterally are normal howeverthere are partially occluded with cerumen normocephalic Eyes PERRL Neck supple and no JVD Chest Wall inspection of chest normal and palpation of chest normal Resp normal respiratory effort and clear to auscultation bilaterally Cardio regular rate, regular rhythm and no murmurs Cardio Narrative: 2+ radial and DP pulses present GI normal to inspection, nondistended, normoactive bowel sounds, soft to palpation and non-tender GI Narrative: No pulsatile mass Back/Spine no CVA tenderness and no thoracic nor lumbar tenderness Extremity normal to inspection Neuro oriented x3 Neuro Narrative: 5/5 strength of the lower extremities with flexion at the hips as well as plantar and dorsiflexion. Sensation intact in all extremities. Sensorium / Orientation: awake and alert Motor Exam: Negative for general weakness Skin no rashes or lesions noted and no wounds Heart Score History: Slightly/Non-Suspicious ECG: Normal Age: </= 45 years Risk Factors: No Risk Factors Troponin: </= Normal Limit Score: 0 MDM MDM MDM Narrative Medical decision making narrative: Patient evaluated for multiple complaints including numbness and weakness of hislegs, sore throat and chest pain as well as leg weakness intermittently. EKG does not show any acute ischemia. Had he is tachycardic upon arrival but that is his only risk factor for PE. Does not sound like a dissection. He does not have any risk factors for this. Is equal pulses in all 4 extremities. D-dimer is normal (less than 0.27) I do not think he needs CTA. Chest x-ray viewed by myself as well as radiology does not show any acute process. CBC and BMP as well as high-sensitivity troponin are normal. His symptoms are going on for couple days and I do not think he requires trending of his troponin. For his sore throat I did order strep and COVID test. These are negative. Feels he could have a viral syndrome. Also possibly could have reflux which she does have a history of. Patient will be discharged home to follow-up with family doctor. At this time I do not think he needs further testing in the ER or admission. Given return precautions. Does have a headache in the ER. Suspect that might be from the nitroglycerin he received in rounds. Will give him Tylenol for this. He does not have any meningeal signs. He has a normal neurologic exam and moving all extremities. Given his waxing waning symptoms no acute weakness havea very low suspicion for Henderson Moore? syndrome. He is not any midline back tenderness or red flag symptoms for cauda equina syndrome. Lab Data Attestation: I reviewed the patient's lab results. Labs: Laboratory Results - last 24 hr 12/26/24 12/26/24 13:24 14:06 WBC 10.2 RBC 5.05 Hgb 15.3 Hct 43.2 MCV 85.5 MCH 30.3 MCHC 35.4 RDW Std Deviation 37.2 RDW Coeff of Sis 12.0 Plt Count 338 MPV 9.7 Immature Gran % (Auto) 0.400 Neut % (Auto) 73.6 H Lymph % (Auto) 17.1 L [place] % (Auto) 7.4 Eos % (Auto) 1.1 Baso % (Auto) 0.4 Absolute Neuts (auto) 7.5 Absolute Lymphs (auto) 1.75 Nucleated RBC % 0 D-Dimer Quant (PE/DVT) < 0.27 L Sodium 137 Potassium 3.5 Chloride 100 Carbon Dioxide 19.3 L Anion Gap 17 H BUN 10 Creatinine 1.00 Estim Creat Clear Calc 118.18 Est GFR (MDRD) Non-Af 106 BUN/Creatinine Ratio 9.6 L Glucose 89 Calcium 10.1 Troponin T High Sens < 6 Radiography Chest X-Ray - ED: 2 View, Read by ED Physician, Read by Radiologist and No AcuteDisease Diagnostic Testing: Clinical Impression(s) from Imaging Studies Chest X-Ray 12/26/24 13:55 IMPRESSION: NEGATIVE CHEST Reading Location: [facility] Rhythm Strip Rhythm Strip: Sinus Rhythm Rate: 97 Ectopy: None EKG Initial EKG: Attestation: I personally reviewed and interpreted this EKG as follows: Interpretation: Sinus Rhythm Comments: Normal sinus rhythm at a rate of 97 bpm Normal axis Normal intervals Normal ST segments Compared to prior EKG on 11/20/2024, no acute change Discharge Plan Triage Chief Complaint: Chest Pain Other Complaint: Anxiety ED Provider: Liudmila Bailon Dx/Rx/DC Orders Clinical Impression: Chest pain, Acute sore throat, Bilateral leg weakness Instructions: ED Chest Pain, Noncardiac, ED Pharyngitis, Viral, ED Weakness Uncertain Cause Prescriptions: No Action sertraline [Zoloft] 50 mg tablet 50 mg PO DAILY Patient Comments: 50 mg Oral every morning aripiprazole 10 mg tablet 10 mg PO DAILY famotidine [Acid Controller] 20 mg tablet 20 mg PO DAILY PRN (Reason: REFLUX) simethicone [Gas Relief (simethicone)] 80 mg tablet,chewable 160 mg PO DAILY PRN (Reason: abdominal distention) Primary Care Provider: Care Physician,No Primary Referrals: Care Physician,No Primary [Primary Care Provider] - Red Martini, TOOLROOM CLERK-C [facility] - Print Language: Nigerien Disposition Disposition: Home, Self Care What to do if you have Problems For any increased pain, shortness of breath, bleeding, nausea or vomiting, chestpain, or any unexpected problems, contact your Primary Care Provider. Call [facility] ([phone]) or report to the closest Emergency Room. Call 911 if necessary. 12/26/24 1536 <Electronically signed by Liudmila Bailon DO> Cosigner Signature (if applicable): CC: No Primary Care Physician ~ Signed [facility] Work Phone: [phone] Discharge summary [facility] Medical Records Department [address] [place] [address] Emergency Department Summary 11/20/24 MR#: [id number] Acct: [id number] Name: KUMAR HARRISON Rep #:[id number] : 1995 29 From: Liudmila Tello PCP: EDE Canchola Status:REG ER Location: ED HPI History of Present Illness Chief Complaint: Abd Pain Informant: patient Narrative Narrative: Patient is a 29-year-old male with history of bipolar disorder and autism as well as GERD presenting with chest discomfort. Patient states it feels like hisGERD. He states he has had sharp pain in the substernal area his whole life butit been bad today. He states it occurs every 5 seconds. He has tried to take multiple cold showers with no relief. States he did take an extra pantoprazole today aswell. He tried Pepto-Bismol with no relief. He also notes he has beenconstipated. He did have a bowel movement today but is very hard. I seen blackor blood in his stool. In addition he has had's episodes of pain rating up to his left head and throughout his extremities. He notes that his voice seems different anything is from the acid. He has a foreign body sensation in his throat/throat irritation. He does note that he relapsed and used methamphetamines today around 11 AM. States he been clean for 3 years prior to this. He also is worried that he is short of breath. He states he ran out of his inhaler. Denies any wheezing. Has any cough. No report of any fevers but doesreport cold chills. Does not report any HI or SI. States he is very problem sofor having a job and living independently. [facility] Medical History Methamphetamine abuse Suicidal behavior ADD (attention deficit disorder) Autism GERD (gastroesophageal reflux disease) Bipolar 1 disorder Home Medications ?Medication ?Instructions ?Recorded ?Last Taken ?Type aripiprazole 10 mg tablet 10 mg PO DAILY 11/15/22 Unkn own History mirtazapine 30 mg tablet 30 mg PO QHS 11/15/22 Unknow n History sertraline 50 mg tablet (Zoloft) 50 mg PO DAILY Unknown History pantoprazole 40 mg tablet,delayed 40 mg PO BID 5 Unknown History release simethicone 80 mg chewable tablet 80 mg PO QHS PRN abd ominal 11/21/24 Unknown Rx distention #7 tabs Allergy/AdvReac Type Severity Reaction Status Date / Time Environmental Allergies: Allergy Hives Verified 11/20/24 23:19 Uncoded (pine) haloperidol (From Haldol) AdvReac HALLUCINATI Verified 11/20/24 23:19 ONS Social History household members: none and other details: Patient is incarcerated Smoking Status: Current every day smoker tobacco type: cigarettes and e-cigarettes details: No alcohol since incarceration substance use type: marijuana and other details: no IVDU ROS ROS ED Constitutional Constitutional ED: Reports chills; Denies fever(s) Eyes Eyes: Denies diplopia ENT ENT ED: Reports sore throat; Denies ear pain or rhinorrhea Cardiovascular Cardiovascular: Reports chest pain Respiratory/Chest Respiratory/Chest: Reports dyspnea; Denies cough Gastrointestinal Gastrointestinal: Reports abdominal pain and constipation; Denies melena, nauseaor vomiting Musculoskeletal Musculoskeletal: Denies arthralgias or myalgias Integumentary Denies rash Neurologic Neurologic: Reports paresthesias; Denies headache(s) Psychiatric Psychiatric: Reports anxiety EXAM Physical Exam Const Vital Signs: 11/20/24 23:20 11/21/24 01:18 Temperature 98.2 F Temperature Source Oral Pulse Rate 87 66 Respiratory Rate 18 16 Blood Pressure 143/92 H 145/82 H Blood Pressure Mean 109 103 Pulse Ox 100 96 Oxygen Delivery Method Room Air Room Air Positive well nourished and well developed General Appearance ED: well developed and NAD HEENT Reports TM's clear and moist mucous membranes HEENT Narrative: Partial cerumen impaction but visualized TMs are normal bilaterally. Normal earcanals. Normal oropharyngeal exam. Uvula is midline. Normal phonation. Tympanic Membrane ED: Yes TM's clear Neck supple and no JVD Chest Wall inspection of chest normal and palpation of chest normal Resp normal respiratory effort and clear to auscultation bilaterally Auscultation: Negative for rales, rhonchi or wheezes Cardio regular rate, regular rhythm and no murmurs Cardio Narrative: 2+ radial DP pulses present GI non-tender and non-distended GI Narrative: Patient points to his epigastric region and left upper quadrant as his area of discomfort. It is not reproducible on direct palpation. Inspection: Negative for abdominal distention Auscultation: hypoactive bowel sounds Palpation: soft; Negative for tender or guarding Back/Spine no CVA tenderness Thoracic Spine / Upper Back: Negative for thoracic spinal tenderness Lumbar Spine / Lower Back: Negative for lumbar spinal tenderness Extremity normal to inspection General Extremety ED: Negative for edema General Extremity: Negative for edema Neuro oriented x3 Neuro Narrative: Sensation and strength intact in all extremities. No focal neurologic deficits appreciated. Sensorium / Orientation: alert Motor Exam: Negative for general weakness Psych Psych Narrative: Patient does not appear internally stimulated. He is calm and answers questionsappropriately. Mood & Affect: anxious Skin no rashes or lesions noted and no wounds MDM MDM MDM Narrative Medical decision making narrative: Patient evaluated for upper abdominal pain/chest pain. He has multiple other complaints and also admits to methamphetamine use today. Differential includes not limited to ACS, pneumothorax, pneumonia, GERD, esophagitis, pancreatitis,cholecystitis (lower suspicion based on abdominal exam). Patient is given GI cocktail and IV Pepcid. At this time he is calm andwhile he is anxious is otherwise acting appropriately. Is offered anxiolytic but declines at this time. Patient's vital signs remained stable in the emergency room (mildly hypertensiveof). Has improvement with GI cocktail it does wear off. Has a mild leukocytosis of 13.6 which is nonspecific. Hemoglobin and platelets normal. CMP normal. High-sensitivity troponin less than 6 x 2. Low suspicion for ACS. Patient is PE RC negative I do not think requires a D-dimer and low risk for pulmonary emboli. Lipase is normal. Less patient for pancreatitis or cholecystitis. Suspect this is more esophagitis/gastritis. Is given further Gas-X for sensation of bloating. Wouldcounseled on regularly taking his pantoprazole (40mg twice daily). He states he has plenty at home.Will be given outpatient GI follow-up. Given return precautions. Discharged home in stable condition. At time of discharge patient did request a dose of Vistaril because hospitals make him anxious. Is given a dose prior to discharge Lab Data Attestation: I reviewed the patient's lab results. Labs: Laboratory Results - last 24 hr 11/20/24 11/21/24 00:07 02:11 WBC 13.6 H RBC 5.04 Hgb 15.6 Hct 42.7 MCV 84.7 MCH 31.0 MCHC 36.5 H RDW Std Deviation 36.0 RDW Coeff of Sis 11.9 Plt Count 311 MPV 9.5 Immature Gran % (Auto) 0.500 Neut % (Auto) 70.3 H Lymph % (Auto) 20.0 [place] % (Auto) 8.7 Eos % (Auto) 0.2 Baso % (Auto) 0.3 Absolute Neuts (auto) 9.6 H Absolute Lymphs (auto) 2.72 Nucleated RBC % 0 Sodium 137 Potassium 3.5 Chloride 101 Carbon Dioxide 20.0 L Anion Gap 16 H BUN 7 Creatinine 1.07 Estim Creat Clear Calc 110.45 Est GFR (MDRD) Non-Af 98 BUN/Creatinine Ratio 6.2 L Glucose 90 Calcium 10.1 Total Bilirubin 0.92 AST 35 ALT 27 Alkaline Phosphatase 63 Troponin T High Sens < 6 Troponin T Hi Sens 2 Hr < 6 Total Protein 8.1 Albumin 4.9 Globulin 3.1 Albumin/Globulin Ratio 1.6 Lipase 18 Radiography Diagnostic Testing: Clinical Impression(s) from Imaging Studies Chest X-Ray 11/20/24 00:35 IMPRESSION: Normal x-ray examination of the chest. [facility] Rhythm Strip Rhythm Strip: Sinus Rhythm Rate: 79 Ectopy: None EKG Initial EKG: Attestation: I personally reviewed and interpreted this EKG as follows: Interpretation: Sinus Rhythm Comments: Normal sinus rhythm at a rate of 79 bpm with sinus arrhythmia Normal axis Normal intervals Normal ST segments Discharge Plan Triage Chief Complaint: Abd Pain ED Provider: Liudmila Bailon Dx/Rx/DC Orders Clinical Impression: Abdominal pain, acute, epigastric, Chest pain due to GERD Instructions: ED GERD (Adult), ED Epigastric Pain Uncertain Cause Prescriptions: New simethicone 80 mg tablet,chewable 80 mg PO QHS PRN (Reason: abdominal distention) Qty: 7 0RF No Action mirtazapine 30 mg tablet 30 mg PO QHS sertraline [Zoloft] 50 mg tablet 50 mg PO DAILY Patient Comments: 50 mg Oral every morning aripiprazole 10 mg tablet 10 mg PO DAILY pantoprazole 40 mg tablet,delayed release (DR/EC) 40 mg PO BID Primary Care Provider: Shashank Marrufo NP Referrals: Jeff Delgadillo DO [Med Staff - Active Staff] - Shashank Marrufo TOOLROOM CLERK, TOOLROOM CLERK-C [Primary Care Provider] - Activity Restrictions/Additional Instructions: As we discussed please try to adhere to a low acid diet. Your workup today was largely normal and your symptoms are most consistent with reflux/irritation of your esophagus and stomach from increasedstomach acid. Please follow-up with GI. Please continue to take 40 mg pantoprazole twice a day as previously prescribed. You may take Tums or [id number] Maalox for breakthrough symptoms. You have been also been given a prescription for simethicone for a week to help with abdominal bloating. Return given progression worsening of your symptoms. Print Language: Nigerien Disposition Disposition: Home, Self Care What to do if you have Problems For any increased pain, shortness of breath, bleeding, nausea or vomiting, chestpain, or any unexpected problems, contact your Primary Care Provider. Call [facility] ([phone]) or report tothe closest Emergency Room. Call 911 if necessary. 11/21/24 0333 Cosigner Signature (if applicable): CC: EDE Marrufo ~ Signed [facility]06-18-2025 Radiology Diagnostic study note [facility] Imaging Services [address] [place] [address] Chest PA and Lateral MR#: [id number] Acct: [id number] Name: KUMAR HARRISON Rep #: [id number] : 1995 M 29 From: Charu Krishna MD PCP: EDE Canchola Status: REG ER Study:Chest PA and Lateral Date of Exam: 11/20/24 Exam# [id number] Ordering Dr: Rianna Bailon DO PROCEDURE: CHEST PA AND LATERAL 11/21/2024 REASON FOR EXAM: CHEST PAIN TECHNIQUE: CHEST PA AND LATERAL COMPARISON: 02/18/2020 FINDINGS: The lungs are expanded. There is no demonstrated parenchymal abnormality. There is no demonstrated pleural abnormality. Normal heart and pericardium. Normal mediastinum and nicolle. Normal visualized pulmonary arteries. Normal visualized aortic arch and descending thoracic aorta. Normal visualized thoracic spine. Normal visualized ribs, clavicles, and shoulders. There is no demonstrated abnormality of the visualized soft tissue structures ofthe upper abdomen. RAD/Chest PA and Lateral IMPRESSION: Normal x-ray examination of the chest. Reading Location: [place] [address] CC: EDE Marrufo; Dr. Liudmila Bailon DO ~ Station Mechanic Helper: Signed [facility]06-17-2025 Discharge summary Author Liudmila Bailon [facility] Note Date/Time November 21, 2024 3:33 am [facility] Medical Records Department [address] [place] [address] Emergency Department Summary 11/20/24 MR#: [id number] Acct: [id number] Name: KUMAR HARRISON Rep #:[id number] : 1995 29 From: Liudmila Tello PCP: GERTRUDE CancholaC Status:REG ER Location: ED HPI History of Present Illness Chief Complaint: Abd Pain Informant: patient Narrative Narrative: Patient is a 29-year-old male with history of bipolar disorder and autism as well as GERD presenting with chest discomfort. Patient states it feels like hisGERD. He states he has had sharp pain in the substernal area his whole life butit been bad today. He states it occurs every 5 seconds. He has tried to take multiple cold showers with no relief. States he did take an extra pantoprazole today as well. He tried Pepto-Bismol with no relief. He also notes he has beenconstipated. He did have a bowel movement today but is very hard. I seen blackor blood in his stool. In addition he has had's episodes of pain rating up to his left head and throughout his extremities. He notes that his voice seems different anything is from the acid. He has a foreign body sensation in his throat/throat irritation. He does note that he relapsed and used methamphetamines today around 11 AM. States he been clean for 3 years prior to this. He also is worried that he is short of breath. He states he ran out of his inhaler. Denies any wheezing. Has any cough. No report of any fevers but doesreport cold chills. Does not report any HI or SI. States he is very problem sofor having a job and living independently. [facility] Medical History Methamphetamine abuse Suicidal behavior ADD (attention deficit disorder) Autism GERD (gastroesophageal reflux disease) Bipolar 1 disorder Home Medications ?Medication ?Instructions ?Recorded ?Last Taken ?Type aripiprazole 10 mg tablet 10 mg PO DAILY 11/15/22 Unkn own History mirtazapine 30 mg tablet 30 mg PO QHS 11/15/22 Unknow n History sertraline 50 mg tablet (Zoloft) 50 mg PO DAILY Unknown History pantoprazole 40 mg tablet,delayed 40 mg PO BID 5 Unknown History release simethicone 80 mg chewable tablet 80 mg PO QHS PRN abd ominal 11/21/24 Unknown Rx distention #7 tabs Allergy/AdvReac Type Severity Reaction Status Date / Time Environmental Allergies: Allergy Hives Verified 11/20/24 23:19 Uncoded (pine) haloperidol (From Haldol) AdvReac HALLUCINATI Verified 11/20/24 23:19 ONS Social History household members: none and other details: Patient is incarcerated Smoking Status: Current every day smoker tobacco type: cigarettes and e- cigarettes details: No alcohol since incarceration substance use type: marijuana and other details: no IVDU ROS ROS ED Constitutional Constitutional ED: Reports chills; Denies fever(s) Eyes Eyes: Denies diplopia ENT ENT ED: Reports sore throat; Denies ear pain or rhinorrhea Cardiovascular Cardiovascular: Reports chest pain Respiratory/Chest Respiratory/Chest: Reports dyspnea; Denies cough Gastrointestinal Gastrointestinal: Reports abdominal pain and constipation; Denies melena, nauseaor vomiting Musculoskeletal Musculoskeletal: Denies arthralgias or myalgias Integumentary Denies rash Neurologic Neurologic: Reports paresthesias; Denies headache(s) Psychiatric Psychiatric: Reports anxiety EXAM Physical Exam Const Vital Signs: 11/20/24 23:20 11/21/24 01:18 Temperature 98.2 F Temperature Source Oral Pulse Rate 87 66 Respiratory Rate 18 16 Blood Pressure 143/92 H 145/82 H Blood Pressure Mean 109 103 Pulse Ox 100 96 Oxygen Delivery Method Room Air Room Air Positive well nourished and well developed General Appearance ED: well developed and NAD HEENT Reports TM's clear and moist mucous membranes HEENT Narrative: Partial cerumen impaction but visualized TMs are normal bilaterally. Normal earcanals. Normal oropharyngeal exam. Uvula is midline. Normal phonation. Tympanic Membrane ED: Yes TM's clear Neck supple and no JVD Chest Wall inspection of chest normal and palpation of chest normal Resp normal respiratory effort and clear to auscultation bilaterally Auscultation: Negative for rales, rhonchi or wheezes Cardio regular rate, regular rhythm and no murmurs Cardio Narrative: 2+ radial DP pulses present GI non-tender and non-distended GI Narrative: Patient points to his epigastric region and left upper quadrant as his area of discomfort. It is not reproducible on direct palpation. Inspection: Negative for abdominal distention Auscultation: hypoactive bowel sounds Palpation: soft; Negative for tender or guarding Back/Spine no CVA tenderness Thoracic Spine / Upper Back: Negative for thoracic spinal tenderness Lumbar Spine / Lower Back: Negative for lumbar spinal tenderness Extremity normal to inspection General Extremety ED: Negative for edema General Extremity: Negative for edema Neuro oriented x3 Neuro Narrative: Sensation and strength intact in all extremities. No focal neurologic deficits appreciated. Sensorium / Orientation: alert Motor Exam: Negative for general weakness Psych Psych Narrative: Patient does not appear internally stimulated. He is calm and answers questionsappropriately. Mood & Affect: anxious Skin no rashes or lesions noted and no wounds MDM MDM MDM Narrative Medical decision making narrative: Patient evaluated for upper abdominal pain/chest pain. He has multiple other complaints and also admits to methamphetamine use today. Differential includes not limited to ACS, pneumothorax, pneumonia, GERD, esophagitis, pancreatitis, cholecystitis (lower suspicion based on abdominal exam). Patient is given GI cocktail and IV Pepcid. At this time he is calm andwhile he is anxious is otherwise acting appropriately. Is offered anxiolytic but declines at this time. Patient's vital signs remained stable in the emergency room (mildly hypertensiveof). Has improvement with GI cocktail it does wear off. Has a mild leukocytosis of 13.6 which is nonspecific. Hemoglobin and platelets normal. CMP normal. High- sensitivity troponin less than 6 x 2. Low suspicion for ACS. Patient is PE RC negative I do not think requires a D-dimer and low risk for pulmonary emboli. Lipase is normal. Less patient for pancreatitis or cholecystitis. Suspect this is more esophagitis/gastritis. Is given further Gas-X for sensation of bloating. Would counseled on regularly taking his pantoprazole (40mg twice daily). He states he has plenty at home. Will be given outpatient GI follow-up. Given return precautions. Discharged home in stable condition. At time of discharge patient did request a dose of Vistaril because hospitals make him anxious. Is given a dose prior to discharge Lab Data Attestation: I reviewed the patient's lab results. Labs: Laboratory Results - last 24 hr 11/20/24 11/21/24 00:07 02:11 WBC 13.6 H RBC 5.04 Hgb 15.6 Hct 42.7 MCV 84.7 MCH 31.0 MCHC 36.5 H RDW Std Deviation 36.0 RDW Coeff of Sis 11.9 Plt Count 311 MPV 9.5 Immature Gran % (Auto) 0.500 Neut % (Auto) 70.3 H Lymph % (Auto) 20.0 [place] % (Auto) 8.7 Eos % (Auto) 0.2 Baso % (Auto) 0.3 Absolute Neuts (auto) 9.6 H Absolute Lymphs (auto) 2.72 Nucleated RBC % 0 Sodium 137 Potassium 3.5 Chloride 101 Carbon Dioxide 20.0 L Anion Gap 16 H BUN 7 Creatinine 1.07 Estim Creat Clear Calc 110.45 Est GFR (MDRD) Non-Af 98 BUN/Creatinine Ratio 6.2 L Glucose 90 Calcium 10.1 Total Bilirubin 0.92 AST 35 ALT 27 Alkaline Phosphatase 63 Troponin T High Sens < 6 Troponin T Hi Sens 2 Hr < 6 Total Protein 8.1 Albumin 4.9 Globulin 3.1 Albumin/Globulin Ratio 1.6 Lipase 18 Radiography Diagnostic Testing: Clinical Impression(s) from Imaging Studies Chest X-Ray 11/20/24 00:35 IMPRESSION: Normal x-ray examination of the chest. Reading Location: [place] [address] Rhythm Strip Rhythm Strip: Sinus Rhythm Rate: 79 Ectopy: None EKG Initial EKG: Attestation: I personally reviewed and interpreted this EKG as follows: Interpretation: Sinus Rhythm Comments: Normal sinus rhythm at a rate of 79 bpm with sinus arrhythmia Normal axis Normal intervals Normal ST segments Discharge Plan Triage Chief Complaint: Abd Pain ED Provider: Liudmila Bailon Dx/Rx/DC Orders Clinical Impression: Abdominal pain, acute, epigastric, Chest pain due to GERD Instructions: ED GERD (Adult), ED Epigastric Pain Uncertain Cause Prescriptions: New simethicone 80 mg tablet,chewable 80 mg PO QHS PRN (Reason: abdominal distention) Qty: 7 0RF No Action mirtazapine 30 mg tablet 30 mg PO QHS sertraline [Zoloft] 50 mg tablet 50 mg PO DAILY Patient Comments: 50 mg Oral every morning aripiprazole 10 mg tablet 10 mg PO DAILY pantoprazole 40 mg tablet,delayed release (DR/EC) 40 mg PO BID Primary Care Provider: Shashank Marrufo NP Referrals: Jeff Delgadillo DO [Med Staff - Active Staff] - Shashank Marrufo NP, TOOLROOM CLERK-C [Primary Care Provider] - Activity Restrictions/Additional Instructions: As we discussed please try to adhere to a low acid diet. Your workup today was largely normal and your symptoms are most consistent with reflux/irritation of your esophagus and stomach from increased stomach acid. Please follow-up with GI. Please continue to take 40 mg pantoprazole twice a day as previously prescribed. You may take Tums or [id number] Maalox for breakthrough symptoms. You have been also been given a prescription for simethicone for a week to help with abdominal bloating. Return given progression worsening of your symptoms. Print Language: Nigerien Disposition Disposition: Home, Self Care What to do if you have Problems For any increased pain, shortness of breath, bleeding, nausea or vomiting, chestpain, or any unexpected problems, contact your Primary Care Provider. Call [facility] ([phone]) or report to the closest Emergency Room. Call 911 if necessary. 11/21/24 0333 <Electronically signed by Liudmila Bailon DO> Cosigner Signature (if applicable): CC: EDE Marrufo ~ Signed [facility] Work Phone: [phone]) 487-384806-15-2025 Telephone encounter Note* Telephone Encounter - Damaris Luu RN - 11/18/2024 8:59 AM EDT Patient calling with request for return call/Message from office: Message from office reviewed - see telephone encounter dated 11/18/24. Patient verbalized understanding of message given. Patient denies any new or worsening symptoms of which a provider is not aware: Yes. [facility]06-15-2025 Miscellaneous Notes* Telephone Encounter - Damaris Luu RN - 11/18/2024 8:59 AM EDT Patient calling with request for return call/Message from office: Message from office reviewed - see telephone encounter dated 11/18/24. Patient verbalized understanding of message given. Patient denies any new or worsening symptoms of which a provider is not aware: Yes. documented in this [facility] Telephone encounter Note * Telephone Encounter - Thelma Justice MA - 11/18/2024 8:37 AM EDT No answer and VM box not set up, unable to leave message. Patient has viewed all results on MyChart. Thelma Justice MA [facility]06-15-2025 Miscellaneous Notes* Telephone Encounter - Thelma Justice MA - 11/18/2024 8:37 AM EDT No answer and VM box not set up, unable to leave message. Patient has viewed all results on MyChart. Thelma Justice MA * Telephone Encounter - Jeannette Bradford APRN.CNP - 11/18/2024 8:06 AM EDT Please call let patient know he is negative for chlamydia, gonorrhea, trichomonas. We will call in the rest of the test, neck. documented in this [facility] Telephone encounter Note * Telephone Encounter - Jeannette Bradford APRN.CNP - 11/18/2024 8:06 AM EDT Please call let patient know he is negative for chlamydia, gonorrhea, trichomonas. We will call in the rest of the test, neck. [facility] Work Phone: [phone] NoteHNO ID: [id number] Author: TAMARA ELI PA Service: ? Author Type: Physician Iron Plastic Bullet Maker Type: Progress Notes Filed: 11/17/2024 09:09 Note Text: [facility] Subjective Kumar Harrison is a 29 year old male. Patient presents with: STD: has new partner requesting testing, no symptoms HPI STI Testing: - New partner would like him tested. - No current symptoms; denies dysuria, discharge, abdominal pain, or back pain. - No history of STIs. - Last tested 2 years ago. - Sexual activity with females only. Review of Systems Gastrointestinal: (-) abdominal pain Genitourinary: (-) urethral discharge, (-) dysuria Musculoskeletal: (-) back pain Objective BP 110/72 Pulse 92 Temp 36.1 ?C (96.9 ?F) Resp 16 Wt 91 kg (200 lb 9.9 oz) SpO2 97% BMI 27.98 kg/m? Physical Exam Vitals and nursing note reviewed. Constitutional: General: He is not in acute distress. Appearance: Normal appearance. He is not toxic-appearing. HENT: Mouth/Throat: Mouth: Mucous membranes are moist. Cardiovascular: Rate and Rhythm: Normal rate and regular rhythm. Pulmonary: Effort: Pulmonary effort is normal. Breath sounds: Normal breath sounds. Abdominal: General: Abdomen is flat. Palpations: Abdomen is soft. Tenderness: There is no abdominal tenderness. There is no right CVA tenderness, left CVA tenderness, guarding or rebound. Genitourinary: Comments: deferred Skin: General: Skin is warm and dry. Neurological: Mental Status: He is alert. General: No acute distress. {1. Screen for STD (sexually transmitted disease) (Z11.3) - No current symptoms such as discharge, dysuria, abdominal pain, or back pain. - No history of STDs; last tested two years ago. - Ordered urine tests for chlamydia, gonorrhea, and trichomonas. - Ordered blood tests for HIV, syphilis, and hepatitis. - Lab work to be drawn today; results expected in a few days. - Will contact patient with results and provide treatment if necessary. Recording using Jybe software for draft documentation of the visit was discussed with the patient/authorized tour sales representative; all questions welcomed and answered. Patient/authorized tour sales representative agreed to proceed Differential Diagnoses - std screening is more likely for the following reason(s): suggested by HANDP Disposition The patient was discharged. [facility] History of Present illness Narrative* Tamara Eli PA - 11/17/2024 9:08 AM EDT [facility] Subjective Kumar Harrison is a 29 year old male. Patient presents with: STD: has new partner requesting testing, no symptoms HPI STI Testing: - New partner would like him tested. - No current symptoms; denies dysuria, discharge, abdominal pain, or back pain. - No history of STIs. - Last tested 2 years ago. - Sexual activity with females only. Review of Systems Gastrointestinal: (-) abdominal pain Genitourinary: (-) urethral discharge, (-) dysuria Musculoskeletal: (-) back pain Objective BP 110/72 Pulse 92 Temp 36.1 C (96.9 F) Resp 16 Wt 91 kg (200 lb 9.9 oz) SpO2 97% BMI 27.98 kg/m Physical Exam Vitals and nursing note reviewed. Constitutional: General: He is not in acute distress. Appearance: Normal appearance. He is not toxic-appearing. HENT: Mouth/Throat: Mouth: Mucous membranes are moist. Cardiovascular: Rate and Rhythm: Normal rate and regular rhythm. Pulmonary: Effort: Pulmonary effort is normal. Breath sounds: Normal breath sounds. Abdominal: General: Abdomen is flat. Palpations: Abdomen is soft. Tenderness: There is no abdominal tenderness. There is no right CVA tenderness, left CVA tenderness, guarding or rebound. Genitourinary: Comments: deferred Skin: General: Skin is warm and dry. Neurological: Mental Status: He is alert. General: No acute distress. {1. Screen for STD (sexually transmitted disease) (Z11.3) - No current symptoms such as discharge, dysuria, abdominal pain, or back pain. - No history of STDs; last tested two years ago. - Ordered urine tests for chlamydia, gonorrhea, and trichomonas. - Ordered blood tests for HIV, syphilis, and hepatitis. - Lab work to be drawn today; results expected in a few days. - Will contact patient with results and provide treatment if necessary. Recording using Jybe software for draft documentation of the visit was discussed with the patient/authorized tour sales representative; all questions welcomed and answered. Patient/authorized tour sales representative agreed to proceed Differential Diagnoses - std screening is more likely for the following reason(s): suggested by H&P Disposition The patient was discharged. Procedures documented in this [facility]06-[facility]25 Telephone encounter Note * Telephone Encounter - Tammy Vaughn RN - 11/11/2024 2:24 PM EDT Reason for call: Patient calling with concern for choking in sleep, wakes up gasping for air. Patient experiences generalized numbness of extremities, severe dizziness and intermittent chest pain upon waking from sleep. Outcome: Recommendation for ED now. Patient verbalized understanding, plans to go to [facility]. Reason for Disposition SEVERE dizziness (e.g., unable to stand, requires support to walk, feels like passing out now) Answer Assessment - Initial Assessment Questions . Answer Assessment - Initial Assessment Questions 1. DESCRIPTION: Has insomnia and night terrors. 2. ONSET: Has been feeling like gasping for air, choking in sleep for the past 3-4 months. 3. RECURRENT: Yes, see above. 4. STRESS: Denies 5. PAIN: Denies 6. CAFFEINE ABUSE: Averages 3-4 daily. 3 x week. 7. ALCOHOL USE OR SUBSTANCE USE (DRUG USE): Nicotine, vape pen. 8. OTHER SYMPTOMS: Difficulty breathing in sleep. Denies any difficulty breathing while awake. Feels fatigued during the day. Patient states he wakes up and entire body is numb. Also wakes up with severe dizziness that sometimes lasts throughout the day. Patient also endorses intermittent chest pain. Protocols used: [id number], Dizziness - Kichpchrjzpukfc-[id number]-HV [facility]06-08-[facility] Miscellaneous Notes* Telephone Encounter - Tammy Vaughn RN - 11/11/2024 2:24 PM EDT Reason for call: Patient calling with concern for choking in sleep, wakes up gasping for air. Patient experiences generalized numbness of extremities, severe dizziness and intermittent chest pain upon waking from sleep. Outcome: Recommendation for ED now. Patient verbalized understanding, plans to go to [facility]. Reason for Disposition SEVERE dizziness (e.g., unable to stand, requires support to walk, feels like passing out now) Answer Assessment - Initial Assessment Questions . Answer Assessment - Initial Assessment Questions 1. DESCRIPTION: Has insomnia and night terrors. 2. ONSET: Has been feeling like gasping for air, choking in sleep for the past 3-4 months. 3. RECURRENT: Yes, see above. 4. STRESS: Denies 5. PAIN: Denies 6. CAFFEINE ABUSE: Averages 3-4 daily. 3 x week. 7. ALCOHOL USE OR SUBSTANCE USE (DRUG USE): Nicotine, vape pen. 8. OTHER SYMPTOMS: Difficulty breathing in sleep. Denies any difficulty breathing while awake. Feels fatigued during the day. Patient states he wakes up and entire body is numb. Also wakes up with severe dizziness that sometimes lasts throughout the day. Patient also endorses intermittent chest pain. Protocols used: Ppvytnab-VERNJ-NG, Dizziness - Eiwtbzerjmiaejp-EMYLW-XI documented in this encounterFair[facility] Center03-11-2025 Instructions* Patient Instructions* Whitley Fischer APRN.INDUSTRY ANALYST - 08/14/2024 10:53 AM EDT Images from the original note were not included. ASSESSMENT/PLAN: 1. Gastroesophageal reflux disease with esophagitis - ICD9: 530.11, ICD10: K21.00 - Discussed lifestyle modifications including losing weight, limiting caffeine, no meals three hours before sleep, and head of bed elevation - PANTOPRAZOLE 40 MG TABLET,DELAYED RELEASE- prescribed at previous dose. - Follow-up with your PCP in 3-5 days if symptoms have not improved or sooner if symptoms worsen - Discussed red flags and need for immediate medical evaluation if any occur. - Discussed supportive care treatment with fluids, rest and analgesia. - Discussed expected course of illness Whitley Fischer APRN.INDUSTRY ANALYST Gastroesophageal Reflux Disease (GERD) Heartburn is a burning sensation in the center of your chest that often occurs after you eat, bend over, exercise, and sometimes at night when you are lying down. Approximately one in 10 adults has heartburn at least once a week and one in three monthly. Some women experience heartburn almost daily as a result of increased pressure on the abdomen and hormonal changes. Despite its name, heartburn has nothing to do with your heart. Heartburn symptoms indicate a condition called gastroesophageal reflux disease, or GERD. This fact sheet offers some tips on how to relieve heartburn caused by this condition. What is GERD? When you swallow, food passes down your throat and through your esophagus to your stomach. A musclecalled the lower esophageal sphincter controls the opening between the esophagus and the stomach. The muscle remains tightly closed except when you swallow food. When this muscle fails to close, the acid-containing contents of the stomach can travel back up into the esophagus. This backward movement is called reflux. When stomach acid enters the lower part ofthe esophagus, it can produce a burning sensation, commonly referred to as heartburn. Several factors might explain why this reflux action occurs and might offer some clues for relief. The most important are: The position of your body after eating (An upright posture helps prevent reflux.) The size of the meal (Smaller meals reduce reflux.) The nature of foods you consume (Certain substances that irritate the esophagus or weaken the sphincter can cause reflux.) How is GERD treated? To treat GERD, we recommend the following: Raise the head of your bed by six inches to allow gravity to help keep the stomach's contents in the stomach. (Do not use piles of pillows because this puts your body into a bent position that actually aggravates the condition by increasing pressure on the abdomen.) Eat meals at least three to four hours before lying down, and avoid bedtime snacks. Eat moderate portions of food and smaller meals. Maintain a healthy weight to eliminate unnecessary intra-abdominal pressure caused by extra pounds. Limit consumption of fatty foods, chocolate, peppermint, coffee, tea, audrey, and alcohol - all of which relax the lower esophageal sphincter. Also, avoid tomatoes and citrus fruits or juices, which contribute additional acid that can irritate the esophagus. Give up smoking, which also relaxes the lower esophageal sphincter. Wear loose belts and clothing. What if my GERD and heartburn persist? Many people will get relief from heartburn, and the pressure that goes with esophageal reflux, by following the tips above. Snow-cdf-kntscnb liquid antacids can also help in treating occasional heartburn. If your symptoms persist, do not respond to treatment, or occur often, you need to see a doctor for testing and treatment. A visual examination of the esophagus, known as an endoscopy, might be necessary. Sometimes this test shows that the lining of the esophagus is severely inflamed and irritated by stomach acid. This condition, known as esophagitis, might lead to bleeding and difficulty in swallowing. Medical treatment for this condition might be necessary. This usually involves blocking acid production in the stomach. Uggc-wpk-elxgujx medicines, such as Tums , Rolaids , Maalox , Zantac , Tagamet , Prilosec, ,Pepcid , and Axid , can generally relieve esophageal reflux symptoms. Patients with more severe symptoms orthose who have been using antacids for more than two weeks should contact their doctors, who can prescribe medicines to control or eliminate acid, such as H2-receptor antagonists and proton pump inhib itors. Only a few people need surgery to correct the disorder. References [employer]. Acid Reflux Accessed 12/29/2015. [employer]. Gastroesophageal Reflux Disease (GERD) Accessed 12/29/2015. [employer] [place] [employer] and [employer]estive and Kid[employer]. Gastroesophageal Reflux (MACHO) andGastroesophageal Reflux Disease (GERD) Accessed 12/29/2015. Copyright 8139-2668 [employer] [facility]. All rights reserved This information is provided by the [facility] and is not intended to replace themedical advice of your doctor or health care provider. Please consult your health care provider for advice abouta specific medical condition. For additional health information, please contact the Center for Consumer Health Information at the [facility] or toll-free [phone]. If you prefer, you may visit [email or web address] or [email or web address]. This document was last reviewed on: 2015 documented in this encounterFairfield Medical Center03-11-2025 NoteHNO ID: [id number] Author: WHITLEY FISCHER APRN.CNP Service: ? Author Type: Nurse Practitioner Type: Progress Notes Filed: 08/14/2024 10:55 Note Text: [facility] Subjective Kumar Harrison is a 28 year old male. Patient presents with: GI Upset: nausea and diarrhea, has GERD but out of protonix x 3 days HPI Kumar Harrison is a 28 year old male who presents with acid reflux for the past 3 days. He used to take Protonix and has been out of this for several months. It was not bothering him until he ate some peanut butter a few days ago. He was not able to go to work yesterday due to some nausea and vomiting associated with the GERD. Review of Systems Constitutional: Negative for chills and fever. Respiratory: Negative. Cardiovascular: Negative. Gastrointestinal: Positive for nausea and vomiting. Objective BP 126/72 Pulse 84 Temp 36.2 ?C (97.2 ?F) Resp 16 Wt 91.5 kg (201 lb 11.5 oz) SpO2 98% BMI 28.13 kg/m? PAST MEDICAL HISTORY Diagnosis Date Anxiety 07/05/2012 Asperger syndrome 07/05/2012 Attention deficit disorder with hyperactivity(314.01) Eczema 12/08/2012 History of bipolar disorder 08/05/2015 History of depression 08/05/2015 History of posttraumatic stress disorder (PTSD) 08/05/2015 Mood disorder (HCC) 12/08/2012 Nausea and vomiting 02/2020 ODD (oppositional defiant disorder) 07/05/2012 PMH - PAST MEDICAL HISTORY OF 10/11/03 normal color vision PAST SURGICAL HISTORY Procedure Laterality Date CIRCUMCISION W/CLAMP/OTH DEV W/BLOCK EGD 02/12/2020 ALLERGIES Haldol [Haloperidol] and Bowie Trees [Trees] MEDICATIONS sertraline (ZOLOFT) 50 mg tablet Take 50 mg by mouth once daily. ARIPiprazole (ABILIFY) 10 mg tablet Take 10 mg by mouth once daily. albuterol HFA (PROVENTIL HFA, VENTOLIN HFA) 90 mcg/actuation inhaler Inhale 2 Puffs as instructed every 6 hours as needed for Wheezing/Shortness of Breath. pantoprazole DR (PROTONIX) 40 mg tablet Take 1 tablet by mouth two times a day. TAKE ONE TABLET BY MOUTH TWICE DAILY on an EMPTY stomach 1/2 HOUR BEFORE A MEAL triamcinolone (KENALOG) 0.025 % ointment Apply to affected area three times a day. white petrolatum (AQUAPHOR) 41 % topical ointment Apply to affected area as needed. Cetirizine (ZYRTEC) 10 mg cap Take by mouth. (Patient not taking: Reported on 06/18/2024) Nicotine Polacrilex (NICORETTE) [address] 2 mg between cheek and gum as needed. (Patient not taking: Reported on 01/03/2024) nicotine (NICODERM CQ) 21 mg/24 hr Apply 1 Patch as directed every 24 hours. (Patient not taking: Reported on 01/03/2024) omega-3 fatty acids/fish oil (OMEGA 3 FISH OIL ORAL) Take by mouth. (Patient not taking: Reported on 01/03/2024) sildenafil (VIAGRA) 25 mg tablet Take 1 tablet by mouth 1 hour prior to sexual activity. (Patient not taking: Reported on 01/03/2024) ondansetron orally disintegrating (ZOFRAN ODT) 4 mg disintegrating tablet Take 1 tablet by mouth every 12 hours as needed for Nausea/Vomiting. (Patient not taking: Reported on 01/03/2024) flunisolide (AEROSPAN) 80 mcg/actuation HFAA Inhale 2 Puffs as instructed twice daily. (Patient not taking: Reported on 01/03/2024) FAMILY HISTORY Problem Relation Age of Onset other (heart disease) Other maternal and paternal side Cancer Other maternal and paternal side other (lupus) Other great aunt,second cousin and great grandmother Colon Cancer No Family History Social History Tobacco Use Smoking status: Every Day Current packs/day: 1.50 Types: Cigarettes Smokeless tobacco: Never Tobacco comments: parents smoke inside Vaping Use Vaping status: Some Days Substance Use Topics Alcohol use: Not Currently Comment: rarely Drug use: Not Currently Types: Marijuana Comment: rarely Physical Exam Vitals and nursing note reviewed. Constitutional: Appearance: Normal appearance. Cardiovascular: Rate and Rhythm: Normal rate and regular rhythm. Heart sounds: Normal heart sounds. Pulmonary: Effort: Pulmonary effort is normal. No respiratory distress. Breath sounds: Normal breath sounds. No wheezing, rhonchi or rales. Abdominal: General: Bowel sounds are normal. There is no distension. Palpations: Abdomen is soft. There is no mass. Tenderness: There is abdominal tenderness. There is no guarding. Neurological: Mental Status: He is alert. ASSESSMENT/PLAN: 1. Gastroesophageal reflux disease with esophagitis - ICD9: 530.11, ICD10: K21.00 - Discussed lifestyle modifications including losing weight, limiting caffeine, no meals three hours before sleep, and head of bed elevation - PANTOPRAZOLE 40 MG TABLET,DELAYED RELEASE- prescribed at previous dose. - Follow-up with your PCP in 3-5 days if symptoms have not improved or sooner if symptoms worsen - Discussed red flags and need for immediate medical evaluation if any occur. - Discussed supportive care treatment with fluids, rest and analgesia. - (more content not included)...[facility]03-[facility] History of Present illness Narrative* Whitley Fischer APRN.INDUSTRY ANALYST - 08/14/2024 10:23 AM EDT [facility] Subjective Kumar Harrison is a 28 year old male. Patient presents with: GI Upset: nausea and diarrhea, has GERD but out of protonix x 3 days HPI Kumar Harrison is a 28 year old male who presents with acid reflux for the past 3 days. He used to take Protonix and has been out of this for several months. It was not bothering him until he ate some peanut butter a few days ago. He was not able to go to work yesterday due to some nausea and vomiting associated with the GERD. Review of Systems Constitutional: Negative for chills and fever. Respiratory: Negative. Cardiovascular: Negative. Gastrointestinal: Positive for nausea and vomiting. Objective BP 126/72 Pulse 84 Temp 36.2 C (97.2 F) Resp 16 Wt 91.5 kg (201 lb 11.5 oz) SpO2 98% BMI 28.13 kg/m PAST MEDICAL HISTORY Diagnosis Date Anxiety 07/05/2012 Asperger syndrome 07/05/2012 Attention deficit disorder with hyperactivity(314.01) Eczema 12/08/2012 History of bipolar disorder 08/05/2015 History of depression 08/05/2015 History of posttraumatic stress disorder (PTSD) 08/05/2015 Mood disorder (HCC) 12/08/2012 Nausea and vomiting 02/2020 ODD (oppositional defiant disorder) 07/05/2012 PMH - PAST MEDICAL HISTORY OF 10/11/03 normal color vision PAST SURGICAL HISTORY Procedure Laterality Date CIRCUMCISION W/CLAMP/OTH DEV W/BLOCK EGD 02/12/2020 ALLERGIES Haldol [Haloperidol] and Bowie Trees [Trees] MEDICATIONS sertraline (ZOLOFT) 50 mg tablet Take 50 mg by mouth once daily. ARIPiprazole (ABILIFY) 10 mg tablet Take 10 mg by mouth once daily. albuterol HFA (PROVENTIL HFA, VENTOLIN HFA) 90 mcg/actuation inhaler Inhale 2 Puffs as instructed every 6 hours as needed for Wheezing/Shortness of Breath. pantoprazole DR (PROTONIX) 40 mg tablet Take 1 tablet by mouth two times a day. TAKE ONE TABLET BY MOUTH TWICE DAILY on an EMPTY stomach 1/2 HOUR BEFORE A MEAL triamcinolone (KENALOG) 0.025 % ointment Apply to affected area three times a day. white petrolatum (AQUAPHOR) 41 % topical ointment Apply to affected area as needed. Cetirizine (ZYRTEC) 10 mg cap Take by mouth. (Patient not taking: Reported on 06/18/2024) Nicotine Polacrilex (NICORETTE) [address] 2 mg between cheek and gum as needed. (Patient not taking: Reported on 01/03/2024) nicotine (NICODERM CQ) 21 mg/24 hr Apply 1 Patch as directed every 24 hours. (Patient not taking: Reported on 01/03/2024) omega-3 fatty acids/fish oil (OMEGA 3 FISH OIL ORAL) Take by mouth. (Patient not taking: Reported on 01/03/2024) sildenafil (VIAGRA) 25 mg tablet Take 1 tablet by mouth 1 hour prior to sexual activity. (Patient not taking: Reported on 01/03/2024) ondansetron orally disintegrating (ZOFRAN ODT) 4 mg disintegrating tablet Take 1 tablet by mouth every 12 hours as needed for Nausea/Vomiting. (Patient not taking: Reported on 01/03/2024) flunisolide (AEROSPAN) 80 mcg/actuation HFAA Inhale 2 Puffs as instructed twice daily. (Patient nottaking: Reported on 01/03/2024) FAMILY HISTORY Problem Relation Age of Onset other (heart disease) Other maternal and paternal side Cancer Other maternal and paternal side other (lupus) Other great aunt,second cousin and great grandmother Colon Cancer No Family History Social History Tobacco Use Smoking status: Every Day Current packs/day: 1.50 Types: Cigarettes Smokeless tobacco: Never Tobacco comments: parents smoke inside Vaping Use Vaping status: Some Days Substance Use Topics Alcohol use: Not Currently Comment: rarely Drug use: Not Currently Types: Marijuana Comment: rarely Physical Exam Vitals and nursing note reviewed. Constitutional: Appearance: Normal appearance. Cardiovascular: Rate and Rhythm: Normal rate and regular rhythm. Heart sounds: Normal heart sounds. Pulmonary: Effort: Pulmonary effort is normal. No respiratory distress. Breath sounds: Normal breath sounds. No wheezing, rhonchi or rales. Abdominal: General: Bowel sounds are normal. There is no distension. Palpations: Abdomen is soft. There is no mass. Tenderness: There is abdominal tenderness. There is no guarding. Neurological: Mental Status: He is alert. ASSESSMENT/PLAN: 1. Gastroesophageal reflux disease with esophagitis - ICD9: 530.11, ICD10: K21.00 - Discussed lifestyle modifications including losing weight, limiting caffeine, no meals three hours before sleep, and head of bed elevation - PANTOPRAZOLE 40 MG TABLET,DELAYED RELEASE- prescribed at previous dose. - Follow-up with your PCP in 3-5 days if symptoms have not improved or sooner if symptoms worsen - Discussed red flags and need for immediate medical evaluation if any occur. - Discussed supportive care treatment with fluids, rest and analgesia. - Discussed expected course of illness Whitley Fischer APRN.CNP Differential Diagnoses - GERD is more likely for the following reason(s): suggested by H&P Disposition The patient was discharged. Procedures documented in this encounterFair[facility] Center01-13-2025 NoteHNO ID: [id number] Author: RADHA BROWN APRN.CNP Service: ? Author Type: Nurse Practitioner Type: Progress Notes Filed: 06/18/2024 12:29 Note Text: This note was created using NoteWriter. Subjective Kumar Harrison is a 28 year old male. 28 year old male with PMH eczema, ODD, mood disorder, bipolar, depression, and anxiety presents for rash. 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 No spanish language lecturer was used. Rash This is a new problem. The current episode started 1 to 4 weeks ago. The problem is unchanged. Location: left wrist. The rash is characterized by redness, itchiness and burning. 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 Pertinent negatives include no anorexia, congestion, cough, diarrhea, eye pain, facial edema, fatigue, fever, joint pain, nail changes, rhinorrhea, shortness of breath, sore throat or vomiting. Past treatments include nothing. The treatment provided no relief. His past medical history is significant for allergies and eczema. There is no history of asthma or varicella. PAST MEDICAL HISTORY Diagnosis Date Anxiety 07/05/2012 Asperger syndrome 07/05/2012 Attention deficit disorder with hyperactivity(314.01) Eczema 12/08/2012 History of bipolar disorder 08/05/2015 History of depression 08/05/2015 History of posttraumatic stress disorder (PTSD) 08/05/2015 Mood disorder (HCC) 12/08/2012 Nausea and vomiting 02/2020 ODD (oppositional defiant disorder) 07/05/2012 PMH - PAST MEDICAL HISTORY OF 10/11/03 normal color vision PAST SURGICAL HISTORY Procedure Laterality Date CIRCUMCISION W/CLAMP/OTH DEV W/BLOCK EGD 02/12/2020 ALLERGIES Haldol [Haloperidol] and Bowie Trees [Trees] MEDICATIONS pantoprazole DR (PROTONIX) 40 mg tablet TAKE ONE TABLET BY MOUTH TWICE DAILY on an EMPTY stomach 1/2 HOUR BEFORE A MEAL albuterol HFA (PROVENTIL HFA, VENTOLIN HFA) 90 mcg/actuation inhaler Inhale 2 Puffs as instructed every 6 hours as needed for Wheezing/Shortness of Breath. triamcinolone (KENALOG) 0.025 % ointment Apply to affected area three times a day. white petrolatum (AQUAPHOR) 41 % topical ointment Apply to affected area as needed. sertraline (ZOLOFT) 50 mg tablet Take 50 mg by mouth once daily. (Patient not taking: Reported on 06/18/2024) Cetirizine (ZYRTEC) 10 mg cap Take by mouth. (Patient not taking: Reported on 06/18/2024) Nicotine Polacrilex (NICORETTE) [address] 2 mg between cheek and gum as needed. (Patient not taking: Reported on 01/03/2024) nicotine (NICODERM CQ) 21 mg/24 hr Apply 1 Patch as directed every 24 hours. (Patient not taking: Reported on 01/03/2024) omega-3 fatty acids/fish oil (OMEGA 3 FISH OIL ORAL) Take by mouth. (Patient not taking: Reported on 01/03/2024) ARIPiprazole (ABILIFY) 10 mg tablet Take 10 mg by mouth once daily. (Patient not taking: Reported on 06/18/2024) sildenafil (VIAGRA) 25 mg tablet Take 1 tablet by mouth 1 hour prior to sexual activity. (Patient not taking: Reported on 01/03/2024) ondansetron orally disintegrating (ZOFRAN ODT) 4 mg disintegrating tablet Take 1 tablet by mouth every 12 hours as needed for Nausea/Vomiting. (Patient not taking: Reported on 01/03/2024) flunisolide (AEROSPAN) 80 mcg/actuation HFAA Inhale 2 Puffs as instructed twice daily. (Patient not taking: Reported on 01/03/2024) FAMILY HISTORY Problem Relation Age of Onset other (heart disease) Other maternal and paternal side Cancer Other maternal and paternal side other (lupus) Other great aunt,second cousin and great grandmother Colon Cancer No Family History Social History Tobacco Use Smoking status: Every Day Current packs/day: 1.50 Types: Cigarettes Smokeless tobacco: Never Tobacco comments: parents smoke inside Vaping Use Vaping status: Some Days Substance Use Topics Alcohol use: Not Currently Comment: rarely Drug use: Not Currently Types: Marijuana Comment: rarely Review of Systems Constitutional: Negative for activity change, appetite change, fatigue and fever. HENT: Negative for congestion, rhinorrhea and sore throat. Eyes: Negative for pain. Respiratory: Negative for cough and shortness of breath. Cardiovascular: Negative for chest pain, palpitations and leg swelling. Gastrointestinal: Negative for anorexia, diarrhea and vomiting. Endocrine: Negative for cold intolerance, heat intolerance and polydipsia. Musculoskeletal: Negative for joint pain. Skin: Positive for rash. Negative for nail changes. Allergic/Immunologic: Negative for environmental allergies, (more content not included)...[facility]01-13-2025 History of Present illness Narrative* Radha Brown APRN.INDUSTRY ANALYST - 06/18/2024 12:01 PM EST This note was created using [employer]. Subjective Kumar Harrison is a 28 year old male. 28 year old male with PMH eczema, ODD, mood disorder, bipolar, depression, and [facility] 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 No spanish language lecturer was used. Rash This is a new problem. The current episode started 1 to 4 weeks ago. The problem is unchanged. Location: left wrist. The rash is characterized by redness, itchiness and burning. 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 Pertinent negatives include no anorexia, congestion, cough, diarrhea, eye pain, facial edema, fatigue, fever, joint pain, nail changes, rhinorrhea, shortness of breath, sore throat or vomiting. Past treatments include nothing. The treatment provided no relief. His past medical history is significant for allergies and eczema. There is no history of asthma or varicella. PAST MEDICAL HISTORY Diagnosis Date Anxiety 07/05/2012 Asperger syndrome 07/05/2012 Attention deficit disorder with hyperactivity(314.01) Eczema 12/08/2012 History of bipolar disorder 08/05/2015 History of depression 08/05/2015 History of posttraumatic stress disorder (PTSD) 08/05/2015 Mood disorder (HCC) 12/08/2012 Nausea and vomiting 02/2020 ODD (oppositional defiant disorder) 07/05/2012 PMH - PAST MEDICAL HISTORY OF 10/11/03 normal color vision PAST SURGICAL HISTORY Procedure Laterality Date CIRCUMCISION W/CLAMP/OTH DEV W/BLOCK EGD 02/12/2020 ALLERGIES Haldol [Haloperidol] and Bowie Trees [Trees] MEDICATIONS pantoprazole DR (PROTONIX) 40 mg tablet TAKE ONE TABLET BY MOUTH TWICE DAILY on an EMPTY stomach 1/2 HOUR BEFORE A MEAL albuterol HFA (PROVENTIL HFA, VENTOLIN HFA) 90 mcg/actuation inhaler Inhale 2 Puffs as instructed every 6 hours as needed for Wheezing/Shortness of Breath. triamcinolone (KENALOG) 0.025 % ointment Apply to affected area three times a day. white petrolatum (AQUAPHOR) 41 % topical ointment Apply to affected area as needed. sertraline (ZOLOFT) 50 mg tablet Take 50 mg by mouth once daily. (Patient not taking: Reported on 06/18/2024) Cetirizine (ZYRTEC) 10 mg cap Take by mouth. (Patient not taking: Reported on 06/18/2024) Nicotine Polacrilex (NICORETTE) [address] 2 mg between cheek and gum as needed. (Patient not taking: Reported on 01/03/2024) nicotine (NICODERM CQ) 21 mg/24 hr Apply 1 Patch as directed every 24 hours. (Patient not taking: Reported on 01/03/2024) omega-3 fatty acids/fish oil (OMEGA 3 FISH OIL ORAL) Take by mouth. (Patient not taking: Reported on 01/03/2024) ARIPiprazole (ABILIFY) 10 mg tablet Take 10 mg by mouth once daily. (Patient not taking: Reported on 06/18/2024) sildenafil (VIAGRA) 25 mg tablet Take 1 tablet by mouth 1 hour prior to sexual activity. (Patient not taking: Reported on 01/03/2024) ondansetron orally disintegrating (ZOFRAN ODT) 4 mg disintegrating tablet Take 1 tablet by mouth every 12 hours as needed for Nausea/Vomiting. (Patient not taking: Reported on 01/03/2024) flunisolide (AEROSPAN) 80 mcg/actuation HFAA Inhale 2 Puffs as instructed twice daily. (Patient nottaking: Reported on 01/03/2024) FAMILY HISTORY Problem Relation Age of Onset other (heart disease) Other maternal and paternal side Cancer Other maternal and paternal side other (lupus) Other great aunt,second cousin and great grandmother Colon Cancer No Family History Social History Tobacco Use Smoking status: Every Day Current packs/day: 1.50 Types: Cigarettes Smokeless tobacco: Never Tobacco comments: parents smoke inside Vaping Use Vaping status: Some Days Substance Use Topics Alcohol use: Not Currently Comment: rarely Drug use: Not Currently Types: Marijuana Comment: rarely Review of Systems Constitutional: Negative for activity change, appetite change, fatigue and fever. HENT: Negative for congestion, rhinorrhea and sore throat. Eyes: Negative for pain. Respiratory: Negative for cough and shortness of breath. Cardiovascular: Negative for chest pain, palpitations and leg swelling. Gastrointestinal: Negative for anorexia, diarrhea and vomiting. Endocrine: Negative for cold intolerance, heat intolerance and polydipsia. Musculoskeletal: Negative for joint pain. Skin: Positive for rash. Negative for nail changes. Allergic/Immunologic: Negative for environmental allergies, food allergies and immunocompromised state. Neurological: Negative for dizziness, seizures, facial asymmetry, speech difficulty, light-headedness, numbness and headaches. Hematological: Negative for adenopathy. Does not bruise/bleed easily. Psychiatric/Behavioral: Negative for agitation and behavioral problems. Objective BP 126/72 Pulse 84 Temp 37 C (98.6 F) Resp 16 Wt 87.3 kg (192 lb 7.4 oz) SpO2 98% BMI 26.84 kg/m Physical Exam Vitals and nursing note reviewed. Constitutional: General: He is not in acute distress. Appearance: Normal appearance. He is not ill-appearing, toxic-appearing or diaphoretic. HENT: Head: Normocephalic and atraumatic. Right Ear: External ear normal. Left Ear: External ear normal. Nose: Nose normal. No congestion or rhinorrhea. Mouth/Throat: Mouth: Mucous membranes are moist. Pharynx: Oropharynx is clear. No oropharyngeal exudate or posterior oropharyngeal erythema. Eyes: General: Right eye: No discharge. Left eye: No discharge. Extraocular Movements: Extraocular movements intact. Conjunctiva/sclera: Conjunctivae normal. Pupils: Pupils are equal, round, and reactive to light. Cardiovascular: Rate and Rhythm: Normal rate and regular rhythm. Pulses: Normal pulses. Heart sounds: Normal heart sounds. No murmur heard. No friction rub. No gallop. Pulmonary: Effort: Pulmonary effort is normal. No respiratory distress. Breath sounds: Normal breath sounds. No stridor. No wheezing, rhonchi or rales. Chest: Chest wall: No tenderness. Abdominal: General: Abdomen is flat. There is no distension. Palpations: Abdomen is soft. There is no mass. Tenderness: There is no abdominal tenderness. There is no guarding or rebound. Hernia: No hernia is present. Musculoskeletal: General: No swelling, tenderness, deformity or signs of injury. Normal range of motion. Cervical back: Normal range of motion and neck supple. No rigidity or tenderness. Right lower leg: No edema. Left lower leg: No edema. Lymphadenopathy: Cervical: No cervical adenopathy. Skin: General: Skin is warm and dry. Capillary Refill: Capillary refill takes less than 2 seconds. Coloration: Skin is not jaundiced or pale. Findings: Rash present. No bruising or lesion. Comments: Left anterior forearm with raised, scaled pruritic rash No abscess NO crepitus No streaking No petechia Neurological: General: No focal deficit present. Mental Status: He is alert and oriented to person, place, and time. Cranial Nerves: No cranial nerve deficit. Sensory: No sensory deficit. Motor: No weakness. Coordination: Coordination normal. Gait: Gait normal. Deep Tendon Reflexes: Reflexes normal. Psychiatric: Mood and Affect: Mood normal. Behavior: Behavior normal. Thought Content: Thought content normal. Assessment and Plan ASSESSMENT/PLAN: 1. Eczema, unspecified type - ICD9: 692.9, ICD10: L30.9 X one month No red flags - Topical steriod tx with Rx for steriod cream/ointment- see orders - Anti itch therapy of OTC 1% Hydrocortisone cream and Aquaphor recommended prn - discussed skin care of rash - follow up if symptoms persist or worsen. Radha Brown APRN.INDUSTRY ANALYST [facility]* Jeniffer Prince LPN - 01/03/2024 11:57 AM EDT Bilateral ears flushed with warm water. Large amount of cerumen removed from bilast ears. Patient tolerated procedure well. Jeniffer Prince LPN [facility]07-[facility] Nurse Note* Jeniffer Prince LPN - 01/03/2024 11:57 AM EDT Bilateral ears flushed with warm water. Large amount of cerumen removed from bilast ears. Patient tolerated procedure well. Jeniffer Prince LPN documented in this encounterFair[facility]07-[facility]24 History of Present illness Narrative* Radha Brown APRN.INDUSTRY ANALYST - 01/03/2024 8:34 AM EDT This note was created using [employer]. Subjective Kumar Harrison is a 28 year old male. 28 year old male with PMH ODD, mood disorder, anxiety, Asperger, bipolar presents for complaints ofear pain. Acute onset one week ago Right ear Feels dry and sore Placed peroxide in ear along with toilet paper That seemed to make it worse Denies accompanying URI sx Denies cough Denies eye, nose or throat Denies fever or chills. Denies tobacco usage. The history is provided by the patient. No spanish language lecturer was used. Ear Problem There is pain in the right ear. This is a new problem. The current episode started in the past 7 days. The problem occurs constantly. The problem has been gradually worsening. There has been no fever. The pain is at a severity of 0/10. The patient is experiencing no pain. Pertinent negatives include no abdominal pain, coughing, diarrhea, ear discharge, headaches, hearing loss, neck pain, rash, rhinorrhea, sore throat or vomiting. Treatments tried: hydrogen peroxide and toilet paper. The treatment provided no relief. There is no history of a chronic ear infection, hearing loss or a tympanostomy tube. PAST MEDICAL HISTORY Diagnosis Date Anxiety 07/05/2012 Asperger syndrome 07/05/2012 Attention deficit disorder with hyperactivity(314.01) Eczema 12/08/2012 History of bipolar disorder 08/05/2015 History of depression 08/05/2015 History of posttraumatic stress disorder (PTSD) 08/05/2015 Mood disorder (HCC) 12/08/2012 Nausea and vomiting 02/2020 ODD (oppositional defiant disorder) 07/05/2012 PMH - PAST MEDICAL HISTORY OF 10/11/03 normal color vision PAST SURGICAL HISTORY Procedure Laterality Date CIRCUMCISION W/CLAMP/OTH DEV W/BLOCK EGD 02/12/2020 ALLERGIES Haldol [Haloperidol] and Bowie Trees [Trees] MEDICATIONS sertraline (ZOLOFT) 50 mg tablet Take 50 mg by mouth once daily. Cetirizine (ZYRTEC) 10 mg cap Take by mouth. ARIPiprazole (ABILIFY) 10 mg tablet Take 10 mg by mouth once daily. albuterol HFA (PROVENTIL HFA, VENTOLIN HFA) 90 mcg/actuation inhaler Inhale 2 Puffs as instructed every 6 hours as needed for Wheezing/Shortness of Breath. amoxicillin (AMOXIL) 875 mg tablet Take 1 tablet by mouth two times a day for 7 days. ciprofloxacin-dexAMETHasone (CIPRODEX) 0.3-0.1 % otic suspension Use 4 Drops in both ears two timesa day. pantoprazole DR (PROTONIX) 40 mg tablet TAKE ONE TABLET BY MOUTH TWICE DAILY on an EMPTY stomach 1/2 HOUR BEFORE A MEAL (Patient not taking: Reported on 01/03/2024) Nicotine Polacrilex (NICORETTE) [address] 2 mg between cheek and gum as needed. (Patient not taking: Reported on 01/03/2024) nicotine (NICODERM CQ) 21 mg/24 hr Apply 1 Patch as directed every 24 hours. (Patient not taking: Reported on 01/03/2024) omega-3 fatty acids/fish oil (OMEGA 3 FISH OIL ORAL) Take by mouth. (Patient not taking: Reported on 01/03/2024) sildenafil (VIAGRA) 25 mg tablet Take 1 tablet by mouth 1 hour prior to sexual activity. (Patient not taking: Reported on 01/03/2024) ondansetron orally disintegrating (ZOFRAN ODT) 4 mg disintegrating tablet Take 1 tablet by mouth every 12 hours as needed for Nausea/Vomiting. (Patient not taking: Reported on 01/03/2024) flunisolide (AEROSPAN) 80 mcg/actuation HFAA Inhale 2 Puffs as instructed twice daily. (Patient nottaking: Reported on 01/03/2024) FAMILY HISTORY Problem Relation Age of Onset other (heart disease) Other maternal and paternal side Cancer Other maternal and paternal side other (lupus) Other great aunt,second cousin and great grandmother Colon Cancer No Family History Social History Tobacco Use Smoking status: Every Day Packs/day: 1.5 Types: Cigarettes Smokeless tobacco: Never Tobacco comments: parents smoke inside Vaping Use Vaping Use: Some days Substance Use Topics Alcohol use: Not Currently Comment: rarely Drug use: Not Currently Types: Marijuana Comment: rarely Review of Systems Constitutional: Negative for activity change, appetite change, chills, diaphoresis, fatigue, fever and unexpected weight change. HENT: Positive for ear pain. Negative for congestion, ear discharge, hearing loss, rhinorrhea and sore throat. Eyes: Negative for photophobia, pain, discharge, redness, itching and visual disturbance. Respiratory: Negative for apnea, cough and chest tightness. Cardiovascular: Negative for chest pain, palpitations and leg swelling. Gastrointestinal: Negative for abdominal pain, diarrhea and vomiting. Musculoskeletal: Negative for back pain and neck pain. Skin: Negative for color change, pallor and rash. Allergic/Immunologic: Negative for environmental allergies, food allergies and immunocompromised state. Neurological: Negative for dizziness, facial asymmetry and headaches. Hematological: Negative for adenopathy. Does not bruise/bleed easily. Psychiatric/Behavioral: Negative for agitation and behavioral problems. Objective BP 112/79 Pulse 87 Temp 36.4 C (97.6 F) Resp 18 Wt 95 kg (209 lb 7 oz) SpO2 96% BMI 29.21 kg/m Physical Exam Vitals and nursing note reviewed. Constitutional: General: He is not in acute distress. Appearance: Normal appearance. He is not ill-appearing, toxic-appearing or diaphoretic. HENT: Head: Normocephalic and atraumatic. Right Ear: External ear normal. Left Ear: External ear normal. Ears: Comments: Initial exam reveals bilateral impacted cerumen. After nursing irrigates, the right EAC is erythematous and swollen. TM visualized and bulging. Left EAC normal appearing. Nose: Nose normal. No congestion or rhinorrhea. Mouth/Throat: Mouth: Mucous membranes are moist. Pharynx: Oropharynx is clear. No oropharyngeal exudate or posterior oropharyngeal erythema. Eyes: General: Right eye: No discharge. Left eye: No discharge. Extraocular Movements: Extraocular movements intact. Conjunctiva/sclera: Conjunctivae normal. Pupils: Pupils are equal, round, and reactive to light. Cardiovascular: Rate and Rhythm: Normal rate and regular rhythm. Pulses: Normal pulses. Heart sounds: Normal heart sounds. No murmur heard. No friction rub. No gallop. Pulmonary: Effort: Pulmonary effort is normal. No respiratory distress. Breath sounds: Normal breath sounds. No stridor. No wheezing, rhonchi or rales. Chest: Chest wall: No tenderness. Abdominal: General: Abdomen is flat. There is no distension. Palpations: Abdomen is soft. There is no mass. Tenderness: There is no abdominal tenderness. There is no guarding or rebound. Hernia: No hernia is present. Musculoskeletal: General: No swelling, tenderness, deformity or signs of injury. Normal range of motion. Cervical back: Normal range of motion and neck supple. No rigidity or tenderness. Right lower leg: No edema. Left lower leg: No edema. Lymphadenopathy: Cervical: No cervical adenopathy. Skin: General: Skin is warm and dry. Capillary Refill: Capillary refill takes less than 2 seconds. Coloration: Skin is not jaundiced or pale. Findings: No bruising, lesion or rash. Neurological: General: No focal deficit present. Mental Status: He is alert and oriented to person, place, and time. Cranial Nerves: No cranial nerve deficit. Sensory: No sensory deficit. Motor: No weakness. Coordination: Coordination normal. Gait: Gait normal. Deep Tendon Reflexes: Reflexes normal. Psychiatric: Mood and Affect: Mood normal. Behavior: Behavior normal. Thought Content: Thought content normal. Assessment and Plan ASSESSMENT/PLAN: 1. Bilateral impacted cerumen - ICD9: 380.4, ICD10: H61.23 (primary diagnosis) Irrigated by nursing, see nurse documentation. - AMBULATORY EAR LAVAGE/IRRIGATION After removal patient endorses improved feelings of ears 2. Acute otitis media, right - ICD9: 382.9, ICD10: H66.91 - Will begin treatment with as per antibiotic as written, see orders - The patient should also be given OTC cough and cold meds as needed and warm salt water gargles, throat lozenges and/or OTC throat spray as needed for the first 5-7 days of treatment. - Supportive care with plenty of fluids, rest, and analgesia prn. - Follow up in 3-5 days if symptoms persist or worsen. 3. Other otitis externa, bilateral - ICD9: 380.22, ICD10: H60.8X3 Ciprodex drops Radha Brown APRN.INDUSTRY ANALYST documented in this encounterFair[facility]05-[facility]24 NoteDischarge Summary Kumar Hartmann : 1995 ADMIT DATE: 10/31/2023 DISCHARGE DATE: 11/04/2023 PRIMARY CARE PHYSICIAN: Troy Mao VISIT STATUS: Admission CODE STATUS: Full Code DISCHARGE DIAGNOSES: Unspecified mood disorder Cannot rule out malingering HOSPITAL COURSE: Patient is a 28-year-old male with a history of bipolar disorder ADHD autism who presented to the emergency department on the with suicidal ideation. Patient was evaluated and was kept on his home regimen of sertraline and aripiprazole. Within 24 hours his symptoms remarkably improved and he stated he felt much better once a plan was made for him to go to the [facility] and received sober living resources. Because his symptoms improved so remarkably without any medication adjustments or any major psychotherapy there is some suspicion that his symptom report could have been motivated by secondary gain. The patient had no major behavioral issues and wanted to continue getting services for his psychiatric medications. He denied cravings for drugs and alcohol at time of discharge and denied suicidal or homicidal ideation. He contracted for safety and stated he would return to the hospital if necessary. He was thankful for services given. SIGNIFICANT DIAGNOSTIC STUDIES: N/a CONSULTANTS: darrius Carbajal RECOMMENDED NEXT STEPS: [facility] Attempt made to contact significant other to review discharge plan at time of discharge. We were unable to contact significant other identified. Patient was provided opportunity to designate another possible contact and declined. Patient gave only collateral number for his mother who had the number disconnected. He was unable to provide any other sources of collateral information DISCHARGE MEDICATIONS: Medication List CONTINUE taking these medications ARIPiprazole 10 MG tablet Commonly known as: Abilify Take 1 tablet (10 mg) by mouth daily. cholecalciferol 25 MCG (1000 UT) capsule Commonly known as: Vitamin D-3 Fish Oil 1200 MG capsule delayed-release ibuprofen 600 MG tablet pantoprazole 40 MG EC tablet Commonly known as: ProtoNix sertraline 50 MG tablet Commonly known as: Zoloft Take 1 tablet (50 mg) by mouth daily. STOP taking these medications acetaminophen 500 MG tablet Commonly known as: Tylenol Where to Get Your Medications These medications were sent to [facility] [place] - [address] [place], [place] - [address] [facility] [address] [facility] [id number]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 Tobacco Use Smoking status: Every Day Packs/day: 1.5 Types: Cigarettes Smokeless tobacco: Never Tobacco comments: parents smoke inside Vaping Use Vaping Use: Some days Substance Use Topics Alcohol use: Not Currently Comment: rarely Drug use: Not Currently Types: Marijuana Comment: rarely Review of Systems: Review of Systems Constitutional: Positive for appetite change. HENT: Positive for sore throat. Gastrointestinal: Positive for nausea and vomiting. Gas, Heartburn All other systems reviewed and are negative. Are you taking any blood thinners? No Physical Examination: BP 110/62 Pulse 67 Ht 5' 11 (1.80m) Wt 205 lb (93.0kg) BMI 28.60 kg/(m^2). Physical Exam Constitutional: General: He is not in acute distress. Appearance: Normal appearance. He is normal weight. He is not ill-appearing, toxic-appearing or diaphoretic. HENT: Head: Normocephalic and atraumatic. Nose: Nose normal. Eyes: General: No scleral icterus. Right eye: No discharge. Left eye: No discharge. Extraocular Movements: Extraocular movements intact. Conjunctiva/sclera: Conjunctivae normal. Pupils: Pupils are equal, round, and reactive to light. Cardiovascular: Rate and Rhythm: Normal rate and regular rhythm. Pulses: Normal pulses. Heart sounds: Normal heart sounds. No murmur heard. No friction rub. No gallop. Pulmonary: Effort: No respiratory distress. Breath sounds: Normal breath sounds. No stridor. No wheezing, rhonchi or rales. Chest: Chest wall: No tenderness. Abdominal: General: Abdomen is flat. Bowel sounds are normal. There is no distension. Palpations: Abdomen is soft. There is no mass. Tenderness: There is no abdominal tenderness. There is no right CVA tenderness, left CVA tenderness, guarding or rebound. Hernia: No hernia is present. Musculoskeletal: General: Normal range of motion. Cervical back: Normal range of motion and neck supple. Skin: General: Skin is warm and dry. Neurological: General: No focal deficit present. Mental Status: He is alert and oriented to person, place, and time. Psychiatric: Mood and Affect: Mood normal. Behavior: Behavior normal. Assessment/Plan (K44.9, K21.00) Hiatal hernia with GERD and esophagitis (primary encounter diagnosis) (R11.2) Nausea and vomiting, unspecified vomiting type 1. Hiatal hernia with GERD and esophagitis - EGD DIAGNOSTIC; Future - Discussed GERD precautions and provided printed edu handout - Will plan to repeat EGD to assess for active esophagitis, IM, r/o H. Pylori - Advised to increase Protonix to 40 mg BID, pt will call office back with pharmacy info regarding this as he is currently at [facility] - May continue Zofran PRN - US to r/o biliary disease - Consider GES pending initial workup results 2. Nausea and vomiting, unspecified vomiting type - US ABD RIGHT UPPER QUADRANT; Future - EGD DIAGNOSTIC; Future Recommended to please call office/go to ER if fever, chills, chest pain, SOB, diarrhea, nausea, emesis, worsening abdominal pain, dehydration occurs I spent a total of 20 minutes on the date of the service which included preparing to see the patient, [id number] patient care, completing clinical documentation, obtaining and/or reviewing separately obtained history, performing a medically appropriate examination, counseling and educating the pat ient/family/caregiver, ordering medications, tests, or procedures, communicating with other HCPs (not separately reported), independently interpreting results (not separately reported), communicatingresults to the patient/family/caregiver, and care coordination (not separately reported). Kat Rios PA-C March 29, 2023 11:50 AM documented in [facility] Telephone encounter Note * Telephone Encounter - Romelia Crawford RN - 02/28/2023 3:18 PM EDT [employer] did receive message, pt will shower, try cortisone cream otc, try again with tabs, if not tolerated the company can supply tabs for sensitive skin, will let us know [id number] Miscellaneous Notes* Telephone Encounter - Romelia Crawford RN - 02/28/2023 3:18 PM EDT [employer] did receive message, pt will shower, try cortisone cream otc, try again with tabs, if not tolerated the company can supply tabs for sensitive skin, will let us know * Telephone Encounter - Romelia Crawford RN - 02/28/2023 11:52 AM EDT Called, left message * Telephone Encounter - Brianne Palencia - 02/28/2023 10:23 AM EDT [employer] from [facility] called on behalf of pt. Pt. Developed a bad rash / itching due to event monitor. Please return call to [employer] to discuss what can be done for pt. [phone] ext # [phone] documented in this encounterSOhioHealth [facility] [id number] Telephone encounter Note* Telephone Encounter - Romelia Crawford RN - 02/28/2023 11:52 AM EDT Called, left message [id number] Telephone encounter Note* Telephone Encounter - Brianne Palencia - 02/28/2023 10:23 AM EDT [employer] from [facility] called on behalf of pt. Pt. Developed a bad rash / itching due to event monitor. Please return call to [employer] to discuss what can be done for pt. [phone] ext # [phone] [facility] [id number] History of Present illness Narrative* Hilda Suarez MD - 12/16/2022 2:00 PM EDT [facility] Cardiology [facility] CARDIOLOGY [address] [place] [id number] Dept: [phone] Dept Visit type: New : 1995 Chief Complaint: Chief Complaint Patient presents with New Patient History of Present Illness: Kumar Harrison is a 27 y.o. male is here for evaluation of palpitations. He states that experiences palpitations, fluttering in his chest when he exercises. These episodes do not occur when he is resting. This is started recently. He had an EKG performed at his facility which was reported as junctional rhythm. However on review of the EKG, it appears that he does have low voltage regular P wavessuggestive of a sinus rhythm. He also complains of chest tightness when he has these episodes. He denies shortness of breath, dizziness or presyncopal symptoms. BP is 110/74. ECG shows sinus rhythm. Denies family history of sudden cardiac . Denies family history of pacemakers or ICD placement. He does smoke cigarettes but denies use of recreational medications. He denies excessive use of caffeine or alcohol. Assessment and Plan: Palpitations on exercise-based on her symptoms, will obtain a exercise treadmill stress test. Additionally,, will check a groundwater monitoring technician to rule out significant tachyarrhythmias. He is on multiple psychotropic medications which can cause symptoms of palpitations as well as dizziness. If cardiac testing is negative, consider switching some of his psychotropic medications. Assessment and plan was discussed with patient who verbalized understanding and agreement. Past Medical History: Past Medical History: Diagnosis Date ADD (attention deficit disorder) Asthma Autism Depression GERD (gastroesophageal reflux disease) High cholesterol Manic bipolar I disorder ([facility]/HCC) ([facility]) OCD (obsessive compulsive disorder) PTSD (post-traumatic stress disorder) Past Surgical History History reviewed. No pertinent surgical history. Family History Family History Problem Relation Name Age of Onset Heart attack Maternal Grandmother Heart attack Maternal Grandfather Social History Social History Tobacco Use Smoking status: Every Day Packs/day: 1.00 Types: Cigarettes Start date: 2010 Smokeless tobacco: Current Tobacco comments: Vape Substance Use Topics Alcohol use: Not Currently Drug use: Not Currently Types: Methamphetamines, Marijuana Comment: caffiene: none Allergies: Allergies Allergen Reactions Haldol [Haloperidol] Psychosis Medications: Current Outpatient Medications: Albuterol Sulfate 108 (90 Base) MCG/ACT aerosol powder , Inhale every 4 hours as needed., Disp: , Rfl: ARIPiprazole (Abilify) 15 MG tablet, Take 15 mg by mouth daily., Disp: , Rfl: lamoTRIgine (LaMICtal) 25 MG tablet, Take 25 mg by mouth daily., Disp: , Rfl: omega-3 (Fish Oil) 1200 MG capsule, Take 1,200 mg by mouth daily., Disp: , Rfl: omeprazole (PriLOSEC) [address] capsule, Take 40 mg by mouth every morning (before breakfast). Do not crush or chew., Disp: , Rfl: prazosin (Minipress) 2 MG capsule, Take 2 mg by mouth Nightly., Disp: , Rfl: sertraline (Zoloft) 50 MG tablet, Take by mouth daily., Disp: , Rfl: Review of Systems: Review of Systems Constitutional: Negative for chills and fever. Respiratory: Negative for cough and shortness of breath. Cardiovascular: Positive for palpitations (during exercise). Negative for chest pain and leg swelling. Gastrointestinal: Negative for abdominal pain, blood in stool and vomiting. Genitourinary: Negative for hematuria. Neurological: Negative for dizziness, syncope and light-headedness. Physical Examination: Vitals: Vitals: 12/16/22 1347 BP: 110/74 BP Location: Right arm Patient Position: Sitting BP Cuff Size: Large adult Pulse: 65 SpO2: 97% Weight: 197 lb 12.8 oz (89.7 kg) Height: 5' 11 (1.803 m) Body mass index is 27.59 kg/m . Physical Exam Constitutional: General: He is not in acute distress. Appearance: He is normal weight. He is not ill-appearing. HENT: Head: Normocephalic. Nose: No congestion or rhinorrhea. Mouth/Throat: Pharynx: No oropharyngeal exudate. Eyes: General: No scleral icterus. Extraocular Movements: Extraocular movements intact. Pupils: Pupils are equal, round, and reactive to light. Neck: Vascular: No carotid bruit. Cardiovascular: Rate and Rhythm: Normal rate and regular rhythm. Heart sounds: Normal heart sounds. No murmur heard. No friction rub. No gallop. Pulmonary: Effort: Pulmonary effort is normal. No respiratory distress. Breath sounds: Normal breath sounds. No wheezing or rales. Abdominal: General: Abdomen is flat. There is no distension. Palpations: Abdomen is soft. Musculoskeletal: Cervical back: Neck supple. No tenderness. Right lower leg: No edema. Left lower leg: No edema. Skin: General: Skin is warm and dry. Capillary Refill: Capillary refill takes less than 2 seconds. Coloration: Skin is not jaundiced. Findings: No rash. Neurological: Mental Status: He is alert and oriented to person, place, and time. Cardiac Tests: EC12/16/22 Sinus Rhythm WITHIN NORMAL LIMITS ECG Measurements Heart Rate IN interval P wave axis QRS duration 65 BPM 120 msec 35 deg 88 msec QRS wave axis QT interval QTC interval T wave axis 72 deg 352 msec 360 msec 62 deg documented in [facility]05-30-[address] Mejia [facility] November 02, 2022 8:37pm Note Date/Time November 02, 2022 1:33p [facility] Medical Records Department [address] [place] [address] Emergency Department Summary 11/02/22 MR#: [id number] Acct: [id number] Name: KUMAR HARRISON Rep #:[id number] : 1995 27 From: Sloane Suarez DO PCP: EDE [place] Status:REG ER Location: ED ADDENDUM by Dr. Rafa Mejia DO on 11/02/[address] Mejia note. Pt Is acccepted and will be admitted to [facility]. Dr. Chavira the accepting physician. Please see [facility] licensed prosthetist/orthotist/case advocate. Diagnosis: suicidal ideation, history of autism. Critical care time 35 minutes exclusive from separate billable procedures that were performed. The following was considered in the determination of critical care but not limited to the level of medical decision making, intensive cardiac and/or respiratory monitoring, frequent vital sign monitoring, evaluation of laboratory studies, evaluation of radiographic studies, oxygen monitoring, and constant monitoring and speaking to family at bedside 11/02/222036<Electronically signed by Rafa Mejia DO> Cosigner Signature (if applicable): cc: TOOLROOM CLERK-C Shashank Marrfuo ~* Signed HPI HPI - Psych History of Present Illness Chief Complaint: Suicidal Detail of Chief Complaint: Depression and suicidal ideation Informant: patient Narrative Narrative: Patient presents to the emergency department with thoughts of self-harm. Patient with history of same. He was just discharged from [facility] today. Patient states that he was admitted there 5 days ago and was seen by the psychiatrist 5 days ago and then again today. Patient states the psychiatrist was very rude to him and told him that if the patient did not agreeto take the Invega shot he would discharge him. Patient states that he had sideeffects from the Invega shot including priapism and would not take it. Patient states that prior to the admission at [facility] he had been at [facility] where he was treated well but when he got out his family put a note trespass order out on him and had some other issues that came up and patient again became suicidal. Patient having thoughts of wanting to shoot himself witha gun. He denies recent illness otherwise. PFSH [facility] Medical History ADD (attention deficit disorder) Autism Bipolar 1 disorder GERD (gastroesophageal reflux disease) Suicidal behavior Home Medications NK 10/20/22 [History Last Taken Unknown] Allergy/AdvReac Type Severity Reaction Status Date / Time Environmental Allergies: Allergy Hives Verified 11/02/22 13:14 Uncoded [pine] haloperidol [From Haldol] AdvReac HALLUCINATI Verified 11/02/22 13:14 ONS Social History (Updated 10/20/22 @ 15:[address] Moses Pascual MD) household members: none and other details: Patient is incarcerated Smoking Status: Former smoker details: No alcohol since incarceration substance use type: marijuana and other details: no IVDU ROS ROS ED Review of Systems ROS Unobtainable: other Constitutional Constitutional ED: Reports lethargy; Denies chills, fever(s), sweats or weight loss Eyes Eyes: Denies blurry vision, change in vision or diplopia ENT ENT ED: Denies rhinorrhea or sore throat Cardiovascular Cardiovascular: Denies chest pain, orthopnea or racing heartbeat Respiratory/Chest Respiratory/Chest: Denies cough, dyspnea, dyspnea on exertion, orthopnea or sputum Gastrointestinal Gastrointestinal: Denies abdominal pain, diarrhea, nausea or vomiting Genitourinary Genitourinary ED: Denies dysuria, hematuria or urinary frequency Musculoskeletal Musculoskeletal: Denies arthralgias, back pain, myalgias or neck pain Integumentary Denies abscess, Abrasions or rash Neurologic Neurologic: Denies headache(s) or weakness Psychiatric Psychiatric: Denies anxiety, depression or suicidal thoughts Endocrine Endocrinology: Denies polydipsia, polyphagia or polyuria Hematologic/Lymphatic Hematologic/Lymphatic: Denies easy bleeding, easy bruising or lymphadenopathy Allergic/Immunologic Allergic/Immunologic ED: Denies mouth swelling, tongue swelling or urticaria EXAM Physical Exam Const Vital Signs: 11/02/22 13:11 Temperature 96.5 F L Temperature Source Temporal Pulse Rate 94 Respiratory Rate 18 Blood Pressure 116/91 H Blood Pressure Mean 99 Pulse Ox 96 Oxygen Delivery Method Room Air Positive well nourished and well developed General Appearance ED: well developed and NAD HEENT Reports TM's clear and moist mucous membranes normocephalic and atraumatic; Negative for trauma or tenderness Tympanic Membrane ED: Yes TM's clear Eyes PERRL and EOMs intact bilaterally General Eye ED: Negative for pale conjunctiva or scleral icterus Neck no lymphadenopathy, supple and no JVD General: Negative for tenderness Chest Wall inspection of chest normal and palpation of chest normal Chest: Negative for tenderness Resp normal respiratory effort and clear to auscultation bilaterally Effort and Inspection: Negative for respiratory distress or pain with movement Auscultation: Negative for rhonchi, wheezes or diminished lung sounds Cardio regular rate, regular rhythm, S1 normal heart sound, S2 normal heart sound and no murmurs Peripheral Pulses: pulses 2+ throughout GI normal to inspection, nondistended, normoactive bowel sounds, soft to palpation,non-tender, non-distended and no masses Back/Spine no CVA tenderness and no thoracic nor lumbar tenderness Extremity normal to inspection General Extremety ED: Negative for edema General Extremity: Negative for edema Neuro oriented x3, CN's II-XII intact bilaterally, no sensory deficits noted and gait normal Sensorium / Orientation: awake, alert, oriented to person, oriented to place andoriented to time Motor Exam: strength 5/5 throughout and strength abnormal Psych mental status grossly normal and denies homicidal ideation; Negative for denies suicidal ideation Psych Narrative: Patient presents with suicidal ideation Skin no rashes or lesions noted and no wounds MDM MDM MDM Narrative Medical decision making narrative: Patient presents with thoughts of suicide just discharged from psychiatric facility today. Patient feels like he still suicidal and needs admission to another facility. Patient had a CBC with differential that showed a slightly elevated white count of 13.2 with a hemoglobin of 15 and hematocrit of 45 and platelet count of 272. Chemistries unremarkable. Urine tox cream positive for THC. Patient will be evaluated by our director of social work. Care of patient turned over to evening physician awaiting evaluation by director of social work and final disposition for history of depression and suicidal ideation. Patient medically cleared. Lab Data Attestation: I reviewed the patient's lab results. Labs: Laboratory Results - last 24 hr 11/02/22 11/02/22 11/02/22 13:35 13:35 13:35 WBC 13.2 H RBC 5.07 Hgb 15.2 Hct 44.9 MCV 88.6 MCH 30.0 MCHC 33.9 RDW Std Deviation 40.2 RDW Coeff of Sis 12.4 Plt Count 272 MPV 9.6 Immature Gran % (Auto) 0.800 Neut % (Auto) 85.3 H Lymph % (Auto) 7.8 L [place] % (Auto) 5.1 Eos % (Auto) 0.5 Baso % (Auto) 0.5 Absolute Neuts (auto) 11.3 H Absolute Lymphs (auto) 1.02 Nucleated RBC % 0 Sodium 137 Potassium 3.8 Chloride 104 Carbon Dioxide 26.0 Anion Gap 7 BUN 9 Creatinine 0.82 Estim Creat Clear Calc 146.67 Est GFR (MDRD) Af Amer 146 Est GFR (MDRD) Non-Af 121 BUN/Creatinine Ratio 10.9 Glucose 106 Calcium 9.5 Urine Opiates Screen Urine Methadone Screen Ur Barbiturates Screen Ur Phencyclidine Scrn Ur Amphetamines Screen MDMA (Ecstasy) Screen U Benzodiazepines Scrn Urine Cocaine Screen U Cannabinoids Screen Ur Drug Screen Comment Ethyl Alcohol < 3.0 11/02/22 14:00 WBC RBC Hgb Hct MCV MCH MCHC RDW Std Deviation RDW Coeff of Sis Plt Count MPV Immature Gran % (Auto) Neut % (Auto) Lymph % (Auto) [place] % (Auto) Eos % (Auto) Baso % (Auto) Absolute Neuts (auto) Absolute Lymphs (auto) Nucleated RBC % Sodium Potassium Chloride Carbon Dioxide Anion Gap BUN Creatinine Estim Creat Clear Calc Est GFR (MDRD) Af Amer Est GFR (MDRD) Non-Af BUN/Creatinine Ratio Glucose Calcium Urine Opiates Screen NEGATIVE Urine Methadone Screen NEGATIVE Ur Barbiturates Screen NEGATIVE Ur Phencyclidine Scrn NEGATIVE Ur Amphetamines Screen NEGATIVE MDMA (Ecstasy) Screen NEGATIVE U Benzodiazepines Scrn NEGATIVE Urine Cocaine Screen NEGATIVE U Cannabinoids Screen POSITIVE H Ur Drug Screen Comment Ethyl Alcohol Discharge Plan Triage Chief Complaint: Suicidal ED Provider: Sloane Suarez Dx/Rx/DC Orders Clinical Impression: Depression, Suicidal ideation Prescriptions: No Action NK Primary Care Provider: Shashank Marrufo NP Referrals: Shashank Marrufo NP, TOOLROOM CLERK-C [Primary Care Provider] - What to do if you have Problems For any increased pain, shortness of breath, bleeding, nausea or vomiting, chestpain, or any unexpected problems, contact your Primary Care Provider. Call [facility] ([phone]) or report to the closest Emergency Room. Call 911 if necessary. 11/02/22 1446 <Electronically signed by Sloane Suarez DO> Cosigner Signature (if applicable): CC: TOOLROOM CLERK-C Shashank Marrufo ~ Signed [facility] Work Phone: [phone] Pascual [facility] October 20, 2022 3:09pm Note Date/Time October 20, 2022 3:09p [facility] Medical Records Department [address] [place] [address] Emergency Department Summary 10/20/22 MR#: [id number] Acct: [id number] Name: KUMAR HARRISON Rep #:[id number] : 1995 27 From: Moses Pascual MD PCP: GERTRUDE CancholaC Status:REG ER Location: ED HPI HPI - Psych History of Present Illness Chief Complaint: Suicidal Informant: patient and mental health staff Onset/Context/Timing Onset: Month(s) Context: Gradual Onset Narrative Narrative: Patient sent after evaluated by mental health staff for suicidality. Had 2 recent attempts, cutting on his left lower leg and an attempted hanging apparently in a public park. Patient states that was a couple weeks ago but he is remained suicidal, states he stopped taking his medications last year becausethey did not make him feel well and felt like they were making him feel worse than better. He states he feels like his bipolar is flaring up. He also feels like he has a history of mental trauma and that is his main reasoning for feeling suicidal. He denies using any drugs recently although he was using marijuana to treat his depression successfully for a while but then he started feeling like it was making him hallucinate so he stopped. [facility] Medical History ADD (attention deficit disorder) Autism Bipolar 1 disorder GERD (gastroesophageal reflux disease) Suicidal behavior Home Medications gabapentin 300 mg capsule 300 mg PO DAILY 12/25/20 [History Last Taken Unknown] gabapentin 300 mg capsule 900 mg PO QHS 12/25/20 [History Last Taken Unknown] pantoprazole 40 mg tablet,delayed release (Protonix) 40 mg PO DAILY 12/25/20 [History Last Taken Unknown] amoxicillin 500 mg tablet 500 mg PO TID #30 tabs 12/29/21 [Rx Last Taken Unknown] tramadol 50 mg tablet 50 mg PO Q4H PRN PRN Pain 2 days #12 tabs 12/29/21 [Rx Last Taken Unknown] Allergy/AdvReac Type Severity Reaction Status Date / Time Environmental Allergies: Allergy Hives Verified 10/20/22 12:15 Uncoded [pine] haloperidol [From Haldol] AdvReac HALLUCINATI Verified 10/20/22 12:15 ONS Social History (Updated 10/20/22 @ 15:[address] Moses Pascual MD) household members: none and other details: Patient is incarcerated Smoking Status: Former smoker details: No alcohol since incarceration substance use type: marijuana and other details: no IVDU ROS ROS ED Constitutional Constitutional ED: Denies chills or fever(s) Eyes Eyes: Denies change in vision or diplopia ENT ENT ED: Denies rhinorrhea or sore throat Cardiovascular Cardiovascular: Denies chest pain or palpitations Respiratory/Chest Respiratory/Chest: Denies cough or dyspnea Gastrointestinal Gastrointestinal: Denies abdominal pain, diarrhea, nausea or vomiting Genitourinary Genitourinary ED: Denies dysuria or hematuria Musculoskeletal Musculoskeletal: Denies back pain or neck pain Integumentary Denies abscess or rash Neurologic Neurologic: Denies headache(s), paresthesias or weakness Psychiatric Psychiatric: Reports depression, suicidal ideation and suicidal thoughts; Denieshomicidal ideation EXAM Physical Exam Const Vital Signs: 10/20/22 12:11 Temperature 98 F Temperature Source Temporal Pulse Rate 80 Respiratory Rate 16 Blood Pressure 122/80 H Blood Pressure Mean 94 Pulse Ox 98 Oxygen Delivery Method Room Air Positive well nourished and well developed General Appearance ED: well developed and NAD HEENT Reports moist mucous membranes normocephalic and atraumatic Eyes PERRL and EOMs intact bilaterally General Eye ED: Negative for scleral icterus Neck no lymphadenopathy and supple Resp normal respiratory effort and clear to auscultation bilaterally Cardio no murmurs Rate: regular rate Rhythm: regular rhythm GI non-tender and non-distended Auscultation: normoactive bowel sounds Palpation: soft Back/Spine no CVA tenderness and normal ROM Extremity normal to inspection General Extremety ED: Negative for edema General Extremity: Negative for edema Neuro oriented x3, CN's II-XII intact bilaterally, no sensory deficits noted and gait normal Sensorium / Orientation: alert Motor Exam: strength 5/5 throughout Psych mental status grossly normal, thought process normal, cooperative, activity/motor behavior normal and denies homicidal ideation Mood & Affect: depressed Thought Content: suicidality Attention / Concentration: attention grossly intact Memory / Cognition: memory grossly intact Insight: insight good Judgement: poor Skin Skin Narrative: Well-healed superficial abrasions without signs of infection left medial lower leg Lesions: no lesions Rashes: no rashes MDM MDM MDM Narrative Medical decision making narrative: Labs were obtained and noted, COVID is pending and presumed to be negative. Patient medically cleared. Will continue the pink slip that he arrived with, and have mental health staff work on placement. Lab Data Attestation: I reviewed the patient's lab results. Labs: Laboratory Results - last 24 hr 10/20/22 10/20/22 10/20/22 12:49 12:49 12:49 WBC 8.2 RBC 4.81 Hgb 14.5 Hct 43.4 MCV 90.2 MCH 30.1 MCHC 33.4 RDW Std Deviation 41.8 RDW Coeff of Sis 12.8 Plt Count 269 MPV 10.6 Immature Gran % (Auto) 0.200 Neut % (Auto) 76.9 H Lymph % (Auto) 12.5 L [place] % (Auto) 8.9 Eos % (Auto) 1.0 Baso % (Auto) 0.5 Absolute Neuts (auto) 6.3 Absolute Lymphs (auto) 1.02 Nucleated RBC % 0 Sodium 140 Potassium 3.4 L Chloride 110 H Carbon Dioxide 25.0 Anion Gap 5 BUN 6 L Creatinine 0.80 Estim Creat Clear Calc 150.34 Est GFR (MDRD) Af Amer 152 Est GFR (MDRD) Non-Af 125 BUN/Creatinine Ratio 7.5 L Glucose 93 Calcium 9.0 Urine Opiates Screen Urine Methadone Screen Ur Barbiturates Screen Ur Phencyclidine Scrn Ur Amphetamines Screen MDMA (Ecstasy) Screen U Benzodiazepines Scrn Urine Cocaine Screen U Cannabinoids Screen Ur Drug Screen Comment Ethyl Alcohol < 3.0 10/20/22 14:02 WBC RBC Hgb Hct MCV MCH MCHC RDW Std Deviation RDW Coeff of Sis Plt Count MPV Immature Gran % (Auto) Neut % (Auto) Lymph % (Auto) [place] % (Auto) Eos % (Auto) Baso % (Auto) Absolute Neuts (auto) Absolute Lymphs (auto) Nucleated RBC % Sodium Potassium Chloride Carbon Dioxide Anion Gap BUN Creatinine Estim Creat Clear Calc Est GFR (MDRD) Af Amer Est GFR (MDRD) Non-Af BUN/Creatinine Ratio Glucose Calcium Urine Opiates Screen NEGATIVE Urine Methadone Screen NEGATIVE Ur Barbiturates Screen NEGATIVE Ur Phencyclidine Scrn NEGATIVE Ur Amphetamines Screen NEGATIVE MDMA (Ecstasy) Screen NEGATIVE U Benzodiazepines Scrn NEGATIVE Urine Cocaine Screen NEGATIVE U Cannabinoids Screen POSITIVE H Ur Drug Screen Comment Ethyl Alcohol Discharge Plan Triage Chief Complaint: Suicidal ED Provider: Moses Pascual Dx/Rx/DC Orders Clinical Impression: Depression with suicidal ideation, Bipolar disorder Prescriptions: No Action pantoprazole [Protonix] 40 mg Tablet,Delayed Release (Dr/Ec) 40 mg PO DAILY gabapentin 300 mg capsule 300 mg PO DAILY Label Comments: TAKE 1 CAPSULE BY MOUTH TWICE DAILY gabapentin 300 mg capsule 900 mg PO QHS Label Comments: TAKE 1 CAPSULE BY MOUTH TWICE DAILY tramadol 50 mg tablet 50 mg PO Q4H PRN PRN (Reason: Pain) 2 Days Qty: 12 0RF amoxicillin 500 mg tablet 500 mg PO TID Qty: 30 0RF Primary Care Provider: Shashank Marrufo NP Referrals: Shashank Marrufo NP, TOOLROOM CLERK-C [Primary Care Provider] - Disposition Disposition: Psychiatric Hospital or Unit What to do if you have Problems For any increased pain, shortness of breath, bleeding, nausea or vomiting, chestpain, or any unexpected problems, contact your Primary Care Provider. Call [facility] ([phone]) or report to the closest Emergency Room. Call 911 if necessary. 10/20/22 1504 <Electronically signed by Moses Pascual MD> Cosigner Signature (if applicable): CC: EDE Marrufo ~ Signed [facility] Work Phone: Evaluation noteNo assessment information available [facility] Work Phone: Evaluation note* Diagnosis Dyslipidemia- Primary Other and unspecified hyperlipidemia Palpitations Chest pain, unspecified type documented in this encounter [facility] note* Diagnosis Palpitations documented in this encounter [facility] note* Diagnosis Palpitations Chest pain, unspecified type documented in this encounter [facility] note* Diagnosis Hiatal hernia with GERD and esophagitis- Primary Nausea and vomiting, unspecified vomiting type documented in this encounter [facility] note* Diagnosis Nausea and vomiting, unspecified vomiting type documented in this encounter [facility] note* Diagnosis History of posttraumatic stress disorder (PTSD)- Primary Hiatal hernia with GERD and esophagitis Nausea and vomiting, unspecified vomiting type documented in this encounter [facility] note* Diagnosis Left upper quadrant abdominal swelling, mass and lump documented in this encounter [facility] note* Diagnosis Gastroesophageal reflux disease with esophagitis [facility]* Diagnosis Left upper quadrant abdominal swelling, mass and lump- Primary documented in this encounter [facility] note* Diagnosis Bilateral impacted cerumen- Primary Impacted cerumen Acute otitis media, right Unspecified otitis media Other otitis externa, bilateral documented in this encounter [facility] note* Diagnosis Eczema, unspecified type- Primary [facility]* Diagnosis Gastroesophageal reflux disease with esophagitis, unspecified whether hemorrhage- Primary documented in this encounter [facility] note* Diagnosis Screen for STD (sexually transmitted disease)- Primary Screening examination for venereal disease documented in this encounter [facility] note* Diagnosis Exercise-induced asthma (HCC) Exercise induced bronchospasm [facility] Diagnosis Hiatal hernia with GERD and esophagitis- Primary Constipation, unspecified constipation type [facility] Additional Instructions As we discussed please try to adhere to a low acid diet. Your workup today was largely normal and your symptoms are most consistent with reflux/irritation of your esophagus and stomach from increased stomach acid. Please follow-up with GI. Please continue to take 40 mg pantoprazole twice a day as previously prescribed. You may take Tums or [id number] Maalox for breakthrough symptoms. You have been also been given a prescription for simethicone for a week to help with abdominal bloating. Return given progression worsening of your symptoms.[facility] Work Phone: Reason for referral (narrative)* Outpatient Procedure (Routine) - Pending Review Specialty Diagnoses / Procedures Referred By Elva durham Referred To Contact [facility] Diagnoses Hiatal hernia with GERD and esophagitis Nausea and vomiting, unspecified vomiting type Procedures EGD DIAGNOSTIC ESOPHAGOGASTRODUODENOSC OPY TRANSORAL DIAGNOSTIC Kat Rios PA-C [address] [facility] [place] [address] [facility] [address] [place] [address] Referral ID Status Reason Start Date Expiration Date Visits Requested Visits Authorized [id number] Pending Review Auto-Generat ed Referral 3 03/29/2024 1 1 * Diagnostic Procedure Only (Routine) - Pending Review Specialty Diagnoses / Procedures Referred By Elva durham Referred To Contact [facility] Diagnoses Nausea and vomiting, unspecified vomiting type Procedures US ABD RIGHT UPPER QUADRANT US ABDOMINAL REAL TIME W/IMAGE LIMITED Kat Rios PA-C [address] [facility] [place] [address] [place] [address] Referral ID Status Reason Start Date Expiration Date Visits Requested Visits Authorized [id number] Pending Review Auto-Generat ed Referral 3 04/27/2024 1 1 [facility] for referral (narrative)* Outpatient Procedure (Routine) - Closed Specialty Diagnoses / Procedures Referred By Elva t Referred To Contact [facility] Diagnoses Hiatal hernia with GERD and esophagitis Nausea and vomiting, unspecified vomiting type Procedures EGD DIAGNOSTIC ESOPHAGOGASTRODUODENOSC OPY TRANSORAL DIAGNOSTIC Kat Rios PA-C [address] [place] [address] [address] Referral ID Status Reason Start Date Expiration Date V isits Requested Visits Authorized [id number] Closed Auto-Generate d Referral 03/29/2023 03/29/2024 1 1 [facility] for referral (narrative)No reason for referral [facility]: [facility] for visit Narrative* Diagnostic Procedure Only (Routine) - Closed Specialty Diagnoses / Procedures Referred By Elva durham Referred To Contact [facility] Diagnoses Nausea and vomiting, unspecified vomiting type Procedures US ABD RIGHT UPPER QUADRANT US ABDOMINAL REAL TIME W/IMAGE LIMITED Kat Rios PA-C [address] [place] [address] [facility] Referral ID Status Reason Start Date Expiration Date V isits Requested Visits Authorized [id number] Closed Auto-Generate d Referral 03/29/2023 04/27/2024 1 1 [facility] for visit Narrative* Outpatient Procedure (Routine) - Closed Specialty Diagnoses / Procedures Referred By Elva t Referred To Contact [facility] Diagnoses Hiatal hernia with GERD and esophagitis Nausea and vomiting, unspecified vomiting type Procedures EGD DIAGNOSTIC ESOPHAGOGASTRODUODENOSC OPY TRANSORAL DIAGNOSTIC Kat Rios PA-C [address] [place] [address] [address] Referral ID Status Reason Start Date Expiration Date V isits Requested Visits Authorized [id number] Closed Auto-Generate d Referral 03/29/2023 03/29/2024 1 1 [facility] Summary Purpose Family History No Family History Records FoundNo Family History Records FoundNo Family History Records FoundNo Family History Records FoundNo Family History Records FoundNo Family History Records FoundNo Family History Records FoundNo Family History Records Found Advance Directives No Advanced Directives Records Found Advance Directive Response Recorded Date/ Time Advance Directives No June 27, 2017 5:24pm Living Will No December 29, 2021 10:12am Power of Cylinder Batcher No December 29 10:12am Advance Directive Response Recorded Date/ Time Advance Directives No June 27, 2017 5:24pm Living Will No October 20, 2022 1 2:25pm Power of Cylinder Batcher No October 20, 2022 12:25pm Advance Directive Response Recorded Date/ Time Advance Directives No June 27, 2017 5:24pm Living Will No November 02, 2022 1 :49pm Power of Cylinder Batcher No November 02, 2022 1:49pm Advance Directive Response Recorded Date/ Time Advance Directives No June 27, 2017 5:24pm Living Will No November 15, 2022 12:25pm Power of Cylinder Batcher No November 15 12:25pm Advance Directive Response Recorded Date/ Time Do you have a Healthcare Power of Cylinder Batcher? No November 20, 2024 11:22pm Advance Directives No June 27, 2017 5:24pm Advance Directive Response Recorded Date/ Time Do you have a Healthcare Power of Cylinder Batcher? No November 20, 2024 11:22pm Do you have a Healthcare Power of Cylinder Batcher? No December 26, 2024 1:07pm Advance Directives No June 27, 2017 5:24pm Chief Complaint and Reason for Visit Chief Complaint DENTAL Chief Complaint SUICIDAL IDEATION Chief Complaint SUICIDAL IDEATION SUICIDAL SUICIDAL Chief Complaint SUICIDAL IDEATION SUICIDAL SUICIDAL mental health Chief Complaint Admit Date heartburn November 20, 2024 11:1 7pm Chief Complaint Admit Date heartburn November 20, 2024 11:1 7pm chest pain December 26, 2024 12:5 6pm Reason for Referral Specialty Diagnoses / Procedures Referred By Elva durham Referred To Contact Diagnoses Palpitations Chest pain, unspecified type Procedures Exercise stress test Hilda Suarez MD [address] [place] [address] Referral ID Status Reason Start Date Expiration Date V isits Requested Visits Authorized [id number] Incomplete 12/16/2022 06/14/2023 1 1 Specialty Diagnoses / Procedures Referred By Contac t Referred To Contact Cardiology Diagnoses Palpitations Procedures Cardiac event monitor Hilda Suarez MD [address] [place] [address] Referral ID Status Reason Start Date Expiration Date V isits Requested Visits Authorized [id number] Pending Review 12/16/2022 06/14/2023 1 1 Referral ID Status Reason Start Date Expiration Date Visits Re quested Visits Authorized [id number] Closed 12/16/2022 06/14/2023 1 1 Specialty Diagnoses / Procedures Referred By Contac t Referred To Contact Cardiology Diagnoses Palpitations Chest pain, unspecified type Procedures Exercise stress test Hilda Suarez MD [address] [place] [address] Referral ID Status Reason Start Date Expiration Date Visits Re quested Visits Authorized [id number] Closed 12/16/2022 06/14/2023 1 1 Medications Administered Section Inactive Administered Medications - up to 3 most recent administrations Medication Order MAR Action Action Date Dose Rate Site meperidine (PF) injection (DEMEROL) X (OR/PROCEDURE) PRN, Starting on Davina 04/14/23 at 1354, Until Davina 04/14/23 at 1354, Intraprocedure Given 04/14/2023 1:54 PM EST 50 mg midazolam (PF) injection (VERSED) INTRAVENOUS, X (OR/PROCEDURE) PRN, Starting on Davina 04/14/23 at 1355, Until Davina 04/14/23 at 1355, Intraprocedure Given 04/14/2023 1:55 PM EST 3 mg NaCl 0.9% iv infusion INTRAVENOUS, X (OR/PROCEDURE) CONTINUOUS, Starting on Davina 04/14/23 at 1357, Until Davina 04/14/23 at 1357, Intraprocedure New Bag/Syringe/Bottle 04/14/2023 1:57 PM EST 1,000 mL ondansetron (PF) injection (ZOFRAN) INTRAVENOUS, X (OR/PROCEDURE) PRN, Starting on Davina 04/14/23 at 1357, Until Davina 04/14/23 at 1357, Intraprocedure Given 04/14/2023 1:57 PM EST 4 mg Additional Source Comments (unrecognized sect ion and content) No Status Records FoundNo Status Records FoundNo Status Records FoundNo Status Records FoundNo Status Records FoundNo Status Records FoundNo Status Records FoundNo Status Records Found INFORMATION SOURCE (unrecogn ized section and content) DATE CREATED AUTHOR 11/25/2017 [facility] [employer] DATE CREATED AUTHOR AUTHOR'S ORGANIZ ATION [facility] DATE CREATED AUTHOR [facility] AT[facility] DATE CREATED AUTHOR AUTHOR'S ORGANIZ ATION 04/04/2023 [facility] DATE CREATED AUTHOR AUTHOR'S ORGANIZ ATION 11/04/2023 [facility] DATE CREATED AUTHOR AUTHOR'S ORGANIZ ATION 11/14/2023 [facility] DATE CREATED AUTHOR AUTHOR'S ORGANIZ ATION 01/02/2025 [facility] DATE CREATED AUTHOR AUTHOR'S ORGANIZ ATION 01/05/2025 [facility] Goals (unrecognized section and content) Goals may be documented in a n alternate sectionGoals may be documented in an alternate sectionGoals may be documented in an alternate sectionGoals may be documented in an alternate sectionGoals may be documented in an alternate sectionGoals may be documented in an alternate section Care Teams (unrecognized sec tion and content) Team Status: Active Member Role Status Dates Dr. Troy Mao MD Family Provider Active Shashank Marrufo NP, TOOLROOM CLERK-C Primary Care Provider Active Team Status: Inactive Member Role Status Dates Shashank Marrufo NP, TOOLROOM CLERK-C Primary Care Provider Active Dr. Moses Pascual MD Emergency Provider Active Team Status: Inactive Member Role Status Dates Shashank Marrufo NP, TOOLROOM CLERK-C Primary Care Provider Active Dr. Moses Pascual MD Attending Provider, Emergency Provider Active Team Status: Inactive Member Role Status Dates Shashank Marrufo NP, TOOLROOM CLERK-C Primary Care Provider Active Dr. Yasmany Reese MD Emergency Provider Active Team Status: Inactive Member Role Status Dates Shashank Marrufo TOOLROOM CLERK, TOOLROOM CLERK-C Primary Care Provider Active Dr. Sloane Suarez , Emergency Provider Active Team Status: Inactive Member Role Status Dates Shashank Marrufo TOOLROOM CLERK, TOOLROOM CLERK-C Primary Care Provider Active Dr. Yasmany Reese MD Attending Provider, Emergency Pr ovider Active Team Status: Inactive Member Role Status Dates Shashank Marrufo TOOLROOM CLERK, TOOLROOM CLERK-C Primary Care Provider Active Dr. Sloane Suarez DO Attending Provider, Emergency Pro vider Active Team Status: Inactive Member Role Status Dates Shashank Marrufo TOOLROOM CLERK, TOOLROOM CLERK-C Primary Care Provider Active Michael Bhandari MD Emergency Provider Active Forms Analysis Manager Relationship Specialty Start Date End Date [facility], [facility] [address] [place] [address] PCP - General 02/09/23 Forms Analysis Manager Relationship Specialty Start Date End Date [facility] [address] [place] [address] PCP - General 02/09/23 Forms Analysis Manager Relationship Specialty Start Date End Date [facility], [facility] [address] [place] [address] PCP - General 02/09/23 Forms Analysis Manager Relationship Specialty Start Date End Date Shashank Marrufo APRN.INDUSTRY ANALYST, DNP [address] [place] [address] PCP - General Family Medicine 01/21/20 Forms Analysis Manager Relationship Specialty Start Date End Date Shashank Marrufo APRN.INDUSTRY ANALYST, DNP [address] [place] [address] PCP - General Family Medicine 01/21/20 Forms Analysis Manager Relationship Specialty Start Date End Date Shashank Marrufo APRN.INDUSTRY ANALYST, DNP [address] [place] [address] PCP - General Family Medicine 01/21/20 Forms Analysis Manager Relationship Specialty Start Date End Date [facility] [address] [place] [address] PCP - General 02/09/23 Forms Analysis Manager Relationship Specialty Start Date End Date Shashank Marrufo APRN.INDUSTRY ANALYST, DNP [address] [place] [address] PCP - General Family Medicine 01/21/20 Forms Analysis Manager Relationship Specialty Start Date End Date [facility] [address] [place] [address] PCP - General 02/09/23 Team Status: Active Member Role Status Dates Shashank Marrufo TOOLROOM CLERK, TOOLROOM CLERK-C Primary Care Provider Active Team Status: Inactive Member Role Status Dates Shashank Marrufo TOOLROOM CLERK, TOOLROOM CLERK-C Primary Care Provider Active Start: November 20, 2024 End: November 21, 2024 Dr. Liudmila Bailon DO Emergency Provider Active Start: November 20, 2024 End: November 21, 2024 Team Status: Active Member Role/Relationship Status Dates No Primary Care Physician Primary Care Provider Active Team Status: Inactive Member Role/Relationship Status Dates Shashank Marrufo TOOLROOM CLERK, TOOLROOM CLERK-C Primary Care Provider Active Start: November 20, 2024 End: November 21, 2024 Dr. Liudmila Bailon DO Attending Provider Active Start: November 20, 2024 End: November 21, 2024 Dr. Liudmila Bailon DO Emergency Provider Active Start: November 20, 2024 End: November 21, 2024 Team Status: Inactive Member Role/Relationship Status Dates Dr. Liudmila Bailon DO Referring Provider Active Start: December 26, 2024 End: December 26, 2024 Dr. Liudmila Bailon DO Emergency Provider Active Start: December 26, 2024 End: December 26, 2024 No Primary Care Physician Primary Care Provider Active Start: December 26, 2024 End: December 26, 2024 Reason for Visit (unrecogniz ed section and content) Reason Comments New Patient Specialty Diagnoses / Procedures Referred By Contac t Referred To Contact Cardiology Diagnoses Palpitations Junctional premature depolarization (HCC) Procedures IN OFFICE/OP CONSLTJ NEW/EST PT MOD MDM 40 MINUTES [facility] [address] [place] [address] [facility] [address] [place] [address] Referral ID Status Reason Start Date Expiration Date Visits Re quested Visits Authorized [id number] Closed 11/30/2022 11/30/2023 1 1 Specialty Diagnoses / Procedures Referred By Contac t Referred To Contact Cardiology Diagnoses Palpitations Procedures Cardiac event monitor Hilda Suarez MD [address] [place] [address] Referral ID Status Reason Start Date Expiration Date Visits Re quested Visits Authorized [id number] Closed 12/16/2022 06/14/2023 1 1 Specialty Diagnoses / Procedures Referred By Contac t Referred To Contact Cardiology Diagnoses Palpitations Chest pain, unspecified type Procedures Exercise stress test Hilda Suarez MD [address] [place] [address] Referral ID Status Reason Start Date Expiration Date Visits Re quested Visits Authorized [id number] Closed 12/16/2022 06/14/2023 1 1 Reason Onset Date Comments Rash from event monitor 02/28/2023 Reason Comments GERD Vomits after eating. EGD in scanning. Pantoprazole not helping Reason Comments Refill Request Reason Comments Ear Problem States pain in R ear , states he has something in there x 1 week has had some bleeding Reason Comments Rash left forearm x 1 mon , burning and itching Reason Comments GI Upset nausea and diarrhea, has GERD but out of protonix x 3 days Reason Comments Sleep Apnea Dizziness Reason Comments STD has new partner requ esting testing, no symptoms Reason Comments Lab & Test Results Reason Onset Date Comments Refill Request 12/25/2024 Reason Comments GERD Reason Comments Medication Problem Direction clarificat ion Source Comments (unrecognize d section and content) In the event this informatio n is protected by the Federal Confidentiality of Alcohol and Drug Abuse Patient Records regulations: The Federal rules restrict any use of the information to criminally investigate or prosecute any alcohol or drug abuse patient.[facility] the event this information is protected by the Federal Confidentiality of Alcohol and Drug Abuse Patient Records regulations: The Federal rules restrict any use of the information to criminally investigate or prosecute any alcohol or drug abuse patient.[facility] the event this information is protected by the Federal Confidentiality of Alcohol and Drug Abuse Patient Records regulations: The Federal rules restrict any use of the information to criminally investigate or prosecute any alcohol or drug abuse patient.[facility] the event this information is protected by the Federal Confidentiality of Alcohol and Drug Abuse Patient Records regulations: The Federal rules restrict any use of the information to criminally investigate or prosecute any alcohol or drug abuse patient.[facility] the event this information is protected by the Federal Confidentiality of Alcohol and Drug Abuse Patient Records regulations: The Federal rules restrict any use of the information to criminally investigate or prosecute any alcohol or drug abuse patient.[facility] Center[facility] the event this information is protected by the Federal Confidentiality of Alcohol and Drug Abuse Patient Records regulations: The Federal rules restrict any use of the information to criminally investigate or prosecute any alcohol or drug abuse patient.[facility] the event this information is protected by the Federal Confidentiality of Alcohol and Drug Abuse Patient Records regulations: The Federal rules restrict any use of the information to criminally investigate or prosecute any alcohol or drug abuse patient.[facility] the event this information is protected by the Federal Confidentiality of Alcohol and Drug Abuse Patient Records regulations: The Federal rules restrict any use of the information to criminally investigate or prosecute any alcohol or drug abuse patient.[facility] Center[facility] the event this information is protected by the Federal Confidentiality of Alcohol and Drug Abuse Patient Records regulations: The Federal rules restrict any use of the information to criminally investigate or prosecute any alcohol or drug abuse patient.[facility] Center[facility] the event this information is protected by the Federal Confidentiality of Alcohol and Drug Abuse Patient Records regulations: The Federal rules restrict any use of the information to criminally investigate or prosecute any alcohol or drug abuse patient.[facility] Center[facility] the event this information is protected by the Federal Confidentiality of Alcohol and Drug Abuse Patient Records regulations: The Federal rules restrict any use of the information to criminally investigate or prosecute any alcohol or drug abuse patient.[facility] CenterIn the event this information is protected by the Federal Confidentiality of Alcohol and Drug Abuse Patient Records regulations: The Federal rules restrict any use of the information to criminally investigate or prosecute any alcohol or drug abuse patient.[facility] CenterIn the event this information is protected by the Federal Confidentiality of Alcohol and Drug Abuse Patient Records regulations: The Federal rules restrict any use of the information to criminally investigate or prosecute any alcohol or drug abuse patient.[facility] CenterIn the event this information is protected by the Federal Confidentiality of Alcohol and Drug Abuse Patient Records regulations: The Federal rules restrict any use of the information to criminally investigate or prosecute any alcohol or drug abuse patient.[facility] FOR RECORDS PERTAINING TO PATIENTS WHO ARE OR HAVE BEEN ENROLLED IN A CHEMICAL DEPENDENCY/SUBSTANCEABUSE PROGRAM, SOME INFORMATION MAY BE OMITTED. This clinical summary was aggregated from multiple sources. Caution should be exercised in using it in the provision of clinical care. This summary normalizes information from multiple sources, and as a consequence, information in this document may materially change the coding, format and clinical context of patient data. In addition, data may be omitted in some cases. CLINICAL DECISIONS SHOULD BE BASED ON THE PRIMARY CLINICAL RECORDS. [facility] [employer] [facility]. provides no warranty or guarantee of the accuracy or completeness of information in this document.
[2025-05-09 22:28] LABS: Alcohol, Blood (Medical)-Serum < 10.1 mg/dL (<=10.0)
[2025-05-09 22:29] LABS: Anion Gap 12 (5-15); BUN 18 mg/dL (4-19); BUN/Creat Ratio 14.6 RATIO (10-20); Calcium,Total 9.5 mg/dL (7.6-11.0); Carbon Dioxide 25.0 mmol/L (21.0-32.0); Chloride 101 mmol/L (98-108); Estimated Creatinine Clearance 96.08 ml/min (50-250); Glucose 86 mg/dL (70-99); Potassium 3.8 mmol/L (3.3-5.1)
[2025-05-09 22:36] VITALS: BP 117/77; PULSE 78; RESP 16; O2SAT 99
[2025-05-09 22:59] LABS: Barbiturate Urine NEGATIVE (< 200 ng/mL); Benzodiazepine Urine NEGATIVE (< 200 ng/mL); PCP Urine NEGATIVE (< 25 ng/mL); THC Urine PRESUMPTIVE POSITIVE (< 50 ng/mL)
[2025-05-09 22:59] LABS: CPK Total, Creatine Kinase 92 U/L (24-195)
--- NOTE | 2025-05-09 23:59 | PCA ---
CRISIS CALLED CHART FAXED
--- NOTE | 2025-05-10 03:51 | PCA ---
pt referred to elena mcgregor
[2025-05-10 05:04] VITALS: BP 111/76; PULSE 70; RESP 18; TEMP 36.7; O2SAT 99
--- NOTE | 2025-05-10 05:04 | ED.RN ---
This RN called report and spoke with Marlene. No further questions at this time.
[2025-05-10 07:49] VITALS: BP 118/72; PULSE 62; RESP 16; TEMP 36.5; O2SAT 98
== END 2025-05-10 07:57 ==
LOC: ED 22:19
PROVIDERS: Emergency Provider Emergency Medicine; Visit Provider Emergency Medicine
DX: F31.9 Bipolar disorder, unspecified (principal); F17.210 Nicotine dependence, cigarettes, uncomplicated; F98.8 Other specified behavioral and emotional disorders with onset usually occurring in childhood and adolescence; F84.0 Autistic disorder; F12.90 Cannabis use, unspecified, uncomplicated; R06.00 Dyspnea, unspecified
CPT/HCPCS: 80048; 80307; 82077; 82550; 85025; 99285

== ENCOUNTER 2025-05-24 11:12 | Emergency (ER) | payer MEDICARE, MEDICAID, SELFPAY ==
[2025-05-24 11:13] VITALS: BP 95/76; PULSE 99; RESP 16; TEMP 36.7; O2SAT 100; BMI 23.7
--- NOTE | 2025-05-24 11:56 | CT_ITS ---
PROCEDURE: ABDOMEN/PELVIS W IV CONT ONLY 05/24/2025 REASON FOR EXAM: Abdominal pain. TECHNIQUE: Procedure Code: [id number] Modality: CT Procedure: ABDOMEN/PELVIS W IV CONT ONLY Coronal and Sagittal reconstruction series were provided. CONTRAST: VOLUME: mL One or more dose reduction techniques were used (e.g., Automated exposure control, adjustment of the mA and/or kV according to patient size, use of iterative reconstruction technique. RADIATION DOSE SUMMARY: DLP: 518.97 mGycm COMPARISON: None available. FINDINGS: Lower chest: Lung bases are clear. Liver: Normal size. Normal morphology and enhancement. No enhancing lesion. Gallbladder and biliary ducts: Unremarkable gallbladder. Normal caliber intrahepatic and common bile ducts. Pancreas:Unremarkable. No ductal dilatation or mass. No peripancreatic fluid. Spleen: Top-normal in size. 1.5 x 1.4 cm splenule inferior to the spleen. Adrenal glands: Unremarkable. Kidneys and ureters: Normal renal size, morphology, and enhancement. 5 mm right superior calyceal calculus with mild surrounding fluid. Nonobstructive punctate left renal calculus. No hydroureteronephrosis or renal mass. Urinary bladder: Nondistended limiting evaluation. GI: Unremarkable stomach and duodenum. Normal caliber small bowel and large bowel. Appendix: Unremarkable. Peritoneum: No ascites. Lymph nodes: Multiple nonspecific subcentimeter shotty mesenteric lymph nodes. No lymphadenopathy. Vasculature: Portal, splenic, and superior mesenteric veins are patent. No abdominal aortic aneurysm. Reproductive organs: Unremarkable prostate. Symmetrical seminal vesicles. Musculoskeletal and soft tissues: No aggressive osseous lesions. Unremarkable soft tissues. CT/Abdomen/Pelvis W IV Cont ONLY IMPRESSION: 1. No acute pathology in the abdomen or pelvis. 2. 5 mm right superior calyceal calculus. 3. Additional findings as discussed in the body of the report. Reading Location: [id number]
--- NOTE | 2025-05-24 12:00 | ED.VIS.GI ---
HPI HPI - GI History of Present Illness Chief Complaint: Nausea/Vomiting Informant: patient Abdominal Pain/Flank Pain Onset: Yesterday Context: Gradual Onset Timing: Continuous Quality: Sharp Location: Epigastric and RUQ Worsened by: Movement Relieved by: Nothing Nausea/Vomiting/Emesis GI Symptom: Positive for Nausea Onset: Yesterday Quality: Positive for Hematemesis Diarrhea/Melena/Hematochezia GI Symptom: Negative for Diarrhea, Melena or Hematochezia Associated Symptoms Associated Symptoms: Negative for Dysuria, Frequency or Hematuria Narrative Narrative: Patient presents with hematemesis that began last night. Patient states he has been having some nausea and vomiting. Patient states last night he vomited up some bright red as well as dark brown blood. Patient admits to some pain over his upper abdomen. Patient states it is sharp. Patient states it is mainly over the right upper quadrant. Patient states it is worse with movement. Patient is nothing makes it better. Patient denies any diarrhea, melena, or hematochezia. Patient states he has been constipated. Patient admits to some urinary frequency but denies any dysuria or hematuria. Patient denies any fevers or chills. PFSH PFS Medical History (Updated 05/24/25 @ 13:[address] Rodney Angel, DO) Methamphetamine abuse Suicidal behavior ADD (attention deficit disorder) Autism GERD (gastroesophageal reflux disease) Bipolar 1 disorder Home Medications ?Medication ?Instructions ?Recorded ?Last Taken ?Type aripiprazole 10 mg tablet 10 mg PO DAILY 11/15/22 12/26/24 History sertraline 50 mg tablet (Zoloft) 50 mg PO DAILY 11/15/22 12/26/24 History simethicone 80 mg chewable tablet 160 mg PO DAILY PRN abdominal 12/26/24 12/26/24 History (Gas Relief (simethicone)) distention pantoprazole 40 mg tablet,delayed 40 mg PO DAILY #30 tabs 05/24/25 Unknown Rx release (Protonix) Allergy/AdvReac Type Severity Reaction Status Date / Time Environmental Allergies: Allergy Hives Verified 05/24/25 11:17 Uncoded (pine) haloperidol (From Haldol) AdvReac HALLUCINATI Verified 05/24/25 11:17 ONS Surgical History (Updated 05/24/25 @ 12:[address] Rodney Angel, DO) Hx of esophagogastroduodenoscopy Social History household members: none and other details: Patient is incarcerated housing: house Smoking Status: Current every day smoker tobacco type: cigarettes and e-cigarettes details: No alcohol since incarceration substance use type: marijuana and other details: no IVDU ROS ROS ED Constitutional Constitutional ED: Denies chills or fever(s) Eyes Eyes: Denies blurry vision or change in vision ENT ENT ED: Denies rhinorrhea or sore throat Cardiovascular Cardiovascular: Denies chest pain or palpitations Respiratory/Chest Respiratory/Chest: Reports cough; Denies dyspnea Gastrointestinal Gastrointestinal: Reports abdominal pain, constipation, nausea and vomiting; Denies diarrhea Genitourinary Genitourinary ED: Reports urinary frequency; Denies dysuria or hematuria Musculoskeletal Musculoskeletal: Reports back pain; Denies neck pain Integumentary Denies abscess or rash Neurologic Neurologic: Reports headache(s); Denies weakness Allergic/Immunologic Allergic/Immunologic ED: Denies mouth swelling or urticaria EXAM Physical Exam Const Vital Signs: 05/24/25 11:13 05/24/25 13:00 Temperature 98.1 F Temperature Source Oral Pulse Rate 99 80 Respiratory Rate 16 17 Blood Pressure 95/76 100/80 Blood Pressure Mean 82 86 Pulse Ox 100 99 Oxygen Delivery Method Room Air Positive well nourished and well developed Constitutional Narrative: BMI is 23.7. General Appearance ED: well developed and NAD HEENT Reports moist mucous membranes Neck supple and no JVD Resp normal respiratory effort and clear to auscultation bilaterally Cardio regular rate and regular rhythm GI non-distended Palpation: soft and tender epigastric and RUQ; Negative for guarding or rebound tenderness present Extremity full ROM General Extremety ED: Negative for edema or tenderness General Extremity: Negative for edema Neuro CN's II-XII intact bilaterally, moves all extremities and no sensory deficits noted Sensorium / Orientation: alert Motor Exam: strength 5/5 throughout Psych mental status grossly normal MDM MDM MDM Narrative Medical decision making narrative: Differential diagnosis includes cholecystitis, cholelithiasis, peptic ulcer disease, duodenal ulcer, bowel obstruction, perforation, electrolyte abnormality, pancreatitis, and gastroenteritis. CT scan of the abdomen and pelvis will be obtained to assess for bowel obstruction and perforation. CBC will be obtained to assess for leukocytosis and anemia. Comprehensive metabolic profile will be obtained to assess for hepatic function, renal function, and electrolyte abnormality. Lipase will be obtained to assess for pancreatitis. Urinalysis will be obtained to assess for urinary tract infection and hematuria. Lab Data Attestation: I reviewed the patient's lab results. Lab results narrative: CBC was reviewed and was within normal limits. Comprehensive metabolic profile was reviewed and was within normal limits. Lipase was reviewed and was normal at 42. Urinalysis was reviewed and was within normal limits. Labs: Laboratory Results - last 24 hr 05/24/25 05/24/25 12:02 12:15 WBC 10.0 RBC 4.78 Hgb 14.8 Hct 42.6 MCV 89.1 MCH 31.0 MCHC 34.7 RDW Std Deviation 41.0 RDW Coeff of Sis 12.6 Plt Count 232 MPV 9.5 Immature Gran % (Auto) 0.500 Neut % (Auto) 80.2 H Lymph % (Auto) 6.7 L [place] % (Auto) 10.0 Eos % (Auto) 2.4 Baso % (Auto) 0.2 Absolute Neuts (auto) 8.0 H Absolute Lymphs (auto) 0.67 L Nucleated RBC % 0 Sodium 138 Potassium 3.8 Chloride 99 Carbon Dioxide 29.6 Anion Gap 9 BUN 7 Creatinine 0.73 Estim Creat Clear Calc 161.89 Est GFR (MDRD) Non-Af 128 BUN/Creatinine Ratio 9.6 L Glucose 84 Calcium 9.6 Total Bilirubin 0.35 AST 25 ALT 59 H Alkaline Phosphatase 58 Total Protein 6.9 Albumin 4.2 Globulin 2.7 Albumin/Globulin Ratio 1.6 Lipase 22 Urine Color Yellow Urine Clarity Clear Urine pH 7.0 Ur Specific [place] 1.015 Urine Protein 15 H Urine Glucose (UA) Normal Urine Ketones Negative Urine Occult Blood Negative Urine Nitrite Negative Urine Bilirubin Negative Urine Urobilinogen Normal Ur Leukocyte Esterase Negative Urine RBC 0 SEEN Urine WBC 0 SEEN Ur Squamous Epith Cells 0 SEEN Urine Bacteria 0 SEEN Urine Mucus 0 SEEN Radiography Diagnostic Testing: Clinical Impression(s) from Imaging Studies Abdomen/Pelvis CT 05/24/25 11:56 IMPRESSION: 1. No acute pathology in the abdomen or pelvis. 2. 5 mm right superior calyceal calculus. 3. Additional findings as discussed in the body of the report. Reading Location: [facility] CT scan of the abdomen and pelvis was obtained. There is no acute abnormality noted. There is a right renal calculus. There is no free air or free fluid. This was interpreted by the radiologist. I also independently reviewed the images and did not see any evidence of bowel obstruction or perforation. Treatment and Re-Evaluation :: Patient was given IV fluids. Patient was given a dose of Zofran. Patient was given a dose of Protonix. Patient was advised of his findings. Patient was given a prescription for Protonix. Patient was instructed to follow-up with his primary care physician in 5 to 7 days. Patient was also given a referral for gastroenterology. The patient understood and was agreeable with the plan. All questions were answered. Discharge Plan Triage Chief Complaint: Nausea/Vomiting ED Provider: Rodney Angel Dx/Rx/DC Orders Clinical Impression: Nausea and vomiting, Abdominal pain Instructions: ED Vomiting (Adult), ED Abdominal Pain Unkn Cause Male... Prescriptions: New pantoprazole [Protonix] 40 mg tablet,delayed release (DR/EC) 40 mg PO DAILY Qty: 30 0RF No Action sertraline [Zoloft] 50 mg tablet 50 mg PO DAILY Patient Comments: 50 mg Oral every morning aripiprazole 10 mg tablet 10 mg PO DAILY simethicone [Gas Relief (simethicone)] 80 mg tablet,chewable 160 mg PO DAILY PRN (Reason: abdominal distention) Primary Care Provider: Care Physician,No Primary Referrals: Jeff Delgadillo DO [Med Staff - Active Staff, Gastroenterology] - 5-7 Days Care Physician,No Primary [Primary Care Provider, Medical] Red Martini, INDUSTRIAL G[employer] HELPER-[employer] [facility] - 1-2 Weeks Print Language: Hebrew Disposition Disposition: Home, Self Care
[2025-05-24] MEDS: 0.9% Normal Saline (1000mL) 1,000 ML 999 ML IV (12:06)
[2025-05-24 12:10] LABS: Hematocrit 42.6 % (40-54); Hemoglobin 14.8 g/dL (13.0-16.5); Immature Granulocytes Count 0.050 X10^3/uL (0.0-0.0); Mean Corp Hgb Conc 34.7 g/dL (32-36); Mean Corpuscular Volume 89.1 fL (80-94); Mean Platelet Vol. 9.5 fl (6.2-12.0); NRBC Flagged by Analyzer 0 % (0-5); Platelet Count 232 K/mm3 (150-450); RBC Distribution Width CV 12.6 % (11.6-14.6); RBC Distribution Width SD 41.0 fl (35.1-43.9); Red Blood Count 4.78 M/mm3 (4.6-6.2); White Blood Count 10.0 K/mm3 (4.4-11.0)
[2025-05-24 12:20] LABS: Mucous, Urine 0 SEEN /hpf (<or=2+); Red Blood Cells-Urine 0 SEEN /hpf (0-5); Squamous Epithelial Cells - UA 0 SEEN /hpf (0-5)
[2025-05-24 12:21] LABS: Color, Urine Yellow (Yellow); Glucose, Dipstick Normal (Normal); Ketone-Dipstick Negative (Negative); Leukocyte Esterase-Dipstick Negative /ul (Negative); Nitrite-Dipstick Negative (Negative); Occult Blood-Urine Negative /ul (Negative); Protein-Dipstick 15 mg/dl (Negative); Specific Gravity, Urine 1.015 (1.002-1.030); Urine Bilirubin Dipstick Negative (Negative)
[2025-05-24] MEDS: Pantoprazole Sodium 80 MG in 0.9% Normal Saline (50mL Bag) 15 ML 420 MG IV BOLUS (12:35)
[2025-05-24 12:39] LABS: AST(SGOT) 25 U/L (<=37); Alanine Aminotransfer ALT/SGPT 59 U/L (<=46); Albumin, Serum 4.2 g/dL (3.5-5.0); Alkaline Phosphatase 58 U/L (40-129); Anion Gap 9 (5-15); BUN 7 mg/dL (4-19); BUN/Creat Ratio 9.6 RATIO (10-20); Calcium,Total 9.6 mg/dL (7.6-11.0); Carbon Dioxide 29.6 mmol/L (21.0-32.0); Chloride 99 mmol/L (98-108); Estimated Creatinine Clearance 161.89 ml/min (50-250); Globulin 2.7 g/dL (2.2-4.2); Glucose 84 mg/dL (70-99); Lipase 22 U/L (13-75); Potassium 3.8 mmol/L (3.3-5.1)
[2025-05-24 13:00] VITALS: BP 100/80; PULSE 80; RESP 17; O2SAT 99
[2025-05-24 13:51] VITALS: BP 100/80; PULSE 80; RESP 17; TEMP 36.6; O2SAT 99
--- NOTE | 2025-05-24 15:11 | CM.ED ---
Social work Reason for referral: transportation resources Referral source: Dr Angel SW entered patient's room, introducing self and role at [facility]. SW stated patient's doctor identified patient being in need of transportation resources and patient confirmed. SW provided resources through patient's insurance, as well as [employer]. Patient also confirmed lacking a PCP and accepted resources of [facility] Provider Directory and Irina Noyola information. Patient stated having no further needs at this time. Amy Maloney, SHREDDED FILLER HOPPER FEEDER, LOG SNAKER
== END 2025-05-24 13:52 | disposition home or self-care (01) ==
PROVIDERS: Emergency Provider Emergency Medicine; Visit Provider Emergency Medicine
DX: R11.2 Nausea with vomiting, unspecified (principal); F31.9 Bipolar disorder, unspecified; K92.0 Hematemesis; R10.A0 Flank pain, unspecified side; F17.210 Nicotine dependence, cigarettes, uncomplicated; K21.9 Gastro-esophageal reflux disease without esophagitis; F84.0 Autistic disorder; F98.8 Other specified behavioral and emotional disorders with onset usually occurring in childhood and adolescence; F12.90 Cannabis use, unspecified, uncomplicated; R05.9 Cough, unspecified; M54.9 Dorsalgia, unspecified; R35.0 Frequency of micturition; R51.9 Headache, unspecified
CPT/HCPCS: 74177; 80053; 81001; 83690; 85025; 96365; 96375; 99284; Q9967; J2405